=== PATIENT | female | born 1975 | race Caucasian/White ===

== ENCOUNTER → 2016-10-29 | Outpatient (CLI) | payer MEDICARE | END | disposition home or self-care (01) | LOC: PTMAIN 08:50 | PROVIDERS: ATTEND Otolaryngology | DX: J37.0 Chronic laryngitis (principal); E78.00 Pure hypercholesterolemia, unspecified; M79.7 Fibromyalgia; F32.9 Major depressive disorder, single episode, unspecified; F41.9 Anxiety disorder, unspecified; G47.33 Obstructive sleep apnea (adult) (pediatric); G40.909 Epilepsy, unspecified, not intractable, without status epilepticus; G89.29 Other chronic pain; M54.9 Dorsalgia, unspecified ==

== ENCOUNTER 2016-11-29 13:07 | Emergency (ER) | payer MEDICARE ==
[2016-11-29 13:21] VITALS: BP 136/80; PULSE 101; RESP 20; TEMP 98.3
--- NOTE | 2016-11-29 13:51 | ED ---
ENT HPI - General Chief complaint: Dental/Oral Stated complaint: MOUTH HURTS Time Seen by Provider: 11/29/16 13:37 Source: patient, RN notes reviewed Mode of arrival: ambulatory Limitations: no limitations - History of Present Illness Initial comments: 40-year-old female presents emergency Department chief complaint dental pain. Patient states she woke up today with swelling and pain. Patient has fever, chills. Denies any difficulty swallowing. Patient does not have a dentist. Patient has ALLERGIES Topamax. Patient is not taking any medication for her symptoms at this time. - Related Data Home Medications Medication Instructions Recorded Confirmed Armodafinil [Nuvigil] 150 mg PO DAILY 01/26/14 07/23/16 DULoxetine HCL [Cymbalta] 60 mg PO BID 01/26/14 07/23/16 Hydrocodone/Acetaminophen [[place] 1 tab PO Q8HR PRN 01/26/14 07/23/16 7.5-325] clonazePAM [KlonoPIN] 0.5 mg PO BID 01/26/14 07/23/16 rOPINIRole HCL [Requip] 0.5 mg PO HS 07/23/16 07/23/16 tiZANidine [Zanaflex] 4 mg PO Q8HR PRN 07/23/16 07/23/16 Previous Rx's Medication Instructions Recorded Albuterol Inhaler [Ventolin Hfa 1 - 2 puff INHALATION Q4-6H PRN #1 07/23/16 Inhaler] inhaler Albuterol Nebulized [Ventolin 2.5 mg INHALATION Q4H #20 nebu 07/23/16 Nebulized] predniSONE 50 mg PO DAILY #5 tab 07/23/16 Acetaminophen-Codeine 300-30mg 1 tab PO Q4H PRN #20 tablet 11/29/16 [Tylenol #3] Ibuprofen [Motrin] 600 mg PO Q8HR PRN #30 tab 11/29/16 Penicillin V Potassium [Pen Vee K] 500 mg PO QID #40 tab 11/29/16 Allergies Allergy/AdvReac Type Severity Reaction Status Date / Time topiramate [From Topamax] Allergy Unknown Verified 11/29/16 13:21 Review of Systems ROS Statement: Those systems with pertinent positive or pertinent negative responses have been documented in the HPI. ROS Other: All systems not noted in ROS Statement are negative. Past Medical History Past Medical History: Asthma, Dialysis, Fibromyalgia, Seizure Disorder Additional Past Medical History / Comment(s): CHRONIC BACK PAIN; Restless leg syndrome History of Any Multi-Drug Resistant Organisms: None Reported Past Surgical History: Back Surgery, Section, Hysterectomy, Orthopedic Surgery, Tubal Ligation Past Psychological History: Anxiety, Depression, Panic Disorder Smoking Status: Current every day smoker Past Alcohol Use History: None Reported Past Drug Use History: None Reported General Exam Limitations: no limitations General appearance: alert, in no apparent distress Head exam: Present: atraumatic, normocephalic, normal inspection ENT exam: Present: mucous membranes moist, TM's normal bilaterally, normal external ear exam. Absent: normal oropharynx (Edentulous, multiple areas of dental decay, no drainable abscess noted there is mild swelling to the left cheek noted) Neck exam: Present: normal inspection, full ROM. Absent: tenderness, meningismus, lymphadenopathy Respiratory exam: Present: normal lung sounds bilaterally. Absent: respiratory distress, wheezes, rales, rhonchi, stridor Cardiovascular Exam: Present: regular rate, normal rhythm, normal heart sounds. Absent: systolic murmur, diastolic murmur, rubs, gallop, clicks Course Vital Signs 11/29/16 13:18 Temperature 98.3 F Pulse Rate 101 H Respiratory 20 Rate Blood Pressure 136/80 O2 Sat by Pulse 98 Oximetry Medical Decision Making - Medical Decision Making 4-year-old female presented for dental pain. Patient was started on penicillin , Tylenol with codeine, ibuprofen. Patient was given dental clinic follow-up and return parameters. Disposition Clinical Impression: Dental caries, Dental infection Disposition: HOME SELF-CARE Condition: Stable Instructions: Toothache (ED) Additional Instructions: Please return to the Emergency Department if symptoms worsen or any other concerns.Please follow up with the [facility] dental clinic. [facility] [place] [address]. Phone number for new patients or [phone] for existing patients. Prescriptions: Acetaminophen-Codeine 300-30mg [Tylenol #3] 1 tab PO Q4H PRN #20 tablet PRN Reason: pain Ibuprofen [Motrin] 600 mg PO Q8HR PRN #30 tab PRN Reason: Pain Penicillin V Potassium [Pen Vee K] 500 mg PO QID #40 tab Time of Disposition: 13:51
== END 2016-11-29 13:56 | disposition home or self-care (01) ==
LOC: EC 13:07
DX: K04.7 Periapical abscess without sinus (principal); K02.9 Dental caries, unspecified; F17.200 Nicotine dependence, unspecified, uncomplicated; J45.909 Unspecified asthma, uncomplicated; F32.9 Major depressive disorder, single episode, unspecified; F41.9 Anxiety disorder, unspecified; G40.909 Epilepsy, unspecified, not intractable, without status epilepticus; G25.81 Restless legs syndrome; Z88.8 Allergy status to other drugs, medicaments and biological substances; Z79.899 Other long term (current) drug therapy; Z79.52 Long term (current) use of systemic steroids
CPT/HCPCS: 99282

== ENCOUNTER 2016-11-30 20:41 | Emergency (ER) | payer MEDICARE ==
[2016-11-30] MEDS ORDERED: SODIUM CHLORIDE 0.9% 1,000 ML IV ONE (22:58)
[2016-11-30] MEDS ORDERED: MORPHINE SULFATE 4 MG/ML SYRINGE IVP STA (22:59)
[2016-11-30] MEDS ORDERED: SODIUM CHLORIDE 0.9% 1,000 ML IV SCH (23:00)
[2016-11-30] MEDS ORDERED: methylPREDNISolone SOD SUCCI 125 MG/2 ML VIAL IM ONE (23:07)
[2016-11-30] MEDS ORDERED: HYDROmorphone 1 MG/ML 1 ML SYRINGE IM STA (23:07)
[2016-11-30] MEDS ORDERED: CLINDAMYCIN 150 MG CAP PO STA (23:08)
--- NOTE | 2016-11-30 23:36 | ED ---
ENT HPI - General Chief complaint: Dental/Oral Stated complaint: dental pain-revisit Time Seen by Provider: 11/30/16 22:48 Source: patient, RN notes reviewed, old records reviewed Mode of arrival: wheelchair Limitations: no limitations - History of Present Illness Initial comments: Patient is a 40 year old female with increased swelling of upper lip for one day. She was diagnosed with dental infection of teeth number 8 and 9, and placed on PEn V K yesterday. She reports to taking one day o fantiobtiobics. She reports that sunni pain is secere and worse with movenent of the lip. She states it started infront tooot upper teeth and then has progress and spread on face. She denies any erythema on the face. She reports mild fever. She has not had motrin or tylenol. - Related Data Home Medications Medication Instructions Recorded Confirmed Armodafinil [Nuvigil] 150 mg PO DAILY 01/26/14 11/30/16 DULoxetine HCL [Cymbalta] 60 mg PO BID 01/26/14 11/30/16 Hydrocodone/Acetaminophen [[place] 1 tab PO Q8HR PRN 01/26/14 11/30/16 7.5-325] clonazePAM [KlonoPIN] 0.5 mg PO BID 01/26/14 11/30/16 rOPINIRole HCL [Requip] 0.5 mg PO HS 07/23/16 11/30/16 tiZANidine [Zanaflex] 4 mg PO Q8HR PRN 07/23/16 11/30/16 Previous Rx's Medication Instructions Recorded Albuterol Inhaler [Ventolin Hfa 1 - 2 puff INHALATION Q4-6H PRN #1 07/23/16 Inhaler] inhaler Albuterol Nebulized [Ventolin 2.5 mg INHALATION Q4H #20 nebu 07/23/16 Nebulized] predniSONE 50 mg PO DAILY #5 tab 07/23/16 Acetaminophen-Codeine 300-30mg 1 tab PO Q4H PRN #20 tablet 11/29/16 [Tylenol #3] Ibuprofen [Motrin] 600 mg PO Q8HR PRN #30 tab 11/29/16 Penicillin V Potassium [Pen Vee K] 500 mg PO QID #40 tab 11/29/16 Clindamycin [Cleocin] 450 mg PO TID 10 Days 11/30/16 Allergies Allergy/AdvReac Type Severity Reaction Status Date / Time topiramate [From Topamax] Allergy Unknown Verified 11/30/16 21:20 Review of Systems ROS Statement: Those systems with pertinent positive or pertinent negative responses have been documented in the HPI. ROS Other: All systems not noted in ROS Statement are negative. Past Medical History Past Medical History: Asthma, Dialysis, Fibromyalgia, Seizure Disorder Additional Past Medical History / Comment(s): CHRONIC BACK PAIN; Restless leg syndrome History of Any Multi-Drug Resistant Organisms: None Reported Past Surgical History: Back Surgery, Section, Hysterectomy, Orthopedic Surgery, Tubal Ligation Past Psychological History: Anxiety, Depression, Panic Disorder Smoking Status: Current every day smoker Past Alcohol Use History: None Reported Past Drug Use History: None Reported General Exam Limitations: no limitations General appearance: alert, in no apparent distress Head exam: Present: atraumatic, normocephalic, normal inspection Eye exam: Present: normal appearance, PERRL, EOMI. Absent: scleral icterus, conjunctival injection, periorbital swelling ENT exam: Present: normal exam, mucous membranes moist. Absent: normal oropharynx (decayed and broken tooth 8, 9. Significant swelling and pain of upper lip. ) Neck exam: Present: normal inspection. Absent: tenderness, meningismus, lymphadenopathy Respiratory exam: Present: normal lung sounds bilaterally. Absent: respiratory distress, wheezes, rales, rhonchi, stridor Cardiovascular Exam: Present: regular rate, normal rhythm, normal heart sounds. Absent: systolic murmur, diastolic murmur, rubs, gallop, clicks GI/Abdominal exam: Present: soft, normal bowel sounds. Absent: distended, tenderness, guarding, rebound, rigid Extremities exam: Present: normal inspection, full ROM, normal capillary refill. Absent: tenderness, pedal edema, joint swelling, calf tenderness Back exam: Present: normal inspection Neurological exam: Present: alert, oriented X3, CN II-XII intact Psychiatric exam: Present: normal affect, normal mood Skin exam: Present: warm, dry, intact, normal color. Absent: rash Course Vital Signs 11/30/16 12/01/16 21:20 00:07 Temperature 99.7 F H 99.6 F Pulse Rate 101 H 77 Respiratory 20 18 Rate Blood Pressure 144/93 133/66 O2 Sat by Pulse 97 96 Oximetry Medical Decision Making - Medical Decision Making I discussed the case with Dr. Abel. Patient will be staretd on clindamycin, and advised to do ice ocer the area of swelling. Dr. Abel examined the patient and patient has not had sufficient time of the oral antibiotics to consider this failed outpatient treatment. Patient given IM dilaudid and solumedrol. Patient given inital dose of clinda in ER. Patient strongly encouraged to follow up with dentitst and given instructions. Return parameters discussed. Disposition Clinical Impression: Dental abscess Disposition: HOME SELF-CARE Condition: Good Instructions: Dental Abscess (ED) Additional Instructions: Patient advised to apply an ice pack over the face. Patient advised to complete entire antibiotic prescription. Return to the emergency department if any alarming signs or symptoms occur. Patient advised to follow-up with dental clinic. Patient also advised to get topical Orajel and place it over the lip and teeth. Patient has to follow-up with dental clinic for x-rays. [facility] [place] [address] [place] [address] [phone] (existing clients only) For new clients: [phone] 1st consult: $50 (includes Xrays) Usually 30% less then private dentist for visits after. [employer] Have to pay $50 for Xrays anmd rest is covered. [phone] Prescriptions: Clindamycin [Cleocin] 450 mg PO TID 10 Days Referrals: Domingo Valdovinos MD [Primary Care Provider] - 1-2 days Time of Disposition: 23:36
[2016-12-01 00:08] VITALS: BP 133/66; PULSE 77; RESP 18; TEMP 99.6
== END 2016-12-01 00:08 | disposition home or self-care (01) ==
LOC: EC 20:41
DX: K04.7 Periapical abscess without sinus (principal); M79.7 Fibromyalgia; G25.81 Restless legs syndrome; F41.9 Anxiety disorder, unspecified; G40.909 Epilepsy, unspecified, not intractable, without status epilepticus; F41.0 Panic disorder [episodic paroxysmal anxiety]; F32.9 Major depressive disorder, single episode, unspecified; F17.200 Nicotine dependence, unspecified, uncomplicated; Z79.899 Other long term (current) drug therapy; Z88.8 Allergy status to other drugs, medicaments and biological substances
CPT/HCPCS: 99283; 96372 ×2; J2930; J1170

== ENCOUNTER → 2017-01-03 | Outpatient (CLI) | payer MEDICARE, OTHER ==
--- NOTE | 2017-01-03 11:27 | MR ---
MR brain and cervical spine HISTORY: Neck pain, back pain, memory loss Multiplanar multisequence imaging obtained through the brain and cervical spine No comparisons Brain MRI: The corpus callosum, pituitary, cervical medullary junction and cerebellopontine angles ar e normal. Scattered hyperintensities within the deep white matter are present on inversion recovery a nd T2-weighted sequences. There are approximately 5 lesions present. There is no restricted diffusion . No hemorrhage or hydrocephalus. The orbits show symmetric appearance. Suspect some arthropathy of t he temporomandibular joint on the right, some fluid signal is present. There are normal vascular flow voids. IMPRESSION: Scattered nonspecific foci of demyelination within the deep white matter, consider migrai ne headaches, hypertension, vasculitis, multiple sclerosis felt to be less likely. Cervical spine MRI Cervical vertebral bodies show preserved height, alignment, and bone marrow signal. Disc spaces are m aintained. Cervical cord signal is normal. There is no evident central canal stenosis, foraminal encr oachment, or sizable disc herniation. Right posterior paracentral extension of endplate disc complex at C6-7 causes minimal anterolateral mass effect on the thecal sac. IMPRESSION: Mild degenerative disc change
--- NOTE | 2017-01-03 12:23 | MR ---
EXAMINATION TYPE: MR lumbar spine wo/w con DATE OF EXAM: 01/03/2017 10:53 AM COMPARISON: NONE HISTORY: Lumbago TECHNIQUE: Multiplanar, multisequence images of the lumbar spine were acquired utilizing 20 mL intravenous Multi Jett gadolinium contrast. L1-L2: Normal disc appearance without desiccation. No herniation, protrusion or disc bulging. No ca nal stenosis is present. Foramina are patent bilaterally. L2-L3: Normal disc appearance without desiccation. No herniation, protrusion or disc bulging. No ca nal stenosis is present. Foramina are patent bilaterally. L3-L4: Central posterior disc herniation is small and causes minimal anterior mass effect on the thec al sac. Some arthropathy with hypertrophy of the ligamentum flavum causes some posterior lateral mass effect on the thecal sac. L4-L5: Loss of disc height and signal, there is endplate discogenic marrow signal change present. Cir cumferential posterior broad-based disc bulge causes anterior mass effect on the thecal sac, only mil d mass effect. There is facet arthropathy with hypertrophy of ligamentum flavum encroaches somewhat o n the lateral recesses. No significant foraminal encroachment. L5-S1: Postop changes are noted. No significant central canal stenosis. There may be bilateral forami nal encroachment due to circumferential extension of endplate disc complex. Disc shows a heterogeneou s appearance likely due to postoperative change, there is likely spacing changes present. Laminectomy change. Lumbar segments are intact. No paraspinal masses are identified. Conus medullaris has a normal appe arance. Patient is status post posterior fusion at L5-S1, susceptibility artifact is present due to t ranspedicular screws. Hemangioma is present within the L4 vertebral body, increased signal on T1 and T2-weighted sequences. At the laminectomy site posteriorly there is enhancing granulation tissue whic h extends into the level about the posterior thecal sac and possibly in contact with the S1 nerve rena ts posteriorly No other abnormal enhancement following contrast administration. IMPRESSION: Degenerative disc disease, foraminal encroachment, postop changes.
== END | disposition home or self-care (01) ==
LOC: RADMRIMAIN 09:15
PROVIDERS: ATTEND Nurse Practitioner Acute Care
DX: S09.90XA Unspecified injury of head, initial encounter (principal); M54.2 Cervicalgia; M51.36 Other intervertebral disc degeneration, lumbar region
CPT/HCPCS: 70551; 72141; 72158; A9577

== ENCOUNTER → 2017-04-13 | Outpatient (CLI) | payer MEDICARE, OTHER | END | disposition home or self-care (01) | LOC: LABWHC1 14:38 | PROVIDERS: ATTEND Physician Assistant | DX: E55.9 Vitamin D deficiency, unspecified (principal) | CPT/HCPCS: 36415; 82306 ==

== ENCOUNTER → 2017-06-22 | Outpatient (CLI) | payer MEDICARE, OTHER ==
--- NOTE | 2017-06-22 16:00 | NM ---
EXAMINATION TYPE: NM hepatobiliary wo EF DATE OF EXAM: 06/22/2017 COMPARISON: NONE HISTORY: R10.13 Epigastric pain TECHNIQUE: After the intravenous administration of 6 mCi Tc 99m Mebrofenin hepatobiliary scintigraphy is performed. Immediate images post injection. FINDINGS: There is homogeneous distribution of radiotracer throughout the liver. The common bile duct and small bowel are visualized at 6 minutes. The gallbladder was not demonstrated up to 90 minutes. Discontinu ed at 90 minutes because of the lack of radiotracer within the liver. IMPRESSION: 1. Nonvisualization of the gallbladder at 90 minutes. Given the lack of radiotracer within the liver at 90 minutes the examination was discontinued. The findings could be related fluid ingestion prior t o the examination with gallbladder contraction. Cystic duct obstruction is difficult to exclude howev er and clinical correlation advised.
== END | disposition home or self-care (01) ==
LOC: RADNMMAIN 12:54
PROVIDERS: ATTEND Surgery
DX: R10.13 Epigastric pain (principal)
CPT/HCPCS: 78226; A9537

== ENCOUNTER → 2017-06-23 | Outpatient (CLI) | payer MEDICARE, OTHER ==
--- NOTE | 2017-06-23 09:03 | CT ---
EXAMINATION TYPE: CT pelvis w con DATE OF EXAM: 06/23/2017 COMPARISON: CT abdomen and pelvis February 04, 2010. HISTORY: Rt inguinal hernia per order. Right lower quadrant pain and swelling per patient. CT DLP: 1302.8 mGycm Automated exposure control for dose reduction was used. CONTRAST: Performed with oral and with IV Contrast, patient injected with 100 mL of Omnipaque 300. Scanning of the pelvis is performed. FINDINGS: Visualized portion of kidneys and bladder are within normal limits. Uterus is surgically absent. Occa sional pelvic phlebolith is seen. No suspicious adnexal masses are identified. Ovaries may be surgica lly absent as are not well visualized. There is no suspicious bowel or fat-containing inguinal hernias with particular attention to right. T here is no suspicious groin adenopathy identified bilaterally. Muscle bulk in proximal right thighs is symmetric and felt within normal limits. There is postsurgical change with posterior interpedicular rods and screws and artificial disc materi al at lumbosacral junction. Hip joints are maintained. Sacroiliac joints are felt within normal limit s. There is normal contrast filled appendix seen. Visualized bowel shows no suspicious dilatation. There is no concerning pelvic fluid collection. No suspicious pelvic adenopathy is seen. IMPRESSION: NO SIGNIFICANT FINDING IS SEEN TO ACCOUNT FOR PATIENT'S SYMPTOMS. NO RIGHT-SIDED HERNIA IDENTIFIED.
== END | disposition home or self-care (01) ==
LOC: RADCTMAIN 07:21
PROVIDERS: ATTEND Surgery
DX: K40.90 Unilateral inguinal hernia, without obstruction or gangrene, not specified as recurrent (principal)
CPT/HCPCS: 72193; Q9967

== ENCOUNTER 2017-06-25 09:26 | Day surgery (SDC) | payer MEDICARE, OTHER ==
[2017-06-23 10:31] VITALS: BMI 36.5
[~2017-06-25 09:26] MED LIST: LACTATED RINGERS 1,000 ML IV SCH
[2017-06-25 09:47] VITALS: TEMP 98.2
[2017-06-25] MEDS ORDERED: LIDOCAINE 1% 20 ML VIAL (10MG/ML) FOR IV START INTRADERMA ONE (10:07)
--- NOTE | 2017-06-25 10:07 | P.GSHP ---
History of Present Illness H&P Date: 06/25/17 Chief Complaint: Epigastric and right upper quadrant pain This a 41-year-old female who's had complaints of epigastric right quadrant pain. She presents today for EGD Past Medical History Past Medical History: Asthma, Blood Disorder, Dialysis, Fibromyalgia, Seizure Disorder, Sleep Apnea/CPAP/BIPAP Additional Past Medical History / Comment(s): Restless leg syndrome, hx migraines, varicose veins, severe stomach pain recently, factor V clotting disorder, History of Any Multi-Drug Resistant Organisms: None Reported Past Surgical History: Back Surgery, Section, Hysterectomy, Orthopedic Surgery, Tubal Ligation Additional Past Surgical History / Comment(s): arthroscopy knee x 10-15, Past Anesthesia/Blood Transfusion Reactions: Postoperative Nausea & Vomiting ( PONV) Smoking Status: Current every day smoker - Past Family History Mother Family Medical History: No Reported History Medications and Allergies Home Medications Medication Instructions Recorded Confirmed Type DULoxetine HCL [Cymbalta] 60 mg PO BID 01/26/14 06/25/17 History Hydrocodone/Acetaminophen [[place] 1 tab PO Q8HR PRN 01/26/14 06/25/17 History 7.5-325] Albuterol Inhaler [Ventolin Hfa 1 - 2 puff INHALATION Q4-6H PRN #1 07/23/1602/04 Rx Inhaler] inhaler Albuterol Nebulized [Ventolin 2.5 mg INHALATION Q4H #20 nebu 07/23/16 06/25/17 Rx Nebulized] rOPINIRole HCL [Requip] 0.5 mg PO HS 07/23/16 06/25/17 History Aspirin [Adult Low Dose Aspirin EC] 81 mg PO DAILY 06/23/17 06/23/17 History Butalb/Acetaminophen/Caffeine 1 cap PO Q8HR PRN 06/23/17 06/25/17 History [Esgic 50-325-40 Capsule] Gabapentin [Neurontin] 300 mg PO TID 06/23/17 06/25/17 History LORazepam [Ativan] 0.5 mg PO BID 06/23/17 06/25/17 History Lacosamide [Vimpat] 100 mg PO BID 06/23/17 06/25/17 History Meloxicam [Mobic] 15 mg PO HS 06/23/17 06/23/17 History Pravastatin Sodium [Pravachol] 10 mg PO DAILY 06/23/17 06/25/17 History Umeclidinium [place] [Incruse 1 puff INHALATION HS 06/23/17 06/25/17 History Ellipta] busPIRone HCl [Buspar] 10 mg PO BID 06/23/17 06/25/17 History Allergies Allergy/AdvReac Type Severity Reaction Status Date / Time topiramate [From Topamax] Allergy Anaphylaxis Verified 06/23/17 10:16 Surgical - Exam Vital Signs Temp Pulse Resp BP Pulse Ox 98.2 F 91 16 125/84 96 06/25/17 09:44 06/25/17 09:44 06/25/17 09:44 06/25/17 09:44 06/25/17 09:44 - General well developed, no distress - Eyes PERRL - ENT normal pinna - Neck no masses - Respiratory normal expansion - Cardiovascular Rhythm: regular - Abdomen Abdomen: soft, non tender Assessment and Plan Plan: Epigastric and right upper quadrant pain. We'll perform EGD.
[2017-06-25] MEDS ORDERED: LIDOCAINE 1% INJ 10MG/ML (20 ML MDV) ONE (10:09)
[2017-06-25] MEDS ORDERED: PROPOFOL 10 MG/ML 20 ML VIAL IV ONE (10:09)
[2017-06-25 10:40] VITALS: RESP 18
--- NOTE | 2017-06-25 10:51 | P.OP ---
Date of Procedure: 06/25/17 Preoperative Diagnosis: GERD Postoperative Diagnosis: Mild antral gastritis No evidence of hiatal hernia Mild esophagitis Procedure(s) Performed: EGD Anesthesia: MAC Surgeon: Cachorro [place] Pathology: other (antrum) Description of Procedure: Patient's placed on the endoscopy table in the lateral position. She received IV sedation. The gastroscope placed oropharynx and passed into the esophagus and into the stomach. The scope was then placed into the duodenum by passing through the pylorus. The first second portion duodenum appeared normal. Scope was then brought back and the antrum and this appeared mildly inflamed. A biopsies performed. Scope was then retroflexed and there was no significant hiatal hernia. The GE junction was at 40 cm. There is no significant hiatal hernia. The distal esophagus appeared mildly inflamed a biopsies performed. The proximal esophagus appeared Normal. The gastroscope was withdrawn from patient.
[2017-06-25 10:56] VITALS: BP 126/85; PULSE 77
== END 2017-06-25 11:10 | disposition home or self-care (01) ==
LOC: ORWHC2ENDO 09:26
PROVIDERS: ATTEND Surgery
DX: K21.0 Gastro-esophageal reflux disease with esophagitis (principal); K29.50 Unspecified chronic gastritis without bleeding; M79.7 Fibromyalgia; Z99.2 Dependence on renal dialysis; J45.909 Unspecified asthma, uncomplicated; G40.909 Epilepsy, unspecified, not intractable, without status epilepticus; D68.51 Activated protein C resistance; G47.33 Obstructive sleep apnea (adult) (pediatric); G25.81 Restless legs syndrome; F17.200 Nicotine dependence, unspecified, uncomplicated; Z79.899 Other long term (current) drug therapy; Z79.82 Long term (current) use of aspirin; Z88.8 Allergy status to other drugs, medicaments and biological substances; Z90.710 Acquired absence of both cervix and uterus; Z99.89 Dependence on other enabling machines and devices
CPT/HCPCS: 88305; 88342; 43239; J2001; J2704

== ENCOUNTER 2017-08-05 17:18 | Emergency (ER) | payer MEDICARE, OTHER ==
[2017-08-05 18:00] VITALS: BP 144/78; PULSE 90; RESP 18; TEMP 97.9
--- NOTE | 2017-08-05 18:25 | XR ---
EXAMINATION TYPE: XR knee complete RT DATE OF EXAM: 08/05/2017 CLINICAL HISTORY: Right knee pain for one month. TECHNIQUE: Three views of the right knee are obtained. COMPARISON: Right knee x-ray December 26, 2016. FINDINGS: There is no acute fracture/dislocation evident in right knee. There is moderate to severe joint space loss with moderate spurring patellofemoral compartment. There is moderate spurring with m ild to moderate joint space loss medial and lateral tibiofemoral compartments.. The overlying soft t issue appears unremarkable. IMPRESSION: There is no acute fracture or dislocation in the right knee. Moderate to advanced degene rative changes redemonstrated not significantly changed from prior but quite pronounced for patient's age.
--- NOTE | 2017-08-05 18:47 | ED ---
General Adult HPI - General Chief complaint: Extremity Injury, Lower Stated complaint: RT KNEE PAIN Time Seen by Provider: 08/05/17 17:53 Source: patient, RN notes reviewed Mode of arrival: ambulatory - History of Present Illness Initial comments: This is a 41-year-old female who presents to the emergency department with chief complaint of right knee pain. Patient states that she has had increased right knee pain for the past one month. She states she see has had 6-[address] Sales in the past. Patient states the pain is localized to the lateral aspect of her right knee. She states that the pain is intermittent and sharp and shooting down to her foot. She denies any specific injury or trauma. Denies fever, chills, chest pain, shortness of breath, abdominal pain, nausea or vomiting, constipation or diarrhea, dysuria or hematuria, numbness or tingling, headache or vision changes. - Related Data Home Medications Medication Instructions Recorded Confirmed DULoxetine HCL [Cymbalta] 60 mg PO BID 01/26/14 07/02/17 Hydrocodone/Acetaminophen [[place] 1 tab PO Q8HR PRN 01/26/14 07/02/17 7.5-325] rOPINIRole HCL [Requip] 0.5 mg PO HS 07/23/16 07/02/17 Aspirin [Adult Low Dose Aspirin EC] 81 mg PO DAILY 06/23/17 07/02/17 Butalb/Acetaminophen/Caffeine 1 cap PO Q8HR PRN 06/23/17 07/02/17 [Esgic 50-325-40 Capsule] Gabapentin [Neurontin] 300 mg PO TID 06/23/17 07/02/17 LORazepam [Ativan] 0.5 mg PO BID 06/23/17 07/02/17 Lacosamide [Vimpat] 100 mg PO BID 06/23/17 07/02/17 Meloxicam [Mobic] 15 mg PO HS 06/23/17 07/02/17 Pravastatin Sodium [Pravachol] 10 mg PO DAILY 06/23/17 07/02/17 Umeclidinium [place] [Incruse 1 puff INHALATION HS 06/23/17 07/02/17 Ellipta] busPIRone HCl [Buspar] 10 mg PO BID 06/23/17 07/02/17 Previous Rx's Medication Instructions Recorded Albuterol Inhaler [Ventolin Hfa 1 - 2 puff INHALATION Q4-6H PRN #1 07/23/16 Inhaler] inhaler Albuterol Nebulized [Ventolin 2.5 mg INHALATION Q4H #20 nebu 07/23/16 Nebulized] Docusate [Colace] 100 mg PO BID #20 capsule 07/02/17 HYDROcodone/APAP 7.5-325MG [[place] 1 each PO Q4H PRN #30 tab 07/02/17 7.5] Allergies Allergy/AdvReac Type Severity Reaction Status Date / Time topiramate [From Topamax] Allergy Anaphylaxis Verified 08/05/17 17:57 Review of Systems ROS Statement: Those systems with pertinent positive or pertinent negative responses have been documented in the HPI. ROS Other: All systems not noted in ROS Statement are negative. Past Medical History Past Medical History: Asthma, Fibromyalgia, Seizure Disorder Additional Past Medical History / Comment(s): CHRONIC BACK PAIN; Restless leg syndrome History of Any Multi-Drug Resistant Organisms: None Reported Past Surgical History: Back Surgery, Section, Hysterectomy, Orthopedic Surgery, Tubal Ligation Past Anesthesia/Blood Transfusion Reactions: No Reported Reaction Past Psychological History: Anxiety, Depression, Panic Disorder Smoking Status: Current every day smoker Past Alcohol Use History: None Reported Past Drug Use History: None Reported - Past Family History Mother Family Medical History: No Reported History General Exam - General Exam Comments Initial Comments: General: Awake and alert, well-developed; in no apparent distress. HEENT: Head atraumatic, normocephalic. Pupils are equal, round and reactive to light. Extraocular movements intact. Neck: Supple. Normal ROM. Cardiovascular: Regular rate and rhythm. No murmurs, rubs or gallops. Chest symmetrical. Respiratory: Lungs clear to auscultation bilaterally. No wheezes, rales or rhonchi. Normal respiratory effort with no use of accessory muscles. Musculoskeletal: There is tenderness on palpation of the lateral aspect of right knee. Multiple laparoscopic surgical scars noted. No erythema, effusion or swelling noted. Patient has normal active range of motion. Sensation is intact. Pulses are 2+ equal and palpable bilaterally. Skin: [place], warm and dry without rashes or lesions. Neurological: Alert and oriented x3. CN II-XII grossly intact. Speech is fluent and answers are appropriate. No focal neuro deficits. Psychiatric: Normal mood and affect. No overt signs of depression or anxiety noted. Course Vital Signs 08/05/17 17:57 Temperature 97.9 F Pulse Rate 90 Respiratory 18 Rate Blood Pressure 144/78 O2 Sat by Pulse 98 Oximetry Medical Decision Making - Medical Decision Making This is a 41-year-old female who presents to the emergency department with chief complaint of right knee pain. This case was discussed with attending physician, Dr. Arceo who also reviewed the x-ray. X-ray revealed no acute abnormalities, illustrating only degenerative changes that are unchanged from prior x-ray. Patient is in no acute distress at this time. She'll be discharged home with recommendation to follow-up with Dr. Sales, her orthopedic surgeon. Patient is in agreement to the plan and voices understanding. All questions were answered. - Radiology Data Radiology results: report reviewed Right knee x-ray findings: There is no acute fracture/dislocation of the right knee. There is moderate to severe joint space loss with moderate spurring patellofemoral compartment. There is moderate spurring with mild to moderate joint space loss medial and lateral tibiofemoral compartments. Overlying soft tissue appears unremarkable. Impression: There is no acute fracture or dislocation the right knee. Moderate to advanced degenerative changes redemonstrated not significanlyt changeed from prior but quite pronounced for patient's age. Disposition Clinical Impression: Chronic pain of right knee Disposition: HOME SELF-CARE Condition: Good Instructions: Knee Pain (ED), Arthralgia (ED) Additional Instructions: Please follow up with Dr. Sales, orthopedic surgeon within 1-2 days. Please follow up with primary care provider within 1-2 days. Return to emergency department if symptoms should worsen or any concerns arise. Referrals: Domingo Valdovinos MD [Primary Care Provider] - 1-2 days Daniel Sales MD [REFERRING] - 1-2 days Time of Disposition: 18:46
== END 2017-08-05 19:09 | disposition home or self-care (01) ==
LOC: EC 17:18
DX: M25.561 Pain in right knee (principal); G89.29 Other chronic pain; G40.909 Epilepsy, unspecified, not intractable, without status epilepticus; G25.81 Restless legs syndrome; F41.9 Anxiety disorder, unspecified; F32.9 Major depressive disorder, single episode, unspecified; M79.7 Fibromyalgia; J45.909 Unspecified asthma, uncomplicated; F17.200 Nicotine dependence, unspecified, uncomplicated; Z88.8 Allergy status to other drugs, medicaments and biological substances; Z79.1 Long term (current) use of non-steroidal anti-inflammatories (NSAID); Z79.51 Long term (current) use of inhaled steroids; Z79.82 Long term (current) use of aspirin; Z79.899 Other long term (current) drug therapy
CPT/HCPCS: 99283

== ENCOUNTER 2017-10-07 20:03 | Emergency (ER) | payer MEDICARE, OTHER ==
--- NOTE | 2017-10-07 21:04 | ED ---
Seizure HPI - General Chief Complaint: Seizure Stated Complaint: Seizure Time Seen by Provider: 10/07/17 20:22 Source: family Mode of arrival: wheelchair Limitations: no limitations - History of Present Illness Initial Comments: This is a 41-year-old female with a history of seizure disorder who presents emergency department for seizure. She originally came because of a seizure at home that had resolved. The patient then started having a seizure in triage. The seizure was described as initially focal and then generalized. It lasted for 2 minutes and then resolved on its own. Upon my initial evaluation the patient was somnolent however did not appear to be seizing. When the patient did wake up faster if she hurts and she said no. I asked her what medications which she was on she said that she did not remember. She states that she did take her medications this morning however. According to family she is on [place] 10/325, meloxicam 15 mg, gabapentin 300 mg, BuSpar 10 mg, Requip 0.5 mg, duloxetine 60 mg, and Vimpat 200 mg for her seizures. Further history is difficult to be obtained because the patient is somewhat somnolent at this time. - Related Data Home Medications Medication Instructions Recorded Confirmed DULoxetine HCL [Cymbalta] 60 mg PO BID 01/26/14 10/07/17 rOPINIRole HCL [Requip] 0.5 mg PO HS 07/23/16 10/07/17 Gabapentin [Neurontin] 300 mg PO TID 06/23/17 10/07/17 Meloxicam [Mobic] 15 mg PO HS 06/23/17 10/07/17 busPIRone HCl [Buspar] 10 mg PO BID 06/23/17 10/07/17 HYDROcodone/APAP 10-325MG [[place] 1 tab PO TID PRN 10/07/17 10/07/17 10-325] Lacosamide [Vimpat] 200 mg PO BID 10/07/17 10/07/17 Allergies Allergy/AdvReac Type Severity Reaction Status Date / Time topiramate [From Topamax] Allergy Anaphylaxis Verified 10/07/17 20:40 Review of Systems ROS Statement: Those systems with pertinent positive or pertinent negative responses have been documented in the HPI. ROS Other: All systems not noted in ROS Statement are negative. Past Medical History Past Medical History: Asthma, Fibromyalgia, Seizure Disorder Additional Past Medical History / Comment(s): CHRONIC BACK PAIN; Restless leg syndrome History of Any Multi-Drug Resistant Organisms: None Reported Past Surgical History: Back Surgery, Section, Hysterectomy, Orthopedic Surgery, Tubal Ligation Past Anesthesia/Blood Transfusion Reactions: No Reported Reaction Past Psychological History: Anxiety, Depression, Panic Disorder Smoking Status: Current every day smoker Past Alcohol Use History: None Reported Past Drug Use History: None Reported - Past Family History Mother Family Medical History: No Reported History General Exam - General Exam Comments Initial Comments: Constitutional: The patient is somnolent but will arouse when spoken to Appears comfortable Head: Normocephalic atraumatic Eyes: no conjunctival injection No scleral icterus EOMI eyes are not deviated, pupils are 4 mm and reactive Neck: No JVD Supple Heart: Regular rate rhythm normal S1-S2 no murmurs Lungs: Clear to auscultation bilaterally No wheezing No rales Abdomen: Soft nondistended nontender Extremities: Non edematous DP pulses intact Radial pulses intact Neuro: Somnolent but will arouse to voice, patient withdraws to pain in the lower extremity No focal neurologic deficits Psych: Appropriate mood and affect Limitations: no limitations Course Vital Signs 10/07/17 10/07/17 10/07/17 20:18 21:03 21:26 Temperature 98.2 F Pulse Rate 89 72 79 Respiratory 16 18 18 Rate Blood Pressure 138/72 113/69 118/69 O2 Sat by Pulse 100 100 98 Oximetry 10/07/17 22:23 Temperature Pulse Rate 73 Respiratory 18 Rate Blood Pressure 109/54 O2 Sat by Pulse 98 Oximetry - Reevaluation(s) Reevaluation #1: 10/07/17 21:03 EKG showing normal sinus rhythm with a rate of 88. No abnormal ST segment changes or T-wave inversions. QTC is 421. Other intervals are normal. No ectopy. There is a lot of artifact in lead V6 so interpretation there is difficult. Medical Decision Making - Medical Decision Making Is a 41-year-old female to history of seizures who presents emergency department for seizure. Patient has a known history of seizures. I did not actually witness the seizure however patient's postictal state was atypical. Family at bedside states that nobody can figure out what's causing her seizures and that they may be related to stress. Patient did state that she can sometimes hold off her seizures and that she doesn't have one at times. I spoke to Dr. Beck about this and he recommended increasing her gabapentin to 600 mg 3 times a day. I told the patient to do this. She has worsening or changing symptoms she can return. Otherwise she is okay for discharge. No evidence for infection or early colitis abnormalities. All questions were answered. - Lab Data Result diagrams: 10/07/17 21:10 10/07/17 21:10 Lab Results 10/07/17 10/07/17 10/07/17 Range/Units 20:23 20:23 21:10 WBC 8.0 (3.8-10.6) k/uL RBC 4.40 (3.80-5.40) m/uL Hgb 13.9 (11.4-16.0) gm/dL Hct 41.5 (34.0-46.0) % MCV 94.2 (80.0-100.0) fL MCH 31.6 (25.0-35.0) pg MCHC 33.5 (31.0-37.0) g/dL RDW 14.5 (11.5-15.5) % Plt Count 186 (150-450) k/uL Neutrophils % 44 % Lymphocytes % 44 % Monocytes % 4 % Eosinophils % 5 % Basophils % 1 % Neutrophils # 3.5 (1.3-7.7) k/uL Lymphocytes # 3.5 (1.0-4.8) k/uL Monocytes # 0.3 (0-1.0) k/uL Eosinophils # 0.4 (0-0.7) k/uL Basophils # 0.1 (0-0.2) k/uL Sodium (137-145) mmol/L Potassium (3.5-5.1) mmol/L Chloride (98-107) mmol/L Carbon Dioxide (22-30) mmol/L Anion Gap mmol/L BUN (7-17) mg/dL Creatinine (0.52-1.04) mg/dL Est GFR (MDRD) Af Amer (>60 ml/min/1.73 sqM) Est GFR (MDRD) Non-Af (>60 ml/min/1.73 sqM) Glucose (74-99) mg/dL Calcium (8.4-10.2) mg/dL Total Bilirubin (0.2-1.3) mg/dL AST (14-36) U/L ALT (9-52) U/L Alkaline Phosphatase (38-126) U/L Total Protein (6.3-8.2) g/dL Albumin (3.5-5.0) g/dL Urine Color Yellow Urine Appearance Cloudy H (Clear) Urine pH 6.5 (5.0-8.0) Ur Specific [place] 1.017 (1.001-1.035) Urine Protein Negative (Negative) Urine Glucose (UA) Negative (Negative) Urine Ketones Negative (Negative) Urine Blood Negative (Negative) Urine Nitrite Negative (Negative) Urine Bilirubin Negative (Negative) Urine Urobilinogen <2.0 (<2.0) mg/dL Ur Leukocyte Esterase Negative (Negative) Urine RBC 1 (0-5) /hpf Urine WBC 1 (0-5) /hpf Ur Squamous Epith Cells <1 (0-4) /hpf Amorphous Sediment Rare H (None) /hpf Urine Mucus Rare H (None) /hpf Urine HCG, Qual Not Detected (Not Detectd) Urine Opiates Screen Not Detected (NotDetected) Ur Oxycodone Screen Not Detected (NotDetected) Urine Methadone Screen Not Detected (NotDetected) Ur Propoxyphene Screen Not Detected (NotDetected) Ur Barbiturates Screen Not Detected (NotDetected) U Tricyclic Antidepress Not Detected (NotDetected) Ur Phencyclidine Scrn Not Detected (NotDetected) Ur Amphetamines Screen Not Detected (NotDetected) U Methamphetamines Scrn Not Detected (NotDetected) U Benzodiazepines Scrn Not Detected (NotDetected) Urine Cocaine Screen Not Detected (NotDetected) U Marijuana (THC) Screen Detected H (NotDetected) 10/07/17 Range/Units 21:10 WBC (3.8-10.6) k/uL RBC (3.80-5.40) m/uL Hgb (11.4-16.0) gm/dL Hct (34.0-46.0) % MCV (80.0-100.0) fL MCH (25.0-35.0) pg MCHC (31.0-37.0) g/dL RDW (11.5-15.5) % Plt Count (150-450) k/uL Neutrophils % % Lymphocytes % % Monocytes % % Eosinophils % % Basophils % % Neutrophils # (1.3-7.7) k/uL Lymphocytes # (1.0-4.8) k/uL Monocytes # (0-1.0) k/uL Eosinophils # (0-0.7) k/uL Basophils # (0-0.2) k/uL Sodium 143 (137-145) mmol/L Potassium 4.1 (3.5-5.1) mmol/L Chloride 105 (98-107) mmol/L Carbon Dioxide 30 (22-30) mmol/L Anion Gap 8 mmol/L BUN 17 (7-17) mg/dL Creatinine 0.90 (0.52-1.04) mg/dL Est GFR (MDRD) Af Amer >60 (>60 ml/min/1.73 sqM) Est GFR (MDRD) Non-Af >60 (>60 ml/min/1.73 sqM) Glucose 104 H (74-99) mg/dL Calcium 9.9 (8.4-10.2) mg/dL Total Bilirubin 0.2 (0.2-1.3) mg/dL AST 24 (14-36) U/L ALT 50 (9-52) U/L Alkaline Phosphatase 62 (38-126) U/L Total Protein 6.8 (6.3-8.2) g/dL Albumin 3.8 (3.5-5.0) g/dL Urine Color Urine Appearance (Clear) Urine pH (5.0-8.0) Ur Specific [place] (1.001-1.035) Urine Protein (Negative) Urine Glucose (UA) (Negative) Urine Ketones (Negative) Urine Blood (Negative) Urine Nitrite (Negative) Urine Bilirubin (Negative) Urine Urobilinogen (<2.0) mg/dL Ur Leukocyte Esterase (Negative) Urine RBC (0-5) /hpf Urine WBC (0-5) /hpf Ur Squamous Epith Cells (0-4) /hpf Amorphous Sediment (None) /hpf Urine Mucus (None) /hpf Urine HCG, Qual (Not Detectd) Urine Opiates Screen (NotDetected) Ur Oxycodone Screen (NotDetected) Urine Methadone Screen (NotDetected) Ur Propoxyphene Screen (NotDetected) Ur Barbiturates Screen (NotDetected) U Tricyclic Antidepress (NotDetected) Ur Phencyclidine Scrn (NotDetected) Ur Amphetamines Screen (NotDetected) U Methamphetamines Scrn (NotDetected) U Benzodiazepines Scrn (NotDetected) Urine Cocaine Screen (NotDetected) U Marijuana (THC) Screen (NotDetected) Disposition Clinical Impression: Seizure Disposition: HOME SELF-CARE Condition: Stable Instructions: Recurrent Seizures in Adults (ED) Additional Instructions: Increase Gabapentin to 600mg three times a day. Keep all other medications the same. Follow up with Dr. Beck Referrals: Domingo Valdovinos MD [Primary Care Provider] - 1-2 days Umair Beck MD [STAFF PHYSICIAN] - 1-2 days
--- NOTE | 2017-10-07 21:22 | XR ---
EXAMINATION TYPE: XR chest 1V portable DATE OF EXAM: 10/07/2017 COMPARISON: 07/23/2016 HISTORY: Asthma. Chest pain. TECHNIQUE: Single frontal view of the chest is obtained. FINDINGS: Heart and mediastinum are normal. Lungs are clear. Diaphragm is normal. There are chest le ads. IMPRESSION: Normal chest. No change.
[2017-10-07 21:25] LABS: Basophils # (A) 0.1 k/uL (0-0.2); Basophils % (A) 1 %; Eosinophils # (A) 0.4 k/uL (0-0.7); Eosinophils % (A) 5 %; HCT 41.5 % (34.0-46.0); HGB 13.9 gm/dL (11.4-16.0); Lymphocytes # (A) 3.5 k/uL (1.0-4.8); Lymphocytes % (A) 44 %; MCH 31.6 pg (25.0-35.0); MCHC 33.5 g/dL (31.0-37.0); MCV 94.2 fL (80.0-100.0); Mean Platelet Volume 8.5; Monocytes # (A) 0.3 k/uL (0-1.0); Monocytes % (A) 4 %; Neutrophils # (A) 3.5 k/uL (1.3-7.7); Neutrophils % (A) 44 %; Platelet Count 186 k/uL (150-450); RDW 14.5 % (11.5-15.5)
[2017-10-07 21:39] LABS: ALT 50 U/L (9-52); AST 24 U/L (14-36); Albumin 3.8 g/dL (3.5-5.0); Alkaline Phosphatase 62 U/L (38-126); Anion Gap 8 mmol/L; Blood Urea Nitrogen 17 mg/dL (7-17); Calcium 9.9 mg/dL (8.4-10.2); Carbon Dioxide 30 mmol/L (22-30); Chloride 105 mmol/L (98-107); Glucose 104 mg/dL (74-99); Potassium 4.1 mmol/L (3.5-5.1); Sodium 143 mmol/L (137-145); Total Bilirubin 0.2 mg/dL (0.2-1.3); Total Protein 6.8 g/dL (6.3-8.2)
[2017-10-07] MEDS ORDERED: LACOSAMIDE 50 MG TABLET PO STA (21:49)
[2017-10-07] MEDS ORDERED: GABAPENTIN 300 MG CAP PO STA ×2 (21:49→21:55)
[2017-10-07 22:07] LABS: Amorphous Sediment,Urine Rare /hpf; Appearance,Urine Cloudy (Clear); Bilirubin,Urine Negative (Negative); Blood,Urine Negative (Negative); Color,Urine Yellow; Glucose,Urine (UA) Negative (Negative); Ketones,Urine Negative (Negative); Leukocyte Esterase,Urine Negative (Negative); Mucus,Urine Rare /hpf; Nitrite,Urine Negative (Negative); PH, Urine 6.5 (5.0-8.0); Protein,Urine Negative (Negative); RBC,Urine 1 /hpf (0-5); Specific Gravity,Urine 1.017 (1.001-1.035); Squamous Epithelial Cell,Urine <1 /hpf (0-4); Urobilinogen,Urine <2.0 mg/dL (<2.0); WBC,Urine 1 /hpf (0-5)
[2017-10-07 22:21] LABS: Amphetamine Screen,Urine Not Detected (NotDetected); Barbiturate Screen,Urine Not Detected (NotDetected); Benzodiazepines Screen,Urine Not Detected (NotDetected); Cocaine Screen,Urine Not Detected (NotDetected); Methadone Screen, Urine Not Detected (NotDetected); Opiate Screen,Urine Not Detected (NotDetected); Oxycodone Screen, Urine Not Detected (NotDetected); Phencyclidine Screen,Urine Not Detected (NotDetected); Tricyclic Antidepressant,Urine Not Detected (NotDetected); Urn Cannabinoid Scrn Detected (NotDetected)
[2017-10-07 22:59] VITALS: BP 132/78; PULSE 87; RESP 20; TEMP 98.1
== END 2017-10-07 22:58 | disposition home or self-care (01) ==
LOC: EC 20:03
DX: G40.909 Epilepsy, unspecified, not intractable, without status epilepticus (principal); R40.0 Somnolence; G25.81 Restless legs syndrome; M79.7 Fibromyalgia; G89.29 Other chronic pain; F32.9 Major depressive disorder, single episode, unspecified; F41.9 Anxiety disorder, unspecified; F17.200 Nicotine dependence, unspecified, uncomplicated; Z79.1 Long term (current) use of non-steroidal anti-inflammatories (NSAID); Z79.899 Other long term (current) drug therapy; Z88.8 Allergy status to other drugs, medicaments and biological substances
CPT/HCPCS: 36415; 71045; 80053; 80306; 81001; 81025; 85025; 93005; 99284

== ENCOUNTER → 2018-04-20 | Outpatient (CLI) | payer MEDICARE, OTHER ==
[2018-04-20 20:43] LABS: DNA Double-Stranded NEGATIVE (NEGATIVE)
[2018-04-21 10:42] LABS: APTT 45 Sec(s) (<43); APTT 1:1 Mix 40 Sec(s) (<43); Dilute Russell Viper Venom 36 Sec(s) (<44)
== END | disposition home or self-care (01) ==
LOC: LABWHC1 13:58
PROVIDERS: ATTEND Family Medicine
DX: I10 Essential (primary) hypertension (principal); R56.9 Unspecified convulsions
CPT/HCPCS: 36415; 85613; 85730; 85732; 86038; 86225

== ENCOUNTER → 2018-05-22 | Outpatient (CLI) | payer MEDICARE, OTHER ==
--- NOTE | 2018-05-23 20:28 | MR ---
EXAMINATION TYPE: MR brain/lspine wo/w con DATE OF EXAM: 05/22/2018 COMPARISON: 01/03/2017 HISTORY: 42-year-old female Headache / Low back pain / MS TECHNIQUE: Multiplanar, multisequence images of the brain and brainstem is performed without and wit h utilizing 10 mL intravenous Gadavist gadolinium contrast. Demyelinating disease protocol with dali tional Sagittal Flair sequence performed. Subsequently, multiplanar, multisequence imaging of the lumbar spine before and after IV contrast adm inistration. FINDINGS: BRAIN: T2 Lesions Present : Yes Approximate Number of Lesions: 2 Locations Identified : 1. Left parietal subcortical measuring 3 mm axial image 17 and sagittal image 8. 2. Left periventricular at the temporal horn measuring 3 mm, sagittal image 8. Enhancing Lesion(s) Present: No T1 Hypointense Lesion(s) Present: No Change from Prior: Stable Diffusion weighted images demonstrate no evidence of a recent infarct or other diffusion abnormality. There is no worrisome extra-axial fluid collection. The ventricular system and cisternal spaces ar e normal in size and appearance. The brain volume is age appropriate. Midline structures demonstrate normal morphology. The craniocervical junction appears within normal limits. Post contrast images demonstrate no abnormal enhancement. The dural venous sinuses appear pa tent. The visualized sinuses are clear and the globes are intact. LUMBAR SPINE: Vertebral body heights are preserved and alignment is maintained. Degenerative disc disease mid to lower lumbar spine as well as facet arthropathy. No suspicious bone marrow replacement. Some scattered fatty Modic type II endplate change is present as well as a fatty matrix hemangioma within the L4 vertebral body. Conus medullaris is normal. Posterior and interbody fusion changes are present at L5-S1. There is right lateral osteophytic ridgi ng causing mild to moderate narrowing of the right neuroforamen. No spinal canal stenosis here. Howev er, there is right lateral epidural enhancing granulation tissue noted, refer to axial image 3 with p erineural enhancement along the pre-foraminal right S1 nerve root. Also, refer to sagittal series 301 image 11. Above the fusion at L4-L5, there is severe degenerative disc disease with loss of disc height, Modic type II fatty endplate change, a disc osteophyte complex. Facet arthropathy is present with small pos terior annular fissure. However, no significant spinal canal or foraminal stenosis is noted. Above at L3-L4, there is diffuse disc bulge with superimposed right paracentral protrusion, ligamentu m flavum thickening, and facet arthropathy. Disc material indents the ventral thecal sac without sign ificant spinal canal stenosis. However, there may be abutment of the traversing right L4 nerve root. Minimal bilateral inferior neuroforaminal narrowing. At L2-L3, mild facet arthropathy without significant canal or foraminal stenosis. At T12-L1 and L1-L2, no spinal canal or foraminal stenosis. No other suspicious enhancement within the spinal canal. COMBINED IMPRESSION: BRAIN: 1. No acute intracranial abnormality or enhancing lesions. 2. Stable trace burden of bright white matter change in the left cerebral hemisphere with two 3 mm fo ci seen. LUMBAR SPINE: 1. Posterior and interbody fusion changes at L5-S1. Mild to moderate right neuroforaminal narrowing s econdary to endplate osteophytic ridging. 2. Additionally, there is right lateral epidural enhancing granulation tissue here at L5-S1 with cont iguous perineural enhancement involving the pre-foraminal right S1 nerve root. 3. Above the fusion at L4-L5, there is severe degenerative disc disease with Modic type II fatty endp late change and small posterior annular fissure. However, no significant spinal canal or foraminal st enosis. 3. Just above at L3-L4, there is mild posterior disc herniation encroaching on the thecal sac without significant spinal canal stenosis. Disc material may abut the traversing right L4 nerve root. There is also facet arthropathy but no significant neuroforaminal stenosis.
== END ==
LOC: RADMRIMAIN 09:55
PROVIDERS: ATTEND Psychiatry & Neurology Neurology
DX: R90.82 White matter disease, unspecified (principal); R51 Headache; M54.5 Low back pain; M51.36 Other intervertebral disc degeneration, lumbar region
CPT/HCPCS: 70553; 72158; A9581

== ENCOUNTER 2018-06-04 15:38 | Emergency (ER) | payer MEDICARE, OTHER ==
[2018-06-04 15:56] VITALS: RESP 16; TEMP 98.5
[2018-06-04] MEDS ORDERED: SODIUM CHLORIDE 0.9% 1,000 ML IV STA (16:16)
[2018-06-04] MEDS ORDERED: METOCLOPRAMIDE 5 MG/ML 2 ML VIAL IVP STA (16:16)
[2018-06-04] MEDS ORDERED: KETOROLAC 30 MG/ML 1 ML VIAL IVP STA (16:16)
[2018-06-04] MEDS ORDERED: diphenhydrAMINE 50 MG/ML 1 ML VIAL IVP STA (16:16)
[2018-06-04] MEDS ORDERED: methylPREDNISolone SOD SUCCI 250 MG in SODIUM CHLORIDE 0.9% 100 ML IVPB STA (16:17)
--- NOTE | 2018-06-04 16:19 | ED ---
General Adult HPI - General Chief complaint: Headache Stated complaint: Headache Time Seen by Provider: 06/04/18 16:14 Source: patient, RN notes reviewed, old records reviewed Mode of arrival: ambulatory Limitations: no limitations - History of Present Illness Initial comments: This is a 42-year-old female the ER for evaluation, patient resents today for evaluation of headache migraine headache. Patient taking Fioricet with no help. Denies trauma denies fever denies any other complaints. Patient denies modifying factors for headache. Worse with sometimes worse with light sometimes with sound. Headache is throbbing in nature just like prior migraines. - Related Data Home Medications Medication Instructions Recorded Confirmed DULoxetine HCL [Cymbalta] 60 mg PO BID 01/26/14 06/04/18 rOPINIRole HCL [Requip] 0.5 mg PO BID 07/23/16 06/04/18 HYDROcodone/APAP 10-325MG [[place] 1 tab PO TID PRN 10/07/17 06/04/18 10-325] Lacosamide [Vimpat] 200 mg PO BID 10/07/17 06/04/18 Aspirin [Adult Low Dose Aspirin EC] 81 mg PO DAILY 06/04/18 06/04/18 Butalb/Acetaminophen/Caffeine 1 tab PO Q8H PRN 06/04/18 06/04/18 [Esg[place] 50-325-40 mg Tablet] Fesoterodine Fumarate [Toviaz] 4 mg PO DAILY 06/04/18 06/04/18 Gabapentin [Neurontin] 600 mg PO TID 06/04/18 06/04/18 Simvastatin [Zocor] 20 mg PO HS 06/04/18 06/04/18 Umeclidinium [place] [Incruse 1 puff INHALATION RT-DAILY 06/04/18 06/04/18 Ellipta] busPIRone HCL [Buspar] 15 mg PO BID 06/04/18 06/04/18 lamoTRIgine [LaMICtal] 25 mg PO DAILY 06/04/18 06/04/18 Allergies Allergy/AdvReac Type Severity Reaction Status Date / Time topiramate [From Topamax] Allergy Anaphylaxis Verified 06/04/18 16:13 Review of Systems ROS Statement: Those systems with pertinent positive or pertinent negative responses have been documented in the HPI. ROS Other: All systems not noted in ROS Statement are negative. Past Medical History Past Medical History: Asthma, Fibromyalgia, Seizure Disorder Additional Past Medical History / Comment(s): CHRONIC BACK PAIN; Restless leg syndrome, migraines History of Any Multi-Drug Resistant Organisms: None Reported Past Surgical History: Back Surgery, Section, Hysterectomy, Orthopedic Surgery, Tubal Ligation Past Anesthesia/Blood Transfusion Reactions: No Reported Reaction Past Psychological History: Anxiety, Depression, Panic Disorder Smoking Status: Current every day smoker Past Alcohol Use History: None Reported Past Drug Use History: None Reported - Past Family History Mother Family Medical History: No Reported History General Exam Limitations: no limitations General appearance: alert, in no apparent distress Head exam: Present: atraumatic, normocephalic, normal inspection Eye exam: Present: normal appearance, PERRL, EOMI. Absent: scleral icterus, conjunctival injection, periorbital swelling ENT exam: Present: normal exam, mucous membranes moist Neck exam: Present: normal inspection. Absent: tenderness, meningismus, lymphadenopathy Respiratory exam: Present: normal lung sounds bilaterally. Absent: respiratory distress, wheezes, rales, rhonchi, stridor Cardiovascular Exam: Present: regular rate, normal rhythm, normal heart sounds. Absent: systolic murmur, diastolic murmur, rubs, gallop, clicks GI/Abdominal exam: Present: soft, normal bowel sounds. Absent: distended, tenderness, guarding, rebound, rigid Extremities exam: Present: normal inspection, full ROM, normal capillary refill. Absent: tenderness, pedal edema, joint swelling, calf tenderness Back exam: Present: normal inspection Neurological exam: Present: alert, oriented X3, CN II-XII intact Psychiatric exam: Present: normal affect, normal mood Skin exam: Present: warm, dry, intact, normal color. Absent: rash Course Vital Signs 06/04/18 06/04/18 15:55 18:08 Temperature 98.5 F Pulse Rate 94 72 Respiratory 16 16 Rate Blood Pressure 108/77 115/54 O2 Sat by Pulse 100 98 Oximetry - Reevaluation(s) Reevaluation #1: 06/04/18 16:23 Patient's medical record is reviewed Disposition Clinical Impression: Migraine Disposition: HOME SELF-CARE Condition: Good Instructions: Acute Headache (ED) Is patient prescribed a controlled substance at d/c from ED?: No Referrals: Domingo Valdovinos MD [Primary Care Provider] - 1-2 days
[2018-06-04] MEDS ORDERED: diphenhydrAMINE 50 MG CAP PO STA (17:31)
[2018-06-04] MEDS ORDERED: predniSONE 50 MG TAB PO STA (17:31)
[2018-06-04] MEDS ORDERED: HYDROcodone/APAP 5-325MG 1 EACH TAB PO STA (17:31)
[2018-06-04] MEDS ORDERED: METOCLOPRAMIDE 10 MG TAB PO STA (17:31)
[2018-06-04] MEDS ORDERED: PROCHLORPERAZINE 5 MG TAB PO STA (17:31)
[2018-06-04] MEDS ORDERED: KETOROLAC 60 MG/2 ML VIAL IM STA (17:31)
[2018-06-04 18:11] VITALS: BP 115/54; PULSE 72
== END 2018-06-04 19:44 | disposition home or self-care (01) ==
LOC: EC 15:38
DX: G43.909 Migraine, unspecified, not intractable, without status migrainosus (principal); J45.909 Unspecified asthma, uncomplicated; M79.7 Fibromyalgia; G40.909 Epilepsy, unspecified, not intractable, without status epilepticus; G25.81 Restless legs syndrome; F32.9 Major depressive disorder, single episode, unspecified; F41.0 Panic disorder [episodic paroxysmal anxiety]; F17.200 Nicotine dependence, unspecified, uncomplicated; Z79.51 Long term (current) use of inhaled steroids; Z79.82 Long term (current) use of aspirin; Z79.899 Other long term (current) drug therapy; Z88.8 Allergy status to other drugs, medicaments and biological substances; Z53.8 Procedure and treatment not carried out for other reasons
CPT/HCPCS: 99283; 96372; S0183; J1885; J7512

== ENCOUNTER 2018-06-11 14:50 | Emergency (ER) | payer MEDICARE, OTHER ==
[2018-06-11] MEDS ORDERED: KETOROLAC 30 MG/ML 1 ML VIAL IVP STA (17:14)
[2018-06-11] MEDS ORDERED: SODIUM CHLORIDE 0.9% 1,000 ML IV STA (17:14)
[2018-06-11] MEDS ORDERED: METOCLOPRAMIDE 5 MG/ML 2 ML VIAL IVP STA (17:14)
[2018-06-11] MEDS ORDERED: diphenhydrAMINE 50 MG/ML 1 ML VIAL IVP STA (17:14)
--- NOTE | 2018-06-11 17:20 | ED ---
General Adult HPI - General Chief complaint: Headache Stated complaint: head ache Time Seen by Provider: 06/11/18 16:55 Source: patient Mode of arrival: ambulatory Limitations: no limitations - History of Present Illness Initial comments: Dictation was produced using [employer] dictation software. please excuse any grammatical, word or spelling errors. Chief Complaint: Patient is a 42-year-old female past medical history of fibromyalgia, seizure, asthma, chronic migraines presents with headache. History of Present Illness: Patient is a 42-year-old female presents with headache. She was seen here last week for the same complaint. She states that she has a headache that starts her left head and is throbbing in nature. Patient states she achieved relief after initial treatment a week ago. She states that for 2 days when her symptoms returned. She called her neurologic nurse practitioner told her to come to the emergency department. Patient denies any neurologic complaints. Denies any constitutional symptoms. The ROS documented in this emergency department record has been reviewed and confirmed by me. Those systems with pertinent positive or negative responses have been documented in the HPI. All other systems are other negative and/or noncontributory. - Related Data Home Medications Medication Instructions Recorded Confirmed DULoxetine HCL [Cymbalta] 60 mg PO BID 01/26/14 06/11/18 rOPINIRole HCL [Requip] 0.5 mg PO BID 07/23/16 06/11/18 Lacosamide [Vimpat] 200 mg PO BID 10/07/17 06/11/18 Aspirin [Adult Low Dose Aspirin EC] 81 mg PO DAILY 06/04/18 06/11/18 Butalb/Acetaminophen/Caffeine 1 tab PO Q8H PRN 06/04/18 06/11/18 [Esgic 50-325-40 mg Tablet] Fesoterodine Fumarate [Toviaz] 4 mg PO DAILY 06/04/18 06/11/18 Gabapentin [Neurontin] 600 mg PO TID 06/04/18 06/11/18 Simvastatin [Zocor] 20 mg PO HS 06/04/18 06/11/18 Umeclidinium [place] [Incruse 1 puff INHALATION RT-DAILY 06/04/18 06/11/18 Ellipta] lamoTRIgine [LaMICtal] 25 mg PO DAILY 06/04/18 06/11/18 HYDROcodone/APAP 7.5-325MG [[place] 1 tab PO Q6H PRN 06/11/18 06/11/18 7.5-325] Meloxicam [Mobic] 15 mg PO HS 06/11/18 06/11/18 busPIRone HCl [Buspar] 10 mg PO BID 06/11/18 06/11/18 Allergies Allergy/AdvReac Type Severity Reaction Status Date / Time topiramate [From Topamax] Allergy Anaphylaxis Verified 06/11/18 17:15 Review of Systems ROS Statement: Those systems with pertinent positive or pertinent negative responses have been documented in the HPI. ROS Other: All systems not noted in ROS Statement are negative. Past Medical History Past Medical History: Asthma, Fibromyalgia, Seizure Disorder Additional Past Medical History / Comment(s): CHRONIC BACK PAIN; Restless leg syndrome, migraines History of Any Multi-Drug Resistant Organisms: None Reported Past Surgical History: Back Surgery, Section, Hysterectomy, Orthopedic Surgery, Tubal Ligation Past Anesthesia/Blood Transfusion Reactions: No Reported Reaction Past Psychological History: Anxiety, Depression, Panic Disorder Smoking Status: Current every day smoker Past Alcohol Use History: None Reported Past Drug Use History: None Reported - Past Family History Mother Family Medical History: No Reported History General Exam - General Exam Comments Initial Comments: PHYSICAL EXAM: General Impression: Alert and oriented x3, not in acute distress HEENT: Normocephalic atraumatic, extra-ocular movements intact, pupils equal and reactive to light bilaterally, mucous membranes moist. Cardiovascular: Heart regular rate and rhythm, S1&S2 audible, no murmurs, rubs or gallops Chest: Lungs clear to auscultation bilaterally, no rhonchi, no wheeze, no rales Abdomen: Bowel sounds present, abdomen soft, non-tender, non-distended, no organomegaly Musculoskeletal: Pulses present and equal in all extremities, no peripheral edema Motor: Power 5/5 bilaterally, no focal deficits noted Neurological: CN II-XII grossly intact, no focal motor or sensory deficits noted Skin: Intact with no visualized rashes Psych: Normal affect and mood Limitations: no limitations Course Vital Signs 06/11/18 06/11/18 15:14 17:49 Temperature 98.4 F Pulse Rate 92 74 Respiratory 18 16 Rate Blood Pressure 111/76 117/75 O2 Sat by Pulse 100 99 Oximetry Medical Decision Making - Medical Decision Making ED course: 42-year-old female presents with headache. Physical examination is benign. Clinical presentation not suspicious for life-threatening cause of headache. Vital signs upon arrival are within acceptable limits. Patient given intravenous fluids and headache cocktail. Patient reevaluated and reports improvement of symptoms. Patient does have establish outpatient care for headaches. Patient advised to follow-up with that came on Thursday. Patient is understandable and agreeable to disposition. Disposition Clinical Impression: Headache Disposition: HOME SELF-CARE Condition: Good Instructions: Acute Headache (ED) Is patient prescribed a controlled substance at d/c from ED?: No Referrals: Domingo Valdovinos MD [Primary Care Provider] - 1-2 days Time of Disposition: 19:13
[2018-06-11 17:50] VITALS: RESP 16
[2018-06-11 19:36] VITALS: BP 119/73; PULSE 72; TEMP 98
== END 2018-06-11 19:36 | disposition home or self-care (01) ==
LOC: EC 14:50
DX: R51 Headache (principal); M79.7 Fibromyalgia; G40.909 Epilepsy, unspecified, not intractable, without status epilepticus; G25.81 Restless legs syndrome; F41.9 Anxiety disorder, unspecified; F32.9 Major depressive disorder, single episode, unspecified; F17.200 Nicotine dependence, unspecified, uncomplicated; Z86.69 Personal history of other diseases of the nervous system and sense organs; Z79.82 Long term (current) use of aspirin; Z79.1 Long term (current) use of non-steroidal anti-inflammatories (NSAID); Z79.899 Other long term (current) drug therapy; Z88.8 Allergy status to other drugs, medicaments and biological substances
CPT/HCPCS: 99283; 96374; 96375 ×2; 96361; J1200; J2765; J1885

== ENCOUNTER 2018-10-28 15:55 | Emergency (ER) | payer MEDICARE, OTHER ==
[2018-10-28 16:04] VITALS: BP 117/79; PULSE 88; RESP 18; TEMP 98.2
--- NOTE | 2018-10-28 17:00 | XR ---
EXAMINATION TYPE: XR elbow complete RT DATE OF EXAM: 10/28/2018 COMPARISON: NONE HISTORY: Pain TECHNIQUE: 3 views FINDINGS: I see no fracture nor dislocation. Joint spaces are normal. There is no sign of elbow joint effusion. IMPRESSION: Negative right elbow exam.
--- NOTE | 2018-10-28 17:15 | ED ---
General Adult HPI - General Chief complaint: Extremity Injury, Upper Stated complaint: elbow pain Time Seen by Provider: 10/28/18 16:20 Source: patient, RN notes reviewed, old records reviewed Mode of arrival: ambulatory Limitations: no limitations - History of Present Illness Initial comments: 42-year-old female patient no pertinent past history presents to ED with approximately 2 weeks of right elbow pain. Patient states that approximately 2 weeks ago while she was sitting down for breath of she slipped, and hit the back of her elbow against the bathtub. Patient denies any other trauma during this incident. Patient denies any trauma to head or neck. Patient denies any other complaints. Patient states that she has some pain with range of motion of elbow, is presenting here to get x-rays. Systemic: Pt denies fatigue, fever/chills, rash. Pt denies weakness, night sweats, weight loss. Neuro: Pt denies headache, visual disturbances, syncope or pre-syncope. HEENT: Pt denies ocular discharge or irritation, otalgia, rhinorrhea, pharyngitis or notable lymphadenopathy. Cardiopulmonary: Pt denies chest pain, SOB, heart palpitations, dyspnea on exertion. Abdominal/GI: Pt denies abdominal pain, n/v/d. : Pt denies dysuria, burning w/ urination, frequency/urgency. Denies new onset urinary or bowel incontinence. MSK: Pt denies loss of strength or function in extremities. Neuro: Pt denies new onset weakness, paresthesias. - Related Data Home Medications Medication Instructions Recorded Confirmed DULoxetine HCL [Cymbalta] 60 mg PO BID 01/26/14 06/11/18 rOPINIRole HCL [Requip] 0.5 mg PO BID 07/23/16 06/11/18 Lacosamide [Vimpat] 200 mg PO BID 10/07/17 06/11/18 Aspirin [Adult Low Dose Aspirin EC] 81 mg PO DAILY 06/04/18 06/11/18 Butalb/Acetaminophen/Caffeine 1 tab PO Q8H PRN 06/04/18 06/11/18 [Esgic 50-325-40 mg Tablet] Fesoterodine Fumarate [Toviaz] 4 mg PO DAILY 06/04/18 06/11/18 Gabapentin [Neurontin] 600 mg PO TID 06/04/18 06/11/18 Simvastatin [Zocor] 20 mg PO HS 06/04/18 06/11/18 Umeclidinium [place] [Incruse 1 puff INHALATION RT-DAILY 06/04/18 06/11/18 Ellipta] lamoTRIgine [LaMICtal] 25 mg PO DAILY 06/04/18 06/11/18 HYDROcodone/APAP 7.5-325MG [[place] 1 tab PO Q6H PRN 06/11/18 06/11/18 7.5-325] Meloxicam [Mobic] 15 mg PO HS 06/11/18 06/11/18 busPIRone HCl [Buspar] 10 mg PO BID 06/11/18 06/11/18 Allergies Allergy/AdvReac Type Severity Reaction Status Date / Time topiramate [From Topamax] Allergy Anaphylaxis Verified 10/28/18 16:05 Review of Systems ROS Statement: Those systems with pertinent positive or pertinent negative responses have been documented in the HPI. ROS Other: All systems not noted in ROS Statement are negative. Past Medical History Past Medical History: Asthma, Fibromyalgia, Seizure Disorder Additional Past Medical History / Comment(s): CHRONIC BACK PAIN; Restless leg syndrome, migraines History of Any Multi-Drug Resistant Organisms: None Reported Past Surgical History: Back Surgery, Section, Hysterectomy, Orthopedic Surgery, Tubal Ligation Past Anesthesia/Blood Transfusion Reactions: No Reported Reaction Past Psychological History: Anxiety, Depression, Panic Disorder Smoking Status: Former smoker Past Alcohol Use History: None Reported Past Drug Use History: None Reported - Past Family History Mother Family Medical History: No Reported History General Exam - General Exam Comments Initial Comments: Constitutional: NAD, AOX3, Pt has pleasant affect. HEENT: NC/AT, trachea midline, neck supple, no lymphadenopathy. Posterior pharynx non erythematous, without exudates. External ears appear normal, without discharge. Mucous membranes moist. Eyes PERRLA, EOM intact. There is no scleral icterus. No pallor noted. Cardiopulmonary: RRR, no murmurs, rubs or gallops, no JVD noted. Lungs CTAB in anterior and posterior talavera. No peripheral edema. Abdominal exam: Abdomen soft and non-distended. Abdomen non-tender to palpation in all 4 quadrants. Bowel sounds active in LLQ. No hepatosplenomegaly. No ecchymosis Neuro: CN II-XII grossly intact. No nuchal rigidity. MSK: Right Olecranon mildly tender to palpation. No ecchymosis. Full active range of motion of right upper extremity. Sensation intact. Neurovascular intact. 5 out of 5 strength. No posterior calf tenderness bilaterally, homans sign negative bilaterally. Posterior tibialis and radial pulse +2 bilaterally. Sensation intact in upper and lower extremities. Full active ROM in upper and lower extremities, 5/5 stregnth. Limitations: no limitations Course Vital Signs 10/28/18 10/28/18 16:02 17:22 Temperature 98.2 F 98.2 F Pulse Rate 88 88 Respiratory 18 18 Rate Blood Pressure 117/79 117/79 O2 Sat by Pulse 96 96 Oximetry Medical Decision Making - Medical Decision Making 42-year-old female patient no pertinent past history presents to ED with approximately 2 weeks of right elbow pain. Patient states that approximately 2 weeks ago while she was sitting down for breath of she slipped, and hit the back of her elbow against the bathtub. Patient denies any other trauma during this incident. Pt VSS, afebrile. Physical exam displayed: Right Olecranon mildly tender to palpation. No ecchymosis. Full active range of motion of right upper extremity. Sensation intact. Neurovascular intact. 5 out of 5 strength. Plain film of right elbow displayed negative right elbow exam. Findings explained to patient at length. Patient verbalized understanding. Pt to f/u with PCP in 1-2 days for continued evaluation. Case discussed in depth with Dr. Alvares. Disposition Clinical Impression: Elbow pain Disposition: HOME SELF-CARE Condition: Stable Instructions (If sedation given, give patient instructions): Elbow Sprain (ED) Additional Instructions: Patient to adhere to previously discussed treatment plan and will take medication(s) as directed. Patient to follow up with PCP in 1-2 days. Patient to return to ED if symptoms do not improve. Is patient prescribed a controlled substance at d/c from ED?: No Referrals: Domingo Valdovinos MD [Primary Care Provider] - 1-2 days Time of Disposition: 17:14
== END 2018-10-28 17:22 | disposition home or self-care (01) ==
LOC: EC 15:55
DX: M25.521 Pain in right elbow (principal); J45.909 Unspecified asthma, uncomplicated; M79.7 Fibromyalgia; G40.909 Epilepsy, unspecified, not intractable, without status epilepticus; F41.0 Panic disorder [episodic paroxysmal anxiety]; F32.9 Major depressive disorder, single episode, unspecified; G25.81 Restless legs syndrome; Z87.891 Personal history of nicotine dependence; Z79.82 Long term (current) use of aspirin; Z79.51 Long term (current) use of inhaled steroids; Z79.1 Long term (current) use of non-steroidal anti-inflammatories (NSAID); Z79.899 Other long term (current) drug therapy; Z88.8 Allergy status to other drugs, medicaments and biological substances
CPT/HCPCS: 99284

== ENCOUNTER 2019-04-06 21:00 | Emergency (ER) | payer MEDICARE, OTHER ==
[2019-04-06 21:15] VITALS: RESP 16
--- NOTE | 2019-04-06 21:20 | ED ---
General Adult HPI - General Stated complaint: Seizure Time Seen by Provider: 04/06/19 21:04 Source: EMS Mode of arrival: EMS Limitations: altered mental status - History of Present Illness Initial comments: Dictation was produced using [employer] dictation software. please excuse any grammatical, word or spelling errors. Chief Complaint: 43-year-old female with past medical history of seizure disorder, thyroid nodule asthma presents with seizures. History of Present Illness: Her 3-year-old female she is brought in by EMS for seizures. Patient was brought in by EMS who was summoned by patient's family. Patient is a past medical history of seizures. According to chart documentation patient was most recently on Vimpat. Patient unable to provide HPI this time. EMS reports the patient had a seizure that lasted approximately 10 minutes. She was given IM Versed. She began having some breakthrough seizures last for approximately 2 minutes. Unable to obtain ROS was secondary mental status PHYSICAL EXAM: General Impression: Obtunded HEENT: Normocephalic atraumatic, extra-ocular movements intact, pupils equal and reactive to light bilaterally, mucous membranes moist. Cardiovascular: Heart regular rate and rhythm, S1&S2 audible, no murmurs, rubs or gallops Chest: Lungs clear to auscultation bilaterally, no rhonchi, no wheeze, no rales Abdomen: Bowel sounds present, abdomen soft, non-tender, non-distended, no organomegaly Musculoskeletal: Pulses present and equal in all extremities, no peripheral edema Skin: Intact with no visualized rashes ED course: 43-year-old female presents with seizures. According to EMS who got HPI from family patient is a history of seizures. Unclear whether patient has been compliant with her seizure regimen. Chart review shows that patient was evaluated in the emergency department for seizures before. Chart review shows that patient was most recently on Lamictal. Patient is obtunded, family does not know patient's current prescriptions. They do report that patient has a pain stimulator that was recently increased. Patient also had her bipolar medication increased. Again, we do not know exactly what these medications are working confirm it at the moment. While in the emergency depar tment patient was postictal. She doesn't express another seizure lasting for approximately 2 minutes. She is given 2 mg of IV Ativan with cessation of seizure activity. [facility] Patient is on Lamictal and Vimpat. Discussed patient case with Dr. Posada, neurology on-call fragments that patient should be transferred for concerns of status epilepticus. She does recommend providing patient with 18 makes. Patient given Keppra. Patient states be postictal. Computed tomography scan of the brain shows no acute processes. Discussed patient case of [facility] physician was willing to accept the transfer. Patient intubated at this time given that she is protecting the airway is not hypoxic or showing any signs of respiratory distress. She continues to be postictal at time of discharge. EKG interpretation: Ventricular rate 70, sinus rhythm,. 162 glucometer is 90, QTc 444. No OK prolongation, no QTC prolongation, no ST or T-wave changes noted. EKG compared to 10/07/2017 showing no changes. Overall, this EKG is unremarkable - Related Data Home Medications Medication Instructions Recorded Confirmed rOPINIRole HCL [Requip] 0.5 mg PO BID 07/23/16 04/06/19 Lacosamide [Vimpat] 200 mg PO DAILY 10/07/17 04/06/19 Fesoterodine Fumarate [Toviaz] 4 mg PO DAILY 06/04/18 04/06/19 Simvastatin [Zocor] 20 mg PO HS 06/04/18 04/06/19 Umeclidinium [place] [Incruse 1 puff INHALATION RT-DAILY 06/04/18 04/06/19 Ellipta] HYDROcodone/APAP 7.5-325MG [[place] 1 tab PO TID PRN 06/11/18 04/06/19 7.5-325] Meloxicam [Mobic] 15 mg PO HS 06/11/18 04/06/19 Atenolol [Tenormin] 25 mg PO BID 04/06/19 04/06/19 Brexpiprazole [Rexulti] 1 mg PO HS 04/06/19 04/06/19 Diazepam [Valium] 5 mg PO DAILY 04/06/19 04/06/19 Gabapentin [Neurontin] 300 mg PO TID 04/06/19 04/06/19 Temazepam [Restoril] 15 mg PO HS PRN 04/06/19 04/06/19 Zonisamide [Zonegran] 200 mg PO HS 04/06/19 04/06/19 lamoTRIgine [LaMICtal] 100 mg PO BID 04/06/19 04/06/19 Allergies Allergy/AdvReac Type Severity Reaction Status Date / Time topiramate [From Topamax] Allergy Anaphylaxis Verified 10/28/18 16:05 Review of Systems ROS Statement: Those systems with pertinent positive or pertinent negative responses have been documented in the HPI. ROS Other: All systems not noted in ROS Statement are negative. Past Medical History Past Medical History: Asthma, Fibromyalgia, Seizure Disorder Additional Past Medical History / Comment(s): CHRONIC BACK PAIN; Restless leg syndrome, migraines History of Any Multi-Drug Resistant Organisms: None Reported Past Surgical History: Back Surgery, Section, Hysterectomy, Orthopedic Surgery, Tubal Ligation Past Anesthesia/Blood Transfusion Reactions: No Reported Reaction Past Psychological History: Anxiety, Depression, Panic Disorder Smoking Status: Former smoker Past Alcohol Use History: None Reported Past Drug Use History: None Reported - Past Family History Mother Family Medical History: No Reported History General Exam Limitations: altered mental status Course Vital Signs 04/06/19 21:08 Pulse Rate 81 Respiratory 16 Rate Blood Pressure 115/68 O2 Sat by Pulse 100 Oximetry Medical Decision Making - Lab Data Result diagrams: 04/06/19 21:23 04/06/19 21:23 Lab Results 04/06/19 04/06/19 04/06/19 Range/Units 21:23 21:23 21:23 WBC 7.8 (3.8-10.6) k/uL RBC 4.01 (3.80-5.40) m/uL Hgb 13.1 (11.4-16.0) gm/dL Hct 38.3 (34.0-46.0) % MCV 95.4 (80.0-100.0) fL MCH 32.6 (25.0-35.0) pg MCHC 34.2 (31.0-37.0) g/dL RDW 14.7 (11.5-15.5) % Plt Count 173 (150-450) k/uL Neutrophils % 45 % Lymphocytes % 41 % Monocytes % 6 % Eosinophils % 5 % Basophils % 1 % Neutrophils # 3.5 (1.3-7.7) k/uL Lymphocytes # 3.2 (1.0-4.8) k/uL Monocytes # 0.5 (0-1.0) k/uL Eosinophils # 0.4 (0-0.7) k/uL Basophils # 0.1 (0-0.2) k/uL Sodium 143 (137-145) mmol/L Potassium 3.9 (3.5-5.1) mmol/L Chloride 110 H (98-107) mmol/L Carbon Dioxide 25 (22-30) mmol/L Anion Gap 8 mmol/L BUN 16 (7-17) mg/dL Creatinine 0.95 (0.52-1.04) mg/dL Est GFR (CKD-EPI)AfAm 85 (>60 ml/min/1.73 sqM) Est GFR (CKD-EPI)NonAf 74 (>60 ml/min/1.73 sqM) Glucose 102 H (74-99) mg/dL Plasma Lactic Acid [place] 2.1 H* (0.7-2.0) mmol/L Calcium 9.4 (8.4-10.2) mg/dL Urine Color Urine Appearance (Clear) Urine pH (5.0-8.0) Ur Specific [place] (1.001-1.035) Urine Protein (Negative) Urine Glucose (UA) (Negative) Urine Ketones (Negative) Urine Blood (Negative) Urine Nitrite (Negative) Urine Bilirubin (Negative) Urine Urobilinogen (<2.0) mg/dL Ur Leukocyte Esterase (Negative) Urine RBC (0-5) /hpf Urine WBC (0-5) /hpf Hyaline Casts (0-2) /lpf Urine Mucus (None) /hpf Urine HCG, Qual (Not Detectd) 04/06/19 04/06/19 Range/Units 21:28 21:28 WBC (3.8-10.6) k/uL RBC (3.80-5.40) m/uL Hgb (11.4-16.0) gm/dL Hct (34.0-46.0) % MCV (80.0-100.0) fL MCH (25.0-35.0) pg MCHC (31.0-37.0) g/dL RDW (11.5-15.5) % Plt Count (150-450) k/uL Neutrophils % % Lymphocytes % % Monocytes % % Eosinophils % % Basophils % % Neutrophils # (1.3-7.7) k/uL Lymphocytes # (1.0-4.8) k/uL Monocytes # (0-1.0) k/uL Eosinophils # (0-0.7) k/uL Basophils # (0-0.2) k/uL Sodium (137-145) mmol/L Potassium (3.5-5.1) mmol/L Chloride (98-107) mmol/L Carbon Dioxide (22-30) mmol/L Anion Gap mmol/L BUN (7-17) mg/dL Creatinine (0.52-1.04) mg/dL Est GFR (CKD-EPI)AfAm (>60 ml/min/1.73 sqM) Est GFR (CKD-EPI)NonAf (>60 ml/min/1.73 sqM) Glucose (74-99) mg/dL Plasma Lactic Acid [place] (0.7-2.0) mmol/L Calcium (8.4-10.2) mg/dL Urine Color Yellow Urine Appearance Clear (Clear) Urine pH 5.5 (5.0-8.0) Ur Specific [place] 1.040 H (1.001-1.035) Urine Protein 1+ H (Negative) Urine Glucose (UA) Negative (Negative) Urine Ketones Trace H (Negative) Urine Blood Negative (Negative) Urine Nitrite Negative (Negative) Urine Bilirubin Negative (Negative) Urine Urobilinogen 4.0 (<2.0) mg/dL Ur Leukocyte Esterase Small H (Negative) Urine RBC 1 (0-5) /hpf Urine WBC 6 H (0-5) /hpf Hyaline Casts 10 H (0-2) /lpf Urine Mucus Many H (None) /hpf Urine HCG, Qual Not Detected (Not Detectd) Disposition Clinical Impression: Status epilepticus Disposition: OTHER INSTITUTION NOT DEFINED Condition: Critical Referrals: Nonstaff,Physician [Primary Care Provider] - 1-2 days Time of Disposition: 22:57 - Out of Hospital Transfer - Req. Specs Out of Hospital Transfer - Requested Specifics: Other [facility] ([facility])
[2019-04-06] MEDS ORDERED: SODIUM CHLORIDE 0.9% 1,000 ML IV STA (21:21)
[2019-04-06] MEDS ORDERED: LORazepam 2 MG/ML INJ IV STA (21:33)
[2019-04-06 21:35] LABS: Basophils # (A) 0.1 k/uL (0-0.2); Basophils % (A) 1 %; Eosinophils # (A) 0.4 k/uL (0-0.7); Eosinophils % (A) 5 %; HCT 38.3 % (34.0-46.0); HGB 13.1 gm/dL (11.4-16.0); Lymphocytes # (A) 3.2 k/uL (1.0-4.8); Lymphocytes % (A) 41 %; MCH 32.6 pg (25.0-35.0); MCHC 34.2 g/dL (31.0-37.0); MCV 95.4 fL (80.0-100.0); Mean Platelet Volume 8.6; Monocytes # (A) 0.5 k/uL (0-1.0); Monocytes % (A) 6 %; Neutrophils # (A) 3.5 k/uL (1.3-7.7); Neutrophils % (A) 45 %; Platelet Count 173 k/uL (150-450); RBC 4.01 m/uL (3.80-5.40); RDW 14.7 % (11.5-15.5); WBC 7.8 k/uL (3.8-10.6)
[2019-04-06] MEDS ORDERED: levETIRAcetam IV 1,000 MG in SALINE 1 100ML.BAG IVPB STA (21:41)
[2019-04-06 21:43] LABS: Calcium 9.4 mg/dL (8.4-10.2); Potassium 3.9 mmol/L (3.5-5.1)
[2019-04-06] MEDS ORDERED: SALINE IVPB STA ×2 (21:55→22:24)
[2019-04-06] MEDS ORDERED: LEVETIRACETAM IVPB STA ×4 (21:55→22:31)
[2019-04-06 22:05] LABS: Appearance,Urine Clear (Clear); Bilirubin,Urine Negative (Negative); Blood,Urine Negative (Negative); Color,Urine Yellow; Glucose,Urine (UA) Negative (Negative); Hyaline Casts,Urine 10 /lpf (0-2); Ketones,Urine Trace (Negative); Leukocyte Esterase,Urine Small (Negative); Mucus,Urine Many /hpf; Nitrite,Urine Negative (Negative); PH, Urine 5.5 (5.0-8.0); Protein,Urine 1+ (Negative); RBC,Urine 1 /hpf (0-5)
[2019-04-06] MEDS ORDERED: SODIUM CHLORIDE 0.9% IVPB STA ×2 (22:30→22:31)
--- NOTE | 2019-04-06 23:02 | CT ---
EXAM: CT Head Without Intravenous Contrast CLINICAL HISTORY: Pain TECHNIQUE: Axial computed tomography images of the head/brain without intravenous contrast. CTDI is 0.085, 0.085, 49.1 mGy and DLP is 1260.4 mGy-cm. This CT exam was performed using one or more of the following dose reduction techniques: automated exposure control, adjustment of the mA and/or kV according to patient size, and/or use of iterative reconstruction technique. COMPARISON: No relevant prior studies available. FINDINGS: Brain: No acute infarct, hemorrhage, mass or edema. No significant white matter disease. Ventricles: Unremarkable. No ventriculomegaly. Bones/joints: No acute calvarial abnormality. Soft tissues: Unremarkable. Sinuses: Mild mucosal thickening in the paranasal sinuses. Mastoid air cells: Unremarkable as visualized. No mastoid effusion. IMPRESSION: No acute findings.
--- NOTE | 2019-04-06 23:17 | XR ---
EXAM: XR Chest, 1 View CLINICAL HISTORY: Seizure TECHNIQUE: Frontal view of the chest. COMPARISON: Chest x-ray dated 10/07/2017 FINDINGS: Lungs: Diffuse airspace opacities which may be inflammatory or infectious. Low lung volumes. Pleural space: Unremarkable. No pneumothorax. Heart: Unremarkable. No cardiomegaly. Mediastinum: Unremarkable. Bones/joints: Unremarkable. Tubes, lines and devices: Spinal nerve stimulator device projects over the mid to lower thorax. IMPRESSION: Diffuse airspace opacities which may be inflammatory or infectious.
[2019-04-06 23:18] VITALS: BP 108/70; PULSE 73; TEMP 97.8
== END 2019-04-06 23:35 | disposition other institution (70) ==
LOC: EC 21:00
DX: G40.901 Epilepsy, unspecified, not intractable, with status epilepticus (principal); F41.0 Panic disorder [episodic paroxysmal anxiety]; Z79.1 Long term (current) use of non-steroidal anti-inflammatories (NSAID); Z79.899 Other long term (current) drug therapy; Z88.8 Allergy status to other drugs, medicaments and biological substances; Z87.891 Personal history of nicotine dependence
CPT/HCPCS: 36415; 93005; 80048; 83605; 85025; 81001; 81025; 71045; 70450; 99285; 96365; 96375; 96361; J2060; J1953

== ENCOUNTER 2019-04-16 09:36 | Emergency (ER) | payer MEDICARE, OTHER ==
[2019-04-16 09:43] VITALS: BP 106/71; PULSE 78; RESP 18; TEMP 98.3
[2019-04-16] MEDS ORDERED: HYDROcodone/APAP 5-325MG 1 EACH TAB PO STA (10:01)
--- NOTE | 2019-04-16 10:04 | ED ---
General Adult HPI - General Chief complaint: Extremity Injury, Lower Stated complaint: LEFT ANKLE INJURY Time Seen by Provider: 04/16/19 09:42 Source: patient Mode of arrival: wheelchair Limitations: no limitations - History of Present Illness Initial comments: Dictation was produced using [employer] dictation software. please excuse any g rammatical, word or spelling errors. Chief Complaint: 43-year-old female presents with left ankle pain. History of Present Illness: Patient is a 43-year-old female she has chief complaint of left ankle pain. She was walking her dog last night at around 8 PM. She accidentally stepped into a hole causing her ankle to invert.. Patient able to bear weight she complains of tenderness to the left lateral malleolus. The ROS documented in this emergency department record has been reviewed and confirmed by me. Those systems with pertinent positive or negative responses have been documented in the HPI. All other systems are other negative and/or noncontributory. PHYSICAL EXAM: General Impression: Alert and oriented x3, not in acute distress HEENT: Normocephalic atraumatic, extra-ocular movements intact, pupils equal and reactive to light bilaterally, mucous membranes moist. Cardiovascular: Heart regular rate and rhythm, S1&S2 audible, no murmurs, rubs or gallops Chest: Lungs clear to auscultation bilaterally, no rhonchi, no wheeze, no rales Abdomen: Bowel sounds present, abdomen soft, non-tender, non-distended, no organomegaly Musculoskeletal: Pulses present and equal in all extremities, no peripheral edema Left ankle: Mild ecchymoses around the inferior left lateral malleolus, tenderness over the left ankle. No midfoot tenderness Motor: no focal deficits noted Neurological: CN II-XII grossly intact, no focal motor or sensory deficits noted Skin: Intact with no visualized rashes Psych: Normal affect and mood ED course: 43-year-old female presents with left ankle pain after inversion injury. Vital signs upon arrival are within acceptable limits.X-ray evaluation shows no acute osseous injuries. There is concern of entered talar fibular ligament injury. Patient placed in a walking boot. She is counseled on rice therapy. Patient is weightbearing as tolerated. She is given outpatient referral to with back surgery for her symptoms don't improve over the next 3 or 4 days. - Related Data Home Medications Medication Instructions Recorded Confirmed rOPINIRole HCL [Requip] 0.5 mg PO BID 07/23/16 04/16/19 Lacosamide [Vimpat] 200 mg PO BID 10/07/17 04/16/19 Fesoterodine Fumarate [Toviaz] 4 mg PO DAILY 06/04/18 04/16/19 Simvastatin [Zocor] 20 mg PO HS 06/04/18 04/16/19 Umeclidinium [place] [Incruse 1 puff INHALATION RT-DAILY 06/04/18 04/16/19 Ellipta] Meloxicam [Mobic] 15 mg PO HS 06/11/18 04/16/19 Atenolol [Tenormin] 25 mg PO DAILY 04/06/19 04/16/19 Brexpiprazole [Rexulti] 1 mg PO HS 04/06/19 04/16/19 Diazepam [Valium] 5 mg PO DAILY 04/06/19 04/16/19 Temazepam [Restoril] 15 mg PO HS PRN 04/06/19 04/16/19 Zonisamide [Zonegran] 200 mg PO HS 04/06/19 04/16/19 lamoTRIgine [LaMICtal] 100 mg PO BID 04/06/19 04/16/19 Aspirin EC [Ecotrin Low Dose] 81 mg PO DAILY 04/16/19 04/16/19 DULoxetine HCL [Cymbalta] 60 mg PO BID 04/16/19 04/16/19 Gabapentin 600 mg PO TID 04/16/19 04/16/19 Previous Rx's Medication Instructions Recorded HYDROcodone/APAP 5-325MG [[place] 1 tab PO Q6HR PRN 3 Days #6 tab 04/16/19 5-325] Allergies Allergy/AdvReac Type Severity Reaction Status Date / Time topiramate [From Topamax] Allergy Anaphylaxis Verified 04/16/19 10:21 Review of Systems ROS Statement: Those systems with pertinent positive or pertinent negative responses have been documented in the HPI. ROS Other: All systems not noted in ROS Statement are negative. Past Medical History Past Medical History: Asthma, Fibromyalgia, Seizure Disorder Additional Past Medical History / Comment(s): CHRONIC BACK PAIN; Restless leg syndrome, migraines History of Any Multi-Drug Resistant Organisms: None Reported Past Surgical History: Back Surgery, Section, Hysterectomy, Orthopedic Surgery, Tubal Ligation Past Anesthesia/Blood Transfusion Reactions: No Reported Reaction Past Psychological History: Anxiety, Depression, Panic Disorder Smoking Status: Current every day smoker Past Alcohol Use History: None Reported Past Drug Use History: None Reported - Past Family History Mother Family Medical History: No Reported History General Exam Limitations: no limitations Course Vital Signs 04/16/19 09:39 Temperature 98.3 F Pulse Rate 78 Respiratory 18 Rate Blood Pressure 106/71 O2 Sat by Pulse 98 Oximetry Disposition Clinical Impression: Inversion sprain of left ankle Disposition: HOME SELF-CARE Instructions (If sedation given, give patient instructions): Ankle Sprain (ED) Prescriptions: HYDROcodone/APAP 5-325MG [[place] 5-325] 1 tab PO Q6HR PRN 3 Days #6 tab PRN Reason: Severe Pain Is patient prescribed a controlled substance at d/c from ED?: Yes If prescribed controlled substance>3 days was MAPS reviewed?: Prescribed <3 Days Referrals: Joon Blevins MD [STAFF PHYSICIAN] - 1-2 days Time of Disposition: 10:57
--- NOTE | 2019-04-16 10:51 | XR ---
EXAMINATION TYPE: XR ankle complete LT , DATE OF EXAM ORDERED: 04/16/2019 HISTORY: Pain. COMPARISON: Previous study dated 01/30/2014. FINDINGS: No fracture, dislocation or ankle joint effusion is seen. There are both plantar and Achil les calcaneal spurs. IMPRESSION: 1. NO ACUTE OSSEOUS LESION. 2. CALCANEAL SPURS.
== END 2019-04-16 11:06 | disposition home or self-care (01) ==
LOC: EC 09:36
DX: S93.402A Sprain of unspecified ligament of left ankle, initial encounter (principal); G40.909 Epilepsy, unspecified, not intractable, without status epilepticus; J45.909 Unspecified asthma, uncomplicated; M79.7 Fibromyalgia; F41.0 Panic disorder [episodic paroxysmal anxiety]; F32.9 Major depressive disorder, single episode, unspecified; F17.200 Nicotine dependence, unspecified, uncomplicated; Z79.1 Long term (current) use of non-steroidal anti-inflammatories (NSAID); Z79.899 Other long term (current) drug therapy; Z79.82 Long term (current) use of aspirin; Z88.8 Allergy status to other drugs, medicaments and biological substances; X50.9XXA Other and unspecified overexertion or strenuous movements or postures, initial encounter; Y93.K1 Activity, walking an animal
CPT/HCPCS: 73610; 99283; L4350

== ENCOUNTER 2019-04-19 19:56 | Emergency (ER) | payer MEDICARE, OTHER ==
[2019-04-19 20:11] VITALS: RESP 18
[2019-04-19] MEDS ORDERED: HYDROcodone/APAP 5-325MG 1 EACH TAB PO STA (20:20)
--- NOTE | 2019-04-19 21:29 | US ---
EXAMINATION TYPE: US venous doppler duplex LE LT DATE OF EXAM: 04/19/2019 9:16 PM COMPARISON: NONE CLINICAL HISTORY: Pain. Left leg pain x 5 days. No hx DVT. Pt takes baby aspirin. SIDE PERFORMED: Left TECHNIQUE: The lower extremity deep venous system is examined utilizing real time linear array sonog luh with graded compression, doppler sonography and color-flow sonography. VESSELS IMAGED: External Iliac Vein (EIV) Common Femoral Vein Deep Femoral Vein Greater Saphenous Vein * Femoral Vein Popliteal Vein Small Saphenous Vein * Proximal Calf Veins (* superficial vessels) Left Leg: No evidence of DVT at this time in veins imaged from left prox calf veins to EIV. IMPRESSION: 1. No diagnostic evidence of DVT as visualized
--- NOTE | 2019-04-19 21:46 | ED ---
Lower Extremity Injury HPI - General Chief Complaint: Extremity Injury, Lower Stated Complaint: L foot & ankle pain Time Seen by Provider: 04/19/19 20:11 Source: patient Mode of arrival: ambulatory Limitations: no limitations - History of Present Illness Initial Comments: 43-year-old female presents today for chief complaint of left ankle pain. Patient states that she rolled her ankle on Thursday was evaluated in the emergency department where she received x-rays is placed in a splint. Patient states the pain and swelling has been increasing. Patient states she noted bruising along the lateral aspect of the ankle and onto the foot. Patient states the pain increases with weightbearing as sharp shooting. Patient denies numbness tingling or loss sensation coolness or pallor of the extremity. Remaining review of systems negative. Upon arrival patient appears well. - Related Data Home Medications Medication Instructions Recorded Confirmed rOPINIRole HCL [Requip] 0.5 mg PO BID 07/23/16 04/16/19 Lacosamide [Vimpat] 200 mg PO BID 10/07/17 04/16/19 Fesoterodine Fumarate [Toviaz] 4 mg PO DAILY 06/04/18 04/16/19 Simvastatin [Zocor] 20 mg PO HS 06/04/18 04/16/19 Umeclidinium [place] [Incruse 1 puff INHALATION RT-DAILY 06/04/18 04/16/19 Ellipta] Meloxicam [Mobic] 15 mg PO HS 06/11/18 04/16/19 Atenolol [Tenormin] 25 mg PO DAILY 04/06/19 04/16/19 Brexpiprazole [Rexulti] 1 mg PO HS 04/06/19 04/16/19 Diazepam [Valium] 5 mg PO DAILY 04/06/19 04/16/19 Temazepam [Restoril] 15 mg PO HS PRN 04/06/19 04/16/19 Zonisamide [Zonegran] 200 mg PO HS 04/06/19 04/16/19 lamoTRIgine [LaMICtal] 100 mg PO BID 04/06/19 04/16/19 Aspirin EC [Ecotrin Low Dose] 81 mg PO DAILY 04/16/19 04/16/19 DULoxetine HCL [Cymbalta] 60 mg PO BID 04/16/19 04/16/19 Gabapentin 600 mg PO TID 04/16/19 04/16/19 Previous Rx's Medication Instructions Recorded HYDROcodone/APAP 5-325MG [[place] 1 tab PO Q6HR PRN 3 Days #6 tab 04/16/19 5-325] Allergies Allergy/AdvReac Type Severity Reaction Status Date / Time topiramate [From Topamax] Allergy Anaphylaxis Verified 04/19/19 20:10 Review of Systems ROS Statement: Those systems with pertinent positive or pertinent negative responses have been documented in the HPI. ROS Other: All systems not noted in ROS Statement are negative. Past Medical History Past Medical History: Asthma, Fibromyalgia, Seizure Disorder Additional Past Medical History / Comment(s): CHRONIC BACK PAIN; Restless leg syndrome, migraines History of Any Multi-Drug Resistant Organisms: None Reported Past Surgical History: Back Surgery, Section, Hysterectomy, Orthopedic Surgery, Tubal Ligation Past Anesthesia/Blood Transfusion Reactions: No Reported Reaction Past Psychological History: Anxiety, Depression, Panic Disorder Smoking Status: Current every day smoker Past Alcohol Use History: None Reported Past Drug Use History: None Reported - Past Family History Mother Family Medical History: No Reported History General Exam - General Exam Comments Initial Comments: General: The patient is awake and alert, in no distress, and does not appear acutely ill. Eye: Pupils are equal, round and reactive to light, extra-ocular movements are intact. No nystagmus. There is normal conjunctiva bilaterally. No signs of icterus. Cardiovascular: There is a regular rate and rhythm. No murmur, rub or gallop is appreciated. Respiratory: Lungs are clear to auscultation, respirations are non-labored, breath sounds are equal. No wheezes, stridor, rales, or rhonchi. Musculoskeletal: On exam of ankle and knees b/l, there is mild swelling of the lateral malleolus and tenderness. Pain along the lateral aspect of foot. No plantar bruising. No pain to palpation of the proximal tibia and fibula. Patient not tender to palpation of forefoot. Normal ROM, no tenderness of knees and right ankle, can range with pain of left ankle. Pain appears proportionate Strength 5/5. Sensation intact proximal and distal to injury site. Tender to palpation of the left calf. DP pulses equal bilaterally 2+. Compartments are soft and compressible. Neurological: A&O x 3. CN II-XII intact, There are no obvious motor or sensory deficits. Coordination appears grossly intact. Speech is normal. Skin: Skin is warm and dry and no rashes or lesions are noted. Psychiatric: Cooperative, appropriate mood & affect, normal judgment. Limitations: no limitations Course Vital Signs 04/19/19 04/19/19 20:08 21:55 Temperature 98.4 F 98.0 F Pulse Rate 77 71 Respiratory 18 18 Rate Blood Pressure 129/70 112/58 O2 Sat by Pulse 99 96 Oximetry Medical Decision Making - Medical Decision Making No new injury. same pain from initial with increased swellling and pain with weight bearing. Mild swelling, very mild bruising. Patient tender along lateral foot. Placed in splint. Given NWB instruction. RX for crutches and orthopedic f/u per patient is scheduled for April 28 with Erwin Rinaldi. Patient NV intact both prior and after splitting. Compartments soft. Given right calf pain,US obtained to r/o DVT, no DVT. Patient discharged appearing well. Disposition Clinical Impression: Left foot pain, Left ankle pain Disposition: HOME SELF-CARE Condition: Good Instructions (If sedation given, give patient instructions): Ankle Sprain (ED), Foot Sprain (ED) Additional Instructions: Please use medication as discussed. Please follow-up with orthopedic surgery as scheduled. Please do no weight bear on the left ankle. Please return to emergency room if the symptoms increase or worsen or for any other concerns. Is patient prescribed a controlled substance at d/c from ED?: No Referrals: Domingo Valdovinos MD [Primary Care Provider] - 1-2 days Time of Disposition: 21:45
[2019-04-19 21:56] VITALS: BP 112/58; PULSE 71; TEMP 98
== END 2019-04-19 22:05 | disposition home or self-care (01) ==
LOC: EC 19:56
DX: M79.672 Pain in left foot (principal); M25.572 Pain in left ankle and joints of left foot; J45.909 Unspecified asthma, uncomplicated; M79.7 Fibromyalgia; G40.909 Epilepsy, unspecified, not intractable, without status epilepticus; G25.81 Restless legs syndrome; M54.9 Dorsalgia, unspecified; G89.29 Other chronic pain; F41.9 Anxiety disorder, unspecified; F32.9 Major depressive disorder, single episode, unspecified; F17.200 Nicotine dependence, unspecified, uncomplicated; Z90.710 Acquired absence of both cervix and uterus; Z98.51 Tubal ligation status; Z98.890 Other specified postprocedural states; Z79.1 Long term (current) use of non-steroidal anti-inflammatories (NSAID); Z79.82 Long term (current) use of aspirin; Z79.899 Other long term (current) drug therapy; Z88.8 Allergy status to other drugs, medicaments and biological substances
CPT/HCPCS: 99283

== ENCOUNTER 2019-07-26 13:52 | Emergency (ER) | payer MEDICARE, OTHER ==
[2019-07-26 14:10] VITALS: TEMP 98.2
[2019-07-26] MEDS ORDERED: ACET/COD 300 MG/30 MG STARTER PACK 6 TAB BTL PO STA (14:37)
[2019-07-26] MEDS ORDERED: KETOROLAC 30 MG/ML 1 ML VIAL IM STA (14:37)
--- NOTE | 2019-07-26 14:37 | ED ---
General Adult HPI - General Chief complaint: Fall Stated complaint: Fall, rib pain Time Seen by Provider: 07/26/19 14:14 Source: patient, RN notes reviewed, old records reviewed Mode of arrival: ambulatory Limitations: no limitations - History of Present Illness Initial comments: 43-year-old female patient with reported past medical history significant for fibromyalgia, chronic back pain, tubal ligation, hysterectomy, factor V leiden. She reports ER for evaluation of fall approximately 3 days ago. Patient ports that she fell from standing landing on her left side on a bench. Patient ports that she has pain in her lateral ribs. Patient reports his pain has been causing discomfort for approximately 3 days. Denies any other area of trauma or injury. Denies any other complaints. Systemic: Pt denies fatigue, fever/chills, rash. Pt denies weakness, night sweats, weight loss. Neuro: Pt denies headache, visual disturbances, syncope or pre-syncope. HEENT: Pt denies ocular discharge or irritation, otalgia, rhinorrhea, pharyngitis or notable lymphadenopathy. Cardiopulmonary: Pt denies chest pain, SOB, heart palpitations, dyspnea on exertion. Abdominal/GI: Pt denies abdominal pain, n/v/d. : Pt denies dysuria, burning w/ urination, frequency/urgency. Denies new onset urinary or bowel incontinence. MSK: Pt denies myalgia, loss of strength or function in extremities. Neuro: Pt denies new onset weakness, paresthesias. - Related Data Home Medications Medication Instructions Recorded Confirmed rOPINIRole HCL [Requip] 0.5 mg PO BID 07/23/16 04/16/19 Lacosamide [Vimpat] 200 mg PO BID 10/07/17 04/16/19 Fesoterodine Fumarate [Toviaz] 4 mg PO DAILY 06/04/18 04/16/19 Simvastatin [Zocor] 20 mg PO HS 06/04/18 04/16/19 Umeclidinium [place] [Incruse 1 puff INHALATION RT-DAILY 06/04/18 04/16/19 Ellipta] Meloxicam [Mobic] 15 mg PO HS 06/11/18 04/16/19 Atenolol [Tenormin] 25 mg PO DAILY 04/06/19 04/16/19 Brexpiprazole [Rexulti] 1 mg PO HS 04/06/19 04/16/19 Diazepam [Valium] 5 mg PO DAILY 04/06/19 04/16/19 Temazepam [Restoril] 15 mg PO HS PRN 04/06/19 04/16/19 Zonisamide [Zonegran] 200 mg PO HS 04/06/19 04/16/19 lamoTRIgine [LaMICtal] 100 mg PO BID 04/06/19 04/16/19 Aspirin EC [Ecotrin Low Dose] 81 mg PO DAILY 04/16/19 04/16/19 DULoxetine HCL [Cymbalta] 60 mg PO BID 04/16/19 04/16/19 Gabapentin 600 mg PO TID 04/16/19 04/16/19 Previous Rx's Medication Instructions Recorded HYDROcodone/APAP 5-325MG [[place] 1 tab PO Q6HR PRN 3 Days #6 tab 04/16/19 5-325] Allergies Allergy/AdvReac Type Severity Reaction Status Date / Time topiramate [From Topamax] Allergy Anaphylaxis Verified 07/26/19 14:10 Review of Systems ROS Statement: Those systems with pertinent positive or pertinent negative responses have been documented in the HPI. ROS Other: All systems not noted in ROS Statement are negative. Past Medical History Past Medical History: Asthma, Fibromyalgia, Seizure Disorder Additional Past Medical History / Comment(s): CHRONIC BACK PAIN; Restless leg syndrome, migraines History of Any Multi-Drug Resistant Organisms: None Reported Past Surgical History: Back Surgery, Section, Hysterectomy, Orthopedic Surgery, Tubal Ligation Past Anesthesia/Blood Transfusion Reactions: No Reported Reaction Past Psychological History: Anxiety, Depression, Panic Disorder Smoking Status: Current every day smoker Past Alcohol Use History: None Reported Past Drug Use History: None Reported - Past Family History Mother Family Medical History: No Reported History General Exam - General Exam Comments Initial Comments: Constitutional: NAD, AOX3, Pt has pleasant affect. HEENT: NC/AT, trachea midline, neck supple, no lymphadenopathy. Posterior pharynx non erythematous, without exudates. External ears appear normal, without discharge. Mucous membranes moist. Eyes PERRLA, EOM intact. There is no scleral icterus. No pallor noted. Cardiopulmonary: RRR, no murmurs, rubs or gallops, no JVD noted. Lungs CTAB in anterior and posterior talavera. No peripheral edema. Abdominal exam: Abdomen soft and non-distended. Abdomen non-tender to palpation in all 4 quadrants. Bowel sounds active in LLQ. No hepatosplenomegaly. No ecchymosis Neuro: CN II-XII grossly intact. No nuchal rigidity. No raccon eyes, no thomas sign, no hemotympanum. No cervical spinal tenderness. MSK: Left lateral ribs approximately 10th rib mildly tender to palpation. No skin changes, no crepitus. No posterior calf tenderness bilaterally, homans sign negative bilaterally. Posterior tibialis and radial pulse +2 bilaterally. Sensation intact in upper and lower extremities. Full active ROM in upper and lower extremities, 5/5 stregnth. Limitations: no limitations Course Vital Signs 07/26/19 14:08 Temperature 98.2 F Pulse Rate 87 Respiratory 20 Rate Blood Pressure 138/82 O2 Sat by Pulse 98 Oximetry Medical Decision Making - Medical Decision Making 43-year-old female patient with reported past medical history significant for fibromyalgia, chronic back pain, tubal ligation, hysterectomy, factor V leiden. She reports ER for evaluation of fall approximately 3 days ago. Patient ports that she fell from standing landing on her left side on a bench. Patient ports that she has pain in her lateral ribs. Patient reports his pain has been causing discomfort for approximately 3 days. Denies any other area of trauma or injury. Denies any other complaints. Pt VSS, afebrile. Physical exam displayed: Left lateral ribs approximately 10th rib mildly tender to palpation. No skin changes, no crepitus. Lungs clear to auscultation bilaterally anterior and posterior talavera. Plan film is negative. Patient discharged with analgesia, incentive spirometer. Started on good inspiration and expiration. Follow-up with primary care provider and return to ER if condition worsens. Case discuss ed with Dr. Arceo. Disposition Clinical Impression: Fall, Rib contusion Disposition: HOME SELF-CARE Condition: Stable Instructions (If sedation given, give patient instructions): Fall Prevention (ED), Rib Contusion (ED) Additional Instructions: Use Tylenol and Motrin as needed for pain. Use incentive spirometer minimum 10 times per day. Follow-up with primary care provider tomorrow. Return to ER if condition worsens. Is patient prescribed a controlled substance at d/c from ED?: No Referrals: Domingo Valdovinos MD [Primary Care Provider] - 1-2 days
--- NOTE | 2019-07-26 14:47 | XR ---
EXAMINATION TYPE: XR ribs LT w pa chest xray DATE OF EXAM: 07/26/2019 COMPARISON: 04/06/2019 HISTORY: Recent fall with subsequent left rib pain TECHNIQUE: Single view of the chest with 2 views of the left ribs was obtained FINDINGS: No focal consolidation, pleural effusion or pneumothorax. Cardia mediastinal silhouette is within normal limits. Thoracic nerve root stimulator is seen. The left ribs appear intact without acu te displaced rib fracture. IMPRESSION: No acute cardiac pulmonary pathology. No acute displaced left rib fracture.
[2019-07-26 15:05] VITALS: BP 130/80; PULSE 80; RESP 16
== END 2019-07-26 15:01 | disposition home or self-care (01) ==
LOC: EC 13:52
DX: S20.212A Contusion of left front wall of thorax, initial encounter (principal); M79.7 Fibromyalgia; G89.29 Other chronic pain; M54.9 Dorsalgia, unspecified; D68.51 Activated protein C resistance; J45.909 Unspecified asthma, uncomplicated; G40.909 Epilepsy, unspecified, not intractable, without status epilepticus; G43.909 Migraine, unspecified, not intractable, without status migrainosus; G25.81 Restless legs syndrome; F17.200 Nicotine dependence, unspecified, uncomplicated; F41.9 Anxiety disorder, unspecified; F31.9 Bipolar disorder, unspecified; F41.0 Panic disorder [episodic paroxysmal anxiety]; Z79.1 Long term (current) use of non-steroidal anti-inflammatories (NSAID); Z79.82 Long term (current) use of aspirin; Z79.899 Other long term (current) drug therapy; Z88.8 Allergy status to other drugs, medicaments and biological substances; Z90.710 Acquired absence of both cervix and uterus; W01.190A Fall on same level from slipping, tripping and stumbling with subsequent striking against furniture, initial encounter; Y92.009 Unspecified place in unspecified non-institutional (private) residence as the place of occurrence of the external cause
CPT/HCPCS: 71101; 99284; 96372; J1885

== ENCOUNTER 2019-09-03 10:37 | Emergency (ER) | payer MEDICARE, OTHER ==
[2019-09-03] MEDS ORDERED: KETOROLAC 30 MG/ML 1 ML VIAL IM STA (10:53)
--- NOTE | 2019-09-03 10:58 | ED ---
Lower Extremity Injury HPI - General Chief Complaint: Extremity Injury, Lower Stated Complaint: Lt foot injury Time Seen by Provider: 09/03/19 10:43 Source: patient Mode of arrival: wheelchair Limitations: no limitations - History of Present Illness Initial Comments: patient is a 43-year-old female presenting to emergency Department with chief complaint of left foot pain. patient states that she was taking out a wheelchair from her vehicle when the hakan rolled out of fell on her left foot. She reports a throbbing pain at the site of injury. She does report some swelling but denies any bruising. 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 She reports the pain is exacerbated with ambulation. She does report some tenderness along the medial and lateral malleolus. He reports limited range of motion with inversion plantarflexion and dorsiflexion. Denies taking any medication to alleviate the pain. - Related Data Home Medications Medication Instructions Recorded Confirmed rOPINIRole HCL [Requip] 0.5 mg PO BID 07/23/16 04/16/19 Lacosamide [Vimpat] 200 mg PO BID 10/07/17 04/16/19 Fesoterodine Fumarate [Toviaz] 4 mg PO DAILY 06/04/18 04/16/19 Simvastatin [Zocor] 20 mg PO HS 06/04/18 04/16/19 Umeclidinium [place] [Incruse 1 puff INHALATION RT-DAILY 06/04/18 04/16/19 Ellipta] Meloxicam [Mobic] 15 mg PO HS 06/11/18 04/16/19 Atenolol [Tenormin] 25 mg PO DAILY 04/06/19 04/16/19 Brexpiprazole [Rexulti] 1 mg PO HS 04/06/19 04/16/19 Diazepam [Valium] 5 mg PO DAILY 04/06/19 04/16/19 Temazepam [Restoril] 15 mg PO HS PRN 04/06/19 04/16/19 Zonisamide [Zonegran] 200 mg PO HS 04/06/19 04/16/19 lamoTRIgine [LaMICtal] 100 mg PO BID 04/06/19 04/16/19 Aspirin EC [Ecotrin Low Dose] 81 mg PO DAILY 04/16/19 04/16/19 DULoxetine HCL [Cymbalta] 60 mg PO BID 04/16/19 04/16/19 Gabapentin 600 mg PO TID 04/16/19 04/16/19 Previous Rx's Medication Instructions Recorded HYDROcodone/APAP 5-325MG [[place] 1 tab PO Q6HR PRN 3 Days #6 tab 04/16/19 5-325] Allergies Allergy/AdvReac Type Severity Reaction Status Date / Time topiramate [From Topamax] Allergy Anaphylaxis Verified 09/03/19 10:41 Review of Systems ROS Statement: Those systems with pertinent positive or pertinent negative responses have been documented in the HPI. ROS Other: All systems not noted in ROS Statement are negative. Past Medical History Past Medical History: Asthma, Fibromyalgia, Seizure Disorder Additional Past Medical History / Comment(s): CHRONIC BACK PAIN; Restless leg syndrome, migraines History of Any Multi-Drug Resistant Organisms: None Reported Past Surgical History: Back Surgery, Section, Hysterectomy, Orthopedic Surgery, Tubal Ligation Past Anesthesia/Blood Transfusion Reactions: No Reported Reaction Past Psychological History: Anxiety, Depression, Panic Disorder Smoking Status: Current every day smoker Past Alcohol Use History: None Reported Past Drug Use History: None Reported - Past Family History Mother Family Medical History: No Reported History General Exam Limitations: no limitations General appearance: alert, in no apparent distress Head exam: Present: atraumatic, normocephalic, normal inspection Eye exam: Present: normal appearance Pupils: Present: normal accommodation ENT exam: Present: normal exam, mucous membranes moist Neck exam: Present: normal inspection, full ROM Respiratory exam: Present: normal lung sounds bilaterally Cardiovascular Exam: Present: regular rate, normal rhythm, normal heart sounds Extremities exam: Present: tenderness (midfoot tenderness. Mild tenderness along the lateral and medial malleoli of the left foot.), normal capillary refil l, other (+2 dorsalis pedis and posterior tibialis bilaterally.). Absent: normal inspection (mild swelling on the left foot. No signs of acute trauma. No bruising.), full ROM (limited range of motion with inversion, dorsi and plantar flexion), calf tenderness (negative Homans bilaterally.) Back exam: Present: normal inspection, full ROM Neurological exam: Present: alert, oriented X3 Psychiatric exam: Present: normal affect, normal mood Skin exam: Present: warm, dry, intact, normal color Medical Decision Making - Medical Decision Making patient is a 43-year-old female presenting to the emergency department with a chief complaint of foot pain. on exam patient has no midfoot tenderness with limited range of motion of foot. Neurovascularly intact. Very mild swelling. No signs of acute injury. X-ray of ankle and foot shows no signs of acute fracture or dislocations. I suspect the patient has suffered foot contusion. Patient advised to apply some ice compress to minimize symptoms. Patient vised alternate between Tylenol and ibuprofen for pain control. Strict return parameters were thoroughly discussed with patient is understanding and agreeable. Case discussed with physician. Disposition Clinical Impression: Contusion of foot, left Disposition: HOME SELF-CARE Condition: Stable Instructions (If sedation given, give patient instructions): Foot Contusion (ED) Additional Instructions: alternate between Tylenol and ibuprofen for pain control. Apply ice compress to minimize symptoms. His return to emergency department if symptoms worsen. Is patient prescribed a controlled substance at d/c from ED?: No Referrals: Domingo Valdovinos MD [Primary Care Provider] - 1-2 days Time of Disposition: 12:10
--- NOTE | 2019-09-03 11:55 | XR ---
EXAMINATION TYPE: XR foot complete LT , 3 VIEWS DATE OF EXAM ORDERED: 09/03/2019 HISTORY: trauma. COMPARISON: Previous study dated 01/30/2014. FINDINGS: No fracture or dislocation is seen. There are both plantar and Achilles calcaneal spurs. IMPRESSION: NO ACUTE OSSEOUS LESION.
--- NOTE | 2019-09-03 11:57 | XR ---
EXAMINATION TYPE: XR ankle complete LT , 3 VIEWS DATE OF EXAM ORDERED: 09/03/2019 HISTORY: pain, trauma. COMPARISON: Previous study dated 04/16/2019. FINDINGS: There is generalized swelling about the left ankle. No fracture, dislocation or ankle join t effusion is seen. Calcaneal spurs are again noted. IMPRESSION: NO ACUTE OSSEOUS LESION.
[2019-09-03 12:26] VITALS: BP 100/61; PULSE 65; RESP 16; TEMP 97.7
== END 2019-09-03 12:24 | disposition home or self-care (01) ==
LOC: EC 10:37
DX: S90.32XA Contusion of left foot, initial encounter (principal); M79.7 Fibromyalgia; J45.909 Unspecified asthma, uncomplicated; G89.29 Other chronic pain; M54.9 Dorsalgia, unspecified; G25.81 Restless legs syndrome; F41.9 Anxiety disorder, unspecified; F32.9 Major depressive disorder, single episode, unspecified; G40.909 Epilepsy, unspecified, not intractable, without status epilepticus; F17.200 Nicotine dependence, unspecified, uncomplicated; Z79.1 Long term (current) use of non-steroidal anti-inflammatories (NSAID); Z79.899 Other long term (current) drug therapy; Z79.82 Long term (current) use of aspirin; Z88.8 Allergy status to other drugs, medicaments and biological substances; W20.8XXA Other cause of strike by thrown, projected or falling object, initial encounter; Y93.89 Activity, other specified
CPT/HCPCS: 73610; 73630; 96372; 99283; J1885

== ENCOUNTER 2019-11-06 11:15 | Emergency (ER) | payer MEDICARE, OTHER ==
[2019-11-06 11:29] VITALS: BP 111/74; PULSE 77; RESP 18; TEMP 98
--- NOTE | 2019-11-06 12:08 | ED ---
General Adult HPI - General Chief complaint: Extremity Injury, Upper Stated complaint: right elbow injury Time Seen by Provider: 11/06/19 11:32 Source: patient, RN notes reviewed Mode of arrival: ambulatory Limitations: no limitations - History of Present Illness Initial comments: Patient is a pleasant 43-year-old female presenting to the emergency Department with complaints of right elbow pain. Onset of symptoms was several weeks ago. Patient states she struck it on a cooler at the store. He should and is having increase discomfort progressively since that time. Discomfort is greatly increased with movement. No swelling. No other areas of injury or concern. No fevers. - Related Data Home Medications Medication Instructions Recorded Confirmed rOPINIRole HCL [Requip] 0.5 mg PO BID 07/23/16 04/16/19 Lacosamide [Vimpat] 200 mg PO BID 10/07/17 04/16/19 Fesoterodine Fumarate [Toviaz] 4 mg PO DAILY 06/04/18 04/16/19 Simvastatin [Zocor] 20 mg PO HS 06/04/18 04/16/19 Umeclidinium [place] [Incruse 1 puff INHALATION RT-DAILY 06/04/18 04/16/19 Ellipta] Meloxicam [Mobic] 15 mg PO HS 06/11/18 04/16/19 Atenolol [Tenormin] 25 mg PO DAILY 04/06/19 04/16/19 Brexpiprazole [Rexulti] 1 mg PO HS 04/06/19 04/16/19 Diazepam [Valium] 5 mg PO DAILY 04/06/19 04/16/19 Temazepam [Restoril] 15 mg PO HS PRN 04/06/19 04/16/19 Zonisamide [Zonegran] 200 mg PO HS 04/06/19 04/16/19 lamoTRIgine [LaMICtal] 100 mg PO BID 04/06/19 04/16/19 Aspirin EC [Ecotrin Low Dose] 81 mg PO DAILY 04/16/19 04/16/19 DULoxetine HCL [Cymbalta] 60 mg PO BID 04/16/19 04/16/19 Gabapentin 600 mg PO TID 04/16/19 04/16/19 Previous Rx's Medication Instructions Recorded HYDROcodone/APAP 5-325MG [[place] 1 tab PO Q6HR PRN 3 Days #6 tab 04/16/19 5-325] Allergies Allergy/AdvReac Type Severity Reaction Status Date / Time topiramate [From Topamax] Allergy Anaphylaxis Verified 11/06/19 11:27 Review of Systems ROS Statement: Those systems with pertinent positive or pertinent negative responses have been documented in the HPI. ROS Other: All systems not noted in ROS Statement are negative. Constitutional: Denies: fever Eyes: Denies: eye pain ENT: Denies: ear pain Respiratory: Denies: cough Cardiovascular: Denies: chest pain Endocrine: Denies: fatigue Gastrointestinal: Denies: abdominal pain Genitourinary: Denies: dysuria Musculoskeletal: Reports: arthralgia. Denies: back pain, joint swelling Past Medical History Past Medical History: Asthma, Fibromyalgia, Seizure Disorder Additional Past Medical History / Comment(s): CHRONIC BACK PAIN; Restless leg syndrome, migraines History of Any Multi-Drug Resistant Organisms: None Reported Past Surgical History: Back Surgery, Section, Hysterectomy, Orthopedic Surgery, Tubal Ligation Past Anesthesia/Blood Transfusion Reactions: No Reported Reaction Past Psychological History: Anxiety, Depression, Panic Disorder Smoking Status: Current every day smoker Past Alcohol Use History: None Reported Past Drug Use History: None Reported - Past Family History Mother Family Medical History: No Reported History General Exam Limitations: no limitations General appearance: alert, in no apparent distress Head exam: Present: normocephalic Eye exam: Present: normal appearance Neck exam: Present: normal inspection. Absent: tenderness Respiratory exam: Present: normal lung sounds bilaterally Cardiovascular Exam: Present: regular rate, normal rhythm Expanded Peripheral pulses: 2+: Radial (R) GI/Abdominal exam: Present: soft. Absent: tenderness Extremities exam: Present: tenderness (Mild to moderate tenderness diffusely right elbow. Pain with range of motion. Distally the extremity is neurovascular intact. Good strength. Good radial pulse. Sensation intact.) Neurological exam: Present: alert. Absent: motor sensory deficit Psychiatric exam: Present: normal affect, normal mood Skin exam: Present: normal color Course Vital Signs 11/06/19 11:27 Temperature 98 F Pulse Rate 77 Respiratory 18 Rate Blood Pressure 111/74 O2 Sat by Pulse 98 Oximetry Procedures - Orthopedic Splinting/Casting Injury #1 Side: right Upper Extremity Injury Location: elbow Upper Extremity Immobilizer: posterior splint Medical Decision Making - Radiology Data Radiology results: image reviewed (Right elbow x-ray shows possible intra- articular chip fracture.) Disposition Clinical Impression: Elbow injury Disposition: HOME SELF-CARE Condition: Stable Instructions (If sedation given, give patient instructions): Elbow Fracture (ED) Additional Instructions: Please follow-up with orthopedics this week. Return for increased pain, swelling, redness, fever, change or worsening symptoms or other concerns. Is patient prescribed a controlled substance at d/c from ED?: No Referrals: Domingo Valdovinos MD [Primary Care Provider] - 1-2 days Les Ruby MD [STAFF PHYSICIAN] - 1-2 days Time of Disposition: 12:41
--- NOTE | 2019-11-06 12:22 | XR ---
EXAMINATION TYPE: XR elbow complete RT , 3 VIEWS DATE OF EXAM ORDERED: 11/06/2019 HISTORY: pain. COMPARISON: Previous study dated 10/28/2018. FINDINGS: No fracture, dislocation or joint effusion is seen. A small ossific density adjacent to th e coronoid process may represent a loose body. This was present previously but appears slightly bigge r on today's examination. IMPRESSION: 1. NO ACUTE OSSEOUS LESION. 2. I CANNOT EXCLUDE AN INTRA-ARTICULAR LOOSE BODY.
[2019-11-06] MEDS ORDERED: KETOROLAC 60 MG/2 ML VIAL IM STA (12:39)
== END 2019-11-06 12:54 | disposition home or self-care (01) ==
LOC: EC 11:15
DX: S59.901A Unspecified injury of right elbow, initial encounter (principal); G25.81 Restless legs syndrome; G40.909 Epilepsy, unspecified, not intractable, without status epilepticus; F41.9 Anxiety disorder, unspecified; F32.9 Major depressive disorder, single episode, unspecified; J45.909 Unspecified asthma, uncomplicated; M79.7 Fibromyalgia; F17.200 Nicotine dependence, unspecified, uncomplicated; Z79.1 Long term (current) use of non-steroidal anti-inflammatories (NSAID); Z79.82 Long term (current) use of aspirin; Z79.899 Other long term (current) drug therapy; Z79.51 Long term (current) use of inhaled steroids; Z88.8 Allergy status to other drugs, medicaments and biological substances; Z98.890 Other specified postprocedural states; W22.8XXA Striking against or struck by other objects, initial encounter; Y92.89 Other specified places as the place of occurrence of the external cause
CPT/HCPCS: 73080; 96372; 99283; 29105; J1885

== ENCOUNTER 2020-02-05 13:55 | Emergency (ER) | payer MEDICARE, OTHER ==
--- NOTE | 2020-02-05 14:28 | ED ---
General Adult HPI - General Chief complaint: Upper Respiratory Infection Stated complaint: sob/cough Time Seen by Provider: 02/05/20 14:13 Source: patient Mode of arrival: ambulatory Limitations: no limitations - History of Present Illness Initial comments: Patient is a 44-year-old female with history of factor V Leiden, asthma, COPD presenting to the emergency department with a chief complaint of cough and shortness of breath. Patient states the cough started about 4 weeks ago with yellow/green sputum production which has gradually increased in severity. Patient also reports during this time she also developed increasing shortness of breath especially with exertion. Patient also reports developing chest pain on exertion. Patient states she is a current smoker. Patient reports taking daily and he'll medication for the COPD symptoms. Patient denies any direct exposure to any known Covid patient. Patient denies any night sweats fevers or chills. Denies any nausea vomiting diarrhea. States her legs are slightly swollen baseline. Denies any Tenderness at this time. No exogenous estrogen use. No recent prolonged periods of inactivity. Patient is not on chemotherapy - Related Data Home Medications Medication Instructions Recorded Confirmed rOPINIRole HCL [Requip] 0.5 mg PO BID 07/23/16 04/16/19 Lacosamide [Vimpat] 200 mg PO BID 10/07/17 04/16/19 Fesoterodine Fumarate [Toviaz] 4 mg PO DAILY 06/04/18 04/16/19 Simvastatin [Zocor] 20 mg PO HS 06/04/18 04/16/19 Umeclidinium [place] [Incruse 1 puff INHALATION RT-DAILY 06/04/18 04/16/19 Ellipta] Meloxicam [Mobic] 15 mg PO HS 06/11/18 04/16/19 Atenolol [Tenormin] 25 mg PO DAILY 04/06/19 04/16/19 Brexpiprazole [Rexulti] 1 mg PO HS 04/06/19 04/16/19 Diazepam [Valium] 5 mg PO DAILY 04/06/19 04/16/19 Temazepam [Restoril] 15 mg PO HS PRN 04/06/19 04/16/19 Zonisamide [Zonegran] 200 mg PO HS 04/06/19 04/16/19 lamoTRIgine [LaMICtal] 100 mg PO BID 04/06/19 04/16/19 Aspirin EC [Ecotrin Low Dose] 81 mg PO DAILY 04/16/19 04/16/19 DULoxetine HCL [Cymbalta] 60 mg PO BID 04/16/19 04/16/19 Gabapentin 600 mg PO TID 04/16/19 04/16/19 Previous Rx's Medication Instructions Recorded HYDROcodone/APAP 5-325MG [[place] 1 tab PO Q6HR PRN 3 Days #6 tab 04/16/19 5-325] Albuterol Nebulized [Ventolin 2.5 mg INHALATION Q4H PRN #25 nebu 02/05/20 Nebulized] Amoxicillin/Potassium Clav 1 tab PO Q12HR #20 tab 02/05/20 [Augmentin 875-125 Tablet] Allergies Allergy/AdvReac Type Severity Reaction Status Date / Time topiramate [From Topamax] Allergy Anaphylaxis Verified 02/05/20 14:13 Review of Systems ROS Statement: Those systems with pertinent positive or pertinent negative responses have been documented in the HPI. ROS Other: All systems not noted in ROS Statement are negative. Past Medical History Past Medical History: Asthma, Fibromyalgia, Seizure Disorder Additional Past Medical History / Comment(s): CHRONIC BACK PAIN; Restless leg syndrome, migraines History of Any Multi-Drug Resistant Organisms: None Reported Past Surgical History: Back Surgery, Section, Hysterectomy, Orthopedic Surgery, Tubal Ligation Past Anesthesia/Blood Transfusion Reactions: No Reported Reaction Past Psychological History: Anxiety, Depression, Panic Disorder Smoking Status: Current every day smoker Past Alcohol Use History: None Reported Past Drug Use History: None Reported - Past Family History Mother Family Medical History: No Reported History General Exam Limitations: no limitations General appearance: alert, in no apparent distress Head exam: Present: atraumatic, normocephalic, normal inspection Eye exam: Present: normal appearance, PERRL, EOMI Pupils: Present: normal accommodation ENT exam: Present: normal exam, normal oropharynx, mucous membranes moist, TM's normal bilaterally, normal external ear exam Neck exam: Present: normal inspection, full ROM Respiratory exam: Present: wheezes (Bilateral mild to moderate wheezing diffusely) Cardiovascular Exam: Present: regular rate, normal rhythm, normal heart sounds Extremities exam: Present: normal inspection, full ROM Back exam: Present: normal inspection, full ROM Neurological exam: Present: alert, oriented X3 Psychiatric exam: Present: normal affect, normal mood Skin exam: Present: warm, dry, intact, normal color Course Vital Signs 02/05/20 02/05/20 02/05/20 14:10 15:25 16:09 Temperature 98.0 F Pulse Rate 72 76 Respiratory 16 17 Rate Blood Pressure 123/68 O2 Sat by Pulse 98 Oximetry 02/05/20 02/05/20 02/05/20 16:19 16:42 17:42 Temperature Pulse Rate 76 67 72 Respiratory 19 Rate Blood Pressure 111/61 O2 Sat by Pulse 97 Oximetry 02/05/20 02/05/20 17:54 18:41 Temperature 98.7 F Pulse Rate 72 74 Respiratory 17 Rate Blood Pressure 115/79 O2 Sat by Pulse 97 Oximetry EKG Findings - EKG Comments: EKG Findings:: Sinus rhythm. ventricular rate 65, [place] 162, QRS 92, QTC 391. Medical Decision Making - Medical Decision Making Patient is a 44-year-old female with history of factor V laden, COPD and hasn't presenting to the emergency department with a chief complaint of cough or short ness of breath. Symptoms and I one for approximately one month with a cough and later development of shortness of breath on exertion. Patient did also report of some chest pain with exertion. Last week. Physical examination patient appears to have a lateral diffuse expiratory wheezing. She is a current smoker. No known Covid exposures. No night sweats fevers or chills. She does have bilateral lower extremity edema at baseline. D-dimer was positive. CT of chest was negative for pulmonary embolism. CBC shows mild leukocytosis. CMP is unremarkable. Covid testing pending. Troponins are negative. EKG shows sinus rhythm. There was an improvement of the pulmonary edema compared to last imaging study. Patient was given 2 DuoNeb treatments along with Solu-Medrol. On reevaluation patient reports improvement symptoms. The wheezing hasn't was completely resolved. Patient was given a gram of Rocephin. She'll be discharged with a 10 day course of Augmentin. I also gave the patient a refill for albuterol. Patient is a current smoker. I counseled the patient for smoking cessation for greater than 3 minutes. Advised the patient to follow with [facility] care. Return parameters were thoroughly discussed the patient is a 17 agreeable. Case discussed with physician. - Lab Data Result diagrams: 02/05/20 14:56 05/17/20 14:56 Lab Results 02/05/20 02/05/20 02/05/20 Range/Units 14:56 14:56 14:56 WBC 11.4 H (3.8-10.6) k/uL RBC 3.90 (3.80-5.40) m/uL Hgb 13.4 (11.4-16.0) gm/dL Hct 39.6 (34.0-46.0) % MCV 101.5 H (80.0-100.0) fL MCH 34.3 (25.0-35.0) pg MCHC 33.8 (31.0-37.0) g/dL RDW 14.5 (11.5-15.5) % Plt Count 210 (150-450) k/uL Neutrophils % 60 % Lymphocytes % 30 % Monocytes % 5 % Eosinophils % 4 % Basophils % 0 % Neutrophils # 6.8 (1.3-7.7) k/uL Lymphocytes # 3.4 (1.0-4.8) k/uL Monocytes # 0.6 (0-1.0) k/uL Eosinophils # 0.5 (0-0.7) k/uL Basophils # 0.0 (0-0.2) k/uL Macrocytosis Slight PT 10.2 (9.0-12.0) sec INR 1.0 (<1.2) APTT 26.4 (22.0-30.0) sec D-Dimer 0.70 H (<0.60) mg/L FEU Sodium 140 (137-145) mmol/L Potassium 4.0 (3.5-5.1) mmol/L Chloride 109 H (98-107) mmol/L Carbon Dioxide 24 (22-30) mmol/L Anion Gap 7 mmol/L BUN 18 H (7-17) mg/dL Creatinine 0.77 (0.52-1.04) mg/dL Est GFR (CKD-EPI)AfAm >90 (>60 ml/min/1.73 sqM) Est GFR (CKD-EPI)NonAf >90 (>60 ml/min/1.73 sqM) Glucose 80 (74-99) mg/dL Calcium 9.4 (8.4-10.2) mg/dL Total Bilirubin 0.2 (0.2-1.3) mg/dL AST 19 (14-36) U/L ALT 17 (4-34) U/L Alkaline Phosphatase 66 (38-126) U/L Troponin I (0.000-0.034) ng/mL Total Protein 7.4 (6.3-8.2) g/dL Albumin 4.2 (3.5-5.0) g/dL 02/05/20 Range/Units 14:56 WBC (3.8-10.6) k/uL RBC (3.80-5.40) m/uL Hgb (11.4-16.0) gm/dL Hct (34.0-46.0) % MCV (80.0-100.0) fL MCH (25.0-35.0) pg MCHC (31.0-37.0) g/dL RDW (11.5-15.5) % Plt Count (150-450) k/uL Neutrophils % % Lymphocytes % % Monocytes % % Eosinophils % % Basophils % % Neutrophils # (1.3-7.7) k/uL Lymphocytes # (1.0-4.8) k/uL Monocytes # (0-1.0) k/uL Eosinophils # (0-0.7) k/uL Basophils # (0-0.2) k/uL Macrocytosis PT (9.0-12.0) sec INR (<1.2) APTT (22.0-30.0) sec D-Dimer (<0.60) mg/L FEU Sodium (137-145) mmol/L Potassium (3.5-5.1) mmol/L Chloride (98-107) mmol/L Carbon Dioxide (22-30) mmol/L Anion Gap mmol/L BUN (7-17) mg/dL Creatinine (0.52-1.04) mg/dL Est GFR (CKD-EPI)AfAm (>60 ml/min/1.73 sqM) Est GFR (CKD-EPI)NonAf (>60 ml/min/1.73 sqM) Glucose (74-99) mg/dL Calcium (8.4-10.2) mg/dL Total Bilirubin (0.2-1.3) mg/dL AST (14-36) U/L ALT (4-34) U/L Alkaline Phosphatase (38-126) U/L Troponin I <0.012 (0.000-0.034) ng/mL Total Protein (6.3-8.2) g/dL Albumin (3.5-5.0) g/dL Disposition Clinical Impression: COPD exacerbation Disposition: HOME SELF-CARE Condition: Stable Instructions (If sedation given, give patient instructions): COPD (Chronic Obstructive Pulmonary Disease) (DC) Additional Instructions: Follow-up with her primary care. Take prescribed medication as directed. Return to emergency department if symptoms worsen. Prescriptions: Amoxicillin/Potassium Clav [Augmentin 875-125 Tablet] 1 tab PO Q12HR #20 tab Albuterol Nebulized [Ventolin Nebulized] 2.5 mg INHALATION Q4H PRN #25 nebu PRN Reason: difficulty in breathing Is patient prescribed a controlled substance at d/c from ED?: No Referrals: Domingo Valdovinos MD [Primary Care Provider] - 1-2 days Time of Disposition: 18:32
[2020-02-05 15:05] LABS: Basophils % (A) 0 %; Eosinophils # (A) 0.5 k/uL (0-0.7); Eosinophils % (A) 4 %; HCT 39.6 % (34.0-46.0); HGB 13.4 gm/dL (11.4-16.0); Lymphocytes # (A) 3.4 k/uL (1.0-4.8); Lymphocytes % (A) 30 %; MCH 34.3 pg (25.0-35.0); MCHC 33.8 g/dL (31.0-37.0); MCV 101.5 fL (80.0-100.0); Macrocytosis Slight; Mean Platelet Volume 8.5; Monocytes # (A) 0.6 k/uL (0-1.0); Monocytes % (A) 5 %; Neutrophils # (A) 6.8 k/uL (1.3-7.7); Neutrophils % (A) 60 %; Platelet Count 210 k/uL (150-450); RDW 14.5 % (11.5-15.5); WBC 11.4 k/uL (3.8-10.6)
--- NOTE | 2020-02-05 15:09 | XR ---
EXAMINATION TYPE: XR chest 2V DATE OF EXAM: 02/05/2020 COMPARISON: 04/06/2019 HISTORY: Cough and short of breath TECHNIQUE: FINDINGS: Heart and mediastinum are normal. Lungs are clear of consolidation. There is some mild coar sening of interstitial markings. There is neural stimulator in the mid thoracic spine. There is no ev idence of pleural effusion. There are no hilar masses. The bony thorax is intact. IMPRESSION: No acute lung disease. There is clearing of the pulmonary edema compared to old exam. Nor mal heart.
[2020-02-05 15:18] LABS: ALT 17 U/L (4-34); AST 19 U/L (14-36); African American GFR (CKD) >90 (>60 ml/min/1.73 sqM); Albumin 4.2 g/dL (3.5-5.0); Alkaline Phosphatase 66 U/L (38-126); Anion Gap 7 mmol/L; Blood Urea Nitrogen 18 mg/dL (7-17); Calcium 9.4 mg/dL (8.4-10.2); Carbon Dioxide 24 mmol/L (22-30); Chloride 109 mmol/L (98-107); Glucose 80 mg/dL (74-99); Non-African American GFR(CKD) >90 (>60 ml/min/1.73 sqM); Sodium 140 mmol/L (137-145); Total Bilirubin 0.2 mg/dL (0.2-1.3); Total Protein 7.4 g/dL (6.3-8.2)
[2020-02-05 15:20] LABS: Partial Thromboplastin Time 26.4 sec (22.0-30.0); Prothrombin Time 10.2 sec (9.0-12.0)
[2020-02-05] MEDS ORDERED: methylPREDNISolone SOD SUCCI 125 MG/2 ML VIAL IV STA (15:47)
[2020-02-05] MEDS ORDERED: IPRATROPIUM-ALBUTEROL 3 ML NEB INHALATION STA ×2 (15:47→17:17)
[2020-02-05 15:52] LABS: D-Dimer 0.7 mg/L FEU (<0.60)
--- NOTE | 2020-02-05 16:28 | CT ---
EXAMINATION TYPE: CT chest angio for PE DATE OF EXAM: 02/05/2020 COMPARISON: None HISTORY: shortness of breath and chest pain. Post OP device placement for seizure control [address] DLP: 578.8 mGycm Automated exposure control for dose reduction was used. CONTRAST: Performed with IV Contrast, patient injected with 100 mL of Isovue 370. There are 3-D post processed images. FINDINGS: There is some diffuse groundglass interstitial pulmonary edema. There is no pleural effusion. There i s no pericardial effusion. Heart size is normal. There are no hilar masses. There is no mediastinal a denopathy. Thoracic aorta is intact without evidence of aneurysm or dissection. There are a few bilat eral bronchial lymph nodes that measure up to 1 cm. There is normal contrast opacification of the pulmonary arteries. There are no filling defect. Thoracic spine is intact. The ribs appear intact. Upper abdominal soft tissues are intact. IMPRESSION: No evidence of pulmonary embolism. Interstitial bilateral diffuse pulmonary infiltrates with minimal bronchial adenopathy. This could re late to interstitial pneumonia or sarcoidosis. No suspicious pulmonary mass.
[2020-02-05] MEDS ORDERED: cefTRIAXone IN SWFI 1,000 MG/10 ML SYRINGE IVP STA (18:06)
[2020-02-05 18:42] VITALS: BP 115/79; PULSE 74; RESP 17; TEMP 98.7
== END 2020-02-05 18:42 | disposition home or self-care (01) ==
LOC: EC 13:55
DX: J44.1 Chronic obstructive pulmonary disease with (acute) exacerbation (principal); G40.909 Epilepsy, unspecified, not intractable, without status epilepticus; F41.0 Panic disorder [episodic paroxysmal anxiety]; F32.9 Major depressive disorder, single episode, unspecified; F17.200 Nicotine dependence, unspecified, uncomplicated; Z71.6 Tobacco abuse counseling; Z79.51 Long term (current) use of inhaled steroids; Z79.82 Long term (current) use of aspirin; Z79.899 Other long term (current) drug therapy; Z79.1 Long term (current) use of non-steroidal anti-inflammatories (NSAID); Z88.8 Allergy status to other drugs, medicaments and biological substances
CPT/HCPCS: 36415; 94640 ×2; 93005; 85379; 80053; 84484; 85025; 85610; 85730; 87635; 71046; 71275; 99285; 99406; 96374; 96375; J2930; J0696; Q9967

== ENCOUNTER → 2020-03-19 | Outpatient (CLI) | payer MEDICARE, OTHER ==
[2020-03-19 11:35] LABS: Basophils # (A) 0.1 k/uL (0-0.2); Basophils % (A) 1 %; Eosinophils # (A) 0.3 k/uL (0-0.7); Eosinophils % (A) 3 %; HCT 38.6 % (34.0-46.0); HGB 12.7 gm/dL (11.4-16.0); Lymphocytes # (A) 2.4 k/uL (1.0-4.8); Lymphocytes % (A) 30 %; MCH 33.2 pg (25.0-35.0); MCHC 32.8 g/dL (31.0-37.0); MCV 101.1 fL (80.0-100.0); Macrocytosis Slight; Mean Platelet Volume 8.2; Monocytes # (A) 0.4 k/uL (0-1.0); Monocytes % (A) 5 %; Neutrophils # (A) 4.8 k/uL (1.3-7.7); Neutrophils % (A) 59 %; Platelet Count 219 k/uL (150-450); RBC 3.81 m/uL (3.80-5.40); RDW 14.6 % (11.5-15.5); WBC 8.2 k/uL (3.8-10.6)
[2020-03-19 18:01] LABS: T4, Free (Free Thyroxine) 1.2 ng/dL (0.80-1.80)
== END | disposition home or self-care (01) ==
LOC: LABWHC1 10:36
PROVIDERS: ATTEND Nurse Practitioner Acute Care
DX: E55.9 Vitamin D deficiency, unspecified (principal); R53.82 Chronic fatigue, unspecified; Z51.81 Encounter for therapeutic drug level monitoring
CPT/HCPCS: 36415; 82306; 82607; 84207; 84439; 84443; 84481; 85025

== ENCOUNTER → 2020-05-04 | Outpatient (CLI) | payer MEDICARE, OTHER ==
--- NOTE | 2020-05-04 15:57 | FL ---
EXAMINATION TYPE: FL barium swallow w video DATE OF EXAM: 05/04/2020 MODIFIED BARIUM SWALLOW FLUOROSCOPY EXAM CLINICAL HISTORY: Dysphagia. TECHNIQUE: Notified barium swallow study is performed utilizing thin liquid barium, nectar thick liqu id barium, barium thick puree, and barium coated cracker. COMPARISON: None. FINDINGS: The oral and pharyngeal phases show satisfactory initiation and propagation with all modali ties tested. Normal mastication is seen with solid modalities tested. There is no evidence of penet ration or aspiration with any modality tested. No significant pharyngeal residue was appreciated. Total fluoroscopy time 1 minute 23 seconds. IMPRESSION: No evidence of penetration or aspiration. Please refer to speech therapist notes for fu rther details if necessary.
== END | disposition home or self-care (01) ==
LOC: RADFLMAIN 11:22
PROVIDERS: ATTEND Psychiatry & Neurology Neurology
DX: R13.0 Aphagia (principal)
CPT/HCPCS: 74230

== ENCOUNTER → 2020-11-16 | Outpatient (CLI) | payer MEDICARE, OTHER ==
[~2020-11-16] MED LIST changes: -LACTATED RINGERS 1,000 ML IV SCH; +REGADENOSON 0.4 MG/5 ML SYRINGE IV ONE
--- NOTE | 2020-11-16 12:25 | NM ---
EXAMINATION TYPE: NM stress lexiscan cardiolite DATE OF EXAM: 11/16/2020 COMPARISON: NONE HISTORY: Precordial chest pain and abnormal EKG TECHNIQUE: After the intravenous administration of 9.17 mCi Tc 99m Sestamibi - Cardiolite resting SP ECT images acquired 45 minutes post injection. The patient received 0.4mg Lexiscan, 25 mCi Tc 99m Sestamibi - Stress images obtained 40 minutes post injection FINDINGS: Review of stress and rest SPECT images demonstrates no distinct perfusion abnormality. Gated analysi s shows normal wall motion with an estimated left ventricular ejection fraction of 67 %. IMPRESSION: No scintigraphic evidence for reversible ischemia.
--- NOTE | 2020-11-16 12:30 | P.STRESS ---
- Stress Test Note Stress Test Results/Findings: Exam Performed: NM stress lexiscan cardiolite Exam Date: 11/16/20 Reason for Exam: ABN ECG Height: 5 ft 8 in Weight: 118 kg Protocol: LEXISCAN CARDIOLITE Stage: NA Duration of Exercise: NA Resting Heart Rate: 69 Resting Blood Pressure: 106/69 Maximum Achieved Heart Rate: 84 Maximum Achieved Blood Pressure: 115/69 85% PMHR: 150 100% PMHR: 176 METS: NA Technologist Comment: Stress Test Results/Findings: This is a 44-year-old female with history of hypertension, diabetes and COPD being evaluated for cardiac status. Patient also complained of shortness of breath and palpitations. Stress data: Baseline EKG showed sinus rhythm with a diffuse ST-T changes inferolateral leads. Blood pressure at rest is 106/69, pulse rate of 69. A standard dose of Lexiscan was infused. EKGs continued to show nonspecific changes without any significant changes from the baseline. Final impression: #1. Nondiagnostic Lexiscan stress test #2. Report on Thursday. Images to be provided by the radiologist
--- NOTE | 2020-11-16 17:30 | ECHOF ---
Referral Reason:R94.31 abnormal EKG MEASUREMENTS -------- HEIGHT: 172.7 cm WEIGHT: 117.9 kg BP: RVIDd: 3.1 cm (< 3.3) IVSd: 1.2 cm (0.6 - 1.1) LVIDd: 4.4 cm (3.9 - 5.3) LVPWd: 1.4 cm (0.6 - 1.1) IVSs: 1.4 cm LVIDs: 3.1 cm LVPWs: 1.7 cm LAESV Index (A-L): 22.43 ml/m Ao Diam: 3.3 cm (2.0 - 3.7) AV Cusp: 2.1 cm (1.5 - 2.6) LA Diam: 3.8 cm (2.7 - 3.8) MV EXCURSION: 19.315 mm (> 18.000) MV EF SLOPE: 107 mm/s (70 - 150) EPSS: 0.7 cm MV E Raj: 0.91 m/s MV DecT: 196 ms MV A Raj: 0.69 m/s MV E/A Ratio: 1.31 RAP: 5.00 mmHg RVSP: 27.67 mmHg FINDINGS -------- Sinus rhythm. This was a technically adequate study. The left ventricular size is normal. There is mild concentric left ventricular hypertrophy. Overa ll left ventricular systolic function is normal with, an EF between 55 - 60 %. The diastolic fillin g pattern is normal for the age of the patient 11.93. The right ventricle is normal in size. Normal LA size by volume 22+/-6 ml/m2. The right atrial size is normal. Interatrial and interventricular septum intact. There is no evidence of aortic regurgitation. There is no evidence of aortic stenosis. Mild mitral regurgitation is present. Mild tricuspid regurgitation present. There is no evidence of pulmonary hypertension. The right v entricular systolic pressure, as measured by Doppler, is 27.67mmHg. Trace/mild (physiologic) pulmonic regurgitation. The aortic root size is normal. IVC Not well visulized. There is no pericardial effusion. CONCLUSIONS -------- 1. The left ventricular size is normal. 2. There is mild concentric left ventricular hypertrophy. 3. Overall left ventricular systolic function is normal with, an EF between 55 - 60 %. 4. The diastolic filling pattern is normal for the age of the patient 11.93 5. Mild mitral regurgitation is present. 6. Mild tricuspid regurgitation present. 7. Trace/mild (physiologic) pulmonic regurgitation. CLASSIFICATION INSPECTOR: Harriet Allan RDCS
== END | disposition home or self-care (01) ==
LOC: RADNMMAIN 08:19
PROVIDERS: ATTEND Family Medicine
DX: R94.31 Abnormal electrocardiogram [ECG] [EKG] (principal); I51.7 Cardiomegaly; I34.0 Nonrheumatic mitral (valve) insufficiency; I07.1 Rheumatic tricuspid insufficiency
CPT/HCPCS: 93017; 93306; 78452; A9500; J2785

== ENCOUNTER 2020-11-17 18:22 | Observation (INO) | payer MEDICARE, OTHER ==
[2020-11-17] MEDS ORDERED: ASPIRIN 81 MG PO STA (19:15)
[2020-11-17] MEDS ORDERED: MORPHINE SULFATE 4 MG/ML SYRINGE IV STA (19:15)
[2020-11-17 19:26] LABS: Basophils # (A) 0.1 k/uL (0-0.2); Basophils % (A) 1 %; Eosinophils # (A) 0.4 k/uL (0-0.7); Eosinophils % (A) 5 %; HCT 37.6 % (34.0-46.0); HGB 12.8 gm/dL (11.4-16.0); Lymphocytes # (A) 2.9 k/uL (1.0-4.8); Lymphocytes % (A) 34 %; MCH 33.5 pg (25.0-35.0); MCV 98.4 fL (80.0-100.0); Mean Platelet Volume 8.3; Monocytes # (A) 0.5 k/uL (0-1.0); Monocytes % (A) 6 %; Neutrophils # (A) 4.6 k/uL (1.3-7.7); Neutrophils % (A) 54 %; Platelet Count 186 k/uL (150-450); RBC 3.82 m/uL (3.80-5.40); RDW 14.1 % (11.5-15.5); WBC 8.4 k/uL (3.8-10.6)
[2020-11-17 19:38] LABS: Albumin 4.1 g/dL (3.5-5.0); Calcium 9.9 mg/dL (8.4-10.2); Magnesium 1.7 mg/dL (1.6-2.3); Potassium 3.2 mmol/L (3.5-5.1); Total Bilirubin 0.5 mg/dL (0.2-1.3); Total Protein 7.3 g/dL (6.3-8.2)
--- NOTE | 2020-11-17 19:39 | XR ---
EXAMINATION TYPE: XR chest 2V DATE OF EXAM: 11/17/2020 COMPARISON: NONE HISTORY: Chest pain TECHNIQUE: FINDINGS: Heart and mediastinum are normal. Lungs are clear. There is device implanted over the left chest. There is neural stimulator in the thoracic spine. There is no pleural effusion. Bony thorax is intact. IMPRESSION: No active cardiopulmonary disease. Normal heart. No change.
[2020-11-17 19:40] LABS: D-Dimer 0.53 mg/L FEU (<0.60); Partial Thromboplastin Time 22.9 sec (22.0-30.0); Prothrombin Time 10.4 sec (9.0-12.0)
--- NOTE | 2020-11-17 20:06 | ED ---
Chest Pain HPI - General Chief Complaint: Chest Pain Stated Complaint: Chest, SOB, Left Arm Pain Time Seen by Provider: 11/17/20 18:25 Source: patient Mode of arrival: wheelchair Limitations: no limitations - History of Present Illness Initial Comments: The patient is a 44-year-old female past medical history of seizure disorder and asthma presents emergency room with reported chest pain. States she's had chest pain for months. Did follow up for an echo and stress test yesterday. States she has not received the results of it. Reports that today she had worsening chest pain. Does make her feel short of breath. Patient does have a history of factor V. No history of DVT or PE. Denies any fevers or chills. No cough. No previous history of cardiac disease. No other alleviating, the dictating or modifying factors - Related Data Home Medications Medication Instructions Recorded Confirmed rOPINIRole HCL [Requip] 0.5 mg PO BID 07/23/16 11/17/20 Lacosamide [Vimpat] 200 mg PO BID 10/07/17 11/17/20 Umeclidinium [place] [Incruse 1 puff INHALATION RT-DAILY 06/04/18 11/17/20 Ellipta] Meloxicam [Mobic] 15 mg PO HS 06/11/18 11/17/20 Zonisamide [Zonegran] 200 mg PO HS 04/06/19 11/17/20 diazePAM [Valium] 5 mg PO BID 04/06/19 11/17/20 lamoTRIgine [LaMICtal] 100 mg PO BID 04/06/19 11/17/20 Aspirin EC [Ecotrin Low Dose] 81 mg PO DAILY 04/16/19 11/17/20 Atorvastatin [Lipitor] 80 mg PO HS 11/17/20 11/17/20 Brexpiprazole [Rexulti] 4 mg PO HS 11/17/20 11/17/20 Budesonide/Formoterol Fumarate 2 puff INHALATION RT-BID 11/17/20 11/17/20 [Symbicort 160-4.5 Mcg Inhaler] Erenumab-Aooe [Aimovig 140 mg SQ Q30D 11/17/20 11/17/20 Autoinjector] Gabapentin 300 mg PO TID 11/17/20 11/17/20 HYDROcodone/APAP 7.5-325MG [[place] 1 tab PO TID PRN 11/17/20 11/17/20 7.5-325] Nystatin 100,000 Unit/gm Oint 1 applic TOPICAL QID 11/17/20 11/17/20 [Mycostatin Oint] Propranolol HCl 60 mg PO BID 11/17/20 11/17/20 Sertraline [Zoloft] 100 mg PO DAILY 11/17/20 11/17/20 Previous Rx's Medication Instructions Recorded Doxycycline [Vibramycin] 100 mg PO BID 10 Days #20 cap 11/19/20 Potassium Chloride ER [K-Dur 20] 20 meq PO DAILY 90 Days #90 11/19/20 tab.er.prt Allergies Allergy/AdvReac Type Severity Reaction Status Date / Time topiramate [From Topamax] Allergy Anaphylaxis Verified 11/17/20 18:30 Review of Systems ROS Statement: Those systems with pertinent positive or pertinent negative responses have been documented in the HPI. ROS Other: All systems not noted in ROS Statement are negative. EKG Findings - EKG Comments: EKG Findings:: EKG demonstrates normal sinus rhythm with ventricular rate 68. MT 178. QRS 114. QTC of 433. No acute ST segment elevations. ST depression in 2, 3, aVF as well as V2 through V6. Past Medical History Past Medical History: Asthma, Fibromyalgia, Seizure Disorder Additional Past Medical History / Comment(s): CHRONIC BACK PAIN; Restless leg syndrome, migraines History of Any Multi-Drug Resistant Organisms: None Reported Past Surgical History: Back Surgery, Section, Hysterectomy, Orthopedic Surgery, Tubal Ligation Past Anesthesia/Blood Transfusion Reactions: No Reported Reaction Past Psychological History: Anxiety, Depression, Panic Disorder Smoking Status: Current every day smoker Past Alcohol Use History: None Reported Past Drug Use History: None Reported - Past Family History Mother Family Medical History: No Reported History General Exam Limitations: no limitations General appearance: alert, in no apparent distress Head exam: Present: atraumatic, normocephalic, normal inspection Eye exam: Present: normal appearance, PERRL, EOMI. Absent: scleral icterus, conjunctival injection, periorbital swelling ENT exam: Present: normal exam, mucous membranes moist Neck exam: Present: normal inspection. Absent: tenderness, meningismus, lymphadenopathy Respiratory exam: Present: normal lung sounds bilaterally. Absent: respiratory distress, wheezes, rales, rhonchi, stridor Cardiovascular Exam: Present: regular rate, normal rhythm, normal heart sounds. Absent: systolic murmur, diastolic murmur, rubs, gallop, clicks GI/Abdominal exam: Present: soft, normal bowel sounds. Absent: distended, tenderness, guarding, rebound, rigid Extremities exam: Present: normal inspection, full ROM, normal capillary refill. Absent: tenderness, pedal edema, joint swelling, calf tenderness Back exam: Present: normal inspection Neurological exam: Present: alert, oriented X3, CN II-XII intact Psychiatric exam: Present: normal affect, normal mood Skin exam: Present: warm, dry, intact, normal color. Absent: rash Course Vital Signs 11/17/20 11/17/20 11/17/20 18:28 19:30 21:00 Temperature 98.4 F Pulse Rate 72 72 78 Respiratory 16 18 16 Rate Blood Pressure 106/73 107/62 105/64 O2 Sat by Pulse 97 98 98 Oximetry Chest Pain MDM - MDM Upon arrival patient is placed in room 18. A thorough history and physical exam was performed. Patient was given a 325 dose of aspirin. Reports 10 on 10 pain in there for the patient is given 4 mg of morphine. Lab precision conducted. Potassium mildly low at 3.2. CT of the patient's chest is performed because of her history of factor V which feels demonstrate any pulmonary embolism. I discussed results with the patient. Also discussed the results with Dr. Valdovinos. Did agree to hospitalize the patient for cardiology consultation. I discussed this with the patient who did agree to stay. Patient is awaiting a bed on the floor Disposition Clinical Impression: Chest pain Disposition: ADMITTED IP TO THIS HOSP Condition: Stable Is patient prescribed a controlled substance at d/c from ED?: No Decision to Admit Reason: Admit from EC Decision Date: 11/17/20 Decision Time: 21:09
--- NOTE | 2020-11-17 20:57 | CT ---
EXAMINATION TYPE: CT chest angio for PE DATE OF EXAM: 11/17/2020 COMPARISON: 02/05/2020 HISTORY: Chest pain, LT arm pain. Hx Factor 5. CT DLP: 644.5 mGycm Automated exposure control for dose reduction was used. CONTRAST: Performed with IV Contrast, patient injected with 100 mL of Isovue 370. Images obtained from the thoracic inlet to the diaphragm with IV contrast and 3-D post processed imag es. There is some minimal groundglass interstitial density in the lungs. There is minimal subsegmental at electasis at the lung bases. Heart size is normal. There is no pericardial effusion. There is no mediastinal adenopathy. There are no hilar masses. Thoracic aorta is intact. There is no aneurysm or dissection. There is normal contrast opacification of the pulmonary arteries. There are no filling defects. Upper abdominal soft tissues are intact. The bony thorax appears intact. There is minor spurring in the th oracic spine. The ribs appear intact. IMPRESSION: Negative CT angiogram of the chest. No evidence of pulmonary embolism. Minimal pulmonary interstitial density is nonspecific and could relate to mild interstitial pneumonia.
[2020-11-17] MEDS ORDERED: POTASSIUM CHLORIDE 20 MEQ in WATER FOR INJECTION 1 100ML.BAG IVPB STA (21:01)
[2020-11-17] MEDS ORDERED: NALOXONE 0.4 MG/ML 1 ML VIAL IV PRN (21:09)
[2020-11-17] MEDS ORDERED: HYDROcodone/APAP 7.5-325MG 1 EACH TAB PO PRN (22:03)
[2020-11-17] MEDS: MELOXICAM 7.5 MG TAB PO SCH (22:35)
[2020-11-17] MEDS: diazePAM 5 MG TAB PO SCH (22:37)
[2020-11-17] MEDS: lamoTRIgine 100 MG TAB PO SCH (22:37)
[2020-11-17] MEDS: LACOSAMIDE 50 MG TABLET PO SCH (22:39)
[2020-11-17] MEDS: ATORVASTATIN 80 MG TAB PO SCH (22:39)
[2020-11-17] MEDS: Brexpiprazole [Rexulti] 4 MG Tablet PO SCH (22:41)
[2020-11-17] MEDS: ZONISAMIDE 100 MG CAP PO SCH (23:28)
[2020-11-17] MEDS: PROPRANOLOL 20 MG TAB PO SCH (23:28)
[2020-11-18 07:14] LABS: Basophils # (A) 0.1 k/uL (0-0.2); Basophils % (A) 1 %; Eosinophils # (A) 0.4 k/uL (0-0.7); Eosinophils % (A) 6 %; HCT 37.6 % (34.0-46.0); HGB 13.2 gm/dL (11.4-16.0); Lymphocytes # (A) 2.3 k/uL (1.0-4.8); Lymphocytes % (A) 36 %; MCH 34.7 pg (25.0-35.0); MCHC 35.1 g/dL (31.0-37.0); MCV 99.1 fL (80.0-100.0); Mean Platelet Volume 8.3; Monocytes # (A) 0.3 k/uL (0-1.0); Monocytes % (A) 4 %; Neutrophils # (A) 3.2 k/uL (1.3-7.7); Neutrophils % (A) 51 %; Platelet Count 179 k/uL (150-450); RBC 3.79 m/uL (3.80-5.40); RDW 14.2 % (11.5-15.5); WBC 6.3 k/uL (3.8-10.6)
[2020-11-18 07:26] LABS: Calcium 9.4 mg/dL (8.4-10.2)
[2020-11-18 07:30] LABS: Potassium 2.6 mmol/L (3.5-5.1)
[2020-11-18] MEDS ORDERED: Potassium Replacement Protocol 1 EACH MISC MISCELLANE PRN ×2 (07:54→20:05)
[2020-11-18] MEDS: lamoTRIgine 100 MG TAB PO SCH ×2 (08:06→21:18)
[2020-11-18] MEDS: GABAPENTIN 300 MG CAP PO SCH ×3 (08:07→21:18)
[2020-11-18] MEDS: diazePAM 5 MG TAB PO SCH ×2 (08:07→21:18)
[2020-11-18] MEDS: LACOSAMIDE 50 MG TABLET PO SCH ×2 (08:07→21:18)
[2020-11-18] MEDS: ASPIRIN 81 MG PO SCH (08:07)
[2020-11-18] MEDS: PROPRANOLOL 20 MG TAB PO SCH ×2 (08:07→21:29)
[2020-11-18] MEDS: SERTRALINE 100 MG TAB PO SCH (08:08)
[2020-11-18] MEDS: POTASSIUM CHLORIDE ER 20 MEQ TAB.ER PO SCH ×5 (08:11→23:08)
[2020-11-18] MEDS: SYMBICORT 160-4.5 MCG INHALER INHALATION SCH ×2 (08:14→20:12)
[2020-11-18] MEDS: POTASSIUM CHLORIDE 20 MEQ in WATER FOR INJECTION 1 100ML.BAG IVPB SCH ×3 (08:38→12:25)
[2020-11-18] MEDS ORDERED: atenoloL 25 MG TAB PO SCH (09:00)
--- NOTE | 2020-11-18 09:04 | P.CRDCN ---
History of Present Illness Consult date: 11/18/20 Requesting physician: Domingo Valdovinos Reason for Consult (text): acute chest pain Chief complaint: chest pain History of present illness: This is a 44-year-old female patient with a past medical history of seizure disorder, COPD, factor V, fibromyalgia, previous appendectomy and previous cholecystectomy. She denies history of hypertension however is on thiazide, atenolol and propranolol at home. She also denies history of hyperlipidemia but is on atorvastatin. She presented to the emergency department with complaints of chest discomfort. She is apparently been having some discomfort in the left side of her chest that she describes as a heaviness for about a month. The pain does worsen with physical activity including stair climbing. She has been seeing her primary care physician and did undergo testing on 11/16/2020 including a Lexiscan MPI and an echocardiogram. Stress test showed no evidence for reversible ischemia and echocardiogram showed normal LV systolic function with an ejection fraction to 55-60%, mild MR and mild TR with no evidence of segmental wall motion abnormalities. EKG on admission showed sinus rhythm with diffuse ST-T wave abnormalities that are new compared to an EKG done in January 2020 however similar to EKG done during her stress test on 11/16/2020. Due to her history of factor V she did undergo a CTA of the chest which was negative with no evidence of pulmonary embolism, minimal pulmonary interstitial density which is nonspecific and could relate to mild interstitial pneumonia. Chest x-ray showed no active cardiopulmonary disease, normal heart, no change. I returned today shows sodium 136, potassium 3.2 with a repeat this morning at 2.6 which she is being supplemented, BUN 19, creatinine 1.03, NT proBNP 36 and troponin levels negative 3. Upon examination this morning patient is resting comfortably in bed. Continues to complain of some chest heaviness. She also notes some shortness of breath with exertion and occasional palpitations with dizziness when she exerts herself. She has occasional edema in her lower extremities. Past Medical History Past Medical History: Asthma, COPD, Fibromyalgia, Seizure Disorder Additional Past Medical History / Comment(s): CHRONIC BACK PAIN; Restless leg syndrome, migraines History of Any Multi-Drug Resistant Organisms: None Reported Past Surgical History: Back Surgery, Section, Hysterectomy, Orthopedic Surgery, Tubal Ligation Past Anesthesia/Blood Transfusion Reactions: No Reported Reaction Past Psychological History: Anxiety, Depression, Panic Disorder Smoking Status: Current every day smoker Past Alcohol Use History: None Reported Past Drug Use History: None Reported - Past Family History Mother Family Medical History: No Reported History Medications and Allergies Home Medications Medication Instructions Recorded Confirmed Type rOPINIRole HCL [Requip] 0.5 mg PO BID 07/23/16 11/17/20 History Lacosamide [Vimpat] 200 mg PO BID 10/07/17 11/17/20 History Fesoterodine Fumarate [Toviaz] 4 mg PO DAILY 06/04/18 11/17/20 History Umeclidinium [place] [Incruse 1 puff INHALATION RT-DAILY 06/04/18 11/17/20 History Ellipta] Meloxicam [Mobic] 15 mg PO HS 06/11/18 11/17/20 History Zonisamide [Zonegran] 200 mg PO HS 04/06/19 11/17/20 History atenoloL [Tenormin] 25 mg PO DAILY 04/06/19 11/17/20 History diazePAM [Valium] 5 mg PO BID 04/06/19 11/17/20 History lamoTRIgine [LaMICtal] 100 mg PO BID 04/06/19 11/17/20 History Aspirin EC [Ecotrin Low Dose] 81 mg PO DAILY 04/16/19 11/17/20 History Atorvastatin [Lipitor] 80 mg PO HS 11/17/20 11/17/20 History Brexpiprazole [Rexulti] 4 mg PO HS 11/17/20 11/17/20 History Budesonide/Formoterol Fumarate 2 puff INHALATION RT-BID 11/17/20 11/17/20 History [Symbicort 160-4.5 Mcg Inhaler] Erenumab-Aooe [Aimovig 140 mg SQ Q30D 11/17/20 11/17/20 History Autoinjector] Gabapentin 300 mg PO TID 11/17/20 11/17/20 History HYDROcodone/APAP 7.5-325MG [[place] 1 tab PO TID PRN 11/17/20 11/17/20 History 7.5-325] Nystatin 100,000 Unit/gm Oint 1 applic TOPICAL QID 11/17/20 11/17/20 History [Mycostatin Oint] Phentermine HCl 37.5 mg PO DAILY 11/17/20 11/17/20 History Propranolol HCl 60 mg PO BID 11/17/20 11/17/20 History Sertraline [Zoloft] 100 mg PO DAILY 11/17/20 11/17/20 History hydroCHLOROthiazide [Hydrodiuril] 50 mg PO DAILY 11/17/20 11/17/20 History tiZANidine [Zanaflex] 4 mg PO BID PRN 11/17/20 11/17/20 History Allergies Allergy/AdvReac Type Severity Reaction Status Date / Time topiramate [From Topamax] Allergy Anaphylaxis Verified 11/17/20 18:30 Physical Exam Vitals: Vital Signs Temp Pulse Pulse Resp BP BP Pulse Ox 11/18/20 07:00 97.6 F 66 18 94/62 93 L 11/18/20 03:20 97.6 F 57 L 99/64 95 11/17/20 22:46 97.8 F 66 107/73 99 11/17/20 21:00 78 16 105/64 98 11/17/20 19:30 72 18 107/62 98 11/17/20 18:28 98.4 F 72 16 106/73 97 Intake and Output 11/17/20 11/18/20 11/18/20 22:59 06:59 14:59 Output Total 0 Balance 0 Output: Stool 0 Other: Voiding Method Toilet # Voids 0 1 Weight 117.934 kg PHYSICAL EXAMINATION: This is a 44-year-old female in no apparent distress at the time of my examination with a flat affect. VITAL SIGNS: Blood pressure 94/62, heart rate 66, respirations 18, temp 97.6F. Patient is 93 % on room air. HEENT: Head is atraumatic, normocephalic. Pupils are equal, round. Sclerae anicteric. Conjunctivae are clear. Mucous membranes of the mouth are moist. Neck is supple. There is no elevated jugular venous pressure. No carotid bruit is heard. CHEST EXAMINATION: Diminished air entry bilaterally. No wheezes rales or rhonchi. Respirations even and nonlabored. HEART EXAMINATION: Heart regular, positive S1 and S2. No S3. No S4. No clicks, rubs or murmurs. ABDOMEN: Soft, obese, nontender. Bowel sounds are heard. No organomegaly noted. EXTREMITIES: 2+ peripheral pulses with no evidence of peripheral edema and no calf tenderness noted. NEUROLOGIC EXAMINATION: Patient is awake, alert and oriented x3. Results 11/18/20 06:56 11/18/20 06:56 Cardiac Enzymes 11/17/20 11/17/20 11/17/20 Range/Units 19:18 19:18 23:18 AST 33 (14-36) U/L Troponin I <0.012 <0.012 (0.000-0.034) ng/mL 11/18/20 Range/Units 01:04 AST (14-36) U/L Troponin I <0.012 (0.000-0.034) ng/mL Coagulation 11/17/20 Range/Units 19:18 PT 10.4 (9.0-12.0) sec APTT 22.9 (22.0-30.0) sec CBC 11/17/20 11/18/20 Range/Units 19:18 06:56 WBC 8.4 6.3 (3.8-10.6) k/uL RBC 3.82 3.79 L (3.80-5.40) m/uL Hgb 12.8 13.2 (11.4-16.0) gm/dL Hct 37.6 37.6 (34.0-46.0) % Plt Count 186 179 (150-450) k/uL Comprehensive Metabolic Panel 11/17/20 11/18/20 Range/Units 19:18 06:56 Sodium 136 L 137 (137-145) mmol/L Potassium 3.2 L 2.6 L* (3.5-5.1) mmol/L Chloride 97 L 96 L (98-107) mmol/L Carbon Dioxide 31 H 34 H (22-30) mmol/L BUN 19 H 15 (7-17) mg/dL Creatinine 1.03 1.05 H (0.52-1.04) mg/dL Glucose 107 H 97 (74-99) mg/dL Calcium 9.9 9.4 (8.4-10.2) mg/dL AST 33 (14-36) U/L ALT 23 (4-34) U/L Alkaline Phosphatase 55 (38-126) U/L Total Protein 7.3 (6.3-8.2) g/dL Albumin 4.1 (3.5-5.0) g/dL Current Medications Generic Name Dose Route Start Last Admin Trade Name Freq PRN Reason Stop Dose Admin Hydrocodone Bitart/Acetaminophen 1 each 11/17/20 22:03 11/18/20 08:10 Hydrocodone/Apap 7.5-325mg 1 Each Tab PO 1 each TID PRN Administration Pain Aspirin 81 mg 11/18/20 09:00 11/18/20 08:07 Aspirin 81 Mg PO 81 mg DAILY AYESHA Administration Atenolol 25 mg 11/18/20 09:00 11/18/20 08:07 Atenolol 25 Mg Tab PO 25 mg DAILY AYESHA Administration Atorvastatin Calcium 80 mg 11/17/20 22:15 11/17/20 22:39 Atorvastatin 80 Mg Tab PO 80 mg HS AYESHA Administration Budesonide/Formoterol Fumarate 2 puff 11/18/20 08:00 11/18/20 08:14 Symbicort 160-4.5 Mcg Inhaler INHALATION 2 puff RT-BID AYESHA Administration Diazepam 5 mg 11/17/20 22:15 11/18/20 08:07 Diazepam 5 Mg Tab PO 5 mg BID AYESHA Administration Gabapentin 300 mg 11/18/20 09:00 11/18/20 08:07 Gabapentin 300 Mg Cap PO 300 mg TID AYESHA Administration Hydrochlorothiazide 50 mg 11/18/20 09:00 11/18/20 08:06 Hydrochlorothiazide 50 Mg Tab PO 50 mg DAILY AYESHA Administration Potassium Chloride 20 meq/ IV 100 mls @ 50 mls/hr 11/18/20 08:00 11/18/20 08:38 Solution IVPB 11/18/20 13:59 50 mls/hr Q2H AYESHA Administration Protocol Lacosamide 200 mg 11/17/20 22:15 11/18/20 08:07 Lacosamide 50 Mg Tablet PO 200 mg BID AYESHA Administration Lamotrigine 100 mg 11/17/20 22:15 11/18/20 08:06 Lamotrigine 100 Mg Tab PO 100 mg BID AYESHA Administration Meloxicam 15 mg 11/17/20 22:15 11/17/20 22:35 Meloxicam 7.5 Mg Tab PO 15 mg HS AYESHA Administration Miscellaneous Information 1 each 11/18/20 07:54 Potassium Replacement Protocol 1 Each Misc MISCELLANE DAILY PRN Per Protocol Protocol Naloxone HCl 0.2 mg 11/17/20 21:09 Naloxone 0.4 Mg/Ml 1 Ml Vial IV Q2M PRN Opioid Reversal Brexpiprazole [ 4 mg 11/17/20 22:15 11/17/20 22:41 Rexulti] 4 Mg Tablet PO Not Given HS AYESHA Potassium Chloride 20 meq 11/18/20 08:00 11/18/20 08:11 Potassium Chloride Er 20 Meq Tab.Er PO 11/18/20 12:01 20 meq Q2HR AYESHA Administration Propranolol HCl 60 mg 11/17/20 22:15 11/18/20 08:07 Propranolol 20 Mg Tab PO 60 mg BID AYESHA Administration Ropinirole HCl 0.5 mg 11/17/20 22:15 11/18/20 08:07 Ropinirole Hcl 0.25 Mg Tab PO 0.5 mg BID AYESHA Administration Sertraline HCl 100 mg 11/18/20 09:00 11/18/20 08:08 Sertraline 100 Mg Tab PO 100 mg DAILY AYESHA Administration Zonisamide 200 mg 11/17/20 22:15 11/17/20 23:28 Zonisamide 100 Mg Cap PO 200 mg HS AYESHA Administration Intake and Output 11/17/20 11/18/20 11/18/20 22:59 06:59 14:59 Output Total 0 Balance 0 Output: Stool 0 Other: Voiding Method Toilet # Voids 0 1 Weight 117.934 kg 11/18/20 06:56 11/18/20 06:56 Assessment and Plan Assessment: #1 symptoms of ongoing chest discomfort constant for about a month and worsen with activity, recent MPI showed no evidence of ischemia, CT negative for PE, no acute EKG changes #2 hypokalemia, being replaced #3 history of seizure disorder #4 history of factor V #5 questionable history of hypertension #6 COPD #7 nicotine dependence #8 hyperlipidemia Plan: From cardiology perspective, we will discontinue hydrochlorothiazide. We agree with replacing potassium. Patient may be discharged home once okayed by primary. We will follow-up in the office with the patient in a couple weeks. J[employer]RNA[employer]S [employer] OTHER WRITERS note has been reviewed, I agree with a documented findings and plan of care. Patient was seen and examined.
[2020-11-18] MEDS: AZITHROMYCIN 500 MG in SODIUM CHLORIDE 0.9% 250 ML IVPB SCH (11:16)
--- NOTE | 2020-11-18 11:34 | HP ---
HISTORY AND PHYSICAL HISTORY OF PRESENT ILLNESS: A 44-year-old white female with past medical history of seizures, COPD, factor V, fibromyalgia with atypical chest pain, history of hypertension, dyslipidemia, anxiety, chest pain, worse with stair climbing. She had a stress test for a severely abnormal EKG last week, unknown what it shows. Echo showed a good ejection fraction. She was admitted with atypical chest pain. CT scan suspicious for possible interstitial pneumonia. CT of the chest shows no masses. Chest x-ray is normal. Potassium 3.2, sodium was 136. Potassium did decrease down to 2.6 this morning. BUN 19, creatinine 1.03. BNP 36. Troponins are negative. History of shortness of breath with exertion. PAST MEDICAL HISTORY: Asthma, COPD, fibromyalgia, seizure disorder, chronic back pain, restless legs syndrome, obesity, depression, bipolar. SURGERIES: Hysterectomy, , back surgery, orthopedic surgery, tubal ligation. SOCIAL HISTORY: Current everyday smoker, anxiety, depression, panic disorder. MEDICATIONS: Requip 0.5 b.i.d., Vimpat 200 b.i.d., Toviaz 4 mg daily, Incruse 1 puff daily, Mobic 15 daily, 200 mg daily, Tenormin 25 daily, Valium 5 mg b.i.d., Lamictal 100 b.i.d., aspirin 81 mg daily, Lipitor 80 mg daily, Rexulti 4 mg daily, Symbicort 160/4.5 two puffs b.i.d., Aimovig 140 mg subcutaneously every 30 day, gabapentin 300 t.i.d., [place] 1 tab t.i.d., propranolol 60 b.i.d. for anxiety, Zoloft 100 mg daily, HydroDIURIL 50 daily, Zanaflex 4 mg b.i.d. p.r.n. ALLERGIES: TOPAMAX. HISTORY OF PRESENT ILLNESS: VITAL SIGNS: Temp 98.4, pulse 60s to 70s, respiratory rate 16-18, blood pressure 100 over 60s, O2 saturation 93to 97. In no acute distress. Elderly obese white female, flat affect. Vital signs reviewed. Head normocephalic, atraumatic. Lungs show scattered rhonchi and wheeze. Heart S1, S2. Abdomen is soft, nontender. Extremities 2+ edema. NEUROLOGIC: Cranial nerves intact. LABORATORY DATA: Sodium 137, potassium 2.6, BUN 15, creatinine 1.05. White count 6.3, hemoglobin 13.2. Troponins negative. PTT is 22.9. White count 6.3, hemoglobin 12-13, platelets are 170- 180. ASSESSMENT: 1. Atypical chest pain. 2. Hypokalemia. 3. Acute renal insufficiency. 4. Possible interstitial pneumonia. 5. Hypokalemia, being replaced. 6. History of seizure disorder. 7. Factor V deficiency. 8. Hypertension. 9. Chronic obstructive pulmonary disease. 10.Nicotine addiction. 11.Anxiety. 12.Depression. 13.Bipolar. 14.Degenerative disk disease. Replace potassium. Hold hydrochlorothiazide. Treat for interstitial pneumonia. Possible discharge soon. MMODL / IJN: [id number] /
[2020-11-18] MEDS: MELOXICAM 7.5 MG TAB PO SCH (21:17)
[2020-11-18] MEDS: ATORVASTATIN 80 MG TAB PO SCH (21:17)
[2020-11-18] MEDS: Brexpiprazole [Rexulti] 4 MG Tablet PO SCH (21:20)
[2020-11-18] MEDS: ZONISAMIDE 100 MG CAP PO SCH (21:26)
[2020-11-19] MEDS ORDERED: Potassium Replacement Protocol 1 EACH MISC MISCELLANE PRN (02:07)
[2020-11-19] MEDS: POTASSIUM CHLORIDE ER 20 MEQ TAB.ER PO SCH ×2 (02:17→03:44)
[2020-11-19] MEDS: AZITHROMYCIN 500 MG in SODIUM CHLORIDE 0.9% 250 ML IVPB SCH (08:17)
[2020-11-19 08:21] VITALS: BP 122/74; PULSE 67; RESP 15; TEMP 98
[2020-11-19] MEDS: SERTRALINE 100 MG TAB PO SCH (08:21)
[2020-11-19] MEDS: ASPIRIN 81 MG PO SCH (08:22)
[2020-11-19] MEDS: LACOSAMIDE 50 MG TABLET PO SCH (08:22)
[2020-11-19] MEDS: diazePAM 5 MG TAB PO SCH (08:22)
[2020-11-19] MEDS: GABAPENTIN 300 MG CAP PO SCH (08:22)
[2020-11-19] MEDS: lamoTRIgine 100 MG TAB PO SCH (08:22)
[2020-11-19] MEDS: SYMBICORT 160-4.5 MCG INHALER INHALATION SCH (08:41)
[2020-11-19 09:16] LABS: Basophils # (A) 0.05 X 10*3/uL (0.00-0.10); Basophils % (A) 0.8 %; Eosinophils # (A) 0.34 X 10*3/uL (0.04-0.35); Eosinophils % (A) 5.2 %; HCT 37.8 % (37.2-46.3); HGB 12.7 g/dL (12.0-15.0); Lymphocytes # (A) 2.32 X 10*3/uL (0.90-5.00); Lymphocytes % (A) 35.7 %; MCHC 33.6 g/dL (32.0-37.0); MCV 101.1 fL (80.0-97.0); Mean Platelet Volume 11.7 fL (9.5-12.2); Monocytes # (A) 0.45 X 10*3/uL (0.20-1.00); Monocytes % (A) 6.9 %; Neutrophils # (A) 3.31 X 10*3/uL (1.80-7.70); Neutrophils % (A) 50.9 %; Platelet Count 184 X 10*3/uL (140-440); RBC 3.74 X 10*6/uL (4.10-5.20); RDW 13.8 % (11.5-14.5)
[2020-11-19 09:26] LABS: African American GFR (CKD) 70.7 (60.0-200.0); Albumin 3.7 g/dL (3.80-4.90); Albumin/Globulin Ratio 1.12 (1.60-3.17); Anion Gap 5.2 mmol/L (4.00-12.00); BUN/Creat Ratio 11.82 Ratio (12.00-20.00); Calcium 9.2 mg/dL (8.7-10.3); Carbon Dioxide 31.8 mmol/L (21.6-31.8); Globulin 3.3 g/dL (1.6-3.3); Potassium 3.8 mmol/L (3.5-5.5); Total Bilirubin 0.2 mg/dL (0.3-1.2)
[2020-11-19] MEDS: PROPRANOLOL 20 MG TAB PO SCH (09:37)
--- NOTE | 2020-11-19 11:57 | P.CNPUL ---
History of Present Illness Consult date: 11/19/20 Reason for consult: dyspnea, cough, chest pain, COPD, obstructive sleep apnea Chief complaint: Ongoing chest pain History of present illness: This is a 44-year-old female with history of smoking half pack per day for many years, patient also has a history of sleep disorder breathing and sleep apnea and came into the hospital with the ongoing chest pain, patient is status post stress test and echocardiogram by cardiovascular services, denies any fever or chills occasionally have cough, chest x-ray is unremarkable, CTA negative for pulmonary embolism, bilateral interstitial density nonspecific noted may be interstitial pneumonia, however covid 19 negative him a currently patient is being treated with IV antibiotics including Rocephin and Zithromax and breathing treatments, she has been eval or by cardiovascular services Review of Systems All systems: negative Past Medical History Past Medical History: Asthma, COPD, Fibromyalgia, Seizure Disorder Additional Past Medical History / Comment(s): CHRONIC BACK PAIN; Restless leg syndrome, migraines History of Any Multi-Drug Resistant Organisms: None Reported Past Surgical History: Back Surgery, Section, Hysterectomy, Orthopedic Surgery, Tubal Ligation Past Anesthesia/Blood Transfusion Reactions: No Reported Reaction Past Psychological History: Anxiety, Depression, Panic Disorder Smoking Status: Current every day smoker Past Alcohol Use History: None Reported Past Drug Use History: None Reported - Past Family History Mother Family Medical History: No Reported History Medications and Allergies Home Medications Medication Instructions Recorded Confirmed Type rOPINIRole HCL [Requip] 0.5 mg PO BID 07/23/16 11/17/20 History Lacosamide [Vimpat] 200 mg PO BID 10/07/17 11/17/20 History Fesoterodine Fumarate [Toviaz] 4 mg PO DAILY 06/04/18 11/17/20 History Umeclidinium [place] [Incruse 1 puff INHALATION RT-DAILY 06/04/18 11/17/20 History Ellipta] Meloxicam [Mobic] 15 mg PO HS 06/11/18 11/17/20 History Zonisamide [Zonegran] 200 mg PO HS 04/06/19 11/17/20 History atenoloL [Tenormin] 25 mg PO DAILY 04/06/19 11/17/20 History diazePAM [Valium] 5 mg PO BID 04/06/19 11/17/20 History lamoTRIgine [LaMICtal] 100 mg PO BID 04/06/19 11/17/20 History Aspirin EC [Ecotrin Low Dose] 81 mg PO DAILY 04/16/19 11/17/20 History Atorvastatin [Lipitor] 80 mg PO HS 11/17/20 11/17/20 History Brexpiprazole [Rexulti] 4 mg PO HS 11/17/20 11/17/20 History Budesonide/Formoterol Fumarate 2 puff INHALATION RT-BID 11/17/20 11/17/20 History [Symbicort 160-4.5 Mcg Inhaler] Erenumab-Aooe [Aimovig 140 mg SQ Q30D 11/17/20 11/17/20 History Autoinjector] Gabapentin 300 mg PO TID 11/17/20 11/17/20 History HYDROcodone/APAP 7.5-325MG [[place] 1 tab PO TID PRN 11/17/20 11/17/20 History 7.5-325] Nystatin 100,000 Unit/gm Oint 1 applic TOPICAL QID 11/17/20 11/17/20 History [Mycostatin Oint] Phentermine HCl 37.5 mg PO DAILY 11/17/20 11/17/20 History Propranolol HCl 60 mg PO BID 11/17/20 11/17/20 History Sertraline [Zoloft] 100 mg PO DAILY 11/17/20 11/17/20 History hydroCHLOROthiazide [Hydrodiuril] 50 mg PO DAILY 11/17/20 11/17/20 History tiZANidine [Zanaflex] 4 mg PO BID PRN 11/17/20 11/17/20 History Allergies Allergy/AdvReac Type Severity Reaction Status Date / Time topiramate [From Topamax] Allergy Anaphylaxis Verified 11/17/20 18:30 Physical Exam Vitals: Vital Signs Temp Pulse Pulse Resp BP BP Pulse Ox 11/19/20 08:42 95 11/19/20 08:00 15 11/19/20 07:00 98 F 67 15 122/74 95 11/19/20 01:36 98.0 F 63 17 98/52 98 11/18/20 20:41 97.8 F 67 18 94/59 91 L 11/18/20 14:25 97.9 F 63 18 90/63 94 L Intake and Output 02/11/19/20 11/19/20 22:59 06:59 14:59 Intake Total 422 Balance 422 Intake: Oral 422 Other: # Voids 2 1 - Constitutional General appearance: disheveled, morbidly obese, no acute distress - EENT Eyes: PERRLA Ears: bilateral: normal - Neck Neck: normal ROM Carotids: bilateral: upstroke normal Thyroid: bilateral: normal size - Respiratory Respiratory: bilateral: CTA - Cardiovascular Rhythm: regular Heart sounds: normal: S1, S2 - Gastrointestinal General gastrointestinal: normal bowel sounds - Neurologic Neurologic: CNII-XII intact - Musculoskeletal Musculoskeletal: gait normal, generalized weakness, strength equal bilaterally - Psychiatric Psychiatric: A&O x's 3, appropriate affect, intact judgment & insight Results - Laboratory Findings CBC and BMP: 11/19/20 05:22 11/19/20 05:22 PT/INR, D-dimer PT 10.4 sec (9.0-12.0) 11/17/20 19:18 INR 1.0 (<1.2) 11/17/20 19:18 D-Dimer 0.53 mg/L FEU (<0.60) 11/17/20 19:18 Abnormal lab findings: Abnormal Labs 11/17/20 11/18/20 11/18/20 19:18 06:56 06:56 RBC 3.79 L MCV MCH Sodium 136 L Potassium 3.2 L 2.6 L* Chloride 97 L 96 L Carbon Dioxide 31 H 34 H BUN 19 H Creatinine 1.05 H BUN/Creatinine Ratio Glucose 107 H Total Bilirubin Albumin Albumin/Globulin Ratio 11/18/20 11/19/20 11/19/20 17:37 01:24 05:22 RBC MCV MCH Sodium Potassium 3.0 L 3.3 L Chloride Carbon Dioxide BUN Creatinine BUN/Creatinine Ratio 11.82 L Glucose Total Bilirubin 0.2 L Albumin 3.70 L Albumin/Globulin Ratio 1.12 L 11/19/20 05:22 RBC 3.74 L MCV 101.1 H MCH 34.0 H Sodium Potassium Chloride Carbon Dioxide BUN Creatinine BUN/Creatinine Ratio Glucose Total Bilirubin Albumin Albumin/Globulin Ratio - Diagnostic Findings Chest x-ray: report reviewed, image reviewed CT scan - chest: report reviewed, image reviewed (Finding as noted above) Assessment and Plan Assessment: Atypical chest pain Likely atypical pneumonia Baseline COPD Obstructive sleep apnea and sleep disorder breathing 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
--- NOTE | 2020-11-19 15:34 | DS ---
DISCHARGE SUMMARY DISCHARGE DIAGNOSES: 1. Community-acquired pneumonia. 2. Atypical chest pain. 3. Chronic obstructive pulmonary disease. 4. Nicotine addiction. 5. Depression. 6. Seizure disorder. 7. Osteoarthritis. 8. Chronic neuropathy. 9. Chronic degenerative disc disease. 10.Bipolar. 11.Hypokalemia. 12.Possible dehydration. CONDITION: Stable. PROGNOSIS: Guarded. AMBULATE: As tolerated. HOME MEDICINES: 1. Doxycycline 100 mg b.i.d. for 10 days. 2. Potassium chloride 20 mEq daily. 3. Requip 0.5 b.i.d. 4. Vimpat 200 mg b.i.d. 5. Incruse 1 puff daily. 6. Mobic 15 q.h.s. 7. Lamictal 100 b.i.d. 8. Zonegran 200 at bedtime. 9. Valium 5 mg b.i.d. 10.Ecotrin 81 mg daily. 11.Propranolol 60 mg b.i.d. 12.Symbicort 160/4.5 two puffs b.i.d. 13.Nystatin suspension q.i.d. p.r.n. 14.Zoloft 100 mg daily. 15.Aimovig autoinjector mg subcutaneously every 30 days. 16.Atorvastatin 80 mg daily. 17.[place] 7.5 one tab t.i.d. p.r.n. for pain. 18.Rexulti 4 mg at bedtime. 19.Gabapentin 300 t.i.d. DIET: Regular. HOSPITAL COURSE OF EVENTS: A 44-year-old white female who came into the hospital with community-acquired pneumonia, atypical chest pain. Cardiology ruled out myocardial infarction. She was treated with IV antibiotics, Rocephin, azithromycin for community-acquired pneumonia for 24 hours. Her breathing improved at which time, I sent her home on oral antibiotics to follow up as an outpatient. She has severe hypokalemia down to 2.6 due to diuretics, which were discontinued. She had potassium replacement, K-Dur 20 mEq a day will be given long-term. She will follow up as an outpatient for this. Please see further orders. Smoking cessation was given as one of her main problems for her breathing and to quit. Options were given. MMODL / IJN: [id number] /
[2020-11-19] MEDS ORDERED: DOXYCYCLINE 100 MG CAP PO SCH (21:00)
[2020-11-20] MEDS ORDERED: POTASSIUM CHLORIDE ER 20 MEQ TAB.ER PO SCH (09:00)
== END 2020-11-19 13:27 ==
LOC: EC 18:22 → 6NMEDSUR 21:09
PROVIDERS: ADMIT Family Medicine; ATTEND Family Medicine
DX: J44.0 Chronic obstructive pulmonary disease with (acute) lower respiratory infection (principal); J18.9 Pneumonia, unspecified organism; R07.89 Other chest pain; E87.6 Hypokalemia; G40.909 Epilepsy, unspecified, not intractable, without status epilepticus; M79.7 Fibromyalgia; G25.81 Restless legs syndrome; G43.909 Migraine, unspecified, not intractable, without status migrainosus; G89.29 Other chronic pain; M54.9 Dorsalgia, unspecified; F41.0 Panic disorder [episodic paroxysmal anxiety]; F17.200 Nicotine dependence, unspecified, uncomplicated; E78.5 Hyperlipidemia, unspecified; D68.2 Hereditary deficiency of other clotting factors; G47.33 Obstructive sleep apnea (adult) (pediatric); N28.9 Disorder of kidney and ureter, unspecified; I10 Essential (primary) hypertension; F31.9 Bipolar disorder, unspecified; M19.90 Unspecified osteoarthritis, unspecified site; G62.9 Polyneuropathy, unspecified; F17.210 Nicotine dependence, cigarettes, uncomplicated; E66.9 Obesity, unspecified; Z68.39 Body mass index [BMI] 39.0-39.9, adult; Z79.1 Long term (current) use of non-steroidal anti-inflammatories (NSAID); Z79.82 Long term (current) use of aspirin; Z79.891 Long term (current) use of opiate analgesic; Z79.51 Long term (current) use of inhaled steroids; Z79.899 Other long term (current) drug therapy; Z88.8 Allergy status to other drugs, medicaments and biological substances; Z90.710 Acquired absence of both cervix and uterus; Z98.890 Other specified postprocedural states; Z90.49 Acquired absence of other specified parts of digestive tract; Z98.51 Tubal ligation status
CPT/HCPCS: 96366 ×3; 96368; 93005 ×2; 96365; 96375; 99285; 36415; 94640 ×3; 94760; 85379; 83880; 80053 ×2; 80048; 83690; 83735 ×2; 84132 ×2; 84484 ×2; 85025 ×3; 85610; 85730; 87635; 71046; 71275; G0378 ×3; J2270; J3480 ×2; J0456 ×2; J0696 ×2; Q9967

== ENCOUNTER → 2021-01-02 | Outpatient (CLI) | payer MEDICARE, OTHER ==
[2021-01-02 19:04] LABS: HSV I IgG Interp POSITIVE (NEGATIVE); HSV II IgG Interp NEGATIVE (NEGATIVE)
== END | disposition home or self-care (01) ==
LOC: LABWHC1 09:18
PROVIDERS: ATTEND Obstetrics & Gynecology
DX: N90.89 Other specified noninflammatory disorders of vulva and perineum (principal)
CPT/HCPCS: 36415; 86695; 86696

== ENCOUNTER → 2021-02-05 | Outpatient (CLI) | payer MEDICARE, OTHER ==
--- NOTE | 2021-02-06 05:09 | CT ---
EXAMINATION TYPE: CT lumbar spine wo con DATE OF EXAM: 02/05/2021 COMPARISON: MRI 05/22/2018 HISTORY: 45-year-old female M54.10, low back pain, no injury TECHNIQUE: Contiguous axial scanning of the lumbar spine without IV contrast. Coronal and sagittal re constructions performed. CT DLP: 1642.3 mGycm Automated exposure control for dose reduction was used. FINDINGS: Generator device seen on the store cashier image along the left posterior lower back. The leads enter through the left T11-T12 interlaminar space. Postsurgical change of L5-S1 posterior and interbody fusion. Left L5 laminectomy change. There is moderate to advanced loss of disc space just above at L4-L5. Facet arthropathy mid to lower lumbar spine, more so on the right. Degenerative grade 1 retrolisthesis L2-L3 and L3-L4 vertebral body heights are preserved. Disc bulge at L2-L3 likely contributes to a mild to moderate spinal canal stenosis. This is eccentric towards the right and may affect the traversing right L3 nerve root. Large posterior disc bulge at L3-L4 results in a moderate spinal canal stenosis. Disc osteophyte complex at L4-L5 impresses on the ventral thecal sac without significant canal stenos is. On the left, changes resulting in moderate neuroforaminal narrowing at L2-L3 and L3-L4. On the right, changes result in moderate neuroforaminal narrowing at L5-S1 and mild at L2-L3 and L3-L 4. IMPRESSION: 1. L5-S1 POSTERIOR AND INTERBODY FUSION ALONG WITH LEFT L5 LAMINECTOMY CHANGE. 2. MODERATE DEGENERATIVE DISC DISEASE AT THE NONFUSED LEVELS, MODERATE TO ADVANCED ABOVE THE FUSION A T L4-L5. 3. FACET ARTHROPATHY, MORE SO ON THE RIGHT, RESULTING IN DEGENERATIVE GRADE 1 RETROLISTHESIS AT L2-L3 AND L3-L4. 4. MILD TO MODERATE SPINAL CANAL STENOSIS AT L2-L3 WITH DISC BULGE ECCENTRIC TOWARDS THE RIGHT WHICH MAY AFFECT THE TRAVERSING RIGHT L3 NERVE ROOT. 5. LARGER DISC BULGE AT L3-L4 RESULTS IN A MODERATE SPINAL CANAL STENOSIS. 6. CHANGES RESULT IN A MODERATE LEFT NEUROFORAMINAL STENOSIS AT L2-L3 AND L3-L4. MODERATE ON THE RIGH T AT L5-S1.
== END | disposition home or self-care (01) ==
LOC: RADCTMAIN 17:03
PROVIDERS: ATTEND Psychiatry & Neurology Neurology
DX: M48.061 Spinal stenosis, lumbar region without neurogenic claudication (principal); M51.26 Other intervertebral disc displacement, lumbar region; M51.36 Other intervertebral disc degeneration, lumbar region; M43.16 Spondylolisthesis, lumbar region; M99.73 Connective tissue and disc stenosis of intervertebral foramina of lumbar region
CPT/HCPCS: 72131

== ENCOUNTER → 2021-03-06 | Outpatient (CLI) | payer MEDICARE, OTHER ==
[2021-03-06 17:47] LABS: Basophils # (A) 0.04 X 10*3/uL (0.00-0.10); Basophils % (A) 0.6 %; Eosinophils # (A) 0.27 X 10*3/uL (0.04-0.35); HCT 38.6 % (37.2-46.3); HGB 12.3 g/dL (12.0-15.0); Lymphocytes # (A) 2.01 X 10*3/uL (0.90-5.00); Lymphocytes % (A) 29.6 %; MCH 32.5 pg (27.0-32.0); MCHC 31.9 g/dL (32.0-37.0); MCV 102.1 fL (80.0-97.0); Mean Platelet Volume 11.8 fL (9.5-12.2); Monocytes # (A) 0.47 X 10*3/uL (0.20-1.00); Monocytes % (A) 6.9 %; Neutrophils # (A) 3.98 X 10*3/uL (1.80-7.70); Neutrophils % (A) 58.6 %; Platelet Count 173 X 10*3/uL (140-440); RBC 3.78 X 10*6/uL (4.10-5.20); RDW 13.2 % (11.5-14.5); Reticulocyte % 2.31 % (0.10-1.80); WBC 6.79 X 10*3/uL (4.50-10.00)
[2021-03-06 22:14] LABS: Hemoglobin A1C 6.1 % (4.0-6.0)
[2021-03-06 22:40] LABS: Luteinizing Hormone 36.5 mIU/mL
[2021-03-06 23:12] LABS: % Iron Saturation 20.51 (12.00-45.00); African American GFR (CKD) 70.2 (60.0-200.0); Albumin 4.3 g/dL (3.80-4.90); Albumin/Globulin Ratio 1.65 (1.60-3.17); Anion Gap 9.4 mmol/L (4.00-12.00); BUN/Creat Ratio 11.82 Ratio (12.00-20.00); C Reactive Protein 0.5 mg/dL (0.0-0.8); Calcium 9.3 mg/dL (8.7-10.3); Carbon Dioxide 26.6 mmol/L (21.6-31.8); Globulin 2.6 g/dL (1.6-3.3); Non-African American GFR(CKD) 60.6 (60.0-200.0); Potassium 4.4 mmol/L (3.5-5.5); Total Bilirubin 0.2 mg/dL (0.3-1.2); Total Protein 6.9 g/dL (6.2-8.2)
[2021-03-06 23:19] LABS: Ferritin 34.9 ng/mL (10.0-291.0)
[2021-03-06 23:20] LABS: Follicle Stimulating Hormone 80.6 mIU/mL
[2021-03-08 12:41] LABS: Growth Hormone, Human <0.1 ng/mL (<10)
== END | disposition home or self-care (01) ==
LOC: LABWHC1 09:39
PROVIDERS: ATTEND Psychiatry & Neurology Pain Medicine
DX: E55.9 Vitamin D deficiency, unspecified (principal); Z79.899 Other long term (current) drug therapy; R53.82 Chronic fatigue, unspecified; R53.83 Other fatigue; R53.81 Other malaise
CPT/HCPCS: 36415; 80053; 82306; 82533; 82607; 82626; 82668; 82728; 83001; 83002; 83003; 83036; 83540; 83550; 84207; 84305; 84439; 84443; 84466; 84481; 85025; 85045; 86140

== ENCOUNTER 2021-08-30 07:41 | Day surgery (SDC) | payer MEDICARE, OTHER ==
[2021-08-30] MEDS ORDERED: diazePAM 5 MG TAB PO STA (08:52)
[2021-08-30 09:00] LABS: Glucose,Whole Blood 89 mg/dL (75-99)
[2021-08-30 09:03] VITALS: RESP 16; TEMP 97.3
--- NOTE | 2021-08-30 09:50 | FL ---
EXAMINATION TYPE: FL myelogram lumbosacral DATE OF EXAM: 08/30/2021 9:45 AM HISTORY: Lower extremity pain and numbness Informed consent was obtained and all the patient's questions were answered. The L3-L4 level was loc alized under fluoroscopy. Standard sterile technique was utilized as well as appropriate local anest hesia 1% Lidocaine and sodium bicarbonate. Spinal needle was introduced into the thecal sac under fl uoroscopic guidance and ISOVUE 200 M 10 CC was injected. The patient tolerated the procedure well an d left the department in stable condition. CT myelography is to follow. There appears to be stenosi s at the L2-3 level. Postoperative changes at the L5-S1. Fluoroscopy time 2.4 minutes. IMPRESSION: Successful myelography lumbar spine
--- NOTE | 2021-08-30 10:03 | CT ---
EXAMINATION TYPE: CT lumbar spine w con DATE OF EXAM: 08/30/2021 COMPARISON: 02/05/2021 HISTORY: low back pain CT DLP: 1709.9 mGycm Automated exposure control for dose reduction was used. CONTRAST: CT scan of the lumbar is performed with IV Contrast, patient injected with 10 mL of Isovue M200. Post myelography CT of the lumbar spine was performed. Bone and soft tissue window settings are subm itted as well as coronal and sagittal reconstructions. L1-L2: Normal disc space height. No disc herniation protrusion or central stenosis. No facet joint arthropathy. No evidence for foraminal encroachment. L2-L3: Moderate disc space narrowing. Subligamentous disc herniation effaces the ventral thecal sac a nd results in moderate central stenosis. Bilateral foraminal encroachment. L3-L4: Moderate disc desiccation. Moderate subligamentous disc herniation effaces the ventral thecal sac and results in severe central stenosis. Bilateral foraminal encroachment noted. L4-L5: Severe degenerative disc space narrowing. Mild posterior disc bulge. No disc herniation or pro trusion. No central stenosis. L5-S1: Postoperative changes of fusion. Intervertebral spacer is in place. Alignment is within normal limits. Pedicular screws are identified. No recurrent or residual disease seen. IMPRESSION: 1. Severe central stenosis identified at L3-4. Moderate central stenosis at L2-3. See above.
[2021-08-30 14:15] VITALS: BP 122/76; PULSE 85
== END 2021-08-30 14:05 | disposition home or self-care (01) ==
LOC: RADPROMAIN 07:41
PROVIDERS: ATTEND Orthopaedic Surgery
DX: M54.50 Low back pain, unspecified (principal); M40.299 Other kyphosis, site unspecified; M47.816 Spondylosis without myelopathy or radiculopathy, lumbar region; M48.061 Spinal stenosis, lumbar region without neurogenic claudication; F17.210 Nicotine dependence, cigarettes, uncomplicated; J45.909 Unspecified asthma, uncomplicated; M19.90 Unspecified osteoarthritis, unspecified site; R56.9 Unspecified convulsions; Z90.710 Acquired absence of both cervix and uterus; Z98.1 Arthrodesis status; Z98.891 History of uterine scar from previous surgery; Z80.1 Family history of malignant neoplasm of trachea, bronchus and lung; Z80.0 Family history of malignant neoplasm of digestive organs; Z80.8 Family history of malignant neoplasm of other organs or systems; Z98.890 Other specified postprocedural states; Z79.899 Other long term (current) drug therapy; Z88.8 Allergy status to other drugs, medicaments and biological substances
CPT/HCPCS: 62304; 72132; Q9966

== ENCOUNTER → 2021-10-07 | Outpatient (CLI) | payer MEDICARE, OTHER | END | disposition home or self-care (01) | LOC: LABPAT 08:31 | PROVIDERS: ATTEND Orthopaedic Surgery | DX: Z01.812 Encounter for preprocedural laboratory examination (principal); Z22.322 Carrier or suspected carrier of Methicillin resistant Staphylococcus aureus; M48.061 Spinal stenosis, lumbar region without neurogenic claudication | CPT/HCPCS: 87070 ==

== ENCOUNTER 2021-10-16 11:21 | Day surgery (SDC) | payer MEDICARE, OTHER ==
[2021-10-09 14:50] VITALS: BMI 39.5
--- NOTE | 2021-10-16 07:50 | P.HPOR ---
History of Present Illness H&P Date: 09/25/21 Chief Complaint: LE radiculopathy Date of :[birth year] Age: 45 year Height: 5'7" Weight: 240 lbs BP:109/64 BMI: 37.6 kg/m2 VAS: 10 CHIEF COMPLAINT: Low back pain HISTORY: Xrays No new xrays taken in office Trauma or injury No Work-Related No Pain description Sharp Location diffuse Activity Modification yes , unable to stand or weightbear for extended periods of time. Hand Dominance right DOI: Acute on chronic, no injury or trauma. TREATMENTS COMPLETED: 6 weeks of PT completed? Yes Did it help? No, had to d/c due to exacerbation of symptoms. Physician directed home exercise completed? No Medications yes List: [place] 7.5/325mg with mild relief of her symptoms. Gabapentin with no relief. Alternative interventions Chiropractic?: No Brace: No Injections No RFA: No SUBJECTIVE: Patient presents to the office for a pre-operative appointment regarding her low back. Since the time of the last appointment the patient notes that her symptoms have continued to progress. Patient reports that she is unable to complete most of her daily functions secondary to her symptoms. She has failed all conservative treatments and is ready to proceed with the planned procedure. All questions and concerns were addressed and the patient expressed understanding. Patient denies any bladder or bowel issues, no perineal numbness/tingling, and ambulates without the use of any aides. HPI: Patient last presented to the office on 09/09/2021 to review the results of the CT myelogram obtained after the time of the last appointment. Since the time of the last appointment she notes that she has made no improvements. Patient reports no improvements to her symptoms with conservative treatments tried thus far. Additionally she continues to complain of lower extremity radiculopathy that is impacting her daily functionality. She notes that her lower extremity symptoms continue to worsen with prolonged standing that forces her to rest after short periods of time being active. Overall she notes that her life is very limited secondary to her ongoing back and lower extremity symptoms. Otherwise she denies any bladder or bowel issues, no perineal numbness/tingling, and ambulates without the use of any aides. Ms. Concepcion last presented to the office on 07/29/2021 for her first evaluation of her low back by this office. To review, the patient does have a history of a L5-S1 fusion done by Dr. Stoll following several large herniations of the L5-S1 disc. Since this surgery, she has noticed a gradually increase in pain about the lumbar. This pain has come with no known mechanism or injury. This pain is diffuse throughout the low back and does radiate into the right lower extremity. With this, she notes numbness and tingling about the right lower extremity that waxes and wanes with activity. Overall her symptoms are made worse with ambulation, prolonged standing, and sitting. Due to her symptoms, she notes an inability to complete many of her daily functions. As for treatments, she has tried PT which only exacerbated her symptoms so she had to stop. Additionally she does take [place] 7.5/325mg for pain management with mild improvements to her symptoms. Otherwise she denies having completed any other modalities. Of note, the patient denies any bladder or bowel issues, perineal numbness/tingling, and presents to the office without the use of any ambulatory aides. The patients' past social, medical, family, surgical history, as well as review of systems, have been reviewed. Please refer to the Neurosurgery History and Physical form that has been scanned in to our electronic medical record system. 14 points review of systems completed and as stated in HPI, all other systems reviewed are negative. Review of Systems 14 points review of systems completed and as stated in HPI, all other systems reviewed are negative. All systems: negative Constitutional: Reports as per HPI Past Medical History Past Medical History: Asthma, Blood Disorder, COPD, Fibromyalgia, Hyperli pidemia, Seizure Disorder Additional Past Medical History / Comment(s): CHRONIC BACK PAIN, Restless Leg Syndrome, migraines, Factor 5, varicose veins. History of Any Multi-Drug Resistant Organisms: None Reported Past Surgical History: Back Surgery, Section, Hysterectomy, Joint Replacement, Orthopedic Surgery, Tubal Ligation Additional Past Surgical History / Comment(s): Stimulator for back, VNS implant for seizures, right knee surgery, right knee replacement. Past Anesthesia/Blood Transfusion Reactions: No Reported Reaction Past Psychological History: Anxiety, Depression, Panic Disorder, PTSD Smoking Status: Current every day smoker Past Alcohol Use History: None Reported Additional Past Alcohol Use History / Comment(s): Smokes 1/2 ppd, has been smoking on and off since the age of 20. Past Drug Use History: None Reported - Past Family History Mother Family Medical History: No Reported History Medications and Allergies Home Medications Medication Instructions Recorded Confirmed Type rOPINIRole HCL [Requip] 0.5 mg PO BID 07/23/16 10/09/21 History Meloxicam [Mobic] 15 mg PO HS 06/11/18 10/09/21 History Zonisamide [Zonegran] 200 mg PO HS 04/06/19 10/09/21 History diazePAM [Valium] 5 mg PO BID 04/06/19 10/09/21 History lamoTRIgine [LaMICtal] 100 mg PO BID 04/06/19 10/09/21 History Aspirin EC [Ecotrin Low Dose] 81 mg PO DAILY 04/16/19 10/09/21 History Atorvastatin [Lipitor] 80 mg PO HS 11/17/20 10/09/21 History Budesonide/Formoterol Fumarate 2 puff INHALATION BID 11/17/20 10/09/21 History [Symbicort 160-4.5 Mcg Inhaler] Gabapentin 300 mg PO TID 11/17/20 10/09/21 History HYDROcodone/APAP 7.5-325MG [[place] 1 tab PO TID PRN 11/17/20 10/09/21 History 7.5-325] Nystatin 100,000 Unit/gm Oint 1 applic TOPICAL QID 11/17/20 10/09/21 History [Mycostatin Oint] Propranolol HCl 60 mg PO BID 11/17/20 10/09/21 History Sertraline [Zoloft] 100 mg PO QAM 11/17/20 10/09/21 History Potassium Chloride ER [K-Dur 20] 20 meq PO DAILY 90 Days #90 11/19/20 10/09/21 Rx tab.er.prt Brexpiprazole [Rexulti] 4 mg PO HS 08/09/21 10/09/21 History Lacosamide [Vimpat] 200 mg PO BID 08/09/21 10/09/21 History Meclizine [Antivert] 25 mg PO BID 08/09/21 10/09/21 History Metoclopramide [Reglan] 10 mg PO TID 08/09/21 10/09/21 History Umeclidinium [place] [Incruse 1 puff INHALATION DAILY 08/09/21 10/09/21 History Ellipta] metFORMIN HCL [Glucophage XR] 500 mg PO DAILY 08/09/21 10/09/21 History Cholecalciferol [Vitamin D3 (25 50 mcg PO DAILY 10/09/21 10/09/21 History Mcg = 1000 Iu)] Allergies Allergy/AdvReac Type Severity Reaction Status Date / Time topiramate [From Topamax] Allergy Anaphylaxis Verified 10/09/21 14:27 Physical Examination Osteopathic Statement: *. No significant issues noted on an osteopathic structural exam other than those noted in the History and Physical/Consult. PHYSICAL EXAMINATION: General: Awake, alert, appropriate for age, in no acute distress. HEENT: No unusual neck masses around region of lateral neck triangle, thyroid, supraclavicular groove Extremities: Skin warm and dry without acute lesions, coloration, temperature, skin intact, no tenderness or erythema Integument: Hairy patches: Absent Dorsal skin dimples: Absent Cafe au lait spots: Absent Surgical incisions: No Palpation: Please see Pain drawing on Intake sheet for further detail. Midline spinal tenderness: No E6 Paralumbar tenderness:yes E6 Parathoracic tenderness: No E6 Buttocks tenderness: No E6 Special findings: No POSTURAL and MUSCULO-SKELETAL EVALUATION: Coronal Balance: NEUTRAL Recumbent testing: Patient is able to lay flat on back Sagittal Balance: NEUTRAL Shoulder Profile: LEVEL Pelvic Girdle: LEVEL Neck ROM: UNRESTRICTED Lumbar ROM: RESTRICTED Shoulder ROM: Symmetrical Hip ROM: Symmetrical Knee ROM: Symmetrical Hands: Normal appearance, symmetrical Feet: Normal appearance, Symmetrical VASCULAR STATUS : LEFT RIGHT Wrist Pulses INTACT INTACT Pedal Pulses (Dors. pedis & post.tibialis) INTACT INTACT Color NORMAL NORMAL Edema Absent Absent NEUROLOGIC EXAMINATION: Mental Status:Awake and alert, fully oriented, with normal attention, concentration and memory, and fluent, appropriate speech. Cranial Nerves: I: Olfactory not tested. II: Visual acuity normal, no visual field deficit noted with confrontation. III,IV: Normal pupillary reflexes & intact extraocular movements without nystagmus. V,: Intact symmetrical facial sensation. VII: Intact symmetrical facial motor movement VIII: Hearing intact. IX,X: Intact gag, swallow, & normal voice. XI: Sternocleidomastoid, trapezius function intact. XII: Tongue midline with normal movements. L'hermitte's Sign: Negative / absent Spurling'Sign: Absent bilaterally. Cubital percussion test: Absent bilaterally. Kami-Tinel sign - Carpal region: Absent bilaterally. Straight Leg Raising: Absent bilaterally. Crossed straight leg raise: negative O8 MOTOR EXAM (0-5/5, N/T) STRENGTH RIGHT LEFT Shoulder Abd (not part of the DAVID score) 5 5 Elbow Flexors 5 5 Elbow Extensor 5 5 Wrist Dorsiflexors 5 5 Finger Abductor 5 5 Hand Pleater 5 5 Hip Flexor (Not part of DAVID Motor score) 4 4+ Knee Flexor 5 5 Knee Extensor 5 5 Ankle dorsiflexor 4+ 4+ Ankle plantarflexion 5 4+ Extensor hallucis 5 5 REFLEXES(0-4/2, NT) RIGHT LEFT Upper Extremities 2 2 Lower Extremities 2 1 Pathological Reflexes RIGHT LEFT Soto's Absent Absent Clonus Absent Absent Babinski Absent Absent # Indicates mechanical impairment Muscle appearance: Symmetrical, without signs of atrophy or dystrophy. Sensory system (0-4, N/T) Test type RU MEERA RL LL Joint-Position 2 2 2 2 Vibration 2 2 2 2 Pain & LT sense 2 2 2 2 Dermatomal Deficit: None None L3-5 L5-S1 Gait and Functional Evaluation: Ambulatory aids: Independent Romberg's test: Intact bilaterally Toe heel walk / heel-toe walk intact while maintaining satisfactory balance? yes Squatting/straightening w/o assistance to a min of 60 degree knee flexion? yes Single leg stance: intact Trendelenburg sign negative bilaterally Hand and finger dexterity intact bilaterally? yes Disdiadochokinesis examination negative bilaterally? yes Results XRay taken on 07/29/21 of Lumbar, Pelvis Spine: multiple views of the lumbar spine obtained and reviewed in the office today. This demonstrates postsurgical changes at L5-S1 with a T lift construct in place. There is reasonable fusion anteriorly which is noted. Segmental alignment is acceptable however there is adjacent segment disease at L4 5 which is causing segmental kyphosis in this region. There is disc desiccation as well as facet arthropathy noted at L4 5. There is mild disc desiccation L3-L4 which is noted. A shunt has a spinal stimulator which is noted in the x-rays as well. AP pelvis demonstrates congruent level pelvis no fracture dislocation CT lumbar spine from 02/05/2021: This is also reviewed which demonstrates simil ar findings to the x-ray. There is good fusion noted L5-S1. There is adjacent segment disease at L3 4 as well as L4-5 with disc collapse, segmental kyphosis, facet hypertrophy and arthropathy and stenosis related to these findings. No fracture or dislocation otherwise noted. No lesions visualized. CT myelogram of lumbar spine from 08/30/2021: this is reviewed and demonstratespostsurgical changes at L5-S1 with T lift construct in place. There is good fusion here. There is noted likely autofusion between L4-L5 and a slightly kyphotic alignment. There is adjacent segment disease L3-L4 with large disc herniation L3-L4 causing severe central stenosis. There is stenosis noted at L2-L3 which is moderate to severe as well foraminal area as well as centrally. No acute fracture or dislocations noted at this time. Overall alignment is slightly flat back due to previous surgery. There isPI: LL mismatch noted Assessment and Plan Assessment: 1. S/P L5-S1 fusion following large disc herniation. 2.Adjacent Segment Disease L4-L5, L3-L4. 3. Right lower extremity radiculopathy. 4. Neurogenic claudication Plan: 1.Based on her continued symptomology, clinical findings, and failure to improve with any conservative treatments we did discuss continued conservative treatment versus operative intervention in the form of a L2-L4 decompression with laminectomy. due to her age and symptomatology we discussed decompression versus decompression and fusion. At this time the patient does not want another fusion and would only like to be decompressed as neurologically this is her biggest complaint. All risks and benefits of the surgery were discussed and the patient expressed understanding, Additionally all questions and concerns were addressed and the patient wishes to proceed with the planned procedure. Spine Surgery Risk Review Jane Concepcion is a 45 y/o white female presenting for evaluation of low back pain. It was my pleasure to have seen and examined Jane Concepcion. In our visit today we have had a chance to go over subjective complaints, physical examination findings and treatments including the natural course history without intervention and various interventional options. The patients imaging demonstrates CT myelogram: this is reviewed and demonstratespostsurgical changes at L5-S1 with T lift construct in place. There is good fusion here. There is noted likely autofusion between L4-L5 and a slightly kyphotic alignment. There is adjacent segment disease L3-L4 with large disc herniation L3-L4 causing severe central stenosis. There is stenosis noted at L2-L3 which is moderate to severe as well foraminal area as well as centrally. No acute fracture or dislocations noted at this time. Overall alignment is slightly flat back due to previous surgery. There isPI: LL mismatch noted. Xray: multiple views of the lumbar spine obtained and reviewed in the office today. This demonstrates postsurgical changes at L5-S1 with a T lift construct in place. There is reasonable fusion anteriorly which is noted. Segmental alignment is acceptable however there is adjacent segment disease at L4 5 which is causing segmental kyphosis in this region. There is disc desiccation as well as facet arthropathy noted at L4 5. There is mild disc desiccation L3-L4 which is noted. A shunt has a spinal stimulator which is noted in the x-rays as well. AP pelvis demonstrates congruent level pelvis no fracture dislocation. On physical exam, Jane Francistracey demonstrates bilateral lower extremity weakness and radiculopathy. I have explained to the patient that as their condition progresses it will cause further neurological deficits and eventual paralysis. Based on the patients imaging, physical exam, and the rapid progression and disabling nature of their symptoms, at this time I recommend surgery in the form or a: L2-L4 decompression with laminectomy. I discussed the risk and benefits of this procedure at length with Jane Rostracey. The patient agreed to considered pursuing the procedure abovementioned. Prior to surgery, she should follow up with her PCP (Cardio, ID, IM etc) for clearance. Questions were invited and answered, and the patient wishes to proceed as outlined below. Currently, I am recommendin.L2-L4 decompression with laminectomy 2.Follow up with PCP for surgical clearance 3.Review of surgical risks and benefits as well as an educational packet on the proposed surgical procedure. Risks: All surgical procedures come with inherent risks, including those related to positioning, anesthesia, intraoperative findings, and postoperative complications. It is important to understand that surgery does not come with any guarantee of a successful outcome as complications and adverse events are always possible. The patient was given a handout in office today discussing the surgical procedure and risks associated with the intervention, both of which were discussed with the patient. These risks include but are not limited to the following: * Experiencing same, different or even worse symptoms in back, neck, arms, or legs compared to before surgery. Requiring further surgery or other forms of treatment presently or at some time in the future at same or other levels of the intended spine surgery. On an extreme but fortunately relatively rare basis severe complication such as blindness, stroke, heart attack, temporary and/or permanent nerve injury, paralysis, coma, or may occur, sometimes without known explanation. Surgical complications may include but are not limited to risk of infection, fluid accumulation in the surgical dissection site, including a seroma or hematoma, that requires additional surgery, wound drainage, bleeding, new numbness or weakness, vision changes/loss, spinal fluid leakage, non-healing and/or infected incision, headaches, difficulty or inability to swallow, hoarseness, hemopneumothorax, pneumothorax, impotence, retrograde ejaculation, vaginal dryness; injury to nerves, spinal cord, blood vessels, lymphatics or other vital organs (i.e., bowel injury, injury to the great vessels); heterotopic bone formation; complications related to the hardware such as screws, rods, cages including misplaced hardware, device failure, instrumentation at the wrong spine level, hardware fracture/breakage, or hardware loosening; vertebral failure of the spinal column above or below the newly placed hardware; retained surgical instrumentations or devices and the need for further surgery. * Medical risks of the planned spine surgery include but are not limited to generalized Infections to the whole body or local areas outside of the surgical site (sepsis), heart attack, bleeding, anaphylaxis, meningitis, seizure, epilepsy, hearing loss, burn alvarado, laceration of the head or other areas of the body, bruising, hypersensitivity of the skin, bladder over distension; allergic reaction; shoulder injury related to positioning; fat, blood and air clots to other areas of the body like heart, lungs, brain; failure of internal organs such as lungs, kidneys, liver and excessive bleeding. If blood transfusions are necessary, note that transfusions may cause intolerance reactions such as anaphylaxis or other complex reactions. Despite best efforts, the results of spine surgery might not heal in terms of bone, soft tissues such as skin, fascia, ligaments, and joints. Additionally, in order to achieve best possible results, spine surgery may be carried out beyond the initially planned levels and involve decompression, fusion including insertion of hardware at levels other than the original intended area of surgical interest change some portions of the procedure in order to ensure the best possible outcomes. With spine surgery and spinal fusion, there are different off label uses of instrumentation (devices, implants and hardware) as well as biological substances (bone morphogenic proteins, demineralized bone matrix) as well as using extra bone from allograft sources (i.e. cadaver bone) or autograft (iliac crest bone, ribs, or the spine itself). The patient has been given information about these practices and their inherent risks and benefits. [facility] is an educational center that serves as a training facility for neurosurgical and orthopedic spine residents and fellows. Residents are physicians who are completing their surgical intensive training following medical school. They assist in the operating room with direct supervision of the attending surgeons. [place] are surgeons who have completed their training and eligible for board certification. They have opted for an elective year of more specialized training in their field. They assist in the operating room under the supervision of the attending surgeons. Physician assistants are medically trained surgical providers who function in the outpatient, inpatient, and operating room setting under the direct supervision of the attending surgeon. [facility] has multiple operating rooms with single and overlapping rooms running daily. They currently function under the required guidelines as produced by the [facility] with regards to the overlapping rooms a nd will continue to comply with changes to this policy as they occur. The requirements include and are complied with as follows: (1) the critical portions of the overlapping rooms will not occur at the same time, (2) the attending physician will be physically present during the critical portions of the procedure and immediately available during the entire case, and (3) a back-up attending is designated should the primary attending not be immediately available. The patient has had a chance to review all the listed information, has been given print outs detailing this information, and has had all his/her questions answered to their satisfaction. It was my pleasure to have seen and examined Jane Concepcion. In our visit today we have had a chance to go over my understanding of our patient's current condition, the natural course history without intervention and various interventional options. Questions were invited and answered, and the patient wishes to proceed as outlined above. I have seen and examined the patient for 25 minutes and we have spent more than 50% of the time in repeat and detailed counseling about the patient's condition, its natural course history with out and as much as can be predicted with surgery and re-review of various surgical treatment options. In conclusion, Jane Concepcion requested we proceed with the above suggested surgery and are willing to accept risks and limitations of the suggested surgery as nature of the disease process and our best attempts at treatment for the condition. Thank you again for allowing us to be part of your patient's care. Please don't hesitate to contact me if you have any further questions. Signed and authenticated by: maria del carmen [facility] [address] [address]
[~2021-10-16 11:21] MED LIST changes: +DEXAMETHASONE SOD PHOSPHATE 4 MG/ML 1 ML VIAL IV ONE; +HYDROmorphone 0.5 MG/0.5 ML SYRINGE IVP PRN; +ONDANSETRON 4 MG/2 ML VIAL IVP ONE; -REGADENOSON 0.4 MG/5 ML SYRINGE IV ONE
[2021-10-16] MEDS ORDERED: IPRATROPIUM-ALBUTEROL 3 ML NEB INHALATION STA (11:56)
[2021-10-16] MEDS: LACTATED RINGERS 1,000 ML IV SCH (12:17)
[2021-10-16 12:20] LABS: Glucose,Whole Blood 102 mg/dL (75-99)
[2021-10-16] MEDS ORDERED: LIDOCAINE 1% INJ 10MG/ML (20 ML MDV) ONE (12:50)
[2021-10-16] MEDS ORDERED: SODIUM CHLORIDE 0.9% 100 ML BAG ONE (12:50)
[2021-10-16] MEDS ORDERED: NEOSTIGMINE 1 MG/ML 10 ML VIAL ONE (12:50)
[2021-10-16] MEDS ORDERED: NALOXONE 0.4 MG/ML 1 ML VIAL ONE (12:50)
[2021-10-16] MEDS ORDERED: GLYCOPYRROLATE 0.2 MG/ML 2 ML VIAL ONE (12:50)
[2021-10-16] MEDS ORDERED: SUCCINYLCHOLINE CHLORIDE 100 MG/5 ML SYR IV ONE (12:50)
[2021-10-16] MEDS ORDERED: fentaNYL (PF) 50 MCG/ML 2 ML AMP ONE (12:50)
[2021-10-16] MEDS ORDERED: TRANEXAMIC ACID 1,000 MG/10 ML VIAL ONE (12:50)
[2021-10-16] MEDS ORDERED: ROCURONIUM 10 MG/ML (5 ML VIAL) IV ONE (12:50)
[2021-10-16] MEDS ORDERED: MIDAZOLAM 2 MG/2 ML VIAL ONE (12:50)
[2021-10-16] MEDS ORDERED: PROPOFOL 10 MG/ML 20 ML VIAL IV ONE (12:50)
[2021-10-16] MEDS ORDERED: TRANEXAMIC ACID 1,000 MG in SODIUM CHLORIDE 0.9% 100 ML IVPB ONE ×2 (13:37→13:45)
[2021-10-16] MEDS ORDERED: BUPIVACAIN-EPI 0.25%-1:200,000 30 ML VIAL SQ ONE (13:53)
[2021-10-16] MEDS ORDERED: VANCOMYCIN 1,000 MG VIAL MISCELLANE ONE (15:24)
[2021-10-16] MEDS ORDERED: SENNOSIDES-DOCUSATE SODIUM 1 EACH TAB PO PRN (15:41)
[2021-10-16] MEDS ORDERED: HYDROcodone/APAP 5-325MG 1 EACH TAB PO PRN (15:41)
--- NOTE | 2021-10-16 16:01 | FL ---
EXAMINATION TYPE: FL guidance operating room, XR lumbar spine 2 or 3V DATE OF EXAM: 10/16/2021 CLINICAL HISTORY: Low back pain. TECHNIQUE: Fluoroscopy. Intraoperative 2 views lumbar spine. COMPARISON: CT lumbar spine August 30, 2021. FINDINGS: Fluoroscopic guidance was provided during lumbar laminectomy procedure performed by Dr. William arzola. A total of 9 seconds of fluoroscopic time was utilized during the procedure and 9 spot int raoperative images are acquired. Intraoperative images obtained show posterior surgical change with bilateral laminectomy defects and spinous process resection from the L2-L4 levels. IMPRESSION: As Above.
[2021-10-16 16:10] LABS: Glucose,Whole Blood 114 mg/dL (75-99)
[2021-10-16] MEDS: ACETAMINOPHEN TAB 325 MG TAB PO SCH (18:30)
[2021-10-16 20:16] LABS: Glucose,Whole Blood 100 mg/dL (75-99)
[2021-10-16] MEDS: lamoTRIgine 100 MG TAB PO SCH (20:50)
[2021-10-16] MEDS: MECLIZINE 25 MG TAB PO SCH (20:51)
[2021-10-16] MEDS: LACOSAMIDE 50 MG TABLET PO SCH (20:51)
[2021-10-16] MEDS: HYDROcodone/APAP 10-325MG 1 EACH TAB PO PRN (20:51)
[2021-10-16] MEDS: ATORVASTATIN 80 MG TAB PO SCH (20:51)
[2021-10-16] MEDS: ZONISAMIDE 100 MG CAP PO SCH (20:52)
[2021-10-16] MEDS: PROPRANOLOL 20 MG TAB PO SCH (20:52)
[2021-10-16] MEDS ORDERED: GABAPENTIN 300 MG CAP PO SCH (21:00)
[2021-10-16] MEDS: SYMBICORT 160-4.5 MCG INHALER INHALATION SCH (21:23)
[2021-10-16] MEDS: NON FORMULARY DRUG (Brexpiprazole [Rexulti] 4 MG Tablet) PO SCH (21:47)
[2021-10-16] MEDS: diazePAM 5 MG TAB PO SCH (21:48)
[2021-10-16] MEDS: METOCLOPRAMIDE 10 MG TAB PO SCH (21:54)
[2021-10-16] MEDS: GABAPENTIN 300 MG CAP PO SCH (21:54)
[2021-10-17] MEDS: ACETAMINOPHEN TAB 325 MG TAB PO SCH ×4 (00:46→17:41)
[2021-10-17] MEDS: HYDROmorphone 0.5 MG/0.5 ML SYRINGE IVP PRN ×2 (00:47→04:43)
[2021-10-17 07:03] LABS: Glucose,Whole Blood 100 mg/dL (75-99)
[2021-10-17] MEDS: HYDROcodone/APAP 10-325MG 1 EACH TAB PO PRN ×2 (07:11→13:31)
[2021-10-17] MEDS: metFORMIN 500 MG TAB PO SCH ×2 (07:40→17:42)
[2021-10-17 08:21] LABS: Basophils # (A) 0.04 X 10*3/uL (0.00-0.10); Basophils % (A) 0.4 %; Eosinophils # (A) 0.21 X 10*3/uL (0.04-0.35); HCT 35.8 % (37.2-46.3); HGB 11.8 g/dL (12.0-15.0); Immature Grans, Automated 0.5 %; Lymphocytes # (A) 1.56 X 10*3/uL (0.90-5.00); Lymphocytes % (A) 15.1 %; MCH 32.6 pg (27.0-32.0); MCV 98.9 fL (80.0-97.0); Mean Platelet Volume 10.9 fL (9.5-12.2); Monocytes # (A) 0.71 X 10*3/uL (0.20-1.00); Monocytes % (A) 6.9 %; NRBC Per 100 WBC 0 /100 WBCS (0.0-0.0); Neutrophils # (A) 7.75 X 10*3/uL (1.80-7.70); Neutrophils % (A) 75.1 %; Platelet Count 189 X 10*3/uL (140-440); RBC 3.62 X 10*6/uL (4.10-5.20); RDW 13.6 % (11.5-14.5); WBC 10.32 X 10*3/uL (4.50-10.00)
[2021-10-17] MEDS: CHOLECALCIFEROL 25 MCG (1000 IU) TABLET PO SCH (08:43)
[2021-10-17] MEDS: diazePAM 5 MG TAB PO SCH ×2 (08:43→21:53)
[2021-10-17] MEDS: ASPIRIN 81 MG PO SCH (08:43)
[2021-10-17] MEDS: GABAPENTIN 300 MG CAP PO SCH ×3 (08:44→21:54)
[2021-10-17] MEDS: POTASSIUM CHLORIDE ER 20 MEQ TAB.ER PO SCH (08:44)
[2021-10-17] MEDS: lamoTRIgine 100 MG TAB PO SCH ×2 (08:44→21:54)
[2021-10-17] MEDS: METOCLOPRAMIDE 10 MG TAB PO SCH ×3 (08:45→21:54)
[2021-10-17] MEDS: SERTRALINE 100 MG TAB PO SCH (08:45)
[2021-10-17] MEDS: MECLIZINE 25 MG TAB PO SCH ×2 (08:45→21:54)
[2021-10-17] MEDS: PROPRANOLOL 20 MG TAB PO SCH ×2 (08:45→21:54)
[2021-10-17] MEDS: LACOSAMIDE 50 MG TABLET PO SCH ×2 (08:46→21:54)
[2021-10-17] MEDS: LACTATED RINGERS 1,000 ML IV SCH (08:56)
[2021-10-17] MEDS: IPRATROPIUM 0.5 MG/2.5 ML NEBU INHALATION SCH ×4 (08:59→22:16)
[2021-10-17] MEDS: SYMBICORT 160-4.5 MCG INHALER INHALATION SCH ×2 (08:59→22:16)
--- NOTE | 2021-10-17 10:23 | P.PN ---
Subjective Progress Note Date: 10/17/21 Principal diagnosis: Status post L2-L4 decompression with laminectomy Patient evaluated today at bedside, she was resting in her hospital bed. She states that she was up ambulating a little bit in the room when he sitting in a chair. Urinary catheter is in place at this time. Her drain is also present, there is minimal drainage present. Postop dressing is in good position and condition. Patient's pain is well-controlled at this time. She's having some generalized discomfort in the. The incision. She notes that the numbness on the lateral aspects of the lower legs are improved significantly. She notes improvement in the weakness in the right lower extremity and slight improvement in the left lower extremity. Currently denies any headaches, lightheadedness, chest pain shortness of breath. Objective - Vital Signs Vital signs: Vital Signs Temp 98.5 F 10/17/21 07:07 Pulse 80 10/17/21 09:13 Resp 18 10/17/21 07:07 BP 114/75 10/17/21 07:07 Pulse Ox 93 L 10/17/21 07:07 Intake & Output 10/16/21 10/17/21 10/17/21 18:59 06:59 18:59 Intake Total 1070 Output Total 400 800 20 Balance 670 -800 -20 Weight 122.3 kg 122.3 kg Intake: IV 1070 Output: Drainage 20 Lower Back 20 Urine 250 800 Estimated Blood Loss 150 Other: Voiding Method Indwelling Catheter - Exam Gen: AOx3, NAD VSS stable at this time Integument: General he is in good position and condition, minimal drainage present. Postoperative dressing is in good position and condition Palpation: Mild tenderness with palpation in the midline and paraspinal region of the lumbar spine, no stomach and tenderness reproduced in the cervical or thoracic spine ROM: Full range of motion in all major muscle groups bilateral upper and lower extremities Sensory Exam: Senory exam to light touch is intact C5-T1 Senosry exam to light touch is intact L2-S1, slight loss of sensation to light touch noted on the right side and the L3-L5 dermatome, left side L5-S1. Both are improved since surgery Motor: 55 strength appreciated in the bilateral upper extremities with shoulder abduction, shoulder elevation, elbow extension, elbow flexion, wrist extension, wrist flexion, office automation clerk strength Left lower extremity: 55 strength appreciated with knee extension, knee flexion, extensor hallucis longus, flexor hallucis longus. 4-5 strength appreciated with hip flexion, flexion, dorsiflexion Right lower extremity: 55 strength is appreciated with knee extension, knee flexion, plantar flexion, dorsiflexion, EHL, FHL. 45 with hip flexion Reflexes: Negative Santiago's bilaterally Negative Babinski bilaterally Negative clonus bilaterally - Labs CBC & Chem 7: 10/17/21 04:37 Labs: Abnormal Lab Results - Last 24 Hours (Table) 10/16/21 10/16/21 10/16/21 Range/Units 12:19 16:07 20:12 WBC (4.50-10.00) X 10*3/uL RBC (4.10-5.20) X 10*6/uL Hgb (12.0-15.0) g/dL Hct (37.2-46.3) % MCV (80.0-97.0) fL MCH (27.0-32.0) pg Immature Gran # (0.00-0.04) X 10*3/uL Neutrophils # (1.80-7.70) X 10*3/uL POC Glucose (mg/dL) 102 H 114 H 100 H (75-99) mg/dL 10/17/21 10/17/21 Range/Units 04:37 07:01 WBC 10.32 H (4.50-10.00) X 10*3/uL RBC 3.62 L (4.10-5.20) X 10*6/uL Hgb 11.8 L (12.0-15.0) g/dL Hct 35.8 L (37.2-46.3) % MCV 98.9 H (80.0-97.0) fL MCH 32.6 H (27.0-32.0) pg Immature Gran # 0.05 H (0.00-0.04) X 10*3/uL Neutrophils # 7.75 H (1.80-7.70) X 10*3/uL POC Glucose (mg/dL) 100 H (75-99) mg/dL Assessment and Plan Assessment: Postoperative day #1 status post L2L4 decompression with laminectomy Plan: Pain control, continue with current medications, this including the [place] and gabapentin GI and DVT prophylaxis, okay to start heparin today. Patient also did resume her aspirin Wound care, plan to remove drain tomorrow. We'll leave up to full dressing also in place. We'll plan for dressing change with home health care, instructions are provided in chart Discussed with nursing to remove the urinary catheter today Home healthcare/physical therapy after discharge Recommend weight-bear as tolerated with walker, no twisting, bending or lifting over 5 pounds Medical recommendations Encourage incentive spirometer Discharge planning: Plan for discharge home tomorrow
[2021-10-17 11:19] LABS: Glucose,Whole Blood 106 mg/dL (75-99)
[2021-10-17] MEDS: CYCLOBENZAPRINE 5 MG TAB PO PRN (16:43)
[2021-10-17 16:57] LABS: Glucose,Whole Blood 102 mg/dL (75-99)
[2021-10-17 20:12] LABS: Glucose,Whole Blood 120 mg/dL (75-99)
[2021-10-17] MEDS ORDERED: MELOXICAM 7.5 MG TAB PO SCH (21:00)
[2021-10-17] MEDS: ATORVASTATIN 80 MG TAB PO SCH (21:54)
[2021-10-17] MEDS: ZONISAMIDE 100 MG CAP PO SCH (21:54)
[2021-10-17] MEDS: NON FORMULARY DRUG (Brexpiprazole [Rexulti] 4 MG Tablet) PO SCH (22:01)
[2021-10-18] MEDS: ACETAMINOPHEN TAB 325 MG TAB PO SCH ×3 (00:57→11:04)
[2021-10-18] MEDS: HYDROcodone/APAP 10-325MG 1 EACH TAB PO PRN (00:57)
--- NOTE | 2021-10-18 01:10 | US ---
EXAMINATION TYPE: US venous doppler duplex LE LT DATE OF EXAM: 10/18/2021 1:01 AM COMPARISON: NONE CLINICAL HISTORY: r/o DVT. Left leg pain and swelling EXam done portable SIDE PERFORMED: Left TECHNIQUE: The lower extremity deep venous system is examined utilizing real time linear array sonog luh with graded compression, doppler sonography and color-flow sonography. VESSELS IMAGED: Common Femoral Vein Deep Femoral Vein Greater Saphenous Vein * Femoral Vein Popliteal Vein Small Saphenous Vein * Proximal Calf Veins (* superficial vessels) Left Leg: Appears negative for DVT IMPRESSION: No evidence of deep vein thrombosis in the left leg.
[2021-10-18] MEDS: CYCLOBENZAPRINE 5 MG TAB PO PRN (05:31)
[2021-10-18 06:52] LABS: Glucose,Whole Blood 99 mg/dL (75-99)
[2021-10-18] MEDS: SYMBICORT 160-4.5 MCG INHALER INHALATION SCH (07:51)
[2021-10-18] MEDS: IPRATROPIUM 0.5 MG/2.5 ML NEBU INHALATION SCH ×2 (07:51→12:25)
[2021-10-18] MEDS: metFORMIN 500 MG TAB PO SCH (08:30)
[2021-10-18] MEDS: lamoTRIgine 100 MG TAB PO SCH (09:09)
[2021-10-18] MEDS: CHOLECALCIFEROL 25 MCG (1000 IU) TABLET PO SCH (09:09)
[2021-10-18] MEDS: ASPIRIN 81 MG PO SCH (09:10)
[2021-10-18] MEDS: diazePAM 5 MG TAB PO SCH (09:10)
[2021-10-18] MEDS: METOCLOPRAMIDE 10 MG TAB PO SCH (09:10)
[2021-10-18] MEDS: MECLIZINE 25 MG TAB PO SCH (09:10)
[2021-10-18] MEDS: LACOSAMIDE 50 MG TABLET PO SCH (09:10)
[2021-10-18] MEDS: GABAPENTIN 300 MG CAP PO SCH (09:10)
[2021-10-18] MEDS: PROPRANOLOL 20 MG TAB PO SCH (09:10)
[2021-10-18] MEDS: SERTRALINE 100 MG TAB PO SCH (09:19)
[2021-10-18] MEDS: POTASSIUM CHLORIDE ER 20 MEQ TAB.ER PO SCH (09:19)
[2021-10-18 11:20] LABS: Glucose,Whole Blood 96 mg/dL (75-99)
[2021-10-18] MEDS: LACTATED RINGERS 1,000 ML IV SCH (13:11)
--- NOTE | 2021-10-18 13:11 | P.PN ---
Subjective Progress Note Date: 10/18/21 Principal diagnosis: Status post L2-L4 decompression with laminectomy Patient evaluated today at bedside, she was resting in her hospital bed. Patient's pain is well-controlled at this time. She's having some generalized discomfort in the. The incision. She notes that the numbness on the lateral aspects of the lower legs are improved significantly. She notes improvement in the weakness in the right lower extremity and slight improvement in the left lower extremity. Currently denies any headaches, lightheadedness, chest pain shortness of breath. Objective - Vital Signs Vital signs: Vital Signs Temp 98.2 F 10/18/21 08:00 Pulse 75 10/18/21 12:32 Resp 18 10/18/21 08:00 BP 118/72 10/18/21 08:00 Pulse Ox 93 L 10/18/21 08:00 Intake & Output 10/17/21 10/18/21 10/18/21 18:59 06:59 18:59 Output Total 330 10 Balance -330 -10 Output: Drainage 20 10 Lower Back 20 10 Urine 310 Uretheral ([place]) 155 Other: Voiding Method Indwelling Catheter Toilet # Voids 2 3 1 - Exam Gen: AOx3, NAD VSS stable at this time Integument: Drain was removed today at bedside. The Opteform dressing was also changed. The incision is clean, dry and intact, bossman are all in good position. Palpation: Mild tenderness with palpation in the midline and paraspinal region of the lumbar spine, no stomach and tenderness reproduced in the cervical or thoracic spine ROM: Full range of motion in all major muscle groups bilateral upper and lower extremities Sensory Exam: Senory exam to light touch is intact C5-T1 Senosry exam to light touch is intact L2-S1, slight loss of sensation to light touch noted on the right side and the L3-L5 dermatome, left side L5-S1. Both are improved since surgery Motor: 55 strength appreciated in the bilateral upper extremities with shoulder abduction, shoulder elevation, elbow extension, elbow flexion, wrist extension, wrist flexion, optical engineering manager strength Left lower extremity: 55 strength appreciated with knee extension, knee flexion, extensor hallucis longus, flexor hallucis longus. 4-5 strength appreciated with hip flexion, flexion, dorsiflexion Right lower extremity: 55 strength is appreciated with knee extension, knee flexion, plantar flexion, dorsiflexion, EHL, FHL. 45 with hip flexion Reflexes: Negative Santiago's bilaterally Negative Babinski bilaterally Negative clonus bilaterally - Labs CBC & Chem 7: 10/17/21 04:37 Labs: Abnormal Lab Results - Last 24 Hours (Table) 10/17/21 10/17/21 Range/Units 16:53 20:08 POC Glucose (mg/dL) 102 H 120 H (75-99) mg/dL Assessment and Plan Assessment: Postoperative day #3 status post L2L4 decompression with laminectomy Plan: Pain control, plan for discharge on [place] 10 mg/325 mg. She will continue her artery prescribed gabapentin GI and DVT prophylaxis, aspirin can be resumed after discharge to home. Wound care instructions were discussed Home healthcare/physical therapy after discharge Recommend weight-bear as tolerated with walker, no twisting, bending or lifting over 5 pounds Medical recommendations Encourage incentive spirometer Discharge planning: Plan for discharge home today Time with Patient: Less than 30
--- NOTE | 2021-10-18 13:27 | P.DS ---
Providers Date of admission: 10/15/2021 Expected date of discharge: 10/18/21 Attending physician: Bo Jones DO Consults: 10/16/21 15:41 Consult Physician Routine Consulting Provider: Domingo Valdovinos Reason/Comments: s/p L2-L4 decompression and laminectomy Do you want consulting provider notified?: Yes Primary care physician: Domingo Valdovinos [facility] Course: Date of admission: 10/15/2021 Date of discharge: 10/18/2021 Admission diagnosis: Low back pain, previous L5-S1 fusion, L2-L4 adjacent segment diseas, lower extremity with radiculopathy Discharge diagnosis: s/p L2-L4 decompression with laminectomy Attending physician: Dr. Jones Surgical procedures: L2-L4 decompression with laminectomy Brief history: Patient is a 45 year old female with a history of chronic low back pain who is status post previous L5-S1 fusion. After initial evaluation by Dr. Jones and conservative options, it was determined the patient had adjacent segment disease involving L2-L3, L3-L4 with both central and foraminal canal stenosis. After conservative management did not provide adequate relief, patient was scheduled for surgical intervention. Hospital course: Details of patient's surgery can be found in operative report. Patient tolerated the procedure well and was subsequently transported to orthopedic floor. Patient's orthopeidc and medical care was provided daily. Patient had daily laboratory tests performed for evaluation of overall blood counts. Patient had daily physical therapy to include strengthening range of motion as well as education with walker ambulation. Patient was treated with heparin for their postoperative DVT prophylaxis during their inpatient stay. Patient was noted to have a relatively uneventful postoperative course. Patient reported satisfactory pain control with oral pain medications by postoperative day 1. Patient showed satisfactory progress with physical therapy. Patient moved steadily through the program and had no difficulty meeting the goals by postoperative day 3. Given patient's otherwise satisfactory course and having met physical therapy goals, plan is to discharge patient [home] on postoperative day 3. Discharge condition/disposition: Patient will be discharged [home] in stable condition. Discharge medications: Instructions are given on resumption of patient's normal daily medications per primary care recommendation, in addition patient will be prescribed [place] 10 mg/325 mg, Colace 100 mg. Spine Discharge and Recovery Instructions All medication refills should be obtained through your primary care doctor or your clinic spine surgeon. Please discuss prescription refills at your follow up appointment. Do not call the hospital for medication refills. Dressing: Leave your dressing in place for a total of 5 days post operatively. Then you may remove your dressing and leave open to air. Keep the area clean and if not able to keep area clean, then cover with sterile gauze and tape. Showering: You may shower 3 days after your procedure allowing soap and water to run over incision. Do not scrub. Do not soak. Blot dry. Follow up: Please confirm a follow up appointment with your surgeon 3 weeks post operatively. Please make an appointment to follow up with your PCP in 1-2 weeks after surgery for evaluation 3 phase, 3-week plan POST OP WEEKS 1-3 1. Lifting/carrying/pushing/pulling limited to less than 5 pounds. 2. Do not sit for longer than 15 minutes at one time. Get up and walk around. Prolonged sitting is NOT advised. If you lay down, see if you can tolerate laying down on you front (belly side) 3. Walk for periods of 15 minutes = 1 mile but no longer; do it multiple times times each day. 4. Ice your low back after activity. POST OP WEEKS 3-6 1. Lifting limited to less than 20 pounds. 2. Do not sit for longer than 30 minutes at a time. Frequently change positions. Use a sit-to stand workstation or take frequent breaks from sitting if you have returned to work. 3. Walk for 30 minutes each day. If possible, do these three or more times a day POST OP WEEKS 6+ At your 6-week appointment we will give you a physical therapy referral to focus on a core stabilization and strengthening program. You should also work on leg & buttock strengthening, hamstring & quadriceps stretching, and continue a low impact aerobic activity program such as swimming, walking, or riding a stationary bicycle. During the initial 6 weeks after your surgery, you are at the highest risk of re-injuring your spine. You should generally avoid BLTs (bending, lifting and twisting combination motions) and follow the above guidelines to reduce the chance of reinjury. You can anticipate post op appointments in our office at approximately 3 weeks and 6 weeks after your surgery. INCISION CARE: If your incision is not draining you do NOT need to cover it with a dressing. Keep your incision clean, dry and intact. In most cases, we apply skin glue, bossman or sutures to the incision at the time of surgery. This will be like a crust or have the appearance of a scab and will fall off in time on its own. The stitches or bossman need to be removed at 3 weeks post op appointment. You may begin to shower 3 days after surgery (this allows the glue to ho well). However, please avoid scrubbing the incision site or peeling off any of the skin glue. This will ensure optimal healing of your incision. Also, during this time avoid soaking the incision area in water - this includes swimming pools, hot tubs or baths. No ointments, lotions or oils on the incision until your surgeon allows. Leave bossman, sutures or glue in place. Neurological dysfunction that comes on suddenly can also be a sign of a stroke. Below some common symptoms of a stroke are listed: B - balance difficulty such as sudden onset walking or leaning to one side - NEW E - eye problem such as sudden double vision or trouble seeing on one side - NEW F - Facial weakness or numbness on one side - NEW A - Arm or leg weakness or numbness on one side - NEW S - Slurred speech or difficulty with word finding - NEW T - Time is BRAIN! Call 911 as soon as you recognize these symptoms Diet: Consume a regular diet rich in vegetables and lean protein such as chicken or fish. You should consume in a ratio of approximately 20% fats|40% carbohydrates|40%protein. Vegetables, sweet potatoes, brown rice or quinoa are examples of good carbohydrates. Chips, white bread, cookies and sweets/sugar are examples of bad carbohydrates. Limit your bad carbs, go wild with good carbs. "Life's Simple 7" Guidelines as per [employer] These will help you reclaim your life after surgery and electrician helper in your recovery, keeping in mind your restrictions. (1) Get Active. Physical activity can help people lose weight, control high blood pressure and cholesterol, feel emotionally better, and sleep better. (2) Control Cholesterol. Avoid a diet high in saturated fat, trans fat, & cholesterol. Limit whole milk & cream, ice cream, butter, egg yolks, processed meats (like sausage and hot dogs), and fatty meats. Choose healthy foods that are low in saturated fat, trans fat and cholesterol which include: Fruits and vegetables, fiber rich grain products (like whole grain pasta and brown rice), lean meat such as chicken, fish, nuts, seeds, and legumes. (3) Eat Better. Eat small portions. Shop at the grocery with a list and do not stray from it. Tips for a healthy diet include: Limit sodium intake to less than 1500mg daily, avoid prepackaged, processed, and fast foods, choose a diet rich in fruits, vegetables, and whole grain, high fiber foods, and limit saturated & cholesterol in your diet. (4) Manage Blood Pressure. If you have high blood pressure, you should have a cuff at home so that you can check your blood pressure regularly. Be sure you have a good cuff. An arm one is generally better than a wrist one. Bring the cuff to a doctor's appointment to validate that the measurements that your cuff are taking are accurate. Take your blood pressure twice daily when you are sitting down and relaxing. Record the numbers in a log and bring this log with you to your doctors' appointments. (5) Lose Weight if your BMI is above 25. A healthy BMI is between 19-25. To calculate Your BMI, you may use a Standard BMI Calculator on the NIH BMI website: <www.nhlbi.nih.gov/guidelines/obesity/BMI/bmicalc.htm>. Weigh oneself daily. If you are overweight, set a goal to lose weight. A pound a week loss if needed is a good target. (6) Reduce Blood Sugar. Limit foods and liquids with "added sugars." (Added sugars include sucrose, fructose, glucose, maltose, dextrose, high fructose corn syrup, corn syrup, concentrated fruit juice and honey). (7) Stop Smoking. If you smoke, quitting smoking is one of the best things that you can do for your health. Smoking increases your risk of heart attack, stroke, and peripheral vascular disease, which is a build-up of plaque in your arteries. Please discard all the cigarettes and lighters in your house. Have a plan for what you will do when you have the urge to smoke. Direct and second- hand smoke shortens your life as well as the lives of your family, friends and others around you. For your health and the health of those around you, please consider quitting! Proper Bending Body Mechanics: Maintain a wide stance with one foot slightly in front of the other. Keep your back straight. Bend utilizing the strength in your hips and knees. Do not bend at the waist. Maintain the lifted object at your waist-level close to your body. Avoid lifting weight that causes immediately pain or pain anywhere in the body afterwards. Smoking/Nicotine If there was ever one thing that you could do to increase your overall health, decrease your risk of cardiovascular problems by about 39% the second you make the choice, it is to STOP SMOKING. Your body's most instant gratification is the second you stop smoking. We have all heard the studies, read the articles but it is true, smoking is extremely bad for your overall health, and moreover it is detrimental to your bone health. Nicotine, IN ANY FORM, kills bone cells, prevents your body from healing fractures, and significantly prolongs healing after surgery. In spine surgery specifically, it increases your risk of not healing your bones to create a fusion and increases your risk of having a revision surgery due to this up to 60%. I know it is hard. I know it feels impossible. But there are ways. Take control of your life. We are here to help you through it. And when you are ready, ask us and we can direct you to help if you desire. Use the START Plan to Quit Smoking (please visit the [employer].org website listed below for more information): S = Set a quit date. Choose a date within the next 2 weeks, so you have enough time to prepare without losing your motivation to quit. If you mainly smoke at work, quit on the weekend, so you have a few days to adjust to the change. T = Tell family, friends, and co-workers that you plan to quit. Let your friends and family in on your plan to quit smoking and tell them you need their support and encouragement to stop. Look for a quit robin who wants to stop smoking as well. You can help each other get through the rough times. A = Anticipate and plan for the challenges you'll face while quitting. Most people who begin smoking again do so within the first 3 months. You can help yourself make it through by preparing ahead for common challenges, such as nicotine withdrawal and cigarette cravings. R = Remove cigarettes and other tobacco products from your home, car, and work. Throw away all your cigarettes (no emergency pack!), lighters, ashtrays, and matches. Wash your clothes and freshen up anything that smells like smoke. Shamp oo your car, clean your drapes and carpet, and steam your furniture. T = Talk to your doctor about getting help to quit. Your doctor can prescribe medication to help with withdrawal and suggest other alternatives. If you can't see a doctor, you can get many products over the counter at your local pharmacy or grocery store, including the nicotine patch, nicotine lozenges, and nicotine gum. Resources for Quitting Smoking: <https://www.[place].gov/documents/[facility]/Quit_Tobacco_Resources_for_patients_313 480_7.pdf> Supplementation: Take recommended dosages of Vitamin D and Calcium to help fortify your bones and help them to heal. See your health maintenance packet for dosages and recommended levels. DVT/VTE prophylaxis: You will be given compression stockings from the hospital. Wear these daily for the first two weeks after surgery. You may take them off at night. You may be prescribed a medication to help thin your blood. Take this as directed. If you are not prescribed this medication, early and frequent ambulation has been shown to be the best prophylaxis to deep vein thrombosis and sequelae related to this event. Procedures: L2-L4 decompression with laminectomy Patient Condition at Discharge: Good Plan - Discharge Summary Discharge Rx Participant: No New Discharge Prescriptions: New Docusate [Colace] 100 mg PO DAILY PRN #30 capsule PRN Reason: Constipation HYDROcodone/APAP 10-325MG [[place] 10-325] 1 tab PO Q6HR PRN 3 Days #28 tab PRN Reason: Pain No Action rOPINIRole HCL [Requip] 0.5 mg PO BID Meloxicam [Mobic] 15 mg PO HS lamoTRIgine [LaMICtal] 100 mg PO BID Zonisamide [Zonegran] 200 mg PO HS diazePAM [Valium] 5 mg PO BID Aspirin EC [Ecotrin Low Dose] 81 mg PO DAILY Propranolol HCl 60 mg PO BID Budesonide/Formoterol Fumarate [Symbicort 160-4.5 Mcg Inhaler] 2 puff INHALATION BID Nystatin 100,000 Unit/gm Oint [Mycostatin Oint] 1 applic TOPICAL QID Sertraline [Zoloft] 100 mg PO QAM Atorvastatin [Lipitor] 80 mg PO HS HYDROcodone/APAP 7.5-325MG [[place] 7.5-325] 1 tab PO TID PRN PRN Reason: Pain Gabapentin 300 mg PO TID Potassium Chloride ER [K-Dur 20] 20 meq PO DAILY 90 Days #90 tab.er.prt Metoclopramide [Reglan] 10 mg PO TID Lacosamide [Vimpat] 200 mg PO BID Umeclidinium [place] [Incruse Ellipta] 1 puff INHALATION DAILY metFORMIN HCL [Glucophage XR] 500 mg PO DAILY Meclizine [Antivert] 25 mg PO BID Brexpiprazole [Rexulti] 4 mg PO HS Cholecalciferol [Vitamin D3 (25 Mcg = 1000 Iu)] 50 mcg PO DAILY Discharge Medication List rOPINIRole HCL [Requip] 0.5 mg PO BID 07/23/16 [History] Meloxicam [Mobic] 15 mg PO HS 06/11/18 [History] Zonisamide [Zonegran] 200 mg PO HS 04/06/19 [History] diazePAM [Valium] 5 mg PO BID 04/06/19 [History] lamoTRIgine [LaMICtal] 100 mg PO BID 04/06/19 [History] Aspirin EC [Ecotrin Low Dose] 81 mg PO DAILY 04/16/19 [History] Atorvastatin [Lipitor] 80 mg PO HS 11/17/20 [History] Budesonide/Formoterol Fumarate [Symbicort 160-4.5 Mcg Inhaler] 2 puff INHALATION BID 11/17/20 [History] Gabapentin 300 mg PO TID 11/17/20 [History] HYDROcodone/APAP 7.5-325MG [[place] 7.5-325] 1 tab PO TID PRN 11/17/20 [History] Nystatin 100,000 Unit/gm Oint [Mycostatin Oint] 1 applic TOPICAL QID 11/17/20 [History] Propranolol HCl 60 mg PO BID 11/17/20 [History] Sertraline [Zoloft] 100 mg PO QAM 11/17/20 [History] Potassium Chloride ER [K-Dur 20] 20 meq PO DAILY 90 Days #90 tab.er.prt 11/19/20 [Rx] Brexpiprazole [Rexulti] 4 mg PO HS 08/09/21 [History] Lacosamide [Vimpat] 200 mg PO BID 08/09/21 [History] Meclizine [Antivert] 25 mg PO BID 08/09/21 [History] Metoclopramide [Reglan] 10 mg PO TID 08/09/21 [History] Umeclidinium [place] [Incruse Ellipta] 1 puff INHALATION DAILY 08/09/21 [History] metFORMIN HCL [Glucophage XR] 500 mg PO DAILY 08/09/21 [History] Cholecalciferol [Vitamin D3 (25 Mcg = 1000 Iu)] 50 mcg PO DAILY 10/09/21 [History] Docusate [Colace] 100 mg PO DAILY PRN #30 capsule 10/18/21 [Rx] HYDROcodone/APAP 10-325MG [[place] 10-325] 1 tab PO Q6HR PRN 3 Days #28 tab 10/18/21 [Rx] Follow up Appointment(s)/Referral(s): Laci Arroyo Senior [NON-STAFF] - ([facility] will call you to schedule your in home nursing and physical therapy visits. ) Bo Jones DO [Doctor of Osteopathic Medicine] - 2 Weeks Activity/Diet/Wound Care/Special Instructions: Spine Discharge and Recovery Instructions All medication refills should be obtained through your primary care doctor or your clinic spine surgeon. Please discuss prescription refills at your follow up appointment. Do not call the hospital for medication refills. Dressing: Leave your dressing in place for a total of 5 days post operatively. Then you may remove your dressing and leave open to air. Keep the area clean and if not able to keep area clean, then cover with sterile gauze and tape. Showering: You may shower 3 days after your procedure allowing soap and water to run over incision. Do not scrub. Do not soak. Blot dry. Follow up: Please confirm a follow up appointment with your surgeon 3 weeks post operatively. Please make an appointment to follow up with your PCP in 1-2 weeks after surgery for evaluation 3 phase, 3-week plan POST OP WEEKS 1-3 1. Lifting/carrying/pushing/pulling limited to less than 5 pounds. 2. Do not sit for longer than 15 minutes at one time. Get up and walk around. Prolonged sitting is NOT advised. If you lay down, see if you can tolerate laying down on you front (belly side) 3. Walk for periods of 15 minutes = 1 mile but no longer; do it multiple times times each day. 4. Ice your low back after activity. POST OP WEEKS 3-6 1. Lifting limited to less than 20 pounds. 2. Do not sit for longer than 30 minutes at a time. Frequently change positions. Use a sit-to stand workstation or take frequent breaks from sitting if you have returned to work. 3. Walk for 30 minutes each day. If possible, do these three or more times a day POST OP WEEKS 6+ At your 6-week appointment we will give you a physical therapy referral to focus on a core stabilization and strengthening program. You should also work on leg & buttock strengthening, hamstring & quadriceps stretching, and continue a low impact aerobic activity program such as swimming, walking, or riding a stationary bicycle. During the initial 6 weeks after your surgery, you are at the highest risk of re-injuring your spine. You should generally avoid BLTs (bending, lifting and twisting combination motions) and follow the above guidelines to reduce the chance of reinjury. You can anticipate post op appointments in our office at approximately 3 weeks and 6 weeks after your surgery. INCISION CARE: If your incision is not draining you do NOT need to cover it with a dressing. Keep your incision clean, dry and intact. In most cases, we apply skin glue, bossman or sutures to the incision at the time of surgery. This will be like a crust or have the appearance of a scab and will fall off in time on its own. The stitches or bossman need to be removed at 3 weeks post op appointment. You may begin to shower 3 days after surgery (this allows the glue to ho well). However, please avoid scrubbing the incision site or peeling off any of the skin glue. This will ensure optimal healing of your incision. Also, during this time avoid soaking the incision area in water - this includes swimming pools, hot tubs or baths. No ointments, lotions or oils on the incision until your surgeon allows. Leave bossman, sutures or glue in place. Neurological dysfunction that comes on suddenly can also be a sign of a stroke. Below some common symptoms of a stroke are listed: B - balance difficulty such as sudden onset walking or leaning to one side - NEW E - eye problem such as sudden double vision or trouble seeing on one side - NEW F - Facial weakness or numbness on one side - NEW A - Arm or leg weakness or numbness on one side - NEW S - Slurred speech or difficulty with word finding - NEW T - Time is BRAIN! Call 911 as soon as you recognize these symptoms Diet: Consume a regular diet rich in vegetables and lean protein such as chicken or fish. You should consume in a ratio of approximately 20% fats|40% carbohydrates|40%protein. Vegetables, sweet potatoes, brown rice or quinoa are examples of good carbohydrates. Chips, white bread, cookies and sweets/sugar are examples of bad carbohydrates. Limit your bad carbs, go wild with good carbs. "Life's Simple 7" Guidelines as per [employer] These will help you reclaim your life after surgery and electrician helper in your recover y, keeping in mind your restrictions. (1) Get Active. Physical activity can help people lose weight, control high blood pressure and cholesterol, feel emotionally better, and sleep better. (2) Control Cholesterol. Avoid a diet high in saturated fat, trans fat, & cholesterol. Limit whole milk & cream, ice cream, butter, egg yolks, processed meats (like sausage and hot dogs), and fatty meats. Choose healthy foods that are low in saturated fat, trans fat and cholesterol which include: Fruits and vegetables, fiber rich grain products (like whole grain pasta and brown rice), lean meat such as chicken, fish, nuts, seeds, and legumes. (3) Eat Better. Eat small portions. Shop at the grocery with a list and do not stray from it. Tips for a healthy diet include: Limit sodium intake to less than 1500mg daily, avoid prepackaged, processed, and fast foods, choose a diet rich in fruits, vegetables, and whole grain, high fiber foods, and limit saturated & cholesterol in your diet. (4) Manage Blood Pressure. If you have high blood pressure, you should have a cuff at home so that you can check your blood pressure regularly. Be sure you have a good cuff. An arm one is generally better than a wrist one. Bring the cuff to a doctor's appointment to validate that the measurements that your cuff are taking are accurate. Take your blood pressure twice daily when you are sitting down and relaxing. Record the numbers in a log and bring this log with you to your doctors' appointments. (5) Lose Weight if your BMI is above 25. A healthy BMI is between 19-25. To calculate Your BMI, you may use a Standard BMI Calculator on the NIH BMI website: <www.nhlbi.nih.gov/guidelines/obesity/BMI/bmicalc.htm>. Weigh oneself daily. If you are overweight, set a goal to lose weight. A pound a week loss if needed is a good target. (6) Reduce Blood Sugar. Limit foods and liquids with "added sugars." (Added sugars include sucrose, fructose, glucose, maltose, dextrose, high fructose corn syrup, corn syrup, concentrated fruit juice and honey). (7) Stop Smoking. If you smoke, quitting smoking is one of the best things that you can do for your health. Smoking increases your risk of heart attack, stroke, and peripheral vascular disease, which is a build-up of plaque in your arteries. Please discard all the cigarettes and lighters in your house. Have a plan for what you will do when you have the urge to smoke. Direct and second- hand smoke shortens your life as well as the lives of your family, friends and others around you. For your health and the health of those around you, please consider quitting! Proper Bending Body Mechanics: Maintain a wide stance with one foot slightly in front of the other. Keep your back straight. Bend utilizing the strength in your hips and knees. Do not bend at the waist. Maintain the lifted object at your waist-level close to your body. Avoid lifting weight that causes immediately pain or pain anywhere in the body afterwards. Smoking/Nicotine If there was ever one thing that you could do to increase your overall health, decrease your risk of cardiovascular problems by about 39% the second you make the choice, it is to STOP SMOKING. Your body's most instant gratification is the second you stop smoking. We have all heard the studies, read the articles but it is true, smoking is extremely bad for your overall health, and moreover it is detrimental to your bone health. Nicotine, IN ANY FORM, kills bone cells, prevents your body from healing fractures, and significantly prolongs healing after surgery. In spine surgery specifically, it increases your risk of not healing your bones to create a fusion and increases your risk of having a revision surgery due to this up to 60%. I know it is hard. I know it feels impossible. But there are ways. Take control of your life. We are here to help you through it. And when you are ready, ask us and we can direct you to help if you desire. Use the START Plan to Quit Smoking (please visit the Helpguide.org website listed below for more information): S = Set a quit date. Choose a date within the next 2 weeks, so you have enough time to prepare without losing your motivation to quit. If you mainly smoke at work, quit on the weekend, so you have a few days to adjust to the change. T = Tell family, friends, and co-workers that you plan to quit. Let your friends and family in on your plan to quit smoking and tell them you need their support and encouragement to stop. Look for a quit robin who wants to stop smoking as well. You can help each other get through the rough times. A = Anticipate and plan for the challenges you'll face while quitting. Most people who begin smoking again do so within the first 3 months. You can help yourself make it through by preparing ahead for common challenges, such as nicotine withdrawal and cigarette cravings. R = Remove cigarettes and other tobacco products from your home, car, and work. Throw away all your cigarettes (no emergency pack!), lighters, ashtrays, and matches. Wash your clothes and freshen up anything that smells like smoke. Shampoo your car, clean your drapes and carpet, and steam your furniture. T = Talk to your doctor about getting help to quit. Your doctor can prescribe medication to help with withdrawal and suggest other alternatives. If you can't see a doctor, you can get many products over the counter at your local pharmacy or grocery store, including the nicotine patch, nicotine lozenges, and nicotine gum. Resources for Quitting Smoking: <https://www.[place].gov/documents/[facility]/Quit_Tobacco_Resources_for_patients_313 480_7.pdf> Supplementation: Take recommended dosages of Vitamin D and Calcium to help fortify your bones and help them to heal. See your health maintenance packet for dosages and recommended levels. DVT/VTE prophylaxis: You will be given compression stockings from the hospital. Wear these daily for the first two weeks after surgery. You may take them off at night. You may be prescribed a medication to help thin your blood. Take this as directed. If you are not prescribed this medication, early and frequent ambulation has been shown to be the best prophylaxis to deep vein thrombosis and sequelae related to this event. Discharge Disposition: HOME WITH HOME HEALTH SERVICES
[2021-10-18 13:58] VITALS: BP 122/77; PULSE 69; RESP 17; TEMP 98.7
--- NOTE | 2021-10-23 09:46 | P.OP ---
Date of Procedure: 10/16/21 Preoperative Diagnosis: 1. 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 Neurogenic claudication 3. s/o L5-S1 fusion 4. Mechanical and claudicate low back pain 5. Complex medical history Postoperative Diagnosis: 1. 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 Neurogenic claudication 3. s/o L5-S1 fusion 4. Mechanical and claudicate low back pain 5. Complex medical history Procedure(s) Performed: 1. Exploration of fusion L5-S1 2. L2-4 bilateral decompressive laminectomy with partial medial facetectomy and foraminotomy 3. Interpretation of intraoperative flouroscopy <1 hr Anesthesia: GETA Surgeon: Bo Jones Fertilizer Applicator #1: Michael Carpenter (Was present for the entire case and necessary due to the complexity of the case. He assisted in opening, dissection, retractor placement, decompressive elements as well as drain placement and closure. ) Estimated Blood Loss (ml): 150 IV fluids (ml): 1,000 Urine output (ml): 250 Pathology: none sent Condition: stable Disposition: PACU Indications for Procedure: 45 yo female with a hx of L5-S1 fusion presented and has been followed by the [facility] for some time now. She was found to have stenosis that was fairly severe above her fusion levels with questionable fusion construct. She c/o leg pain that was worse after longer walks and states that she needs to now use a cart in [facility] to get around as it is hard for her to walk distances. She also c/o back pain. She denies any bowel or bladder issues and deneis any perineal nubmness/tingling. She has undergone multiple different conservative measures including RX and OTC medications, PT, HEP, Health maintinance, Chiropractor, and injections all of which have failed to alleviate her sx. We discussed surgical vs non operative treatment and at this time due to failure of other methods has elected for surgical treatment in the form of laminectomy. We discussed fusion as well but at this time she would like to avoid if possible and this is reasonable. She understands the risks and benefits as outlined in the risk review. She is ready and willing to proceed with surgery. Description of Procedure: The patient was seen and examined in the preoperative area. All preoperative protocols were followed. Informed consent was obtained risks and benefits of the procedure were discussed at length. Risks including bleeding infection damage to the surrounding tissue and risk of reoperation were discussed with the patient. Risk of anesthesia up to and including was a discussed with the patient. These are outlined in the risk review. They were willing to accept these risks and all of the risks of surgery. The patient was given a weight- based dose of antibiotics in the form of 2 g Ancef. The patient was seen and evaluated by the anesthesia team who deemed them fit for surgery. The site was marked, the patient was willing to proceed with the procedure. The patient was transferred to the operative suite by the Department of anesthesia. They were then drifted off to sleep by the department anesthesia and GETA was performed. The patient tolerated this well. [Boswell catheter was placed by nursing staff, atraumatically]. Once confirmation of lines and ventilation the patient was transferred to a [prone Aramis table very carefully]. All bony prominences including wrists, elbows, axilla, chest, hips, and thighs, and feet were padded very well. Special attention was paid to the genitalia and these were padded accordingly. SCDs were placed on bilateral lower extremities and were connected. Arms were well padded and placed [on arm boards up and out in the 90/90 position]. Once in position, again we confirmed good ventilation capabilities and that lines were running appropriately. The patient's lumbar spine was then exposed. 1010s were placed outlining the incis ion site. Standard alcohol was used to clean the incision site and allowed to dry. C-arm was used to biomark the patient and confirm level for incision which was marked with a skin marker. Operative briefing was performed with all teams and everyone in agreement to proceed. The patient was then prepped and draped in a normal sterile fashion. Timeout was then performed and all parties were in agreement with the procedure to be performed. Midline skin incision was made over the previously by marked area using her previous skin incision as well. This was extended proximally. Dissection taken down to the lumbar fascia which was identified and cleaned with a Blas. Midline fasciotomy was then made and electrocautery dissection was taken subperiosteally out to the facet joints of L2 through L4. We exposed the lower hardware as well as the fusion and explored this area of the fusion was solid and there is no evidence of issues with this area. We then performed a bilateral laminectomy and medial facetectomy and foraminal foraminotomy at L2 through L4 using high- speed bur and Kerrison rongeurs curettes and Leksell rongeur. We confirmed good decompression of the nerves with a Blevins ball probe and foraminotomies. We removed the ligamentum from the posterior lateral gutters to allow for good decompression of this area as well. Meticulous hemostasis was performed with FloSeal as well as patties. We placed bone wax on the open bone ends. We inspected the dura there is no injury there was no CSF leak. We then copiously irrigated the wounds with 3 L of antibiotic saline solution followed by 3 L of normal sterile saline. We then placed a deep drain. Vancomycin powder 2 g was placed deep within the wound. Surgicel was placed over the dura. We then performed a layered closure with #1 Vicryl in the fascia followed by 0 PDS. The subcu tissues closed with 0 PDS superficial subcu tissue closed with 2-0 Vicryl and skin closed with skin bossman. The drain was sewn into position. Was holding good suction. We then cleaned the wound and dressed sterilely with an operative foam dressing 4 x 4 and Tegaderms. The patient was transferred back to their hospital bed atraumatically. [Drain continued to hold suction and were in good position]. Patient was then awakened and extubated by the department of anesthesia having tolerated the procedure very well with no complications. They were transferred to the postoperative care unit in stable condition.
== END 2021-10-18 16:04 | disposition home health service (06) ==
LOC: OR 11:21 → 4SSUR 15:45 → OR 10-18 16:04
PROVIDERS: ATTEND Orthopaedic Surgery
DX: M48.062 Spinal stenosis, lumbar region with neurogenic claudication (principal); J44.9 Chronic obstructive pulmonary disease, unspecified; G47.33 Obstructive sleep apnea (adult) (pediatric); F17.210 Nicotine dependence, cigarettes, uncomplicated; Z96.651 Presence of right artificial knee joint; Z98.891 History of uterine scar from previous surgery; E78.5 Hyperlipidemia, unspecified; G25.81 Restless legs syndrome; Z90.710 Acquired absence of both cervix and uterus; Z96.82 Presence of neurostimulator; Z98.890 Other specified postprocedural states; D68.51 Activated protein C resistance; Z97.2 Presence of dental prosthetic device (complete) (partial); G40.909 Epilepsy, unspecified, not intractable, without status epilepticus; Z79.84 Long term (current) use of oral hypoglycemic drugs; Z79.1 Long term (current) use of non-steroidal anti-inflammatories (NSAID); Z79.899 Other long term (current) drug therapy; Z88.8 Allergy status to other drugs, medicaments and biological substances
CPT/HCPCS: 94640 ×5; 97116; 97161; 85025; 87635; 72100; 93971; 63047; C1762 ×2; J2250; J3370; J2310; J2710; J0690 ×2; J2405; J2001; J3010; J0330; J2704; J1170; 86850; 86900; 86901

== ENCOUNTER 2021-10-27 19:19 | Emergency (ER) | payer MEDICARE, OTHER ==
[2021-10-27 19:30] VITALS: TEMP 97.6
[2021-10-27] MEDS ORDERED: methylPREDNISolone SOD SUCCI 125 MG/2 ML VIAL IV STA (19:42)
[2021-10-27] MEDS ORDERED: FAMOTIDINE 20 MG/2 ML VIAL IV STA (19:42)
[2021-10-27] MEDS ORDERED: diphenhydrAMINE 50 MG/ML 1 ML VIAL IVP STA (19:42)
--- NOTE | 2021-10-27 20:17 | ED ---
General Adult HPI - General Chief complaint: Allergic Reaction Stated complaint: Rash,poss.allergic reaction Time Seen by Provider: 10/27/21 19:37 Source: patient, family Mode of arrival: wheelchair Limitations: no limitations - History of Present Illness Initial comments: 45 year-old female patient presents to the emergency department for evaluation of rash over her upper body and face. States it started this morning. Rash is itchy. She did recently start taking bactrim for an abscess to the left calf. She is unsure if she had this in the past. She denies any other new exposures. Denies any new lotions, creams, soaps, or detergents. She denies lip or tongue swelling. Denies throat swelling or difficulty breathing. She did take 25mg benadryl about 30 minutes prior to arrival. She denies any blistering to the skin. Denies fever or chills. Denies upper respiratory symptoms. - Related Data Home Medications Medication Instructions Recorded Confirmed rOPINIRole HCL [Requip] 0.5 mg PO BID 07/23/16 10/16/21 Meloxicam [Mobic] 15 mg PO HS 06/11/18 10/16/21 Zonisamide [Zonegran] 200 mg PO HS 04/06/19 10/16/21 diazePAM [Valium] 5 mg PO BID 04/06/19 10/16/21 lamoTRIgine [LaMICtal] 100 mg PO BID 04/06/19 10/16/21 Aspirin EC [Ecotrin Low Dose] 81 mg PO DAILY 04/16/19 10/16/21 Atorvastatin [Lipitor] 80 mg PO HS 11/17/20 10/16/21 Budesonide/Formoterol Fumarate 2 puff INHALATION BID 11/17/20 10/16/21 [Symbicort 160-4.5 Mcg Inhaler] Gabapentin 300 mg PO TID 11/17/20 10/16/21 HYDROcodone/APAP 7.5-325MG [Mccrory 1 tab PO TID PRN 11/17/20 10/16/21 7.5-325] Nystatin 100,000 Unit/gm Oint 1 applic TOPICAL QID 11/17/20 10/16/21 [Mycostatin Oint] Propranolol HCl 60 mg PO BID 11/17/20 10/16/21 Sertraline [Zoloft] 100 mg PO QAM 11/17/20 10/16/21 Brexpiprazole [Rexulti] 4 mg PO HS 08/09/21 10/16/21 Lacosamide [Vimpat] 200 mg PO BID 08/09/21 10/16/21 Meclizine [Antivert] 25 mg PO BID 08/09/21 10/16/21 Metoclopramide [Reglan] 10 mg PO TID 08/09/21 10/16/21 Umeclidinium [place] [Incruse 1 puff INHALATION DAILY 08/09/21 10/16/21 Ellipta] metFORMIN HCL [Glucophage XR] 500 mg PO DAILY 08/09/21 10/16/21 Cholecalciferol [Vitamin D3 (25 50 mcg PO DAILY 10/09/21 10/16/21 Mcg = 1000 Iu)] Previous Rx's Medication Instructions Recorded Potassium Chloride ER [K-Dur 20] 20 meq PO DAILY 90 Days #90 11/19/20 tab.er.prt Docusate [Colace] 100 mg PO DAILY PRN #30 capsule 10/18/21 HYDROcodone/APAP 10-325MG [Mccrory 1 tab PO Q6HR PRN 3 Days #28 tab 10/18/21 10-325] cefaDROXiL [Duricef] 500 mg PO Q12HR #10 cap 10/18/21 Clindamycin [Cleocin] 450 mg PO Q6H #120 cap 10/27/21 Famotidine [Pepcid] 20 mg PO DAILY #3 tablet 10/27/21 predniSONE 50 mg PO DAILY #3 tab 10/27/21 Allergies Allergy/AdvReac Type Severity Reaction Status Date / Time sulfamethoxazole Allergy Rash/Hives Verified 10/27/21 19:30 [From Bactrim] topiramate [From Topamax] Allergy Anaphylaxis Verified 10/27/21 19:29 trimethoprim [From Bactrim] Allergy Rash/Hives Verified 10/27/21 19:30 Review of Systems ROS Statement: Those systems with pertinent positive or pertinent negative responses have been documented in the HPI. ROS Other: All systems not noted in ROS Statement are negative. Past Medical History Past Medical History: Asthma, Blood Disorder, COPD, Diabetes Mellitus, Fibromyalgia, Hyperlipidemia, Osteoarthritis (OA), Seizure Disorder, Syncope Additional Past Medical History / Comment(s): CHRONIC BACK PAIN; Restless leg syndrome, migraines, Factor 5 clotting problem, varicose veins History of Any Multi-Drug Resistant Organisms: None Reported Past Surgical History: Back Surgery, Section, Hysterectomy, Orthopedic Surgery, Tubal Ligation Additional Past Surgical History / Comment(s): stimulator for back, VNS implant for seizures, hysterectomy due to endometreosis. Past Anesthesia/Blood Transfusion Reactions: No Reported Reaction Past Psychological History: Anxiety, Depression, Panic Disorder, PTSD Smoking Status: Current every day smoker Past Alcohol Use History: None Reported Past Drug Use History: None Reported - Past Family History Mother Family Medical History: No Reported History General Exam Limitations: no limitations General appearance: alert, in no apparent distress, other (This is a well- developed, well-nourished adult female in no acute distress.) Eye exam: Present: normal appearance, PERRL, EOMI. Absent: scleral icterus, conjunctival injection, periorbital swelling ENT exam: Present: normal exam, normal oropharynx, mucous membranes moist Respiratory exam: Present: normal lung sounds bilaterally. Absent: respiratory distress, wheezes, rales, rhonchi, stridor Cardiovascular Exam: Present: regular rate, normal rhythm, normal heart sounds. Absent: systolic murmur, diastolic murmur, rubs, gallop, clicks GI/Abdominal exam: Present: soft, normal bowel sounds. Absent: distended, tenderness, guarding, rebound, rigid Extremities exam: Present: full ROM, normal capillary refill, other (Left calf wound, no surrounding erythema, no drainage. Skin is otherwise pink, warm, dry. Cap refill less than 3 seconds. Pedal pulse 2+ per). Absent: tenderness, pedal edema, joint swelling, calf tenderness Back exam: Present: other (Midline low back incision is approximated with bossman. No surrounding erythema. There is some serous drainage noted to the patient's shirt. No active drainage noted.) Neurological exam: Present: alert, oriented X3, CN II-XII intact Psychiatric exam: Present: normal affect, normal mood Skin exam: Present: warm, dry, intact, normal color. Absent: rash Course Vital Signs 10/27/21 10/27/21 19:23 21:16 Temperature 97.6 F Pulse Rate 90 76 Respiratory 18 19 Rate Blood Pressure 111/78 119/76 O2 Sat by Pulse 99 98 Oximetry Medical Decision Making - Medical Decision Making 45 year-old female patient presented to the emergency department for evaluation of rash to the bilateral arms and chin. Physical examination did reveal urticarial type rash to the arms, hands, and chin. No lip or tongue swelling. She is breathing without difficulty. She was given IV steroids, pepcid, and benadryl. Upon re-evaluation she does report some improvement in symptoms. She remains breathing without difficulty. Denies throat or breathing complaints. She will be discharged with 3 days of prednisone and pepcid. Did give prescription of clindamycin for her leg abscess. She is instructed to discontinue bactrim and to list as an allergy. She'll be discharged to follow up with primary care physician for recheck. Return parameters are discussed in detail. She verbalizes understanding and agrees with this plan. My attending is Dr. Arceo. Disposition Clinical Impression: Allergic reaction, Hives Disposition: HOME SELF-CARE Condition: Good Instructions (If sedation given, give patient instructions): Urticaria (ED), General Allergic Reaction (ED) Additional Instructions: Take medications as directed. Continue benadryl 1-2 tablets every 6 hours as needed. Do not take Bactrim. Complete new antibiotic prescription in full. Follow-up through primary care physician for recheck in 1-2 days. Return for any new, worsening, or concerning symptoms. Prescriptions: Clindamycin [Cleocin] 450 mg PO Q6H #120 cap Famotidine [Pepcid] 20 mg PO DAILY #3 tablet predniSONE 50 mg PO DAILY #3 tab Is patient prescribed a controlled substance at d/c from ED?: No Referrals: Domingo Valdovinos MD [Primary Care Provider] - 1-2 days Time of Disposition: 20:47
[2021-10-28 03:58] VITALS: BP 121/76; PULSE 82; RESP 16
== END 2021-10-27 23:40 | disposition home or self-care (01) ==
LOC: EC 19:19
DX: L50.0 Allergic urticaria (principal); J45.909 Unspecified asthma, uncomplicated; E11.9 Type 2 diabetes mellitus without complications; M79.7 Fibromyalgia; E78.5 Hyperlipidemia, unspecified; M19.90 Unspecified osteoarthritis, unspecified site; F41.9 Anxiety disorder, unspecified; F32.A Depression, unspecified; F43.10 Post-traumatic stress disorder, unspecified; F17.200 Nicotine dependence, unspecified, uncomplicated; Z79.82 Long term (current) use of aspirin; Z79.84 Long term (current) use of oral hypoglycemic drugs; Z88.1 Allergy status to other antibiotic agents; Z88.2 Allergy status to sulfonamides; Z90.710 Acquired absence of both cervix and uterus; Z98.51 Tubal ligation status
CPT/HCPCS: 99282; 96374; 96375 ×2; J1200; J2930

== ENCOUNTER 2021-10-28 15:45 | Observation (INO) | payer MEDICARE, OTHER ==
[2021-10-28] MEDS ORDERED: SODIUM CHLORIDE 0.9% 1,000 ML IV STA (19:21)
[2021-10-28] MEDS ORDERED: FAMOTIDINE 20 MG/2 ML VIAL IV STA (19:21)
[2021-10-28] MEDS ORDERED: diphenhydrAMINE 50 MG/ML 1 ML VIAL IVP STA ×2 (19:21→23:37)
[2021-10-28] MEDS ORDERED: methylPREDNISolone SOD SUCCI 125 MG/2 ML VIAL IV STA (19:21)
[2021-10-28 20:34] LABS: Basophils % (A) 0 %; Eosinophils # (A) 0.3 k/uL (0-0.7); Eosinophils % (A) 2 %; HCT 45.4 % (34.0-46.0); HGB 15.1 gm/dL (11.4-16.0); Lymphocytes # (A) 1.2 k/uL (1.0-4.8); Lymphocytes % (A) 9 %; MCH 32.7 pg (25.0-35.0); MCHC 33.2 g/dL (31.0-37.0); MCV 98.5 fL (80.0-100.0); Mean Platelet Volume 7.7; Monocytes # (A) 0.3 k/uL (0-1.0); Monocytes % (A) 2 %; Neutrophils % (A) 86 %; Platelet Count 312 k/uL (150-450); RBC 4.61 m/uL (3.80-5.40); RDW 13.5 % (11.5-15.5); WBC 12.9 k/uL (3.8-10.6)
[2021-10-28 20:55] LABS: Albumin 4.1 g/dL (3.5-5.0); Calcium 10.2 mg/dL (8.4-10.2); Potassium 5.1 mmol/L (3.5-5.1); Total Bilirubin 0.4 mg/dL (0.2-1.3); Total Protein 7.4 g/dL (6.3-8.2)
--- NOTE | 2021-10-28 23:21 | ED ---
Allergic Reaction HPI - General Chief complaint: Allergic Reaction Stated complaint: Hands & arms swollen Time Seen by Provider: 10/28/21 19:05 Source: patient Mode of arrival: wheelchair - History of Present Illness Initial Comments: 45-year-old female presents to the emergency room with complaint of bilateral hand and arm swelling as well as a rash. Patient was seen yesterday in the emergency room for similar complaints. She was diagnosed with an ALLERGIC reaction to Bactrim that she started for an abscess on her left calf. Patient was started on this medication by her primary care physician. States that she took one dose had development of hives. She came into the emergency room and was given steroids and Benadryl. Patient discharged home on 3 days worth of ting roids and Benadryl. They switched her antibiotic to clindamycin. Patient stopped taking the Bactrim. Reports that she woke up this morning and took her morning dose of prednisone as well as the clindamycin. Shortly afterwards patient began developing significant swelling in her upper extremities with hives over her neck, bilateral forearms and thighs. She denies any oral swelling or shortness of breath. She take any medications for her symptoms became into the emergency room for further evaluation. Previous to this the patient was ALLERGIC to Topamax. Denies any new exposures to personal products, foods. Denies nausea or vomiting. No alleviating, precipitating or modifying factors - Related Data Home Medications Medication Instructions Recorded Confirmed Zonisamide [Zonegran] 200 mg PO HS 04/06/19 10/28/21 Aspirin EC [Ecotrin Low Dose] 81 mg PO DAILY 04/16/19 10/28/21 Atorvastatin [Lipitor] 80 mg PO HS 11/17/20 10/28/21 Budesonide/Formoterol Fumarate 2 puff INHALATION RT-BID 11/17/20 10/28/21 [Symbicort 160-4.5 Mcg Inhaler] HYDROcodone/APAP 7.5-325MG [[place] 1 tab PO TID PRN 11/17/20 10/28/21 7.5-325] Nystatin 100,000 Unit/gm Oint 1 applic TOPICAL QID PRN 11/17/20 10/28/21 [Mycostatin Oint] Sertraline [Zoloft] 200 mg PO DAILY 11/17/20 10/28/21 Brexpiprazole [Rexulti] 4 mg PO HS 08/09/21 10/28/21 Lacosamide [Vimpat] 200 mg PO BID 08/09/21 10/28/21 Umeclidinium [place] [Incruse 1 puff INHALATION RT-DAILY 08/09/21 10/28/21 Ellipta] Cholecalciferol [Vitamin D3 (25 50 mcg PO DAILY 10/09/21 10/28/21 Mcg = 1000 Iu)] Butalb/APAP/Caff 50-325-40Mg 1 tab PO DAILY PRN 10/28/21 10/28/21 [Fioricet 50-325-40] Cyclobenzaprine [Flexeril] 10 mg PO BID PRN 10/28/21 10/28/21 Erenumab-Aooe [Aimovig 140 mg SQ Q30D 10/28/21 10/28/21 Autoinjector] Furosemide [Lasix] 20 mg PO DAILY 10/28/21 10/28/21 Gabapentin 600 mg PO TID 10/28/21 10/28/21 Ibuprofen [Motrin] 800 mg PO TID PRN 10/28/21 10/28/21 Metoclopramide [Reglan] 5 mg PO TID 10/28/21 10/28/21 Potassium Chloride ER [K-Dur 20] 20 meq PO BID 10/28/21 10/28/21 lamoTRIgine 200 mg PO BID 10/28/21 10/28/21 metFORMIN HCL 500 mg PO DAILY 10/28/21 10/28/21 rOPINIRole HCL [Requip] 1 mg PO BID PRN 10/28/21 10/28/21 Previous Rx's Medication Instructions Recorded HYDROcodone/APAP 10-325MG [[place] 1 tab PO Q6HR PRN 3 Days #28 tab 10/18/21 10-325] Amoxic-Pot Clav 875-125Mg 1 each PO Q12HR #14 tab 10/30/21 [Augmentin 875-125] Famotidine [Pepcid] 20 mg PO BID #60 tablet 10/30/21 Melatonin 3 mg PO HS PRN tablet 10/30/21 Nicotine 14Mg/24Hr Patch [Habitrol] 1 patch TRANSDERM DAILY #14 patch 10/30/21 Allergies Allergy/AdvReac Type Severity Reaction Status Date / Time sulfamethoxazole Allergy Rash/Hives, Verified 10/28/21 20:37 [From Bactrim] Swelling in arms and legs topiramate [From Topamax] Allergy Anaphylaxis Verified 10/28/21 16:11 trimethoprim [From Bactrim] Allergy Rash/Hives, Verified 10/28/21 20:37 Swelling in arms and legs Review of Systems ROS Statement: Those systems with pertinent positive or pertinent negative responses have been documented in the HPI. ROS Other: All systems not noted in ROS Statement are negative. Past Medical History Past Medical History: Asthma, Blood Disorder, COPD, Diabetes Mellitus, Fibromyalgia, Hyperlipidemia, Osteoarthritis (OA), Seizure Disorder, Syncope Additional Past Medical History / Comment(s): CHRONIC BACK PAIN; Restless leg syndrome, migraines, Factor 5 clotting problem, varicose veins History of Any Multi-Drug Resistant Organisms: None Reported Past Surgical History: Back Surgery, Section, Hysterectomy, Orthopedic Surgery, Tubal Ligation Additional Past Surgical History / Comment(s): stimulator for back, VNS implant for seizures, hysterectomy due to endometreosis. Past Anesthesia/Blood Transfusion Reactions: No Reported Reaction Past Psychological History: Anxiety, Depression, Panic Disorder, PTSD Smoking Status: Current every day smoker Past Alcohol Use History: None Reported Past Drug Use History: None Reported - Past Family History Mother Family Medical History: No Reported History Father Family Medical History: Hyperlipidemia Additional Family Medical History / Comment(s): Back problems. General Exam General appearance: alert, in no apparent distress Head exam: Present: atraumatic, normocephalic, normal inspection Eye exam: Present: normal appearance, PERRL, EOMI. Absent: scleral icterus, conjunctival injection, periorbital swelling ENT exam: Present: normal exam, mucous membranes moist Neck exam: Present: normal inspection. Absent: tenderness, meningismus, lymphadenopathy Respiratory exam: Present: normal lung sounds bilaterally. Absent: respiratory distress, wheezes, rales, rhonchi, stridor Cardiovascular Exam: Present: regular rate, normal rhythm, normal heart sounds. Absent: systolic murmur, diastolic murmur, rubs, gallop, clicks GI/Abdominal exam: Present: soft, normal bowel sounds. Absent: distended, tenderness, guarding, rebound, rigid Extremities exam: Present: full ROM, normal capillary refill, pedal edema, other (swelling b/l upper extremities diffusely through hands and forearms. Hives noted on patients thighs bilaterally). Absent: tenderness, joint swelling, calf tenderness Back exam: Present: normal inspection Neurological exam: Present: alert, oriented X3, CN II-XII intact Psychiatric exam: Present: normal affect, normal mood Skin exam: Present: warm, dry, intact, rash Course Vital Signs 10/28/21 10/28/21 10/28/21 16:08 19:15 20:29 Temperature 98.1 F Pulse Rate 108 H 97 78 Pulse Rate [ Right Pulse Oximetery] Respiratory 18 18 20 Rate Blood Pressure 108/69 117/70 110/68 Blood Pressure [Right Arm] O2 Sat by Pulse 97 96 98 Oximetry 10/28/21 10/29/21 10/29/21 22:00 00:05 01:12 Temperature Pulse Rate 72 67 Pulse Rate [ Right Pulse Oximetery] Respiratory 16 18 28 H Rate Blood Pressure 112/74 105/54 Blood Pressure [Right Arm] O2 Sat by Pulse 95 95 Oximetry 10/29/21 10/29/21 10/29/21 04:19 06:13 07:00 Temperature 97.5 F L Pulse Rate 82 80 Pulse Rate [ 72 Right Pulse Oximetery] Respiratory 22 18 16 Rate Blood Pressure 122/58 116/55 Blood Pressure 116/73 [Right Arm] O2 Sat by Pulse 97 96 95 Oximetry Medical Decision Making - Medical Decision Making Upon arrival patient's placed into room 6. Thorough history and physical exam was performed. Patient does have significant swelling to her upper extremities with inability to make a fist. IV is established patient is given 25 of Solu- Medrol, 50 mg of Benadryl 20 mg of Pepcid. Patient is reevaluated and continues to have significant hives and swelling. Patient given a dose of IM epinephrine and reevaluated. She continues to have no improvement in her symptoms. I r ecommended admission for continued IV steroids and Benadryl for which the patient did agree to. Spoke with Dr. Riddle who agreed to admit the patient. She remained in stable condition awaiting a bed on the floor - Lab Data Result diagrams: 10/29/21 06:25 10/30/21 07:10 Lab Results 10/28/21 10/28/21 Range/Units 20:27 20:27 WBC 12.9 H (3.8-10.6) k/uL RBC 4.61 (3.80-5.40) m/uL Hgb 15.1 (11.4-16.0) gm/dL Hct 45.4 (34.0-46.0) % MCV 98.5 (80.0-100.0) fL MCH 32.7 (25.0-35.0) pg MCHC 33.2 (31.0-37.0) g/dL RDW 13.5 (11.5-15.5) % Plt Count 312 (150-450) k/uL MPV 7.7 Neutrophils % 86 % Lymphocytes % 9 % Monocytes % 2 % Eosinophils % 2 % Basophils % 0 % Neutrophils # 11.0 H (1.3-7.7) k/uL Lymphocytes # 1.2 (1.0-4.8) k/uL Monocytes # 0.3 (0-1.0) k/uL Eosinophils # 0.3 (0-0.7) k/uL Basophils # 0.0 (0-0.2) k/uL Sodium 136 L (137-145) mmol/L Potassium 5.1 (3.5-5.1) mmol/L Chloride 106 (98-107) mmol/L Carbon Dioxide 18 L (22-30) mmol/L Anion Gap 12 mmol/L BUN 17 (7-17) mg/dL Creatinine 1.23 H (0.52-1.04) mg/dL Est GFR (CKD-EPI)AfAm 62 (>60 ml/min/1.73 sqM) Est GFR (CKD-EPI)NonAf 53 (>60 ml/min/1.73 sqM) Glucose 157 H (74-99) mg/dL Calcium 10.2 (8.4-10.2) mg/dL Total Bilirubin 0.4 (0.2-1.3) mg/dL AST 25 (14-36) U/L ALT 18 (4-34) U/L Alkaline Phosphatase 70 (38-126) U/L Total Protein 7.4 (6.3-8.2) g/dL Albumin 4.1 (3.5-5.0) g/dL Disposition Clinical Impression: Allergic reaction to drug, Hives Disposition: ADMITTED IP TO THIS [facility] Is patient prescribed a controlled substance at d/c from ED?: No Decision to Admit Reason: Admit from [facility] Decision Date: 10/28/21 Decision Time: 23:38
[2021-10-28] MEDS ORDERED: NALOXONE 0.4 MG/ML 1 ML VIAL IV PRN (23:39)
[2021-10-29] MEDS ORDERED: HYDROcodone/APAP 7.5-325MG 1 EACH TAB PO PRN (02:19)
[2021-10-29] MEDS ORDERED: DOCUSATE 100 MG CAP PO PRN (02:19)
[2021-10-29] MEDS ORDERED: BUTALB/APAP/CAFF 50-325-40MG TAB PO PRN (02:19)
[2021-10-29] MEDS ORDERED: diazePAM 5 MG TAB PO PRN (02:19)
[2021-10-29] MEDS ORDERED: CYCLOBENZAPRINE 10 MG TAB PO PRN (02:19)
[2021-10-29] MEDS: methylPREDNISolone SOD SUCCI 40 MG/ML 1 ML VIAL IV SCH ×2 (04:18→16:26)
[2021-10-29] MEDS: diphenhydrAMINE 50 MG/ML 1 ML VIAL IVP SCH ×3 (06:16→17:01)
[2021-10-29 07:01] LABS: HCT 42.1 % (34.0-46.0); HGB 13.6 gm/dL (11.4-16.0); MCH 32.5 pg (25.0-35.0); MCHC 32.3 g/dL (31.0-37.0); MCV 100.6 fL (80.0-100.0); Macrocytosis Slight; Mean Platelet Volume 7.9; Platelet Count 284 k/uL (150-450); RBC 4.18 m/uL (3.80-5.40); RDW 14.1 % (11.5-15.5); WBC 11.2 k/uL (3.8-10.6)
[2021-10-29 07:14] LABS: Calcium 9.2 mg/dL (8.4-10.2)
[2021-10-29 07:19] LABS: Potassium 5.7 mmol/L (3.5-5.1)
[2021-10-29 07:41] LABS: Glucose,Whole Blood 163 mg/dL (75-99)
[2021-10-29] MEDS: SYMBICORT 160-4.5 MCG INHALER INHALATION SCH ×2 (08:18→19:40)
[2021-10-29] MEDS: TIOTROPIUM 2.5 MCG INHALER INHALATION SCH (08:18)
[2021-10-29] MEDS ORDERED: FAMOTIDINE 20 MG TAB PO SCH (09:00)
[2021-10-29] MEDS ORDERED: MECLIZINE 25 MG TAB PO SCH (09:00)
[2021-10-29] MEDS ORDERED: MELATONIN 3 MG TABLET PO PRN (11:01)
[2021-10-29] MEDS ORDERED: ONDANSETRON 4 MG/2 ML VIAL IVP PRN (11:01)
[2021-10-29] MEDS ORDERED: CALCIUM CARBONATE 500 MG CHEWABLE PO PRN (11:01)
[2021-10-29] MEDS ORDERED: LACTULOSE 20 GM/30 ML CUP PO PRN (11:01)
--- NOTE | 2021-10-29 11:31 | XR ---
EXAMINATION TYPE: XR chest 1V portable DATE OF EXAM: 10/29/2021 CLINICAL HISTORY: Difficulty breathing and pneumonia. TECHNIQUE: Single AP portable upright view of the chest is obtained. COMPARISON: Chest x-ray from November 17, 2020 FINDINGS: Cervical spinal stimulator overlies the left chest wall. Lungs remain grossly clear withou t pleural effusion or pneumothorax seen bilaterally. Cardiac silhouette size remains within normal li mits. There is lower thoracic spinal stimulator device redemonstrated. IMPRESSION: No acute pulmonary process.
[2021-10-29] MEDS: GABAPENTIN 300 MG CAP PO SCH ×3 (11:44→21:46)
[2021-10-29] MEDS: POTASSIUM CHLORIDE ER 20 MEQ TAB.ER PO SCH ×2 (11:45→21:48)
[2021-10-29] MEDS: lamoTRIgine 100 MG TAB PO SCH ×2 (11:45→21:47)
[2021-10-29 11:46] LABS: C Reactive Protein 4.8 mg/dL (<1.0)
[2021-10-29] MEDS: CHOLECALCIFEROL 25 MCG (1000 IU) TABLET PO SCH (11:46)
[2021-10-29] MEDS: FUROSEMIDE 20 MG TAB PO SCH (11:46)
[2021-10-29] MEDS: ASPIRIN 81 MG PO SCH (11:46)
[2021-10-29] MEDS: LACOSAMIDE 50 MG TABLET PO SCH ×2 (11:49→21:48)
[2021-10-29] MEDS: NICOTINE 14MG/24HR PATCH TRANSDERM SCH (12:08)
[2021-10-29] MEDS: BACITRACIN OINT 1 EACH PACKET TOPICAL SCH ×3 (12:08→21:46)
[2021-10-29] MEDS: ENOXAPARIN 40 MG/0.4 ML SYRINGE SQ SCH (12:13)
[2021-10-29] MEDS: AMOXIC-POT CLAV 875-125MG 1 EACH TAB PO SCH ×2 (12:13→21:48)
[2021-10-29 12:45] LABS: Glucose,Whole Blood 106 mg/dL (75-99)
[2021-10-29] MEDS: SERTRALINE 100 MG TAB PO SCH (13:58)
[2021-10-29] MEDS: METOCLOPRAMIDE 5 MG TAB PO SCH ×3 (13:59→21:48)
[2021-10-29 14:17] LABS: Band Neutrophils % 6 %; Lymphocytes # (M) 1.01 k/uL (1.0-4.8); Neutrophils % (M) 85 %; Nucleated Red Blood Cells 0 /100 WBC (0-0); Total Cells Counted 100
--- NOTE | 2021-10-29 14:18 | US ---
EXAMINATION TYPE: US venous doppler duplex UE DATE OF EXAM: 10/29/2021 COMPARISON: NONE CLINICAL HISTORY: R/O DVT. Swallowing SIDE PERFORMED: Bilateral Patient of large body habitus with extensive edema worse on right, technically difficult study. Right Arm: Appears negative for DVT, cephalic vein not seen. Left Arm: Appears negative for DVT. Grayscale, color doppler, spectral doppler imaging performed of the deep veins of the bilateral upper extremities. There is normal flow, compressibility and vascular waveforms. IMPRESSION: Suboptimal study without convincing evidence of acute deep or superficial venous thrombos is bilaterally.
[2021-10-29] MEDS: HYDROcodone/APAP 10-325MG 1 EACH TAB PO PRN ×2 (15:57→21:56)
[2021-10-29] MEDS: diphenhydrAMINE 25 MG CAP PO SCH ×2 (16:25→21:46)
[2021-10-29 17:07] LABS: Glucose,Whole Blood 120 mg/dL (75-99)
--- NOTE | 2021-10-29 20:11 | P.HPIM ---
History of Present Illness H&P Date: 10/29/21 Chief Complaint: welts This is a pleasant 45-year-old patient who follows with Dr. Domingo Valdovinos. Chronic stable medical conditions include asthma, diabetes, fibromyalgia, GERD, hyperlipidemia, seizure disorder, factor V clotting disorder, arthritis of the hands and fingers knees, seizure disorder with the VNS implant, chronic low back pain, restless leg syndrome,. Has a vagus nerve stimulator. Patient on October 16 underwent lumbar laminectomy and decompression by Dr. Jones and was discharged and and was discharged on October 17. She was discharged antibiotics in a moving she does not remember. Prior to the surgery she had a cat scratch on her left calf. When she did follow with Dr. Valdovinos after surgery was better when abscess formed behind the left calf. He did carry out her 90 of the same. And sent her home with Bactrim. This was probably on October 22. Subsequently patient developed itching and blotchiness and swelling of both the arms and legs. Presented to the ER. Patient's appetite has been down. No fever no chills. Patient has received the COVID vaccine. Patient does smoke half a pack a day and has a chronic cough. No loss of smell or taste. Patient has been complaining of some upper extremity swelling. Patient distended positive for COVID-19 in the ER. Her back incision is healing well. Patient has been using a walker. Review of systems: GEN.: Itching and hives EYES: None HEENT: None NECK: None RESPIRATORY: Chronic intermittent cough CARDIOVASCULAR: None GASTROINTESTINAL: None GENITOURINARY: None MUSCULOSKELETAL: Chronic joint pains LYMPHATICS: None HEMATOLOGICAL: None PSYCHIATRY: None NEUROLOGICAL: Currently using a walker Past medical history to include: Asthma/COPD, diabetes, fibromyalgia, GERD, hyperlipidemia, osteoarthritis, seizure disorder with vagal nerve stimulator, factor V clotting disorder, ar thritis in the hands and fingers and knees, migraines, restless leg syndrome, lower extremity varicosities, PTSD, anxiety depression Social history: Lives with her boyfriend and 2 children. Does have a walker because of lumbar surgery. Patient is smoking for about 25 years about half a pack a day. No alcohol. Family history: Reviewed, noncontributory to presentation Physical examination: VITAL SIGNS: 97.5, 72, 16, 116/73, 95% room air GENERAL: BMI 41.1, laying in bed, awake, no distress. EYES: Pupils equal. Conjunctiva normal. HEENT: External appearance of nose and ears normal, oral cavity grossly normal. NECK: JVD not raised; masses not palpable. HEART: First and second heart sounds are normal; no edema. LUNGS: Respiratory rate normal; clear to auscultation. ABDOMEN: Soft, nontender, liver spleen not palpable, no masses palpable. PSYCH: Alert and oriented x3; mood and affect normal. MUSCULOSKELETAL:No Clubbing/cyanosis;muscles-grossly intact DERMATOLOGICAL: Patient is midline incision in the lumbar area healing well. Left calf, that is a 80 of skin breakdown with underlying induration. No fluctuation. Mild tenderness. Minimal hives in the upper extremity and proximal legs. NEUROLOGICAL: Cranial nerves grossly intact; no facial asymmetry, power and sensation grossly intact. LYMPHATICS: No lymph nodes palpable in the axilla and neck INVESTIGATIONS, reviewed in the clinical context: White count 11.2 hemoglobin 13.6 platelets 284 potassium hemolyzed creatinine 0.93 D-dimer 26.9 Coronavirus [PCR]: Detected Doppler ultrasound upper extremity: No DVT reported. Assessment and plan: -Acute ALLERGIC reaction to Bactrim manifesting as hives and pruritus. Patient denied having any respiratory symptoms. No stridor. Bactrim discontinued. Steroids and antihistaminic and H2 yolanda. -Wound to the left cough from a cat bite. bacitracin 3 times a day Augmentin as per Dr. Sarmiento. -Morbid obesity BMI 41.3 Weight loss measures -COPD in a current smoker Symbicort 160/4.52 puffs twice a day -Chronic pain syndrome Patient on Pettibone, Neurontin -Factor V clotting disorder -Diabetes mellitus type 2 -Chronic fibromyalgia -GERD Pepcid 20 mg daily -Hyperlipidemia -Seizure disorder vimpat 200 mg twice a day, Lamictal 200 mg twice a day -Chronic arthritis of multiple joints Pain medications. -Restless leg syndrome History: 1 mg by mouth twice a day when necessary -Hyperlipidemia Lipitor 80 mg daily at bedtime -Depression Zoloft 200 mg daily Steroids. Benadryl. Augmentin. Topical basic dressing. Resume home medications. DVT and upper extremity to rule out. Care was discussed with the patient. Set up in a chair. Questions answered. Past Medical History Past Medical History: Asthma, Blood Disorder, COPD, Diabetes Mellitus, Fibromyalgia, Hyperlipidemia, Osteoarthritis (OA), Seizure Disorder, Syncope Additional Past Medical History / Comment(s): CHRONIC BACK PAIN; Restless leg syndrome, migraines, Factor 5 clotting problem, varicose veins History of Any Multi-Drug Resistant Organisms: None Reported Past Surgical History: Back Surgery, Section, Hysterectomy, Orthopedic Surgery, Tubal Ligation Additional Past Surgical History / Comment(s): stimulator for back, VNS implant for seizures, hysterectomy due to endometreosis. Past Anesthesia/Blood Transfusion Reactions: No Reported Reaction Past Psychological History: Anxiety, Depression, Panic Disorder, PTSD Smoking Status: Current every day smoker Past Alcohol Use History: None Reported Past Drug Use History: None Reported - Past Family History Mother Family Medical History: No Reported History Father Family Medical History: Hyperlipidemia Additional Family Medical History / Comment(s): Back problems. Medications and Allergies Home Medications Medication Instructions Recorded Confirmed Type Zonisamide [Zonegran] 200 mg PO HS 04/06/19 10/28/21 History diazePAM [Valium] 5 mg PO BID PRN 04/06/19 10/28/21 History Aspirin EC [Ecotrin Low Dose] 81 mg PO DAILY 04/16/19 10/28/21 History Atorvastatin [Lipitor] 80 mg PO HS 11/17/20 10/28/21 History Budesonide/Formoterol Fumarate 2 puff INHALATION RT-BID 11/17/20 10/28/21 Histor y [Symbicort 160-4.5 Mcg Inhaler] HYDROcodone/APAP 7.5-325MG [[place] 1 tab PO TID PRN 11/17/20 10/28/21 History 7.5-325] Nystatin 100,000 Unit/gm Oint 1 applic TOPICAL QID PRN 11/17/20 10/28/21 History [Mycostatin Oint] Sertraline [Zoloft] 200 mg PO DAILY 11/17/20 10/28/21 History Brexpiprazole [Rexulti] 4 mg PO HS 08/09/21 10/28/21 History Lacosamide [Vimpat] 200 mg PO BID 08/09/21 10/28/21 History Meclizine [Antivert] 25 mg PO BID 08/09/21 10/28/21 History Umeclidinium [place] [Incruse 1 puff INHALATION RT-DAILY 08/09/21 10/28/21 History Ellipta] Cholecalciferol [Vitamin D3 (25 50 mcg PO DAILY 10/09/21 10/28/21 History Mcg = 1000 Iu)] Docusate [Colace] 100 mg PO DAILY PRN #30 capsule 10/18/21 10/28/21 Rx HYDROcodone/APAP 10-325MG [[place] 1 tab PO Q6HR PRN 3 Days #28 tab 10/18/21 10/28/21 Rx 10-325] Clindamycin [Cleocin] 450 mg PO Q6H #120 cap 10/27/21 10/28/21 Rx Famotidine [Pepcid] 20 mg PO DAILY #3 tablet 10/27/21 10/28/21 Rx predniSONE 50 mg PO DAILY #3 tab 10/27/21 10/28/21 Rx Butalb/APAP/Caff 50-325-40Mg 1 tab PO DAILY PRN 10/28/21 10/28/21 History [Fioricet 50-325-40] Cyclobenzaprine [Flexeril] 10 mg PO BID PRN 10/28/21 10/28/21 History Erenumab-Aooe [Aimovig 140 mg SQ Q30D 10/28/21 10/28/21 History Autoinjector] Furosemide [Lasix] 20 mg PO DAILY 10/28/21 10/28/21 History Gabapentin 600 mg PO TID 10/28/21 10/28/21 History Ibuprofen [Motrin] 800 mg PO TID PRN 10/28/21 10/28/21 History Metoclopramide [Reglan] 5 mg PO TID 10/28/21 10/28/21 History Potassium Chloride ER [K-Dur 20] 20 meq PO BID 10/28/21 10/28/21 History lamoTRIgine 200 mg PO BID 10/28/21 10/28/21 History metFORMIN HCL 500 mg PO DAILY 10/28/21 10/28/21 History rOPINIRole HCL [Requip] 1 mg PO BID PRN 10/28/21 10/28/21 History Allergies Allergy/AdvReac Type Severity Reaction Status Date / Time sulfamethoxazole Allergy Rash/Hives, Verified 10/28/21 20:37 [From Bactrim] Swelling in arms and legs topiramate [From Topamax] Allergy Anaphylaxis Verified 10/28/21 16:11 trimethoprim [From Bactrim] Allergy Rash/Hives, Verified 10/28/21 20:37 Swelling in arms and legs Physical Exam Vitals: Vital Signs Temp Pulse Pulse Resp BP BP Pulse Ox 10/29/21 07:00 97.5 F L 72 16 116/73 95 10/29/21 06:13 80 18 116/55 96 10/29/21 04:19 82 22 122/58 97 10/29/21 01:12 67 28 H 95 10/29/21 00:05 18 105/54 10/28/21 22:00 72 16 112/74 95 10/28/21 20:29 78 20 110/68 98 10/28/21 19:15 97 18 117/70 96 10/28/21 16:08 98.1 F 108 H 18 108/69 97 Intake and Output 10/28/21 10/29/21 10/29/21 22:59 06:59 14:59 Other: Weight 122.47 kg Results CBC & Chem 7: 10/29/21 06:25 10/29/21 06:25 Labs: Abnormal Lab Results - Last 24 Hours (Table) 10/28/21 10/28/21 10/29/21 Range/Units 20:27 20:27 00:05 WBC 12.9 H (3.8-10.6) k/uL MCV (80.0-100.0) fL Neutrophils # 11.0 H (1.3-7.7) k/uL Sodium 136 L (137-145) mmol/L Potassium (3.5-5.1) mmol/L Carbon Dioxide 18 L (22-30) mmol/L Creatinine 1.23 H (0.52-1.04) mg/dL Glucose 157 H (74-99) mg/dL POC Glucose (mg/dL) (75-99) mg/dL Coronavirus (PCR) Detected A (Not Detectd) 10/29/21 10/29/21 10/29/21 Range/Units 06:25 06:25 07:40 WBC 11.2 H (3.8-10.6) k/uL MCV 100.6 H (80.0-100.0) fL Neutrophils # (1.3-7.7) k/uL Sodium 134 L (137-145) mmol/L Potassium 5.7 H (3.5-5.1) mmol/L Carbon Dioxide 19 L (22-30) mmol/L Creatinine (0.52-1.04) mg/dL Glucose 155 H (74-99) mg/dL POC Glucose (mg/dL) 163 H (75-99) mg/dL Coronavirus (PCR) (Not Detectd)
[2021-10-29] MEDS ORDERED: ZONISAMIDE 100 MG CAP PO SCH (21:00)
[2021-10-29] MEDS ORDERED: ATORVASTATIN 80 MG TAB PO SCH (21:00)
[2021-10-29] MEDS ORDERED: NON FORMULARY DRUG (Brexpiprazole [Rexulti] 4 MG Tablet) PO SCH (21:00)
[2021-10-29 21:06] LABS: Glucose,Whole Blood 82 mg/dL (75-99)
[2021-10-29] MEDS: FAMOTIDINE 20 MG TAB PO SCH (21:46)
[2021-10-29] MEDS: predniSONE 20 MG TAB PO SCH (21:48)
--- NOTE | 2021-10-29 23:14 | P.CONS ---
History of Present Illness - Reason for Consult Consult date: 10/29/21 drug rash and cellulitis Requesting physician: Herrera Riddle - Chief Complaint rash and left leg swelling and redness - History of Present Illness History of present illness : Patient is 45-year-old female who recently is status post exploration of L5-S1 fusion, L24 bilateral decompressive laminectomy with partial medial fasciotomy and foraminotomy, patient procedure was completed on 10/16/2021, patient mention afterwards she has been on Bactrim but was not sure if there was any swelling redness or drainage from her incision site patient also have a cat scratch to the left lower extremity which is becoming infected more swollen and red and the patient was taking Bactrim for you to patient subsequently developing rash in this patient has been diagnosed with more likely allergic reaction to Bactrim patient was evaluated yesterday in the ER diagnosed with allergic reaction to the Bactrim she was advised to stop taking the Bactrim he was started on clindamycin and was started on some steroids patient is presented back to the hospital with 24-hour concerning for bilateral hand and arm swelling as well as rash patient denies any difficulty swallowing no sores in the mouth lumbar incision is healing well left posterior leg area with minimal swelling and redness no significant drainage patient was reevaluated by the ER physician on arrival to the ER the patient was afebrile patient was not hypoxic or need for supplemental oxygen patient did have white count of 12.9 with a left shift creatinine was mild elevated repeat is normal patient Covid test came back positive however the patient did not have any shortness of breath or cough or URI symptoms and apparently the patient is vaccinated for the COVID-19 patient was started on clindamycin infectious disease was consulted for further management of antibiotic therapy Review of system: CONSTITUTIONAL: Positive for weakness denies high-grade fever. EYES: No complaint. ENT: No complaint. RESPIRATORY: No complaint. CARDIOVASCULAR: No complaint. GENITOURINARY: No complaint. GASTROINTESTINAL: No complaint. MUSCULOSKELETAL: No complaint. INTEGUMENTARY: As per history of present illness. PSYCHOLOGIC: No complaint. ENDOCRINE: No complaint. NEUROLOGIC: No complaint. Past medical history : Reviewed, documented below Past surgical history : Reviewed, documented below Social history: Reviewed, documented below Medications: Reviewed, as documented below EXAMINATION: Vital sigans= Reviewed and documented below GENERAL DESCRIPTION: Middle-aged female lying in bed, no distress. No tachypnea or accessory muscle of respiration use. HEENT: Shows Pallor , no scleral icterus. Oral mucous membrane is dry. NECK: Trachea central, no thyromegaly. LUNGS: Unlabored breathing. Clear to auscultation anteriorly. No wheeze or crackle. HEART: S1, S2, regular rate and rhythm. ABDOMEN: Soft, no tenderness , guarding or rigidity EXTREMITIES: No edema of feet. SKIN: Maculopapular rash especially to the upper extremity did have a some erythema superficial abrasion to the left posterior leg with no drainage NEUROLOGICAL: The patient is awake, alert, oriented x3, mood and affect normal. LABS AND RADIOLOGY: Reviewed results see below Assessment : 1patient presented to hospital with generalized rash and swelling more likely related to Bactrim which has been discontinued. 2patient with left leg superficial ulceration from a cat scratch with secondary cellulitis more likely from gram-positive skin ashok. 3patient with a positive COVID has been no significant respiratory symptoms or hypoxemia Plan: 1-discontinue clindamycin 2-start the patient on Augmentin 875 twice daily for the left leg cellulitis and wound infection 3-we will obtain a chest x-ray CRP procalcitonin D-dimer for her underlying COVID-19 infection and continue with the droplet isolation, treatment for underlying positive COVID is mostly supportive . We will follow on clinical condition and cultures to further adjust medication if needed Thank you for this consultation we will follow the patient along with you Past Medical History Past Medical History: Asthma, Blood Disorder, COPD, Diabetes Mellitus, Fibromyalgia, Hyperlipidemia, Osteoarthritis (OA), Seizure Disorder, Syncope Additional Past Medical History / Comment(s): CHRONIC BACK PAIN; Restless leg syndrome, migraines, Factor 5 clotting problem, varicose veins History of Any Multi-Drug Resistant Organisms: None Reported Past Surgical History: Back Surgery, Section, Hysterectomy, Orthopedic Surgery, Tubal Ligation Additional Past Surgical History / Comment(s): stimulator for back, VNS implant for seizures, hysterectomy due to endometreosis. Past Anesthesia/Blood Transfusion Reactions: No Reported Reaction Past Psychological History: Anxiety, Depression, Panic Disorder, PTSD Smoking Status: Current every day smoker Past Alcohol Use History: None Reported Past Drug Use History: None Reported - Past Family History Mother Family Medical History: No Reported History Father Family Medical History: Hyperlipidemia Additional Family Medical History / Comment(s): Back problems. Medications and Allergies Home Medications Medication Instructions Recorded Confirmed Type Zonisamide [Zonegran] 200 mg PO HS 04/06/19 10/28/21 History diazePAM [Valium] 5 mg PO BID PRN 04/06/19 10/28/21 History Aspirin EC [Ecotrin Low Dose] 81 mg PO DAILY 04/16/19 10/28/21 History Atorvastatin [Lipitor] 80 mg PO HS 11/17/20 10/28/21 History Budesonide/Formoterol Fumarate 2 puff INHALATION RT-BID 11/17/20 10/28/21 History [Symbicort 160-4.5 Mcg Inhaler] HYDROcodone/APAP 7.5-325MG [[place] 1 tab PO TID PRN 11/17/20 10/28/21 History 7.5-325] Nystatin 100,000 Unit/gm Oint 1 applic TOPICAL QID PRN 11/17/20 10/28/21 History [Mycostatin Oint] Sertraline [Zoloft] 200 mg PO DAILY 11/17/20 10/28/21 History Brexpiprazole [Rexulti] 4 mg PO HS 08/09/21 10/28/21 History Lacosamide [Vimpat] 200 mg PO BID 08/09/21 10/28/21 History Meclizine [Antivert] 25 mg PO BID 08/09/21 10/28/21 History Umeclidinium [place] [Incruse 1 puff INHALATION RT-DAILY 08/09/21 10/28/21 History Ellipta] Cholecalciferol [Vitamin D3 (25 50 mcg PO DAILY 10/09/21 10/28/21 History Mcg = 1000 Iu)] Docusate [Colace] 100 mg PO DAILY PRN #30 capsule 10/18/21 10/28/21 Rx HYDROcodone/APAP 10-325MG [[place] 1 tab PO Q6HR PRN 3 Days #28 tab 10/18/21 10/28/21 Rx 10-325] Clindamycin [Cleocin] 450 mg PO Q6H #120 cap 10/27/21 10/28/21 Rx Famotidine [Pepcid] 20 mg PO DAILY #3 tablet 10/27/21 10/28/21 Rx predniSONE 50 mg PO DAILY #3 tab 10/27/21 10/28/21 Rx Butalb/APAP/Caff 50-325-40Mg 1 tab PO DAILY PRN 10/28/21 10/28/21 History [Fioricet 50-325-40] Cyclobenzaprine [Flexeril] 10 mg PO BID PRN 10/28/21 10/28/21 History Erenumab-Aooe [Aimovig 140 mg SQ Q30D 10/28/21 10/28/21 History Autoinjector] Furosemide [Lasix] 20 mg PO DAILY 10/28/21 10/28/21 History Gabapentin 600 mg PO TID 10/28/21 10/28/21 History Ibuprofen [Motrin] 800 mg PO TID PRN 10/28/21 10/28/21 History Metoclopramide [Reglan] 5 mg PO TID 10/28/21 10/28/21 History Potassium Chloride ER [K-Dur 20] 20 meq PO BID 10/28/21 10/28/21 History lamoTRIgine 200 mg PO BID 10/28/21 10/28/21 History metFORMIN HCL 500 mg PO DAILY 10/28/21 10/28/21 History rOPINIRole HCL [Requip] 1 mg PO BID PRN 10/28/21 10/28/21 History Allergies Allergy/AdvReac Type Severity Reaction Status Date / Time sulfamethoxazole Allergy Rash/Hives, Verified 10/28/21 20:37 [From Bactrim] Swelling in arms and legs topiramate [From Topamax] Allergy Anaphylaxis Verified 10/28/21 16:11 trimethoprim [From Bactrim] Allergy Rash/Hives, Verified 10/28/21 20:37 Swelling in arms and legs Physical Exam Vitals: Vital Signs Temp Pulse Pulse Resp BP BP Pulse Ox 10/29/21 07:00 97.5 F L 72 16 116/73 95 10/29/21 06:13 80 18 116/55 96 10/29/21 04:19 82 22 122/58 97 10/29/21 01:12 67 28 H 95 10/29/21 00:05 18 105/54 10/28/21 22:00 72 16 112/74 95 10/28/21 20:29 78 20 110/68 98 10/28/21 19:15 97 18 117/70 96 10/28/21 16:08 98.1 F 108 H 18 108/69 97 Intake and Output 10/28/21 10/29/21 10/29/21 22:59 06:59 14:59 Other: Weight 122.47 kg Results CBC & Chem 7: 10/29/21 06:25 10/29/21 06:25 Labs: Abnormal Lab Results - Last 24 Hours (Table) 10/28/21 10/28/21 10/29/21 Range/Units 20:27 20:27 00:05 WBC 12.9 H (3.8-10.6) k/uL MCV (80.0-100.0) fL Neutrophils # 11.0 H (1.3-7.7) k/uL Sodium 136 L (137-145) mmol/L Potassium (3.5-5.1) mmol/L Carbon Dioxide 18 L (22-30) mmol/L Creatinine 1.23 H (0.52-1.04) mg/dL Glucose 157 H (74-99) mg/dL POC Glucose (mg/dL) (75-99) mg/dL Coronavirus (PCR) Detected A (Not Detectd) 10/29/21 10/29/21 10/29/21 Range/Units 06:25 06:25 07:40 WBC 11.2 H (3.8-10.6) k/uL MCV 100.6 H (80.0-100.0) fL Neutrophils # (1.3-7.7) k/uL Sodium 134 L (137-145) mmol/L Potassium 5.7 H (3.5-5.1) mmol/L Carbon Dioxide 19 L (22-30) mmol/L Creatinine (0.52-1.04) mg/dL Glucose 155 H (74-99) mg/dL POC Glucose (mg/dL) 163 H (75-99) mg/dL Coronavirus (PCR) (Not Detectd)
[2021-10-30] MEDS: diphenhydrAMINE 25 MG CAP PO SCH ×2 (05:12→10:36)
[2021-10-30] MEDS: SYMBICORT 160-4.5 MCG INHALER INHALATION SCH (07:27)
[2021-10-30] MEDS: TIOTROPIUM 2.5 MCG INHALER INHALATION SCH (07:28)
[2021-10-30 07:34] LABS: Glucose,Whole Blood 100 mg/dL (75-99)
[2021-10-30] MEDS: CHOLECALCIFEROL 25 MCG (1000 IU) TABLET PO SCH (07:36)
[2021-10-30] MEDS: GABAPENTIN 300 MG CAP PO SCH (07:36)
[2021-10-30] MEDS: lamoTRIgine 100 MG TAB PO SCH (07:36)
[2021-10-30] MEDS: NICOTINE 14MG/24HR PATCH TRANSDERM SCH ×2 (07:36→10:36)
[2021-10-30] MEDS: LACOSAMIDE 50 MG TABLET PO SCH (07:36)
[2021-10-30] MEDS: POTASSIUM CHLORIDE ER 20 MEQ TAB.ER PO SCH (07:37)
[2021-10-30] MEDS: predniSONE 20 MG TAB PO SCH (07:37)
[2021-10-30] MEDS: FUROSEMIDE 20 MG TAB PO SCH (07:37)
[2021-10-30] MEDS: FAMOTIDINE 20 MG TAB PO SCH (07:37)
[2021-10-30] MEDS: ENOXAPARIN 40 MG/0.4 ML SYRINGE SQ SCH (07:38)
[2021-10-30] MEDS: SERTRALINE 100 MG TAB PO SCH (07:39)
[2021-10-30] MEDS: AMOXIC-POT CLAV 875-125MG 1 EACH TAB PO SCH (07:39)
[2021-10-30] MEDS: METOCLOPRAMIDE 5 MG TAB PO SCH (07:39)
[2021-10-30] MEDS: BACITRACIN OINT 1 EACH PACKET TOPICAL SCH (07:40)
[2021-10-30] MEDS: ASPIRIN 81 MG PO SCH (07:53)
[2021-10-30 10:24] LABS: African American GFR (CKD) 103.2 (60.0-200.0); Anion Gap 11.5 mmol/L (10.00-18.00); BUN/Creat Ratio 27.38 Ratio (12.00-20.00); Blood Urea Nitrogen 21.9 mg/dL (9.0-27.0); Calcium 9.5 mg/dL (8.7-10.3); Carbon Dioxide 21.5 mmol/L (20.0-27.5); Potassium 4.8 mmol/L (3.5-5.5)
--- NOTE | 2021-10-30 13:25 | CT ---
EXAMINATION TYPE: CT chest angio for PE DATE OF EXAM: 10/30/2021 COMPARISON: 11/17/2020 HISTORY: 45-year-old female Shortness of breath, elevated d-dimer TECHNIQUE: Contiguous axial scanning of the chest performed with IV Contrast, patient injected with 1 00, wasted 40 ml mL of Isovue 370. Coronal/sagittal MIP reconstructions performed. CT DLP: 822 mGycm Automated exposure control for dose reduction was used. FINDINGS: Left anterior chest wall generator device. Leads extend up to the left side of the neck outside the f ield of view. Heart normal size with trace anterior basilar pericardial fluid. No flattening of the interventricula r septum or reflux of contrast into the hepatic veins. Mild proximal LAD coronary artery calcificatio ns. Aorta normal caliber with conventional arch vessel branching anatomy. No thoracic lymph adenopathy by CT size criteria. There is suboptimal opacification of the pulmonary arterial system. No large central or definite loba r branch pulmonary embolus. No definite pulmonary embolus is seen elsewhere in the lungs. A 6 mm superior segment left lower lobe pulmonary nodule, axial and 50 is unchanged compatible with a benign etiology. 4 mm lateral left apical pulmonary nodule, axial image 22 also unchanged and benign. There are patchy areas of groundglass density both peripherally and along the bronchovascular bundles of the bilateral upper lobes. Prominent strandy dependent atelectasis in the mid and lower lungs. Visualized upper abdomen shows no gross abnormal. Bones: Spinal stimulator array centered along the dorsal spinal canal at the lower thoracic spine. Mi ld anterior spondylosis mid to lower spine. IMPRESSION: 1. SUBOPTIMAL CONTRAST BOLUS. HOWEVER, NO DEFINITE PULMONARY EMBOLUS IS SEEN. 2. MILD PATCHY GROUNDGLASS INFILTRATES IN THE UPPER LOBES. CORRELATE FOR COVID PNEUMONIA VERSUS OTHER PNEUMONITIS. 3. PROMINENT DEPENDENT ATELECTASIS. A COUPLE PULMONARY NODULES MEASURING UP TO 6 MM ARE UNCHANGED AND COMPATIBLE WITH A BENIGN ETIOLOGY.
[2021-10-30 15:05] VITALS: BP 115/73; PULSE 64; RESP 16; TEMP 98.3
--- NOTE | 2021-10-30 21:33 | P.DS ---
Providers Date of admission: 10/28/21 23:39 Expected date of discharge: 10/30/21 Attending physician: Herrera Riddle Consults: 10/28/21 23:40 Consult Physician Urgent Consulting Provider: Jade Aguilar Consult Reason/Comments: right calf abscess, multiple new antibx allergies Do you want consulting provider notified?: Yes 10/29/21 15:03 Consult to Anesthesia Routine Consulting Provider: Anesthesia,Services Consult Reason/Comments: iv line placement Primary care physician: Domingo Valdovinos [facility] Course: Chief Complaint: welts This is a pleasant 45-year-old patient who follows with Dr. Domingo Valdovinos. Chronic stable medical conditions include asthma, diabetes, fibromyalgia, GERD, hyperlipidemia, seizure disorder, factor V clotting disorder, arthritis of the hands and fingers knees, seizure disorder with the VNS implant, chronic low back pain, restless leg syndrome,. Has a vagus nerve stimulator. Patient on October 16 underwent lumbar laminectomy and decompression by Dr. Jones and was discharged and and was discharged on October 17. She was discharged antibiotics in a moving she does not remember. Prior to the surgery she had a cat scratch on her left calf. When she did follow with Dr. Valdovinos after surgery was better when abscess formed behind the left calf. He did carry out her 90 of the same. And sent her home with Bactrim. This was probably on October 22. Subsequently patient developed itching and blotchiness and swelling of both the arms and legs. Presented to the ER. Patient's appetite has been down. No fever no chills. Patient has received the COVID vaccine. Patient does smoke half a pack a day and has a chronic cough. No loss of smell or taste. Patient has been complaining of some upper extremity swelling. Patient distended positive for COVID-19 in the ER. Her back incision is healing well. Patient has been using a walker. October 30: Patient was treated with steroids and epidural. Responded well. DVT was ruled out in the upper extremities. Swelling better with elevation. Patient eating well. CT angiogram done today. Negative for PE. Mild patchy infiltrates noted. Discussed with patient. Valium and Antivert were discontinued. Patient to complete a short course of prednisone taper. Complete a course of Augmentin and will follow-up with Dr. Walker. Discussion and discharge planning more than 35 minutes Past medical history to include: Asthma/COPD, diabetes, fibromyalgia, GERD, hyperlipidemia, osteoarthritis, seizure disorder with vagal nerve stimulator, factor V clotting disorder, arthritis in the hands and fingers and knees, migraines, restless leg syndrome, lower extremity varicosities, PTSD, anxiety depression Social history: Lives with her boyfriend and 2 children. Does have a walker because of lumbar surgery. Patient is smoking for about 25 years about half a pack a day. No alcohol. Family history: Reviewed, noncontributory to presentation Physical examination: VITAL SIGNS: 98.3, 64, 16, 11 5 x 73, 97% room air GENERAL: BMI 41.1, laying in bed, awake, no distress. EYES: Pupils equal. Conjunctiva normal. HEENT: External appearance of nose and ears normal, oral cavity grossly normal. NECK: JVD not raised; masses not palpable. HEART: First and second heart sounds are normal; no edema. LUNGS: Respiratory rate normal; clear to auscultation. ABDOMEN: Soft, nontender, liver spleen not palpable, no masses palpable. PSYCH: Alert and oriented x3; mood and affect normal. MUSCULOSKELETAL:No Clubbing/cyanosis;muscles-grossly intact DERMATOLOGICAL: Patient is midline incision in the lumbar area healing well. Left calf, that skin breakdown with underlying induration. No fluctuation. Mild tenderness. Height resolved INVESTIGATIONS, reviewed in the clinical context: Chest CTA: Negative for PE. Mild infiltrates. D-dimer 14.0 potassium 4.8 creatinine 0.8 White count 11.2 hemoglobin 13.6 platelets 284 potassium hemolyzed creatinine 0.93 D-dimer 26.9 Coronavirus [PCR]: Detected Doppler ultrasound upper extremity: No DVT reported. Assessment and plan: -Acute ALLERGIC reaction to Bactrim manifesting as hives and pruritus. Patient denied having any respiratory symptoms. No stridor.: Improved Bactrim discontinued. Steroids and antihistaminic and H2 yolanda. -Wound to the left calf from a cat bite. bacitracin 3 times a day Augmentin for 7 days -Morbid obesity BMI 41.3 Weight loss measures -COPD in a current smoker Symbicort 160/4.52 puffs twice a day -Chronic pain syndrome Patient on [place], Neurontin -Factor V clotting disorder -Diabetes mellitus type 2 Metformin. Follow Accu-Cheks -Chronic fibromyalgia Patient has pain medications. -GERD Pepcid 20 mg daily -Hyperlipidemia -Seizure disorder vimpat 200 mg twice a day, Lamictal 200 mg twice a day -Chronic arthritis of multiple joints Pain medications. -Restless leg syndrome History: 1 mg by mouth twice a day when necessary -Hyperlipidemia Lipitor 80 mg daily at bedtime -Depression Zoloft 200 mg daily Disposition: Home Plan - Discharge Summary Discharge Rx Participant: No New Discharge Prescriptions: New Nicotine 14Mg/24Hr Patch [Habitrol] 1 patch TRANSDERM DAILY #14 patch Melatonin 3 mg PO HS PRN tablet PRN Reason: Insomnia Amoxic-Pot Clav 875-125Mg [Augmentin 875-125] 1 each PO Q12HR #14 tab Continue Zonisamide [Zonegran] 200 mg PO HS Aspirin EC [Ecotrin Low Dose] 81 mg PO DAILY Budesonide/Formoterol Fumarate [Symbicort 160-4.5 Mcg Inhaler] 2 puff INHALATION RT-BID Nystatin 100,000 Unit/gm Oint [Mycostatin Oint] 1 applic TOPICAL QID PRN PRN Reason: corners of mouth Sertraline [Zoloft] 200 mg PO DAILY Atorvastatin [Lipitor] 80 mg PO HS HYDROcodone/APAP 7.5-325MG [[place] 7.5-325] 1 tab PO TID PRN PRN Reason: Pain Lacosamide [Vimpat] 200 mg PO BID Umeclidinium [place] [Incruse Ellipta] 1 puff INHALATION RT-DAILY lamoTRIgine 200 mg PO BID metFORMIN HCL 500 mg PO DAILY Gabapentin 600 mg PO TID Furosemide [Lasix] 20 mg PO DAILY Butalb/APAP/Caff 50-325-40Mg [Fioricet 50-325-40] 1 tab PO DAILY PRN PRN Reason: Migraine Headache Erenumab-Aooe [Aimovig Autoinjector] 140 mg SQ Q30D Brexpiprazole [Rexulti] 4 mg PO HS Cholecalciferol [Vitamin D3 (25 Mcg = 1000 Iu)] 50 mcg PO DAILY HYDROcodone/APAP 10-325MG [[place] 10-325] 1 tab PO Q6HR PRN 3 Days #28 tab PRN Reason: Pain rOPINIRole HCL [Requip] 1 mg PO BID PRN PRN Reason: restless legs Potassium Chloride ER [K-Dur 20] 20 meq PO BID Metoclopramide [Reglan] 5 mg PO TID Ibuprofen [Motrin] 800 mg PO TID PRN PRN Reason: Pain Or Fever > 100.5 Cyclobenzaprine [Flexeril] 10 mg PO BID PRN PRN Reason: Muscle Pain Changed Famotidine [Pepcid] 20 mg PO BID #60 tablet Discontinued diazePAM [Valium] 5 mg PO BID PRN PRN Reason: Anxiety Docusate [Colace] 100 mg PO DAILY PRN #30 capsule PRN Reason: Constipation Meclizine [Antivert] 25 mg PO BID Clindamycin [Cleocin] 450 mg PO Q6H #120 cap predniSONE 50 mg PO DAILY #3 tab Discharge Medication List Zonisamide [Zonegran] 200 mg PO HS 04/06/19 [History] Aspirin EC [Ecotrin Low Dose] 81 mg PO DAILY 04/16/19 [History] Atorvastatin [Lipitor] 80 mg PO HS 11/17/20 [History] Budesonide/Formoterol Fumarate [Symbicort 160-4.5 Mcg Inhaler] 2 puff INHALATION RT-BID 11/17/20 [History] HYDROcodone/APAP 7.5-325MG [[place] 7.5-325] 1 tab PO TID PRN 11/17/20 [History] Nystatin 100,000 Unit/gm Oint [Mycostatin Oint] 1 applic TOPICAL QID PRN 11/17/20 [History] Sertraline [Zoloft] 200 mg PO DAILY 11/17/20 [History] Brexpiprazole [Rexulti] 4 mg PO HS 08/09/21 [History] Lacosamide [Vimpat] 200 mg PO BID 08/09/21 [History] Umeclidinium [place] [Incruse Ellipta] 1 puff INHALATION RT-DAILY 08/09/21 [History] Cholecalciferol [Vitamin D3 (25 Mcg = 1000 Iu)] 50 mcg PO DAILY 10/09/21 [History] HYDROcodone/APAP 10-325MG [[place] 10-325] 1 tab PO Q6HR PRN 3 Days #28 tab 10/18/21 [Rx] Butalb/APAP/Caff 50-325-40Mg [Fioricet 50-325-40] 1 tab PO DAILY PRN 10/28/21 [History] Cyclobenzaprine [Flexeril] 10 mg PO BID PRN 10/28/21 [History] Erenumab-Aooe [Aimovig Autoinjector] 140 mg SQ Q30D 10/28/21 [History] Furosemide [Lasix] 20 mg PO DAILY 10/28/21 [History] Gabapentin 600 mg PO TID 10/28/21 [History] Ibuprofen [Motrin] 800 mg PO TID PRN 10/28/21 [History] Metoclopramide [Reglan] 5 mg PO TID 10/28/21 [History] Potassium Chloride ER [K-Dur 20] 20 meq PO BID 10/28/21 [History] lamoTRIgine 200 mg PO BID 10/28/21 [History] metFORMIN HCL 500 mg PO DAILY 10/28/21 [History] rOPINIRole HCL [Requip] 1 mg PO BID PRN 10/28/21 [History] Amoxic-Pot Clav 875-125Mg [Augmentin 875-125] 1 each PO Q12HR #14 tab 10/30/21 [Rx] Famotidine [Pepcid] 20 mg PO BID #60 tablet 10/30/21 [Rx] Melatonin 3 mg PO HS PRN tablet 10/30/21 [Rx] Nicotine 14Mg/24Hr Patch [Habitrol] 1 patch TRANSDERM DAILY #14 patch 10/30/21 [Rx] Follow up Appointment(s)/Referral(s): Domingo Valdovinos MD [Primary Care Provider] - 1-2 days Jade Aguilar MD [STAFF PHYSICIAN] - 1 Week (nov 05 at 2:30) Activity/Diet/Wound Care/Special Instructions: FOLLOW UP SCHEDULED, SOONER IF WORSENING SYMPTOMS THAT BROUGHT YOU IN. TAKE B OT INSURANCE CARDS TO FOLLOW UP APPT WITH DR AGUILAR. Discharge Disposition: HOME SELF-CARE
--- NOTE | 2021-11-05 21:42 | P.PN ---
Subjective Progress Note Date: 10/30/21 Principal diagnosis: Drug rash and left leg wound and cellulitis Patient is a 45-year-old female presented to the hospital with a drug rash related to the Bactrim DS with the patient was taken for left leg wound infection and cellulitis, patient also have a positive Martin but no respiratory symptoms did have elevated d-dimer. On today's evaluation and that is 10/30/2021, the patient denies having any fever or chills, the patient is breathing comfortably, currently on aromatase no chest pain shortness of breath or cough abdominal pain, left leg swelling and redness likely is no drainage Objective - Vital Signs Vital signs: Vital Signs Temp 97.8 F 10/30/21 07:05 Pulse 65 10/30/21 07:05 Resp 17 10/30/21 07:05 BP 99/65 10/30/21 07:05 Pulse Ox 93 L 10/30/21 07:05 Intake & Output 10/29/21 10/30/21 10/30/21 18:59 06:59 18:59 Intake Total 236 118 Balance 236 118 Weight 122.47 kg Intake: Oral 236 118 Other: Voiding Method Toilet # Voids 3 3 # Bowel Movements 2 - Exam GENERAL DESCRIPTION: A middle-age female lying in bed in no distress RESPIRATORY SYSTEM: Unlabored breathing , decreased breath sounds at bases HEART: S1 S2 regular rate and rhythm , ABDOMEN: Soft , no tenderness EXTREMITIES: Left leg with minimal erythema no drainage - Labs CBC & Chem 7: 10/29/21 06:25 10/30/21 07:10 Labs: Abnormal Lab Results - Last 24 Hours (Table) 10/29/21 10/29/21 10/29/21 Range/Units 06:25 06:25 06:25 Neutrophils # (Manual) 10.10 H (1.3-7.7) k/uL D-Dimer (<0.60) mg/L FEU POC Glucose (mg/dL) (75-99) mg/dL Lactate Dehydrogenase 855 H (313-618) U/L C-Reactive Protein 4.8 H (<1.0) mg/dL Procalcitonin 0.19 H (0.02-0.09) ng/mL 10/29/21 10/29/21 10/29/21 Range/Units 11:41 12:45 17:06 Neutrophils # (Manual) (1.3-7.7) k/uL D-Dimer 26.96 H (<0.60) mg/L FEU POC Glucose (mg/dL) 106 H 120 H (75-99) mg/dL Lactate Dehydrogenase (313-618) U/L C-Reactive Protein (<1.0) mg/dL Procalcitonin (0.02-0.09) ng/mL 10/30/21 10/30/21 Range/Units 07:10 07:32 Neutrophils # (Manual) (1.3-7.7) k/uL D-Dimer 14.09 H (<0.60) mg/L FEU POC Glucose (mg/dL) 100 H (75-99) mg/dL Lactate Dehydrogenase (313-618) U/L C-Reactive Protein (<1.0) mg/dL Procalcitonin (0.02-0.09) ng/mL Assessment and Plan Plan: 1patient with drug rash secondary to Bactrim DS which has been discontinued overall rash has improved no further rash has been noticed 2patient with left leg cellulitis clinically responded to oral Augmentin to continue to finish a ten-day course of therapy 3patient with elevated d-dimer with a positive Covid test we will obtain a CT angiogram of the chest which showed evidence of any PE Time with Patient: Less than 30
== END 2021-10-30 15:56 | disposition home or self-care (01) ==
LOC: EC 15:45 → 6NMEDSUR 23:39
PROVIDERS: ADMIT Hospitalist; ATTEND Hospitalist
DX: L50.0 Allergic urticaria (principal); U07.1 COVID-19; L02.415 Cutaneous abscess of right lower limb; L03.116 Cellulitis of left lower limb; L29.9 Pruritus, unspecified; M79.89 Other specified soft tissue disorders; T36.8X5A Adverse effect of other systemic antibiotics, initial encounter; J44.9 Chronic obstructive pulmonary disease, unspecified; E11.9 Type 2 diabetes mellitus without complications; E78.5 Hyperlipidemia, unspecified; M79.7 Fibromyalgia; G40.909 Epilepsy, unspecified, not intractable, without status epilepticus; G25.81 Restless legs syndrome; G43.909 Migraine, unspecified, not intractable, without status migrainosus; G89.4 Chronic pain syndrome; M54.9 Dorsalgia, unspecified; I83.90 Asymptomatic varicose veins of unspecified lower extremity; K21.9 Gastro-esophageal reflux disease without esophagitis; F41.0 Panic disorder [episodic paroxysmal anxiety]; F43.10 Post-traumatic stress disorder, unspecified; F32.A Depression, unspecified; F41.9 Anxiety disorder, unspecified; R05.3 Chronic cough; F17.210 Nicotine dependence, cigarettes, uncomplicated; R79.89 Other specified abnormal findings of blood chemistry; J98.11 Atelectasis; R91.8 Other nonspecific abnormal finding of lung field; D68.2 Hereditary deficiency of other clotting factors; M13.0 Polyarthritis, unspecified; E66.01 Morbid (severe) obesity due to excess calories; Z68.41 Body mass index [BMI] 40.0-44.9, adult; W55.03XA Scratched by cat, initial encounter; W55.01XA Bitten by cat, initial encounter; Z79.82 Long term (current) use of aspirin; Z79.51 Long term (current) use of inhaled steroids; Z79.899 Other long term (current) drug therapy; Z79.84 Long term (current) use of oral hypoglycemic drugs; Z96.82 Presence of neurostimulator; Z90.710 Acquired absence of both cervix and uterus; Z98.891 History of uterine scar from previous surgery; Z98.51 Tubal ligation status; Z98.890 Other specified postprocedural states; Z84.89 Family history of other specified conditions
CPT/HCPCS: 96372 ×3; 96376; 96361; 96374; 96375; 99284; 36415; 94640 ×4; 36410; 76937; 85379 ×2; 80053; 80048 ×2; 83615; 85025 ×2; 86140; 86431; 87040; 84145; 87635; 71045; 93970; 71275; G0378 ×2; J0171; J1200 ×2; J2920; J2930; J1650 ×2; J7512 ×2; Q9967

== ENCOUNTER → 2022-01-06 | Outpatient (CLI) | payer MEDICARE, OTHER ==
--- NOTE | 2022-01-06 09:53 | US ---
EXAMINATION TYPE: US abdomen complete DATE OF EXAM: 01/06/2022 COMPARISON: CLINICAL HISTORY: R19.02 MASS. No pain. GB removed. Patient doesn't know why this exam is being don e. EXAM MEASUREMENTS: Liver Length: 19.5 cm CBD: 0.6 cm Spleen: 11.3 cm Right Kidney: 11.9 x 4.7 x 3.1 cm Left Kidney: 11.5 x 4.4 x 4.7 cm Pancreas: Head obscured by bowel gas Liver: Echogenic. Heterogenous. Enlarged in size. Gallbladder: Surgically absent Evidence for sonographic Blevins's sign: neg CBD: wnl Spleen: wnl Right Kidney: No hydronephrosis or masses seen Left Kidney: No hydronephrosis or masses seen Upper IVC: wnl Abd Aorta: No AAA visualized at time of scan The intrahepatic portion of the IVC and proximal abdominal aorta are within normal limits. Common bi le duct is unremarkable. The visualized portions of the pancreas are homogenous. The spleen is unre markable. Kidneys are symmetric and free of hydronephrosis. No renal lesions are seen. IMPRESSION: Mild hepatic steatosis.
== END | disposition home or self-care (01) ==
LOC: RADUSWWP 08:51
PROVIDERS: ATTEND Family Medicine
DX: K76.0 Fatty (change of) liver, not elsewhere classified (principal)
CPT/HCPCS: 76700

== ENCOUNTER 2023-02-09 18:40 | Emergency (ER) | payer MEDICARE, OTHER ==
[2023-02-09 18:54] VITALS: RESP 20
[2023-02-09] MEDS ORDERED: PROCHLORPERAZINE INJ 10 MG/2 ML VIAL IVP STA (20:49)
[2023-02-09] MEDS ORDERED: KETOROLAC 15 MG/ML 1 ML VIAL IVP STA (20:49)
[2023-02-09] MEDS ORDERED: diphenhydrAMINE 50 MG/ML 1 ML VIAL IVP STA (20:49)
[2023-02-09] MEDS ORDERED: SODIUM CHLORIDE 0.9% 1,000 ML IV ONE (20:49)
--- NOTE | 2023-02-09 21:40 | ED ---
General Adult HPI - General Chief complaint: Headache Stated complaint: headache Time Seen by Provider: 02/09/23 20:30 Source: patient, RN notes reviewed Mode of arrival: ambulatory Limitations: no limitations - History of Present Illness Initial comments: Patient is a 47-year-old female with past medical history remarkable for migraines presents emergency Department complaining of a typical migraine headache for her. States it is frontal over the left side of her head. Has been present for one week. I'll sensitivity to lights and sounds. Has a mild nausea but no emesis. No upper respiratory complaints. No fevers. No other acute complaints at this time. States she has required migraine cocktails in the past which is what she is seeking today. States this is not the worst headache of her life. She is not on blood thinners. Presents for further evaluation at this time. - Related Data Home Medications Medication Instructions Recorded Confirmed Aspirin EC [Ecotrin Low Dose] 81 mg PO DAILY 04/16/19 02/09/23 Atorvastatin [Lipitor] 80 mg PO HS 11/17/20 02/09/23 Budesonide/Formoterol Fumarate 2 puff INHALATION RT-BID 11/17/20 02/09/23 [Symbicort 160-4.5 Mcg Inhaler] HYDROcodone/APAP 7.5-325MG [[place] 1 tab PO TID PRN 11/17/20 02/09/23 7.5-325] Brexpiprazole [Rexulti] 4 mg PO HS 08/09/21 02/09/23 Lacosamide [Vimpat] 200 mg PO BID 08/09/21 02/09/23 Umeclidinium [place] [Incruse 1 puff INHALATION RT-DAILY 08/09/21 02/09/23 Ellipta] Cholecalciferol [Vitamin D3 (25 50 mcg PO DAILY 10/09/21 02/09/23 Mcg = 1000 Iu)] Furosemide [Lasix] 20 mg PO DAILY 10/28/21 02/09/23 Ibuprofen [Motrin] 800 mg PO TID PRN 10/28/21 02/09/23 Metoclopramide [Reglan] 5 mg PO TID 10/28/21 02/09/23 Potassium Chloride ER [K-Dur 20] 20 meq PO BID 10/28/21 02/09/23 rOPINIRole HCL [Requip] 1 mg PO BID PRN 10/28/21 02/09/23 DULoxetine HCL [Cymbalta] 60 mg PO BID 02/09/23 02/09/23 Divalproex [Depakote] 250 mg PO BID 02/09/23 02/09/23 busPIRone HCl [Buspar] 5 mg PO DAILY 02/09/23 02/09/23 metFORMIN HCL 1,000 mg PO BID 02/09/23 02/09/23 tiZANidine [Zanaflex] 4 mg PO BID PRN 02/09/23 02/09/23 Previous Rx's Medication Instructions Recorded Melatonin 3 mg PO HS PRN tablet 10/30/21 Allergies Allergy/AdvReac Type Severity Reaction Status Date / Time sulfamethoxazole Allergy Rash/Hives, Verified 10/28/21 20:37 [From Bactrim] Swelling in arms and legs topiramate [From Topamax] Allergy Anaphylaxis Verified 10/28/21 16:11 trimethoprim [From Bactrim] Allergy Rash/Hives, Verified 10/28/21 20:37 Swelling in arms and legs Review of Systems ROS Statement: Those systems with pertinent positive or pertinent negative responses have been documented in the HPI. Review of Systems: CONST: Denies fever EYES: Denies blurry vision ENT: Denies nasal congestion C/V: Denies Chest pain RESP: Denies shortness of breath GI: Denies abdominal pain : Denies dysuria SKIN: Denies rash. MSK: Denies joint pain. NEURO: Endorses headache ROS Other: All systems not noted in ROS Statement are negative. Past Medical History Past Medical History: Asthma, Blood Disorder, COPD, Diabetes Mellitus, Fibromyalgia, Hyperlipidemia, Osteoarthritis (OA), Seizure Disorder, Syncope Additional Past Medical History / Comment(s): CHRONIC BACK PAIN; Restless leg syndrome, migraines, Factor 5 clotting problem, varicose veins History of Any Multi-Drug Resistant Organisms: None Reported Past Surgical History: Back Surgery, Section, Hysterectomy, Orthopedic Surgery, Tubal Ligation Additional Past Surgical History / Comment(s): stimulator for back, VNS implant for seizures, hysterectomy due to endometreosis. Past Anesthesia/Blood Transfusion Reactions: No Reported Reaction Past Psychological History: Anxiety, Depression, Panic Disorder, PTSD Smoking Status: Current every day smoker Past Alcohol Use History: None Reported Past Drug Use History: None Reported - Past Family History Mother Family Medical History: No Reported History Father Family Medical History: Hyperlipidemia Additional Family Medical History / Comment(s): Back problems. General Exam - General Exam Comments Initial Comments: General: Appears in no acute distress. HEAD: Normal with no signs of head trauma. EYES: PERRLA, EOMI, conjunctiva normal, no discharge. Pupils 3 mm and equal bilaterally. ENT: Hearing grossly intact, normal oropharynx. RESPIRATORY: Clear breath sounds bilaterally. No wheezes, rales, or rhonchi. C/V: Regular rate and rhythm. S1 and S2 auscultated, peripheral pulses 2+ and intact throughout ABD: Abd is soft, nontender, nondistended EXT: Normal range of motion, no obvious deformity SKIN: No rashes or lesions observed on exposed skin. NEURO: Alert and oriented x 4. Cranial nerves II-XII intact. No focal sensory or strength deficits. NIH is 0. GCS of 15. Limitations: no limitations Course Vital Signs 02/09/23 02/09/23 18:51 22:03 Temperature 98 F 97.9 F Pulse Rate 90 77 Respiratory 20 20 Rate Blood Pressure 124/81 117/79 O2 Sat by Pulse 99 99 Oximetry Medical Decision Making - Medical Decision Making Was pt. sent in by a medical professional or institution (, PA, QA TEST LEAD, urgent care, hospital, or fdc...) When possible be specific @ -No Did you speak to anyone other than the patient for history (EMS, parent, family, police, friend...)? What history was obtained from this source @ -No Did you review nursing and triage notes (agree or disagree)? Why? @ -I reviewed and agree with nursing and triage notes Were old charts reviewed (outside hosp., previous admission, EMS record, old EKG, old radiological studies, urgent care reports/EKG's, fdc records)? Report findings @ -No old charts were reviewed Differential Diagnosis (chest pain, altered mental status, abdominal pain women, abdominal pain men, vaginal bleeding, weakness, fever, dyspnea, syncope, headache, dizziness, GI bleed, back pain, seizure, CVA, palpatations, mental health, musculoskeletal)? @ -Differential Headache: Migraine, tension, cluster, carbon monoxide, central venous thrombosis, pension karma temporal arteritis, acute closure glaucoma, intercranial hemorrhage, mastoiditis, sinusitis, head injury, this is not meant to be an all-inclusive list. EKG interpreted by me (3pts min.). @ -None done X-rays interpreted by me (1pt min.). @ -None done CT interpreted by me (1pt min.). @ -None done U/S interpreted by me (1pt. min.). @ -None done What testing was considered but not performed or refused? (CT, X-rays, U/S, labs)? Why? @ -None What meds were considered but not given or refused? Why? @ -None Did you discuss the management of the patient with other professionals (professionals i.e. , PA, QA TEST LEAD, lab, RT, psych nurse, health and social care teacher, international freight forwarder, teacher, real estate loan officer, welfare case worker)? Give summary @ -No Was smoking cessation discussed for >3mins.? @ -No Was critical care preformed (if so, how long)? @ -No Were there social determinants of health that impacted care today? How? (Homelessness, low income, unemployed, alcoholism, drug addiction, transportation, low edu. Level, literacy, decrease access to med. care, longterm, rehab)? @ -No Was there de-escalation of care discussed even if they declined (Discuss DNR or withdrawal of care, Hospice)? DNR status @ -No What co-morbidities impacted this encounter? (DM, HTN, Smoking, COPD, CAD, Cancer, CVA, ARF, Chemo, Hep., AIDS, mental health diagnosis, sleep apnea, morbid obesity)? @ -Migraine headaches Was patient admitted / discharged? Hospital course, mention meds given and route, prescriptions, significant lab abnormalities, going to OR and other pertinent info. @ -Based on the patient's presentation and physical exam, I'm concerned for migraine headaches for the patient. This is a typical headache for her. Vital signs Of limits. No neurological findings. We will provide her with a migraine cocktail and reevaluated. She was in agreement with this plan. This includes IV fluids, Toradol, Compazine, Benadryl. On reevaluation, patient states her headache has resolved. She like to go home. Strict return precautions discussed. She'll be discharged home at this time. I instructed the patient to follow up with their PCP in the next 1-3 days. I explained that the patient should return to the emergency department if they experience any worsening symptoms. Strict return precautions were discussed with the patient. The patient expressed understanding of these instructions. I answered all questions that the patient had. The patient was discharged home in good condition with their prescriptions and follow up information. Undiagnosed new problem with uncertain prognosis? @ -No Drug Therapy requiring intensive monitoring for toxicity (Heparin, Nitro, Insulin, Cardizem)? @ -No Were any procedures done? @ -No Diagnosis/symptom? @ -Migraine headache Acute, or Chronic, or Acute on Chronic? @ -Acute Uncomplicated (without systemic symptoms) or Complicated (systemic symptoms)? @ -Complicated Side effects of treatment? @ -No Exacerbation, Progression, or Severe Exacerbation? @ -No Poses a threat to life or bodily function? How? (Chest pain, [place], [place], pneumonia, PE, COPD, DKA, ARF, appy, cholecystitis, CVA, Diverticulitis, Homicidal, Suicidal, threat to staff... and all critical care pts) @ -No Disposition Clinical Impression: Migraine Disposition: HOME SELF-CARE Condition: Good Instructions (If sedation given, give patient instructions): Acute Headache (ED) Is patient prescribed a controlled substance at d/c from ED?: No Referrals: Domingo Valdovinos MD [Primary Care Provider] - 1-2 days Time of Disposition: 21:32
[2023-02-09 22:05] VITALS: BP 117/79; PULSE 77; TEMP 97.9
== END 2023-02-09 22:24 | disposition home or self-care (01) ==
LOC: EC 18:40
DX: G43.909 Migraine, unspecified, not intractable, without status migrainosus (principal); E11.9 Type 2 diabetes mellitus without complications; J44.9 Chronic obstructive pulmonary disease, unspecified; E78.5 Hyperlipidemia, unspecified; G40.909 Epilepsy, unspecified, not intractable, without status epilepticus; M19.90 Unspecified osteoarthritis, unspecified site; M79.7 Fibromyalgia; F17.200 Nicotine dependence, unspecified, uncomplicated; F41.9 Anxiety disorder, unspecified; F32.A Depression, unspecified; Z79.84 Long term (current) use of oral hypoglycemic drugs; Z79.82 Long term (current) use of aspirin; Z79.51 Long term (current) use of inhaled steroids; Z79.899 Other long term (current) drug therapy; Z88.1 Allergy status to other antibiotic agents; Z88.2 Allergy status to sulfonamides
CPT/HCPCS: 99283; 96374; 96375 ×2; 96361; J1200; J0780; J1885

== ENCOUNTER → 2023-03-17 | Outpatient (CLI) | payer MEDICARE, OTHER ==
[2023-03-17 15:57] LABS: Basophils # (A) 0.04 X 10*3/uL (0.00-0.10); Basophils % (A) 0.6 %; Eosinophils # (A) 0.13 X 10*3/uL (0.04-0.35); HCT 39.1 % (37.2-46.3); Lymphocytes # (A) 2.23 X 10*3/uL (0.90-5.00); Lymphocytes % (A) 34.2 %; MCH 30.6 pg (27.0-32.0); MCHC 33.2 d/dL (32.0-37.0); Mean Platelet Volume 10.5 FL (9.5-12.2); Monocytes % (A) 6.1 %; NRBC Per 100 WBC 0 X 10*3/uL (0.00-0.01); Neutrophils # (A) 3.69 X 10*3/uL (1.80-7.70); Neutrophils % (A) 56.6 %; Platelet Count 237 X 10*3/uL (140-440); RBC 4.25 X 10*6/uL (4.10-5.20); RDW 14.6 % (11.5-14.5); WBC 6.52 X 10*3/uL (4.50-10.00)
[2023-03-17 16:11] LABS: ALT 35 U/L (8-44); AST 31 U/L (13-35); Alkaline Phosphatase 68 U/L (41-126); BUN/Creat Ratio 8.88 Ratio (12.00-20.00); Blood Urea Nitrogen 7.1 mg/dL (9.0-27.0); Calcium 9.2 mg/dL (8.7-10.3); Carbon Dioxide 27.3 mmol/L (21.6-31.8); Chloride 98 mmol/L (96-109); Globulin 2.5 d/dL (1.6-3.3); Glucose 89 mg/dL (70-110); Sodium 140 mmol/L (135-145); Total Bilirubin 0.3 mg/dL (0.3-1.2); Total Protein 6.5 d/dL (6.2-8.2)
[2023-03-18 11:36] LABS: Protein S Antigen 72 % (50 - 140)
[2023-03-18 14:04] LABS: APTT 44 Sec(s) (<43); APTT 1:1 Mix 39 Sec(s) (<43); Dilute Russell Viper Venom 33 Sec(s) (<44)
== END | disposition home or self-care (01) ==
LOC: LABWHC1 09:05
PROVIDERS: ATTEND Family Medicine
DX: I10 Essential (primary) hypertension (principal); E11.9 Type 2 diabetes mellitus without complications; Z79.899 Other long term (current) drug therapy
CPT/HCPCS: 36415; 80053; 83036; 84443; 85025; 85303; 85305; 85613; 85730

== ENCOUNTER → 2023-06-09 | Outpatient (CLI) | payer MEDICARE, OTHER ==
[2023-06-09 08:51] VITALS: BP 116/82; PULSE 80; RESP 17; TEMP 98.4
--- NOTE | 2023-06-09 09:25 | P.HPOB ---
History of Present Illness H&P Date: 06/09/23 Chief Complaint: The patient is here for her routine gynecologic exam. This is a 47-year-old with an LMP of 2005. The patient is here to establish with this office. It has been about 2 years since her last pelvic exam. The patient is status post KETAN/BSO in 2005 for benign reasons. The patient is without gynecologic complaints. Review of Systems The patient states she has lost about 65 pounds over the past year and was down from about 250 pounds. She denies respiratory, cardiac, or GI problems. Past Medical History Past Medical History: Asthma, Blood Disorder, COPD, Diabetes Mellitus, Fi bromyalgia, Hyperlipidemia, Osteoarthritis (OA), Seizure Disorder, Syncope Additional Past Medical History / Comment(s): Type 2 diabetes. CHRONIC BACK PAIN; Restless leg syndrome, migraines, Factor 5 clotting problem, varicose veins. Past HEALTH PROMOTION EDUCATOR history: pubic lice(crabs), but denies any other STDs. History of Any Multi-Drug Resistant Organisms: None Reported Past Surgical History: Back Surgery, Section, Hysterectomy, Joint Replacement, Orthopedic Surgery, Tubal Ligation Additional Past Surgical History / Comment(s): stimulator for back, VNS implant for seizures, KETAN BSO in 2005 due to endometreosis. Right knee replacement surgery. Multiple back surgeries. Past Anesthesia/Blood Transfusion Reactions: No Reported Reaction Past Psychological History: Anxiety, Depression (She states the depression and anxiety are under good control with medications.), Panic Disorder, PTSD Smoking Status: Current every day smoker (6-10 cigarettes per day.) Past Alcohol Use History: None Reported Additional Past Alcohol Use History / Comment(s): Smokes 1/2 ppd, has been smoking on and off since the age of 20. Past Drug Use History: None Reported Additional History: She has been a since 2018 and has not been sexually active in recent years. She is disabled. - Past Family History Mother Family Medical History: COPD, Diabetes Mellitus Additional Family Medical History / Comment(s): Maternal grandfather had lung cancer, brain cancer and throat cancer. Father Family Medical History: Hyperlipidemia Additional Family Medical History / Comment(s): Back problems. Medications and Allergies Home Medications Medication Instructions Recorded Confirmed Type Aspirin EC [Ecotrin Low Dose] 81 mg PO DAILY 04/16/19 06/09/23 History Atorvastatin [Lipitor] 80 mg PO HS 11/17/20 06/09/23 History Budesonide/Formoterol Fumarate 2 puff INHALATION RT-BID 11/17/20 06/09/23 History [Symbicort 160-4.5 Mcg Inhaler] HYDROcodone/APAP 7.5-325MG [[place] 1 tab PO TID PRN 11/17/20 06/09/23 History 7.5-325] Brexpiprazole [Rexulti] 4 mg PO HS 08/09/21 06/09/23 History Lacosamide [Vimpat] 200 mg PO BID 08/09/21 06/09/23 History Umeclidinium [place] [Incruse 1 puff INHALATION RT-DAILY 08/09/21 06/09/23 History Ellipta] Cholecalciferol [Vitamin D3 (25 50 mcg PO DAILY 10/09/21 06/09/23 History Mcg = 1000 Iu)] Furosemide [Lasix] 20 mg PO DAILY 10/28/21 06/09/23 History Ibuprofen [Motrin] 800 mg PO TID PRN 10/28/21 06/09/23 History Metoclopramide [Reglan] 5 mg PO TID 10/28/21 06/09/23 History Potassium Chloride ER [K-Dur 20] 20 meq PO BID 10/28/21 06/09/23 History rOPINIRole HCL [Requip] 1 mg PO BID PRN 10/28/21 06/09/23 History Melatonin 3 mg PO HS PRN tablet 10/30/21 06/09/23 Rx DULoxetine HCL [Cymbalta] 60 mg PO BID 02/09/23 06/09/23 History Divalproex [Depakote] 250 mg PO BID 02/09/23 06/09/23 History busPIRone HCl [Buspar] 5 mg PO DAILY 02/09/23 06/09/23 History metFORMIN HCL 1,000 mg PO BID 02/09/23 06/09/23 History Allergies Allergy/AdvReac Type Severity Reaction Status Date / Time sulfamethoxazole Allergy Rash/Hives, Verified 06/09/23 08:31 [From Bactrim] Swelling in arms and legs topiramate [From Topamax] Allergy Anaphylaxis Verified 06/09/23 08:31 trimethoprim [From Bactrim] Allergy Rash/Hives, Verified 06/09/23 08:31 Swelling in arms and legs Exam Vital Signs Temp Pulse Resp BP Pulse Ox 06/09/23 08:46 98.4 F 80 17 116/82 98 Intake and Output 06/08/23 06/09/23 06/09/23 22:59 06:59 14:59 Other: Weight 87.997 kg Height 5 feet 7 inches, weight 194 pounds, BMI 30.4. This is a well-developed well-nourished white female who is alert and oriented times 3 in no acute distress. HEENT: Within normal limits. NECK: Supple without mass or thyromegaly. CHEST AND LUNGS: Clear to auscultation. HEART: Regular rate and rhythm. BREASTS: Are without mass or discharge. AXILLARY EXAM: Negative for adenopathy. BACK: Negative for CVA tenderness. ABDOMEN: Soft, nontender, without palpable masses. PELVIC EXAM: External genitalia appears normal with minimal atrophy. Vagina appears normal with minimal atrophy. There is no evidence of prolapse. Bimanual examination is negative for mass or tenderness. RECTAL EXAM: Rectovaginal exam is negative for mass or tenderness and is negative for occult blood. EXTREMITIES: Nontender. IMPRESSION: 1. 47-year-old menopausal female status post KETAN/BSO for benign reasons, with normal gynecologic exam. 2. Multiple medical problems. PLAN: 1. Pap smears have been discontinued. 2. Self breast awareness was discussed with the patient. We have also discussed symptoms associated with inflammatory breast cancer. 3. Screening mammogram was done about 1 year ago per the patient and this was done in [place]. I recommended repeating the screening mammogram one year after her last one. The order slip was given the patient for this. 4. Osteoporosis prevention was discussed. I have stressed the importance of adequate calcium, vitamin D and regular exercise. Recommended amounts of calcium and vitamin D were also discussed. 5. Colorectal cancer screening was discussed with the patient and she will further discuss this with her PCP. 6. She was advised to return in one year for her annual well woman exam.
== END ==
LOC: WWCWWP 08:22
PROVIDERS: ATTEND Obstetrics & Gynecology
DX: Z01.419 Encounter for gynecological examination (general) (routine) without abnormal findings (principal); J44.9 Chronic obstructive pulmonary disease, unspecified; E11.9 Type 2 diabetes mellitus without complications; M19.90 Unspecified osteoarthritis, unspecified site; E78.5 Hyperlipidemia, unspecified; F17.210 Nicotine dependence, cigarettes, uncomplicated; Z79.82 Long term (current) use of aspirin; Z79.84 Long term (current) use of oral hypoglycemic drugs; Z90.722 Acquired absence of ovaries, bilateral; Z79.899 Other long term (current) drug therapy; Z78.0 Asymptomatic menopausal state; Z88.8 Allergy status to other drugs, medicaments and biological substances; Z79.51 Long term (current) use of inhaled steroids; Z88.2 Allergy status to sulfonamides

== ENCOUNTER → 2023-08-05 | Outpatient (CLI) | payer MEDICARE, OTHER | END | disposition home or self-care (01) | LOC: LABPAT 15:02 | PROVIDERS: ATTEND Orthopaedic Surgery | DX: Z01.812 Encounter for preprocedural laboratory examination (principal); Z22.322 Carrier or suspected carrier of Methicillin resistant Staphylococcus aureus; M43.16 Spondylolisthesis, lumbar region; M48.061 Spinal stenosis, lumbar region without neurogenic claudication | CPT/HCPCS: 86850; 86900; 86901; 87070 ==

== ENCOUNTER 2023-08-11 06:14 | Inpatient (IN) | payer MEDICARE, OTHER ==
[~2023-08-11 06:14] MED LIST changes: +ACETAMINOPHEN TAB 500 MG TAB PO PRN; +GABAPENTIN 300 MG CAP PO PRN; -HYDROmorphone 0.5 MG/0.5 ML SYRINGE IVP PRN; -ONDANSETRON 4 MG/2 ML VIAL IVP ONE; +ONDANSETRON 4 MG/2 ML VIAL IVP PRN; +TRANEXAMIC 1,000 MG/100ML-NACL 1,000 MG in SALINE 1 100ML.BAG IVPB PRN
--- NOTE | 2023-08-11 06:44 | P.HPOR ---
History of Present Illness H&P Date: 08/05/23 .D:Date: 08/05/23 : 10:55am .T:Title: [facility] History and Physical Date of :[birth year] R14 Allergies: Age: 47 year Height: 5'7" Weight: 260 lbs BP:109/64 BMI: 40.72 kg/m2 Occupation: Disabled VAS: 8 Hand:Right DOI: None / DOS: 10/16/21 / Duration of current treatment regiment:> 1 year CHIEF COMPLAINT: Preoperative evaluation for revision L2-Pelvis decompression and fusion TODAY'S VISIT: Today Ms. Concepcion returns to the office for a preoperative evaluation preceeding her revision L2-Pelvis decompression and fusion. The patient reports experiencing a continued dull, ache-like pain throughout the low back that radiates down into the bilateral lower extremities with a sharp, shooting quality. The patient denies experiencing any significant numbness or tingling throughout the lower extremities. The patient states her low back and leg pain have progressively worsened over the last 1 to 2 months. The patient states that her current symptoms are exacerbated by all activity, which makes it difficult for her to complete any of her activities of daily living. The patient reports experiencing severe sleep disturbances related to her ongoing pain and associated symptoms. The patient has trialed conservative treatment measures in the form of physical therapy, physician directed at home stretches/exercises, activity modification, care clinician, at home heat/ice therapies, and medication management, all with no significant or sustained relief of her symptoms. The patient is currently taking Ogden with only minimal relief of her symptoms. Otherwise, the patient denies experiencing any f/c/sob, loss of bowel/bladder control, or perineal numbness and tingling. The patient ambulates independently today. HPI: Ms. Concepcion returned to the office on 05/27/2023 regarding an evaluation of her low back pain. Since her last visit patient states her lumbar pain has increased. The patient continues to report experiencing an ache-like, burning pain throughout the low back that radiates down into the bilateral lower extremities. The patient denies experiencing any numbness or tingling throughout the legs at this time. She also continues to note an intermittent popping sensation throughout the low back. The patient states her symptoms are exacerbated by prolonged activity, which makes it difficult for her to complete many of her daily tasks. The patient reports experiencing severe sleep disturbances due to her ongoing pain and associated symptoms. The patient has previously undergone surgical intervention in the form of an L2-4 laminectomy and decompression on 10/16/2021. She notes that her low back pain improved immediately following the procedure, but has gradually returned over the last 3 to 4 months. Patient is currently following the home exercise program with no relief of her symptoms. The patient has trialed conservative treatment measures in the form of physical therapy, activity modification, at home ice/heat therapies, and medication management, all with no significant or sustained relief of her symptoms. The patient is currently taking Ogden and Aspirin. Otherwise the patient denies any f/c/sob/cp, no incision concerns, no bladder or bowel retention/incontinence, no perineal numbness/tingling, and ambulates independently. Ms. Concepcion presents to the office on 04/09/23 for evaluation of her low back pain. The patient reports experiencing an ache-like, burning pain throughout the low back that radiates down into the bilateral lower extremities. The patient denies experiencing any numbness or tingling throughout the legs at this time. She notes an intermittent popping sensation throughout the low back. The patient states her symptoms are exacerbated by prolonged activity, which makes it difficult for her to complete many of her daily tasks. The patient reports experiencing moderate to severe sleep disturbances due to her ongoing pain and associated symptoms. The patient has previously undergone surgical intervention in the form of an L2-4 laminectomy and decompression on 10/16/2021. She notes that her low back pain improved immediately following the procedure, but has gradually returned over the last 3 to 4 months. The patient has trialed conservative treatment measures in the form of physical therapy, at home stretches/exercises, activity modification, at home ice/heat therapies, and medication management, all with no significant or sustained relief of her symptoms. The patient is currently taking Gabapentin, Ogden, and Meloxicam with very minimal relief of her symptoms. Otherwise the patient denies any f/c/sob/cp, no incision concerns, no bladder or bowel retention/incontinence, no perineal numbness/tingling, and ambulates independently. The patients' past social, medical, family, surgical history, as well as review of systems, have been reviewed. Please refer to the Neurosurgery History and Physical form that has been scanned in to our electronic medical record system. HISTORY: Imaging: No new xrays taken in office Trauma: No Work Related: No Activity Modification: Yes PT: Yes How many sessions? 12 Did it help? No Home Exercise: Yes, the patient has trialed the physician directed home exercise program without relief of their symptoms. Medications:Yes; List: Ogden Alternative Interventions: Chiropractic:Yes Massage therapy:No R.I.C.E:Yes Brace:No Injections: Yes (Cervical ARPIT only / no Lumbar ESIs) How many? 2-3 Did they help? No RFA:Yes, cervical RFA without relief The patients' past social, medical, family, surgical history, as well as review of systems, have been reviewed. Please refer to the Neurosurgery History and Physical form that has been scanned in to our electronic medical record system. 16 points review of systems completed and as stated in HPI, all other systems reviewed are negative. Social History: Reviewed, see appropriate section of the chart for details. Family History: Reviewed, see appropriate section of the chart for details. Past Medical History: Reviewed, see appropriate section of the chart for details. Current Medications: P1Rx: CYMBALTA 60MG ORAL Tablet, Ref: 11 Rx: KLONOPIN WAFER 0.5MG ORAL , Ref: 0 Rx: REQUIP 0.25MG ORAL Tablet, Ref: 11 Rx: HYDROcodone 10 mg-acetaminophen 325 mg tablet Ref: 0 Rx: aspirin 81 mg tablet,delayed release Ref: 0 Rx: busPIRone 5 mg tablet Ref: 0 Rx: Depakote 250 mg tablet,delayed release Ref: 0 Rx: Dialyvite Vitamin D 125 mcg (5,000 unit) capsule Ref: 0 Rx: Incruse Ellipta 62.5 mcg/actuation powder for inhalation Ref: 0 Rx: LaMICtaL 100 mg tablet Ref: 0 Rx: Lasix 20 mg tablet Ref: 0 Rx: Lipitor 80 mg tablet Ref: 0 Rx: metFORMIN 1,000 mg tablet Ref: 0 Rx: Myrbetriq 50 mg tablet,extended release Ref: 0 Rx: Nurtec ODT 75 mg disintegrating tablet Ref: 0 Rx: potassium chloride ER 20 mEq tablet,extended release(part/cryst) Ref: 0 Rx: pyridoxine (vitamin B6) 500 mg tablet Ref: 0 Rx: Qulipta 60 mg tablet Ref: 0 Rx: Reglan 5 mg tablet Ref: 0 Rx: Rexulti 4 mg tablet Ref: 0 Rx: Symbicort 80 mcg-4.5 mcg/actuation HFA aerosol inhaler Ref: 0 Rx: Vimpat 200 mg tablet Ref: 0 Rx: Zanaflex 4 mg tablet Ref: 0 PHYSICALEXAMINATION: General:Awake, alert, appropriate for age, in no acute distress. HEENT:No unusual neck masses around region of lateral neck triangle, thyroid, supraclavicular groove Extremities:Skin warm and dry without acute lesions, coloration, temperature, skin intact, no tenderness or erythema Integument: Hairy patches:ABSENT Dorsal skin dimples:ABSENT Cafe au lait spots:ABSENT Surgical incisions:NONE Palpation: Please see Pain drawing on Intake sheet for further detail. Midline spinal tenderness:No E6 Cervical Tenderness: No E6 Paralumbar tenderness:No E6 Parathoracic tenderness:No E6 Buttocks tenderness:No E6 Sacroiliac Tenderness:No POSTURAL and MUSCULO-SKELETAL EVALUATION: Coronal Balance:NEUTRAL Recumbent testing:Patient isable to lay flat on back Sagittal Balance:NEUTRAL Shoulder Profile:LEVEL Pelvic Girdle:LEVEL Neck ROM: RESTRICTED with pain Lumbar ROM: RESTRICTED Shoulder ROM:Symmetrical Hip ROM:Symmetrical Knee ROM:Symmetrical Hands:Normal appearance, symmetrical Feet: Normal appearance, Symmetrical VASCULAR STATUS : LEFTRIGHT Wrist Pulses INTACT INTACT Pedal Pulses (Dors. pedis & post.tibialis) INTACT INTACT Color NORMAL NORMAL Edema Absent Absent NEUROLOGIC EXAMINATION: Mental Status:Awake and alert, fully oriented, with normal attention, concentration and memory, and fluent, appropriate speech. Cranial Nerves: I: Olfactory not tested. II: Visual acuity normal, no visual field deficit noted with confrontation. III,IV: Normal pupillary reflexes & intact extraocular movements without nystagmus. V,: Intact symmetrical facial sensation. VII: Intact symmetrical facial motor movement VIII: Hearing intact. IX,X: Intact gag, swallow, & normal voice. XI: Sternocleidomastoid, trapezius function intact. XII: Tongue midline with normal movements. L'hermitte's Sign: Negative / absent Spurling'Sign: Absent bilaterally. Cubital percussion test: Absent bilaterally. Soto-Tinel sign - Carpal region: Absent bilaterally. Straight Leg Raising: Absent bilaterally. Crossed straight leg raise: negative O8 MOTOR EXAM (0-5/5, N/T Muscle appearance: Symmetrical, without signs of atrophy or dystrophy UPPER EXTREMITY RIGHT LEFT Shoulder Abduction 5/5 5/5 Biceps 5/5 5/5 Triceps 5/5 5/5 Wrist Extension 5/5 5/5 Hand Intrinsics 5/5 5/5 Pin Chaser 5/5 5/5 Hand and finger dexterity intact bilaterally?yes Disdiadochokinesis examination negative bilaterally? yes LOWER EXTREMITY RIGHT LEFT Hip Flexion 4/5 4/5 Knee Extension 4/5 4/5 Knee Flexion 4/5 4/5 Dorsiflexion 4/5 4/5 Plantarflexion 4/5 4/5 EHL 4/5 4/5 FHL 4/5 4/5 Toe heel walk / heel-toe walk intact while maintaining satisfactory balance? yes Squatting/straightening w/o assistance to a min of 60 degree knee flexion? yes Single leg stance: intact Trendelenburg sign negative bilaterally REFLEXES(0-4/2, NT)Upper ExtremityLower Extremity Right 2 2 Left 2 2 Pathological Reflexes RIGHT LEFT Soto's Absent Absent Clonus Absent Absent Babinski Absent Absent Sensory system (0-4, N/T) Test type RU MEERA RL LL Joint-Position 2 2 2 2 Vibration 2 2 2 2 Pain & LT sense 2 2 2 2 Dermatomal Deficit: None None None None Gait and Functional Evaluation: Ambulatory aids:Independent Romberg's test: Intact bilaterally Steady Gait RADIOGRAPHIC STUDIES: No new x-rays completed in office today. Please see previous note. IMPRESSION: It was my pleasure to have seen and examined Jane. I reviewed the patient's clinical syndrome, physical findings, and imaging studies during the appointment today. It is my impression that the patient has a diagnosis of. 1. L2-3 lateral listhesis 2.L3-4 lateral listhesis 3. L2-S1 spondylosis with stenosis 4. Low back pain I outlined the natural course history without intervention and various interventional options. PLAN: Based on my findings I suggest the following course of action: -Advised patient to continue with supplements, health maintenance, and home exercise programs. Patient expressed understanding and will continue with these modalities. -I discussed treatment options with the patient, including operative and non- operative options, and they have elected to proceed with the following surgical procedure: Revision L2-Pelvis Decompression and Fusion The indications, risks, benefits, and alternatives to surgery were discussed with the patient at length. Specifically (but not limited to) the risks of infection, stiffness, recurrence of symptoms, need for revision surgery, local numbness, neurovascular injury, and blood clots were discussed. The patient's questions were answered. The decision to proceed was made. Consent will be obtained for the procedure. -Ambulate daily -Take medications as directed -Ice and rest for pain and swelling control. Spine Surgery Risk Review Ms. Concepcion is presenting for evaluation of lumbar pain. It was my pleasure to have seen and examined Ms. Concepcion. In our visit today we have had a chance to go over subjective complaints, physical examination findings and treatments including the natural course history without intervention and various interventional options. The patients imaging demonstrates: XRay Lumbar AP/lateral 2 views taken at [facility] on 04/09/23 of Lumbar Spine: spondylosis is noted L2 through S1 with lateral listhesis L2 on L3 and L3-L4 this worsens previous films. There is postsurgical changes noted from her microdiscectomy and decompression. She is doing very w ell otherwise with this there is no evidence of any overt instability no fractures. On physical exam, Ms. Concepcion demonstrates: Since her last visit patient states her lumbar pain has increased. The patient continues to report experiencing an ache-like, burning pain throughout the low back that radiates down into the bilateral lower extremities. The patient denies experiencing any numbness or tingling throughout the legs at this time. She also continues to note an intermittent popping sensation throughout the low back. The patient states her symptoms are exacerbated by prolonged activity, which makes it difficult for her to complete many of her daily tasks. The patient reports experiencing severe sleep disturbances due to her ongoing pain and associated symptoms. The patient has previously undergone surgical intervention in the form of an L2-4 laminectomy and decompression on 10/16/2021. She notes that her low back pain improved immediately following the procedure, but has gradually returned over the last 3 to 4 months. Patient is currently following the home exercise program with no relief of her symptoms. I have explained to the patient that as their condition progresses it will cause further neurological deficits and eventual paralysis. Based on the patients imaging, physical exam, and the rapid progression and disabling nature of their symptoms, at this time I recommend surgery in the form of a: lumbar revision L2- Pelvis Decompression and Fusion. I discussed the risk and benefits of this procedure at length with Ms. Concepcion. The patient agreed to considered pursuing the procedure abovementioned. Prior to surgery, she should follow up with her PCP (Cardio, ID, IM etc) for clearance. Questions were invited and answered, and the patient wishes to proceed as outlined below. Currently, I am recommendin.Revision L2-Pelvis decompression and fusion 2.Follow up with PCP for surgical clearance 3.Review of surgical risks and benefits as well as an educational packet on the proposed surgical procedure. Risks: All surgical procedures come with inherent risks, including those related to positioning, anesthesia, intraoperative findings, and postoperative complications. It is important to understand that surgery does not come with any guarantee of a successful outcome as complications and adverse events are always possible. The patient was given a handout in office today discussing the surgical procedure and risks associated with the intervention, both of which were discussed with the patient. These risks include but are not limited to the following: * Experiencing same, different or even worse symptoms in back, neck, arms, or legs compared to before surgery. Requiring further surgery or other forms of treatment presently or at some time in the future at same or other levels of the intended spine surgery. On an extreme but fortunately relatively rare basis severe complication such as blindness, stroke, heart attack, temporary and/or permanent nerve injury, paralysis, coma, or may occur, sometimes without known explanation. Surgical complications may include but are not limited to risk of infection, fluid accumulation in the surgical dissection site, including a seroma or hematoma, that requires additional surgery, wound drainage, bleeding, new numbness or weakness, vision changes/loss, spinal fluid leakage, non-healing and/or infected incision, headaches, difficulty or inability to swallow, hoarseness, hemopneumothorax, pneumothorax, impotence, retrograde ejaculation, vaginal dryness; injury to nerves, spinal cord, blood vessels, lymphatics or other vital organs (i.e., bowel injury, injury to the great vessels); heterotopic bone formation; complications related to the hardware such as screws, rods, cages including misplaced hardware, device failure, instrumentation at the wrong spine level, hardware fracture/breakage, or hardware loosening; vertebral failure of the spinal column above or below the newly placed hardware; retained surgical instrumentations or devices and the need for further surgery. * Medical risks of the planned spine surgery include but are not limited to generalized Infections to the whole body or local areas outside of the surgical site (sepsis), heart attack, bleeding, anaphylaxis, meningitis, seizure, epilepsy, hearing loss, burn alvarado, laceration of the head or other areas of the body, bruising, hypersensitivity of the skin, bladder over distension; allergic reaction; shoulder injury related to positioning; fat, blood and air clots to other areas of the body like heart, lungs, brain; failure of internal organs such as lungs, kidneys, liver and excessive bleeding. If blood transfusions are necessary, note that transfusions may cause intolerance reactions such as anaphylaxis or other complex reactions. Despite best efforts, the results of spine surgery might not heal in terms of bone, soft tissues such as skin, fascia, ligaments, and joints. Additionally, in order to achieve best possible results, spine surgery may be carried out beyond the initially planned levels and involve decompression, fusion including insertion of hardware at levels other than the original intended area of surgical interest change some portions of the procedure in order to ensure the best possible outcomes. With spine surgery and spinal fusion, there are different off label uses of instrumentation (devices, implants and hardware) as well as biological substances (bone morphogenic proteins, demineralized bone matrix) as well as using extra bone from allograft sources (i.e. cadaver bone) or autograft (iliac crest bone, ribs, or the spine itself). The patient has been given information about these practices and their inherent risks and benefits. [facility] is an educational center that serves as a training facility for neurosurgical and orthopedic REPAIRER CONTROLLER TESTER and Nursing students. Physician assistants are medically trained surgical providers who function in the outpatient, inpatient, and operating room setting under the direct supervision of the attending surgeon. [facility] has multiple operating rooms with single and overlapping rooms running daily. They currently function under the required guidelines as produced by the [facility] with regards to the overlapping rooms and will continue to comply with changes to this policy as they occur. The requirements include and are complied with as follows: (1) the critical portions of the overlapping rooms will not occur at the same time, (2) the attending physician will be physically present during the critical portions of the procedure and immediately available during the entire case, and (3) a back-up attending is designated should the primary attending not be immediately available. The patient has had a chance to review all the listed information, has been given print outs detailing this information, and has had all his/her questions answered to their satisfaction. It was my pleasure to have seen and examined Ms. Concepcion. In our visit today we have had a chance to go over my understanding of our patient's current condition, the natural course history without intervention and various interventional options. Questions were invited and answered, and the patient wishes to proceed as outlined above. I have seen and examined the patient for 25 minutes and we have spent more than 50% of the time in repeat and detailed counseling about the patient's condition, its natural course history with out and as much as can be predicted with surgery and re-review of various surgical treatment options. In conclusion, Ms. Concepcion requested we proceed with the above suggested surgery and are willing to accept risks and limitations of the suggested surgery as na ture of the disease process and our best attempts at treatment for the condition. Thank you again for allowing us to be part of your patient's care. Please don't hesitate to contact me if you have any further questions. Follow- up: Post procedure Patient Education: (Informational booklet, instructions, etc) given at today's appointment: Yes .ED:Patient Education: Y Medications Reviewed: YES In our visit today Ms. Concepcion and I have had a chance to go over my understanding of the patient's current condition, the natural course history without intervention and various interventional options. Questions were invited and answered, and the patient wishes to proceed as outlined above. I will be sure to keep you updated afterMs. Concepcion returns here for further follow-up. Thank you again for your referral. Please do not hesitate to contact me if you have any further questions. Signed and authenticated by: Bo Curtis [facility] [address] [place] [id number] This message is confidential, intended only for the named recipient(s) and may contain information that is privileged or exempt from disclosure under applicable law. If you are not the intended recipient(s), you are notified that the dissemination, distribution or copying of this information is strictly prohibited. If you received this message in error, please notify the sender then delete this message. Patient verbalizes understanding of the information discussed. The above note was initiated by Demetrice Amaro, physician recording biology laboratory assistant for Dr. Bo Jones. This note has been reviewed by Dr. Jones, who has made his personal changes and impressions for this document. CC: Domingo Valdovinos M.D. # SIGNED BY Bo Jones (GOO)08/10/2023 01:55PM Past Medical History Past Medical History: Asthma, Blood Disorder, COPD, Diabetes Mellitus, Fibromyalgia, Hyperlipidemia, Osteoarthritis (OA), Seizure Disorder, Syncope Additional Past Medical History / Comment(s): Type 2 diabetes. CHRONIC BACK PAIN; Restless leg syndrome, migraines, Factor 5 clotting problem, varicose veins. Past SOCIAL GROUP WORKER history: pubic lice(crabs), but denies any other STDs,last seizure 2022 - usually last 3 minutes pt. thinks they are petit mal History of Any Multi-Drug Resistant Organisms: None Reported Past Surgical History: Back Surgery, Section, Hysterectomy, Joint Replacement, Orthopedic Surgery, Tubal Ligation Additional Past Surgical History / Comment(s): stimulator for back, VNS implant for seizures, KETAN BSO in 2005 due to endometreosis. Right knee replacement surgery. Multiple back surgeries. Past Anesthesia/Blood Transfusion Reactions: No Reported Reaction Smoking Status: Current every day smoker - Past Family History Mother Family Medical History: COPD, Diabetes Mellitus Additional Family Medical History / Comment(s): Maternal grandfather had lung cancer, brain cancer and throat cancer. Father Family Medical History: Hyperlipidemia Additional Family Medical History / Comment(s): Back problems. Medications and Allergies Home Medications Medication Instructions Recorded Confirmed Type Aspirin EC [Ecotrin Low Dose] 81 mg PO DAILY 04/16/19 08/05/23 History Atorvastatin [Lipitor] 80 mg PO HS 11/17/20 08/05/23 History Budesonide/Formoterol Fumarate 2 puff INHALATION RT-BID 11/17/20 08/11/23 History [Symbicort 160-4.5 Mcg Inhaler] HYDROcodone/APAP 7.5-325MG [Ogden 1 tab PO TID PRN 11/17/20 08/05/23 History 7.5-325] Brexpiprazole [Rexulti] 4 mg PO HS 08/09/21 08/05/23 History Lacosamide [Vimpat] 200 mg PO BID 08/09/21 08/05/23 History Umeclidinium [place] [Incruse 1 puff INHALATION RT-DAILY 08/09/21 08/05/23 History Ellipta] Cholecalciferol [Vitamin D3 (25 50 mcg PO DAILY 10/09/21 08/11/23 History Mcg = 1000 Iu)] Furosemide [Lasix] 20 mg PO DAILY 10/28/21 08/05/23 History Metoclopramide [Reglan] 5 mg PO TID 10/28/21 08/05/23 History Potassium Chloride ER [K-Dur 20] 20 meq PO DAILY 10/28/21 08/05/23 History rOPINIRole HCL [Requip] 1 mg PO BID 10/28/21 08/05/23 History DULoxetine HCL [Cymbalta] 60 mg PO BID 02/09/23 08/05/23 History Divalproex [Depakote] 250 mg PO BID 02/09/23 08/05/23 History busPIRone HCl [Buspar] 5 mg PO DAILY 02/09/23 08/05/23 History metFORMIN HCL 1,000 mg PO BID 02/09/23 08/05/23 History Atogepant [Qulipta] 60 mg PO DAILY 08/05/23 08/05/23 History Mirabegron [Myrbetriq] 50 mg PO DAILY 08/05/23 08/05/23 History Rimegepant Sulfate [Nurtec Odt] 75 mg PO DAILY PRN 08/05/23 08/05/23 History Thiamine [Vitamin B-1] 100 mg PO DAILY 08/05/23 08/11/23 History lamoTRIgine [LaMICtal] 100 mg PO BID 08/05/23 08/05/23 History tiZANidine [Zanaflex] 4 mg PO BID 08/05/23 08/05/23 History Allergies Allergy/AdvReac Type Severity Reaction Status Date / Time sulfamethoxazole Allergy Rash/Hives, Verified 08/11/23 06:37 [From Bactrim] Swelling in arms and legs topiramate [From Topamax] Allergy Anaphylaxis Verified 08/11/23 06:37 trimethoprim [From Bactrim] Allergy Rash/Hives, Verified 08/11/23 06:37 Swelling in arms and legs Physical Examination Osteopathic Statement: *. No significant issues noted on an osteopathic structural exam other than those noted in the History and Physical/Consult.
[2023-08-11 06:54] LABS: Glucose,Whole Blood 93 mg/dL (70-110)
[2023-08-11] MEDS: LACTATED RINGERS 1,000 ML IV SCH (07:00)
[2023-08-11] MEDS ORDERED: HYDROmorphone 0.5 MG/0.5 ML SYRINGE IVP PRN ×2 (07:00→13:00)
[2023-08-11] MEDS ORDERED: MIDAZOLAM 2 MG/2 ML VIAL IVP ONE (07:15)
[2023-08-11] MEDS ORDERED: fentaNYL (PF) 50 MCG/ML 2 ML AMP IVP ONE (07:17)
--- NOTE | 2023-08-11 08:08 | XR ---
EXAMINATION TYPE: XR chest 1V confirm line [facility] DATE OF EXAM: 08/11/2023 COMPARISON: 10/29/2021 HISTORY: 47-year-old female central line placement TECHNIQUE: Single frontal view of the chest is obtained. FINDINGS: Generator device projecting at the left chest with a simulator leads to the left base of t he neck. Right IJ CVC tip at the cavoatrial junction. Spinal stimulator ray along the mid to lower th oracic spinal canal. Heart normal size. Aorta and coronary vasculature within normal limits. No conso lidation or pleural effusion. IMPRESSION: New right IJ CVC tip at the cavoatrial junction. No acute cardiopulmonary process.
[2023-08-11] MEDS ORDERED: ROCURONIUM 10 MG/ML (5 ML VIAL) IV ONE (08:09)
[2023-08-11] MEDS ORDERED: LIDOCAINE 1% INJ 10MG/ML (20 ML MDV) ONE (08:09)
[2023-08-11] MEDS ORDERED: PROPOFOL 10 MG/ML 20 ML VIAL IV ONE (08:09)
[2023-08-11] MEDS ORDERED: TRANEXAMIC 1,000 MG/100ML-NACL PREMIX BAG ONE (08:09)
[2023-08-11] MEDS ORDERED: fentaNYL (PF) 50 MCG/ML 2 ML AMP ONE (08:09)
[2023-08-11] MEDS ORDERED: NEOSTIGMINE 1 MG/ML 10 ML VIAL ONE (08:09)
[2023-08-11] MEDS ORDERED: MIDAZOLAM 2 MG/2 ML VIAL ONE (08:09)
[2023-08-11] MEDS ORDERED: GLYCOPYRROLATE 0.2 MG/ML 2 ML VIAL ONE (08:09)
[2023-08-11] MEDS ORDERED: HYDROmorphone (PF) 1 MG/ML ONE (08:09)
[2023-08-11] MEDS ORDERED: SUCCINYLCHOLINE CHLORIDE 200 MG/10 ML VIAL IV ONE (08:09)
[2023-08-11] MEDS ORDERED: VANCOMYCIN 1,000 MG VIAL MISCELLANE ONE (08:53)
[2023-08-11] MEDS ORDERED: GELATIN SPONGE,ABSORBABLE 1 GM POWDER TOPICAL ONE (08:53)
[2023-08-11] MEDS ORDERED: THROMBIN (BOVINE) 5,000 UNIT VIAL TOPICAL ONE (09:26)
[2023-08-11] MEDS ORDERED: LACTATED RINGERS 1,000 ML IV ONE (10:19)
[2023-08-11] MEDS ORDERED: GENTAMICIN 80 MG in SODIUM CHLORIDE 0.9% IRRIGATIO 3,000 ML IRRIGATION ONE (10:19)
[2023-08-11] MEDS ORDERED: ceFAZolin 3,000 MG in SODIUM CHLORIDE 0.9% IRRIGATIO 3,000 ML IRRIGATION ONE (10:19)
--- NOTE | 2023-08-11 11:31 | P.ANPRN ---
Procedure Note - Anesthesia - Invasive Line Right Central Line Time Out Performed: Yes (0715) Date of Procedure: 08/11/23 Time of Procedure: 07:16 Location of Patient: PreOp Preparation: Sterile Prep, Sterile Dressing Central Line Location: Internal Jugular (right IJ BRITTNEY) Ultrasound Used: Yes Purpose - Visualization and Identification of Vasculature: Yes Needle Guage: 18g angio Image Stored and Saved: Yes Narrative: Central line placement per sterile protocol utilized. +local +angio +cvp +jwire +uneventful dilation and introduction right IJ Double Lumen Catheter
[2023-08-11] MEDS ORDERED: MAG HYDROX/AL HYDROX/SIMETH 30 ML CUP PO PRN (13:00)
[2023-08-11] MEDS ORDERED: ONDANSETRON 4 MG/2 ML VIAL IVP PRN (13:00)
[2023-08-11] MEDS ORDERED: bisacodyL 10 MG SUPP RECTAL PRN (13:00)
[2023-08-11] MEDS ORDERED: CYCLOBENZAPRINE 5 MG TAB PO PRN (13:00)
--- NOTE | 2023-08-11 13:16 | FL ---
Intraoperative/procedural fluoroscopic services were provided. Total fluoroscopy time is 1 minute 54 seconds with a total of 25 submitted images to PACS. Please see the operative/procedural note for fu rther details. DAP: 20.329 Gycm2
[2023-08-11 13:22] LABS: Glucose,Whole Blood 158 mg/dL (70-110)
[2023-08-11] MEDS: HYDROmorphone 1 MG/ML 1 ML SYRINGE IVP PRN ×3 (16:47→23:19)
--- NOTE | 2023-08-11 16:47 | P.OP ---
Date of Procedure: 08/11/23 Preoperative Diagnosis: 1. L2-S1 SPONDYLOSIS, SEVERE WITH DEFORMITY 2. L5-S1 PSEUODARTHROSIS 3. ASD L3-4, L2-3 4. LOW BACK PAIN 5. LE WEAKNESS WITH RADICULOPATHY 6. COMPLEX MEDICAL PATIENT Postoperative Diagnosis: 1. L2-S1 SPONDYLOSIS, SEVERE WITH DEFORMITY 2. L5-S1 PSEUODARTHROSIS 3. ASD L3-4, L2-3 4. LOW BACK PAIN 5. LE WEAKNESS WITH RADICULOPATHY 6. COMPLEX MEDICAL PATIENT Procedure(s) Performed: 1. L4-5 AND L2-3 INTRADISCAL OSTEOTOMY, 3 COLUMN, FOR DEFORMITY CORRECTION (23943, 75928) 2. L2-3, L3-4, L4-5, POSTERIOLATERAL AND INTERBODY FUSION (15810, 78165I3) 3. L5-S1 REVISION POSTERIOLATERAL FUSION (86758) 4. L2-4 LAMINOFORAMINOTOMY (83181, 53682N8) 5. INSTRUMENTATION L2-PELVIS (29249) 6. ATTACHMENT TO THE PELVIS (88999) 7. EXPLORATION OF FUSION L5-S1 8. REMOVAL OF SEGMENTAL HARDWARE L5-S1 9. INSERTION OF BIOMECHANICAL DEVICE L2-3, L3-4, L4-5 ([id number]) 10. USE OF AppMyDay NAVIGATION FOR SCREW PLACEMENT (73346) USE OF IONM ALL SCREWS TESTING >9 mA Implants: -RALF EVERST SCREW AND LIVIER -GLOBUS SABLE CAGE X3 -MAGNATOS, IFACTOR, ALLOCELL, ARTHROCELL, AUTOGRAFT Anesthesia: GETA Surgeon: Bo Jones Box Feeder #1: Annika Jimenez (WAS PRESENT AND ASSISTED [facility] ALL ASPECST OF THE CASE FROM POSITION TO CLOSRE) Estimated Blood Loss (ml): 350 IV fluids (ml): 2,000 Urine output (ml): 400 Pathology: none sent Condition: stable Disposition: PACU Indications for Procedure: Ms. Concepcion is presenting for evaluation of lumbar pain. It was my pleasure to have seen and examined Ms. Concepcion. In our visit today we have had a chance to go over subjective complaints, physical examination findings and treatments including the natural course history without intervention and various interventional options. The patients imaging demonstrates: XRay Lumbar AP/lateral 2 views taken at [facility] on 04/09/23 of Lumbar Spine: spondylosis is noted L2 through S1 with lateral listhesis L2 on L3 and L3-L4 this worsens previous films. There is postsurgical changes noted from her microdiscectomy and decompression. She is doing very well otherwise with this there is no evidence of any overt instability no fractures. On physical exam, Ms. Concepcion demonstrates: Since her last visit patient states her lumbar pain has increased. The patient continues to report experiencing an ache-like, burning pain throughout the low back that radiates down into the bilateral lower extremities. The patient denies experiencing any numbness or tingling throughout the legs at this time. She also continues to note an intermittent popping sensation throughout the low back. The patient states her symptoms are exacerbated by prolonged activity, which makes it difficult for her to complete many of her daily tasks. The patient reports experiencing severe sleep disturbances due to her ongoing pain and associated symptoms. The patient has previously undergone surgical intervention in the form of an L2-4 laminectomy and decompression on 10/16/2021. She notes that her low back pain improved immediately following the procedure, but has gradually returned over the last 3 to 4 months. Patient is currently following the home exercise program with no relief of her symptoms. I have explained to the patient that as their condition progresses it will cause further neurological deficits and eventual paralysis. Based on the patients imaging, physical exam, and the rapid progression and disabling nature of their symptoms, at this time I recommend surgery in the form of a: lumbar revision L2- Pelvis Decompression and Fusion. I discussed the risk and benefits of this procedure at length with Ms. Concepcion. The patient agreed to considered pursuing the procedure abovementioned. Prior to surgery, she should follow up with her PCP (Cardio, ID, IM etc) for clearance. Questions were invited and answered, and the patient wishes to proceed as outlined below. Currently, I am recommendin.Revision L2-Pelvis decompression and fusion Description of Procedure: L2-PELVIS DECOMPRESSION AND FUSION The patient was seen and examined in the preoperative area. All preoperative pr otocols were followed. Informed consent was obtained, risks and benefits of the procedure were discussed at length. Risks including bleeding infection damage to the surrounding tissue and risk of reoperation were discussed with the patient. Risk of anesthesia up to and including was discussed with the patient. These are outlined in the risk review. They were willing to accept these risks and all the risks of surgery. The patient was given a weight-based dose of antibiotics in the form of 3 g Ancef. The patient was seen and evaluated by the anesthesia team who deemed them fit for surgery. The site was marked, the patient was willing to proceed with the procedure. The patient was transferred to the operative suite by the Department of anesthesia. They were then drifted off to sleep by the department anesthesia and GETA was performed. The patient tolerated this well. Boswell catheter was placed by nursing staff, a-traumatically. Once confirmation of lines and ventilation the patient was transferred to a prone Trios spine table very carefully. The head was secured and stable. X Ray confirmed alignment. All bony prominences including wrists, elbows, axilla, chest, hips, and thighs, and feet were padded very well. Special attention was paid to the genitalia, and these were padded accordingly. SCDs were placed on bilateral lower extremities and were connected. Arms were well padded and placed at 90/90 up and out and well padded. Safety strap and tape placed on the patient. Once in position, again we confirmed good ventilation capabilities and that lines were running appropriately. The patients lumbosacral pelvic was then exposed. Hair was removed for incision. 1010s were placed outlining the incision site. Standard alcohol was used to clean the incision site and allowed to dry. C-arm was used to bio-kristin the patient and confirm level for incision which was marked with a skin marker. Operative briefing was performed with all teams and everyone in a greement to proceed. The patient was then prepped and draped in a normal sterile fashion. Timeout was then performed, and all parties agreed with the procedure to be performed. Midline skin incision was then made over the previously bookmarked area and dissection taken down to the lumbosacral fascia which was identified and cleaned with a tyler. There was excessive sub-q adipose that was obtrusive and needed to be retracted. Once midline was identified, fasciotomy was made over the SP of L1-S1 and pelvis. Subperiosteal dissection was then taken down over the lamina and facet joints and TPs were exposed and trough made posterolateral. TPs were then decorticated with a high speed mickey for lateral fusion. Dissection was taken out over the sacrum to the pelvis. SI joint identified and modified Varner starting point for pelvic screws identified as well. Retractors placed. Wound was irrigated and lateral image with penfield 4 placed at the pars of L4 confirmed levels for operation. Old hardware was identified at L5-S1 and fusion was investigated. There was still motion at this level and minimal bone formation. The rods and screws were removed easily and the area debrided of any scar tissue. Screws and rods were removed and area probed the screw tracts were appropriate. Again minimal bone formation. PL gutter and TP were burred again for bleeding bony bed for new PL fusion. SP clamp was then placed for the Go[employer]ared navigation tracker and secured. The wound was then filled with NSS and Z-drape. A 3D Ziehm spin was then obtained and registered. Once confirmation of accuracy screws were then placed from L2- Pelvis using navigation. Navigated high speed mickey was used to make a pilot can router hole followed by a navigated awl-tap passed through the pedicle into the body. A ball tip probe then confirmed within the pedicle. Screw was then measured and placed using a navigated screwdriver. After screws were placed from L2-S1, AP image confirmed safe placement of screws. Lateral images as well as navigation were then used to place bilateral pelvic screws. Starting point selected just lateral to the SI joint and S2 pseudo facet. Lateral image taken and mickey used to make the pilot can router hole. Gearshift then used to pass into the pelvis under lateral imaging just above the sciatic notch. 30 deg/30deg iliac oblique then taken to confirm within the teardrop and ball tip probe used to probe good bone. Screw was then measured and selected and placed under lateral imaging. This was repeated on the contralateral side. Screws were then visualized and appeared safe. A second Zheim spin was obtained and registered for pelvic screw placement which was done in a similar fashion to previously described in an S2Ai approach without issues. Images were then taken and confirmed goo placement of all screws. . Screws were then tested, and reliably tested screws tested above 20 mA. except for S1 on the left which was 10. We then proceeded to decompression and interbody placement. Starting at L4-5, bilateral laminectomy, complete facetectomy and foraminotomies were performed using high speed bur, Kerrison rongeur. There was exhuberent scar tissue to to previous surgeries. We removed osteophytes and scar tissue surrounding these joints as well as the dura. Once exposed the neural elements were protected and an intradiscal osteotomy, 3 column, was performed for deformity correction at L4-5. Osteotome was used to make osteotomy in L5 and S1 and for complete disc removal. A box osteotome was then used to widen this bilaterally. This was passed into the anterior 1/3 of L5. This allowed for loosening of this level and correction. A cage was then selected based on shaving and trials. Bleeding endplates were encountered and cartilage removed. Autograft, allograft were then placed anterior to the cage. The cage was then impacted into place under lateral imaging while protecting neural elements. The cage was then expanded into position and showed good lift and correction. Temple of lordosis and height achieved. Meticulous hemostasis then performed. Cage was backfilled with DBM and the area irrigated. We then proceeded to L4-5. At L3-4 again bilateral laminectomy, complete facetectomy and foraminotomy were performed. The neural elements were less scared at this level; however, it was very unstable. The elements were then protected, and disc space accessed. Sequential shaving performed until desired height and lordosis. Cage selected, and graft placed anterior to the cage within the disc space. Cage was then placed under lateral image, expanded and had good height, lordosis and deformity correction. The wound was irrigated, and meticulous hemostasis performed once again. At L2-3, bilateral laminectomy, complete facetectomy and foraminotomy was performed as described above. Again, exuberant scar tissue and bone formation was encountered and at this level. There was also a large disc osteophyte complex that was identified once disc space was found. The dura was carefully dissected off this anteriorly and b/l. Once encountered, the disc space was then accessed in a similar fashion and neural elements protected. Intradiscal, 3 column osteotomies, for deformity correction was then performed again at this level as described above. Once completed and complete discectomy performed there was good mobility at this level. Cage was then sized and selected. Autograft and allograft was then placed anterior in the disc space and the cage was then inserted and impacted into place under lateral. AP image, as before, was taken to ensure midline placement. The cage was then expanded into position. During expansion, the cage seemed to fail to expand completely on the RHS. The LHS expanded very well and recreated height and lordosis. The cage was tested and was very stable and since it was in safe position without any other issues it was elected to keep the cage in position. The wound was irrigated. Meticulous hemostasis then performed, and attention turned to livier placement. Attention was then drawn to livier placement. Rods were selected, measured, cut and bent to appropriate lordosis. They were then secured into pelvic screws b/l. Sequential reduction then done into each screw and set screw placed. Set screws were then final tightened and lateral image showed good lordosis reduction with increase around 10 deg from starting. Once rods were secured, cross links were selected and placed and final tightened. The wound was then irrigated with 3L Ancef irrigation, 3L gentamicin irrigation and 3L NSS. Surgicel was then placed on the dura, which was inspected and had no injury. Then, in the posterolateral gutter was placed, MagnatOs, Autograft and allograft. This was impacted into position and surgical placed over it. 2g Vanco powder was then placed deep in the wound. A deep, subfascial drain was placed and a superficial facial drain placed. We then proceeded with layered closure. #1 PDS placed in the deep fascia. 0 Vicryl placed in the deep subq, 2-0 placed in the superficial subq and bossman placed in the skin. The wound edges approximated very well. The wound was then cleaned with ETOH and dressed with optifoam dressing, drain sponges and tegaderms. Drains sewed into position. IONM confirmed no changes. The patient was then transferred off the [facility] spine table to their hospital bed a-traumatically. Drains continued to hold suction. The patient was then extubated and transferred to the ICU in stable condition having tolerated the procedure with no complications.
--- NOTE | 2023-08-11 19:00 | CT ---
EXAMINATION TYPE: CT lumbar spine wo con CT DLP: 1231.6 mGycm, Automated exposure control for dose reduction was used. DATE OF EXAM: 08/11/2023 6:52 PM COMPARISON: 08/30/2021. CLINICAL INDICATION:Female, 47 years old with history of Post-Op revision L2-P; PH[facility], POST OP LUMBAR F USION TECHNIQUE: Multiple axial images were obtained from the midportion of T11 through the sacroiliac reji nts. Soft tissue and bone windows in coronal and sagittal planes were obtained and reviewed. Contrast used: none. Oral contrast used: none. FINDINGS: Postsurgical changes to the lumbar spine with fixation hardware at L2-S1 with bilateral sa croiliac joint fixation screws.. Discectomy at L2-L3, L3-L4, L4-L5 and L5-S1. Hardware limits evaluat ion at these levels. Hardware appears intact. No evidence of fracture. Postsurgical changes in the soft tissues with foci of gas present. Drainage catheter with tubing in t he surgical bed. Posterior back skin bossman are present. There is fluid tracking along the incision site. IMPRESSION: 1. Postsurgical changes without evidence of immediate post operative complication. 2. Fluid tracking along the incision site, attention follow-up imaging for seroma.
[2023-08-11 20:15] LABS: Glucose,Whole Blood 112 mg/dL (70-110)
[2023-08-11 22:04] LABS: HGB 10.7 gm/dL (11.4-16.0); MCH 31.9 pg (25.0-35.0); MCHC 34.5 g/dL (31.0-37.0); MCV 92.6 fL (80.0-100.0); Mean Platelet Volume 8.3; Platelet Count 165 k/uL (150-450); RBC 3.35 m/uL (3.80-5.40); RDW 13.6 % (11.5-15.5); WBC 9.4 k/uL (3.8-10.6)
[2023-08-11 22:18] LABS: African American GFR (CKD) >90 (>60 ml/min/1.73 sqM); Anion Gap 7 mmol/L; Blood Urea Nitrogen 13 mg/dL (7-17); Calcium 8.6 mg/dL (8.4-10.2); Carbon Dioxide 23 mmol/L (22-30); Chloride 103 mmol/L (98-107); Glucose 96 mg/dL (74-99); Non-African American GFR(CKD) >90 (>60 ml/min/1.73 sqM); Potassium 4.6 mmol/L (3.5-5.1); Sodium 133 mmol/L (137-145)
--- NOTE | 2023-08-12 00:56 | CT ---
EXAM: CT Angiography of the Right Upper Extremity With Intravenous Contrast CLINICAL HISTORY: CT Reason: new onset right extremity numbness and tingling TECHNIQUE: Axial computed tomographic angiography images of the right upper extremity with intravenous contrast. CTDI is 42.6 mGy and DLP is 947.1 mGy-cm. This CT exam was performed using one or more of the following dose reduction techniques: automated exposure control, adjustment of the mA and/or kV according to patient size, and/or use of iterative reconstruction technique. MIP reconstructed images were created and reviewed. COMPARISON: No relevant prior studies available. FINDINGS: VASCULATURE: Aorta: Not covered. Right subclavian artery: No acute findings. No occlusion or significant stenosis. Right axillary artery: No acute findings. No occlusion or significant stenosis. Right brachial artery: The subclavian, radial, and brachial arteries are widely patent and unremarkable. No occlusion or significant stenosis. Right radial artery: The right radial artery is patent and visible down to the level of the first metacarpal. No occlusion or significant stenosis. Right ulnar artery: The right ulnar artery is patent and visible down to the level of the palmar arch. No occlusion or significant stenosis. Other arteries: The interosseous artery is small but patent proximally. The palmar arch, common digital common and proper digital arteries are not visible. UPPER EXTREMITY: Bones/joints: No acute fracture. No dislocation. Soft tissues: Unremarkable. No abnormal contrast enhancement. IMPRESSION: The arterial structures are patent and appear normal down to the level of the hand. The palmar arch and digital vessels are not visible which may either be due to missed timing of the contrast bolus versus distal vessel disease or occlusion. Correlate with clinical scenario. Consider conventional angiogram if better visualization of small distal vessels is necessary.
[2023-08-12] MEDS: HYDROmorphone 1 MG/ML 1 ML SYRINGE IVP PRN ×5 (02:16→20:41)
[2023-08-12 05:43] LABS: Basophils % (A) 0 %; Eosinophils # (A) 0.2 k/uL (0-0.7); Eosinophils % (A) 2 %; HCT 30.2 % (34.0-46.0); HGB 10.3 gm/dL (11.4-16.0); Lymphocytes # (A) 1.3 k/uL (1.0-4.8); Lymphocytes % (A) 17 %; MCH 31.5 pg (25.0-35.0); MCHC 33.9 g/dL (31.0-37.0); MCV 92.9 fL (80.0-100.0); Mean Platelet Volume 8.3; Monocytes # (A) 0.5 k/uL (0-1.0); Monocytes % (A) 6 %; Neutrophils # (A) 5.7 k/uL (1.3-7.7); Neutrophils % (A) 74 %; Platelet Count 168 k/uL (150-450); RBC 3.26 m/uL (3.80-5.40); RDW 13.7 % (11.5-15.5); WBC 7.8 k/uL (3.8-10.6)
[2023-08-12 05:58] LABS: Glucose,Whole Blood 112 mg/dL (70-110)
[2023-08-12] MEDS ORDERED: Rimegepant Sulfate [Nurtec Odt] 75 MG Tablet PO PRN (07:32)
[2023-08-12] MEDS: SYMBICORT 160-4.5 MCG INHALER INHALATION SCH ×2 (07:56→20:36)
[2023-08-12] MEDS: CHOLECALCIFEROL 25 MCG (1000 IU) TABLET PO SCH (08:56)
[2023-08-12] MEDS: ASPIRIN 81 MG PO SCH (08:56)
[2023-08-12] MEDS: LACOSAMIDE 50 MG TABLET PO SCH ×2 (08:56→21:33)
[2023-08-12] MEDS: THIAMINE 100 MG TAB PO SCH (08:57)
[2023-08-12] MEDS: SENNOSIDES-DOCUSATE SODIUM 1 EACH TAB PO SCH (08:57)
[2023-08-12] MEDS: lamoTRIgine 100 MG TAB PO SCH ×2 (08:57→21:32)
[2023-08-12] MEDS: DULoxetine HCL 60 MG CAPSULE.DR PO SCH ×2 (08:58→21:32)
[2023-08-12] MEDS: metFORMIN 500 MG TAB PO SCH ×2 (08:58→21:32)
[2023-08-12] MEDS: METOCLOPRAMIDE 5 MG TAB PO SCH ×3 (08:58→21:32)
[2023-08-12] MEDS: POTASSIUM CHLORIDE ER 20 MEQ TAB.ER PO SCH (08:58)
[2023-08-12] MEDS: busPIRone HCl 5 MG TAB PO SCH (08:59)
[2023-08-12] MEDS: FUROSEMIDE 20 MG TAB PO SCH (08:59)
[2023-08-12] MEDS: DIVALPROEX 250 MG TABLET.DR PO SCH ×2 (09:00→21:32)
[2023-08-12] MEDS: tiZANidine 4 MG TAB PO SCH ×2 (09:00→21:32)
[2023-08-12] MEDS: oxyCODONE-APAP 5-325MG 1 EACH TAB PO PRN (09:05)
[2023-08-12] MEDS: Mirabegron [Myrbetriq] 50 MG Tab.Er.24h PO SCH (10:58)
[2023-08-12] MEDS: Atogepant [Qulipta] 60 MG Tablet PO SCH (10:58)
[2023-08-12 11:20] LABS: Glucose,Whole Blood 169 mg/dL (70-110)
[2023-08-12] MEDS: HYDROcodone/APAP 10-325MG 1 EACH TAB PO PRN ×3 (12:25→21:33)
--- NOTE | 2023-08-12 15:51 | P.PN ---
Subjective Progress Note Date: 08/12/23 Principal diagnosis: 1. L2-S1 SPONDYLOSIS, SEVERE WITH DEFORMITY 2. L5-S1 PSEUODARTHROSIS 3. ASD L3-4, L2-3 4. LOW BACK PAIN 5. LE WEAKNESS WITH RADICULOPATHY Patient seen at bedside this afternoon lying in semirecumbent position drain and dressing in place over lumbar spine. Patient says she is in a moderate amount of pain currently. Patient states most the pain is located over the low-back to the incision. Patient says he has been up walking several times since surgery yesterday. Patient says she has to urinate several times. Patient says she has walked with therapy around the room and sat in the chair for a couple hours. Patient says the pain does increase when she changes positions. Patient says the pain does go away a little bit when she is sitting in 1 position for some time. Patient denies chest pain, fever, shortness breath, nausea, vomiting, change in vision, loss of bowel/bladder control. Objective - Vital Signs Vital signs: Vital Signs Temp 98.6 F 08/12/23 13:25 Pulse 105 H 08/12/23 13:25 Resp 14 08/12/23 13:25 BP 126/79 08/12/23 13:25 Pulse Ox 98 08/12/23 13:25 FiO2 Intake & Output 08/11/23 08/12/23 08/12/23 18:59 06:59 18:59 Intake Total 2592 Output Total 450 1035 Balance 2142 -1035 Weight 87 kg Intake: IV 2352 Oral 240 Output: Drainage 385 Back 385 Urine 150 650 Estimated Blood Loss 300 Other: Voiding Method Indwelling Catheter # Voids 1 - Exam Incision appears to be clean, dry, intact. 260 cc serosanguineous output and drain overnight. We'll maintain drain at this time. Sensation appears to be equal, symmetric, bilaterally intact throughout the lower extremities. There is moderate tenderness to the patient diffusely about the lumbar spine near incision. Nontender to palpation throughout rest of exam. Patient does have some limited range of motion in bilateral hips in flexion/extension secondary to referred pain from the low back and weakness. Full range of motion throughout ankles and dorsiflexion/plantar flexion bilaterally. 4/5 in all major motor groups in bilateral lower extremities. Negative Homans bilaterally. Negative Santiago bilaterally. Negative clonus bilaterally. Radial pulses intact, 2+ bilaterally. Cap refill under 3 seconds in digits of the upper extremities. - Labs CBC & Chem 7: 08/12/23 04:52 08/11/23 21:33 Labs: Abnormal Lab Results - Last 24 Hours (Table) 08/11/23 08/11/23 08/11/23 Range/Units 20:14 21:33 21:33 RBC 3.35 L (3.80-5.40) m/uL Hgb 10.7 L (11.4-16.0) gm/dL Hct 31.0 L (34.0-46.0) % Sodium 133 L (137-145) mmol/L POC Glucose (mg/dL) 112 H (70-110) mg/dL 08/12/23 08/12/23 08/12/23 Range/Units 04:52 05:56 11:16 RBC 3.26 L (3.80-5.40) m/uL Hgb 10.3 L (11.4-16.0) gm/dL Hct 30.2 L (34.0-46.0) % Sodium (137-145) mmol/L POC Glucose (mg/dL) 112 H 169 H (70-110) mg/dL Assessment and Plan Assessment: 1. L2-S1 SPONDYLOSIS, SEVERE WITH DEFORMITY 2. L5-S1 PSEUODARTHROSIS 3. ASD L3-4, L2-3 4. LOW BACK PAIN 5. LE WEAKNESS WITH RADICULOPATHY Postoperative day 1 status post L2-L5 PLIF Plan: 1. L2-S1 SPONDYLOSIS, SEVERE WITH DEFORMITY; L5-S1 PSEUODARTHROSIS; ASD L3-4, L2-3; LOW BACK PAIN; LE WEAKNESS WITH RADICULOPATHY - surgery performed yesterday, 08/10/2023 L2-L5 PLIF. 260 mL serosanguineous output overnight. Maintain drain at this time. Hopeful removal tomorrow versus Thursday. Weight-bear as tolerated with walker as needed. We'll continue follow patient is in hospital. Pain medication as needed. Plan for discharge home tomorrow or Thursday 2. Appreciate medical management 3. Pain management - oxycodone; Talmage; Flexeril 4. GI prophylaxis - MiraLAX; senna 5. DVT prophylaxis - mechanical 6. PT/OT - weightbearing as tolerated with walker as needed 7. Encourage incentive spirometer use 8. Discharge planning - plan discharge home tomorrow versus Thursday Time with Patient: Less than 30
[2023-08-12 16:58] LABS: Glucose,Whole Blood 146 mg/dL (70-110)
--- NOTE | 2023-08-12 19:37 | CONS ---
CONSULTATION HISTORY OF PRESENT ILLNESS: She came in status post lumbar cervical surgery as per Dr. Jones. Sleepy, lethargic postop. She had upper extremity CTA, which was patent. Breathing treatments have been started. Home medications have been started. She appears to be stable. REVIEW OF SYSTEMS: A 14-point review of systems otherwise negative. PHYSICAL EXAMINATION: VITAL SIGNS: O2 of 94% to 96%, blood pressure 113 to 130s over 60s to 70s, temp 98.6, pulse 80 to 90, respiratory rate 16 to 18. CARDIOVASCULAR: S1, S2. LUNGS: Transmitted upper airway sounds. GI: Soft. HEMATOLOGY: Negative Homans. PSYCH: Fair mood and affect. NEUROLOGIC: Alert and oriented x3. PLAN: Continue current treatment. Follow up in the next 24 to 48 hours and start home medicines. The patient appears to be stable at this time. MMODL / GILESN: [id number] /
[2023-08-12 20:49] LABS: Glucose,Whole Blood 150 mg/dL (70-110)
[2023-08-12] MEDS: ATORVASTATIN 80 MG TAB PO SCH (21:32)
[2023-08-12] MEDS: [UNRECOGNIZED DRUG - OTHER] PO SCH (21:32)
[2023-08-13] MEDS: HYDROmorphone 1 MG/ML 1 ML SYRINGE IVP PRN ×2 (01:29→05:19)
[2023-08-13 06:08] LABS: Glucose,Whole Blood 114 mg/dL (70-110)
[2023-08-13] MEDS: oxyCODONE-APAP 5-325MG 1 EACH TAB PO PRN ×4 (06:37→22:36)
[2023-08-13] MEDS: busPIRone HCl 5 MG TAB PO SCH (08:23)
[2023-08-13] MEDS: FUROSEMIDE 20 MG TAB PO SCH (08:23)
[2023-08-13] MEDS: LACOSAMIDE 50 MG TABLET PO SCH ×2 (08:23→19:36)
[2023-08-13] MEDS: ASPIRIN 81 MG PO SCH (08:23)
[2023-08-13] MEDS: DULoxetine HCL 60 MG CAPSULE.DR PO SCH ×2 (08:23→19:36)
[2023-08-13] MEDS: metFORMIN 500 MG TAB PO SCH ×2 (08:23→19:36)
[2023-08-13] MEDS: lamoTRIgine 100 MG TAB PO SCH ×2 (08:23→19:35)
[2023-08-13] MEDS: POTASSIUM CHLORIDE ER 20 MEQ TAB.ER PO SCH (08:23)
[2023-08-13] MEDS: DIVALPROEX 250 MG TABLET.DR PO SCH ×2 (08:24→20:15)
[2023-08-13] MEDS: SENNOSIDES-DOCUSATE SODIUM 1 EACH TAB PO SCH (08:24)
[2023-08-13] MEDS: CHOLECALCIFEROL 25 MCG (1000 IU) TABLET PO SCH (08:24)
[2023-08-13] MEDS: THIAMINE 100 MG TAB PO SCH (08:24)
[2023-08-13] MEDS: METOCLOPRAMIDE 5 MG TAB PO SCH ×3 (08:25→20:15)
[2023-08-13] MEDS: tiZANidine 4 MG TAB PO SCH ×2 (08:25→20:15)
[2023-08-13] MEDS: SYMBICORT 160-4.5 MCG INHALER INHALATION SCH ×2 (09:09→20:12)
--- NOTE | 2023-08-13 11:07 | P.PN ---
Subjective Progress Note Date: 08/13/23 Principal diagnosis: s/p revision L2-Pelvis decompression and fusion Patient evaluated today at bedside, she is resting comfortably. She has been up and ambulating. She's been urinating with no difficulties. She is not a bowel movement yet. She is trying to discontinue the IV pain medication. Drain remains in place at this time. No headaches, lightheadedness or chest pain. Objective - Vital Signs Vital signs: Vital Signs Temp 98.5 F 08/13/23 07:34 Pulse 91 08/13/23 07:34 Resp 14 08/13/23 07:34 BP 116/71 08/13/23 07:34 Pulse Ox 95 08/13/23 07:34 FiO2 Intake & Output 08/12/23 08/13/23 08/13/23 18:59 06:59 18:59 Output Total 100 80 Balance -100 -80 Output: Drainage 100 80 Back 100 80 Other: Voiding Method Toilet # Voids 4 2 - Exam Gen: AOx3, NAD VSS stable at this time Integument: Incision is clean, dry and intact Palpation: Mild tenderness with palpation of the lumbar spine ROM: Full range of motion in all major muscle groups of bilateral upper and lower extremities Sensory Exam: Senory exam to light touch is intact C5-T1 Senosry exam to light touch is intact L2-S1 Motor: 45 strength appreciated in the bilateral lower extremities with hip flexion, knee extension, knee flexion, plantar flexion, dorsiflexion, EHL, FHL Reflexes: 2/4 in all UE and LE Negative Babinski, Soto's and clonus bilaterally - Labs CBC & Chem 7: 08/12/23 04:52 08/11/23 21:33 Labs: Abnormal Lab Results - Last 24 Hours (Table) 08/12/23 08/12/23 08/12/23 Range/Units 11:16 16:55 20:48 POC Glucose (mg/dL) 169 H 146 H 150 H (70-110) mg/dL 08/13/23 Range/Units 06:07 POC Glucose (mg/dL) 114 H (70-110) mg/dL Assessment and Plan Assessment: Postoperative day #2 status post revision [id number] decompression and fusion Plan: Pain control, continue current medications. Continue scheduled stool softener DVT prophylaxis, heparin 5000 units every 12 hours Dressing change and drain removal likely on 08/14/2023 Weight-bear as tolerated, also brace when up and ambulating PT/OT Medical recommendations Discharge planning: Plan for discharge 08/14/2023 Time with Patient: Less than 30
[2023-08-13 11:24] LABS: Glucose,Whole Blood 151 mg/dL (70-110)
[2023-08-13] MEDS: HEPARIN SODIUM,PORCINE 5,000 UNIT/ML 1 ML VIAL SQ SCH ×2 (12:17→19:36)
[2023-08-13] MEDS: Atogepant [Qulipta] 60 MG Tablet PO SCH (12:17)
[2023-08-13] MEDS: Mirabegron [Myrbetriq] 50 MG Tab.Er.24h PO SCH (12:17)
[2023-08-13] MEDS: HYDROcodone/APAP 10-325MG 1 EACH TAB PO PRN (14:21)
[2023-08-13 16:40] LABS: Glucose,Whole Blood 122 mg/dL (70-110)
[2023-08-13] MEDS: MAGNESIUM HYDROXIDE 2,400 MG/30 ML CUP PO SCH (17:07)
[2023-08-13] MEDS: [UNRECOGNIZED DRUG - OTHER] PO SCH (19:31)
[2023-08-13] MEDS: ATORVASTATIN 80 MG TAB PO SCH (19:36)
[2023-08-13 20:19] LABS: Glucose,Whole Blood 368 mg/dL (70-110)
[2023-08-14] MEDS: HYDROcodone/APAP 10-325MG 1 EACH TAB PO PRN ×3 (00:59→10:24)
--- NOTE | 2023-08-14 01:41 | PN ---
PROGRESS NOTE SUBJECTIVE: A 47-year-old white female, status post cervical fusion. She is breathing good. No chest pain, or shortness of breath. No lightheadedness or syncope. OBJECTIVE: VITAL SIGNS: Pulse 90s to low 100s, Temperature 98.7, blood pressure 104 to 120s over 60s to 70s, O2 of 95% to 98%. GI: Soft. CARDIOVASCULAR: S1, S2. LUNGS: Transmitted upper airway sounds. PLAN: Continue current treatments. Possible discharge home. Continue breathing treatments, inhalers, etc. Blood pressure controlled. Please see further orders. MMODL / IJN: [id number] /
[2023-08-14] MEDS: oxyCODONE-APAP 5-325MG 1 EACH TAB PO PRN ×2 (04:18→12:11)
[2023-08-14 06:05] LABS: Glucose,Whole Blood 277 mg/dL (70-110)
[2023-08-14] MEDS: SYMBICORT 160-4.5 MCG INHALER INHALATION SCH (07:57)
[2023-08-14] MEDS: HYDROmorphone 1 MG/ML 1 ML SYRINGE IVP PRN (08:38)
[2023-08-14 08:51] VITALS: BP 106/69; PULSE 86; RESP 19; TEMP 97.5
[2023-08-14] MEDS: Atogepant [Qulipta] 60 MG Tablet PO SCH (10:08)
[2023-08-14] MEDS: MAGNESIUM HYDROXIDE 2,400 MG/30 ML CUP PO SCH (10:13)
[2023-08-14] MEDS: LACOSAMIDE 50 MG TABLET PO SCH (10:13)
[2023-08-14] MEDS: HEPARIN SODIUM,PORCINE 5,000 UNIT/ML 1 ML VIAL SQ SCH (10:13)
[2023-08-14] MEDS: THIAMINE 100 MG TAB PO SCH (10:14)
[2023-08-14] MEDS: CHOLECALCIFEROL 25 MCG (1000 IU) TABLET PO SCH (10:14)
[2023-08-14] MEDS: POTASSIUM CHLORIDE ER 20 MEQ TAB.ER PO SCH (10:14)
[2023-08-14] MEDS: SENNOSIDES-DOCUSATE SODIUM 1 EACH TAB PO SCH (10:14)
[2023-08-14] MEDS: DULoxetine HCL 60 MG CAPSULE.DR PO SCH (10:14)
[2023-08-14] MEDS: lamoTRIgine 100 MG TAB PO SCH (10:14)
[2023-08-14] MEDS: ASPIRIN 81 MG PO SCH (10:14)
[2023-08-14] MEDS: metFORMIN 500 MG TAB PO SCH (10:14)
[2023-08-14] MEDS: busPIRone HCl 5 MG TAB PO SCH (10:14)
[2023-08-14] MEDS: FUROSEMIDE 20 MG TAB PO SCH (10:15)
[2023-08-14] MEDS: Mirabegron [Myrbetriq] 50 MG Tab.Er.24h PO SCH (10:18)
[2023-08-14] MEDS: tiZANidine 4 MG TAB PO SCH (10:23)
[2023-08-14] MEDS: DIVALPROEX 250 MG TABLET.DR PO SCH (10:23)
[2023-08-14] MEDS: METOCLOPRAMIDE 5 MG TAB PO SCH (10:24)
[2023-08-14 10:59] LABS: Glucose,Whole Blood 164 mg/dL (70-110)
--- NOTE | 2023-08-14 13:28 | P.PN ---
Subjective Progress Note Date: 08/14/23 Principal diagnosis: s/p revision L2-Pelvis decompression and fusion Patient evaluated today at bedside, she is resting comfortably. She has been up and ambulating. She's been urinating with no difficulties. She is not a bowel movement yet. She is trying to discontinue the IV pain medication. No headaches, lightheadedness or chest pain. Objective - Vital Signs Vital signs: Vital Signs Temp 97.5 F L 08/14/23 06:48 Pulse 86 08/14/23 06:48 Resp 19 08/14/23 06:48 BP 106/69 08/14/23 06:48 Pulse Ox 98 08/14/23 06:48 FiO2 Intake & Output 08/13/23 08/14/23 08/14/23 18:59 06:59 18:59 Output Total 30 3 Balance -30 -3 Output: Drainage 30 3 Back 30 3 Other: Voiding Method Toilet # Voids 4 1 1 # Bowel Movements 1 - Exam Gen: AOx3, NAD VSS stable at this time Integument: Postoperative dressing was removed today bedside, Hemovac drain was also removed. Palpation: Mild tenderness with palpation of the lumbar spine ROM: Full range of motion in all major muscle groups of bilateral upper and lower extremities Sensory Exam: Senory exam to light touch is intact C5-T1 Senosry exam to light touch is intact L2-S1 Motor: 45 strength appreciated in the bilateral lower extremities with hip flexion, knee extension, knee flexion, plantar flexion, dorsiflexion, EHL, FHL Reflexes: 2/4 in all UE and LE Negative Babinski, Soto's and clonus bilaterally - Labs CBC & Chem 7: 08/12/23 04:52 08/11/23 21:33 Labs: Abnormal Lab Results - Last 24 Hours (Table) 08/13/23 08/13/23 08/14/23 Range/Units 16:38 20:17 06:03 POC Glucose (mg/dL) 122 H 368 H 277 H (70-110) mg/dL 08/14/23 Range/Units 10:56 POC Glucose (mg/dL) 164 H (70-110) mg/dL Assessment and Plan Assessment: Postoperative day #3 status post revision [id number] decompression and fusion Plan: Pain control, plan for discharge home on oral medications DVT prophylaxis, heparin 5000 units every 12 hours Wound care instructions were discussed, this will include showering Weight-bear as tolerated, also brace when up and ambulating PT/OT Medical recommendations Discharge planning: Stable for discharge today Time with Patient: Less than 30
--- NOTE | 2023-08-14 13:35 | P.DS ---
Providers Date of admission: 08/11/23 06:14 Expected date of discharge: 08/14/23 Attending physician: Bo Jones DO Consults: 08/11/23 13:03 Consult Physician Routine Consulting Provider: Domingo Valdovinos Reason/Comments: Medical Management Do you want consulting provider notified?: Yes Primary care physician: Domingo Valdovinos [facility] Course: Date of admission: 08/11/2023 Date of discharge: 08/14/2023 Admission diagnosis: Status post revision decompression and fusion [id number] Discharge diagnosis: Same Attending physician: Dr. Jones Surgical procedures: Revision [id number] decompression and fusion Brief history: Patient is a 47-year-old female who has been evaluated and followed in the outpatient setting by Dr. Jones with regards to low back pain with radiation into the lower legs and previous lumbar surgery. Initial conservative measures were attempted, this was not adequate for symptomatically, she was scheduled for an elective revision [id number] decompression and fusion. Hospital course: Details of patient's surgery can be found in operative report. Patient tolerated the procedure well and was subsequently transported to orthopedic floor. Patient's orthopeidc and medical care was provided daily. Patient had daily laboratory tests performed for evaluation of overall blood counts. Patient had daily physical therapy to include strengthening range of motion as well as education with walker ambulation. Patient was treated with Lovenox for their postoperative DVT prophylaxis during their inpatient stay. Patient was noted to have a relatively uneventful postoperative course. Patient reported satisfactory pain control with oral pain medications by postoperative day 2. Patient showed satisfactory progress with physical therapy. Patient moved steadily through the program and had no difficulty meeting the goals by postoperative day 3. Given patient's otherwise satisfactory course and having met physical therapy goals, plan is to discharge patient [home] on postoperative day 3. Discharge condition/disposition: Patient will be discharged [home] in stable condition. Discharge medications: Instructions are given on resumption of patient's normal daily medications per primary care recommendation, in addition patient will be prescribed Percocet 5 mg/325 mg, Xarelto 5 mg, Senokot-S, MiraLAX 17 g, Duricef 500 mg. Spine Discharge and Recovery Instructions Dressing: Leave your dressing in place for a total of 5 days post operatively. Then you may remove your dressing and leave open to air. Keep the area clean and if not able to keep area clean, then cover with sterile gauze and tape. Showering: You may shower 3 days after your procedure allowing soap and water to run over incision. Do not scrub. Do not soak. Blot dry. Follow up: Please confirm a follow up appointment with your surgeon 3 weeks post operatively. Please make an appointment to follow up with your PCP in 1-2 weeks after surgery for evaluation 3 phase, 3-week plan POST OP WEEKS 1-3 1. Lifting/carrying/pushing/pulling limited to less than 5 pounds. 2. Do not sit for longer than 15 minutes at one time. Get up and walk around. Prolonged sitting is NOT advised. If you lay down, see if you can tolerate laying down on you front (belly side) 3. Walk for periods of 15 minutes = 1 mile but no longer; do it multiple times times each day. 4. Ice your low back after activity. POST OP WEEKS 3-6 1. Lifting limited to less than 20 pounds. 2. Do not sit for longer than 30 minutes at a time. Frequently change positions. Use a sit-to stand workstation or take frequent breaks from sitting if you have returned to work. 3. Walk for 30 minutes each day. If possible, do these three or more times a day POST OP WEEKS 6+ At your 6-week appointment we will give you a physical therapy referral to focus on a core stabilization and strengthening program. You should also work on leg & buttock strengthening, hamstring & quadriceps stretching, and continue a low impact aerobic activity program such as swimming, walking, or riding a stationary bicycle. During the initial 6 weeks after your surgery, you are at the highest risk of re-injuring your spine. You should generally avoid BLTs (bending, lifting and twisting combination motions) and follow the above guidelines to reduce the chance of reinjury. You can anticipate post op appointments in our office at approximately 3 weeks and 6 weeks after your surgery. INCISION CARE: If your incision is not draining you do NOT need to cover it with a dressing. Keep your incision clean, dry and intact. In most cases, we apply skin glue, bossman or sutures to the incision at the time of surgery. This will be like a crust or have the appearance of a scab and will fall off in time on its own. The stitches or bossman need to be removed at 3 weeks post op appointment. You may begin to shower 3 days after surgery (this allows the glue to ho well). However, please avoid scrubbing the incision site or peeling off any of the skin glue. This will ensure optimal healing of your incision. Also, during this time avoid soaking the incision area in water - this includes swimming pools, hot tubs or baths. No ointments, lotions or oils on the incision until your surgeon allows. Leave bossman, sutures or glue in place. Neurological dysfunction that comes on suddenly can also be a sign of a stroke. Below some common symptoms of a stroke are listed: B - balance difficulty such as sudden onset walking or leaning to one side - NEW E - eye problem such as sudden double vision or trouble seeing on one side - NEW F - Facial weakness or numbness on one side - NEW A - Arm or leg weakness or numbness on one side - NEW S - Slurred speech or difficulty with word finding - NEW T - Time is BRAIN! Call 911 as soon as you recognize these symptoms Diet: Consume a regular diet rich in vegetables and lean protein such as chicken or fish. You should consume in a ratio of approximately 20% fats|40% carbohydrates|40%protein. Vegetables, sweet potatoes, brown rice or quinoa are examples of good carbohydrates. Chips, white bread, cookies and sweets/sugar are examples of bad carbohydrates. Limit your bad carbs, go wild with good carbs. "Life's Simple 7" Guidelines as per [place] [employer] These will help you reclaim your life after surgery and cookie mixer helper in your recovery, keeping in mind your restrictions. (1) Get Active. Physical activity can help people lose weight, control high blood pressure and cholesterol, feel emotionally better, and sleep better. (2) Control Cholesterol. Avoid a diet high in saturated fat, trans fat, & cholesterol. Limit whole milk & cream, ice cream, butter, egg yolks, processed meats (like sausage and hot dogs), and fatty meats. Choose healthy foods that are low in saturated fat, trans fat and cholesterol which include: Fruits and vegetables, fiber rich grain products (like whole grain pasta and brown rice), lean meat such as chicken, fish, nuts, seeds, and legumes. (3) Eat Better. Eat small portions. Shop at the grocery with a list and do not stray from it. Tips for a healthy diet include: Limit sodium intake to less than 1500mg daily, avoid prepackaged, processed, and fast foods, choose a diet rich in fruits, vegetables, and whole grain, high fiber foods, and limit saturated & cholesterol in your diet. (4) Manage Blood Pressure. If you have high blood pressure, you should have a cuff at home so that you can check your blood pressure regularly. Be sure you have a good cuff. An arm one is generally better than a wrist one. Bring the cuff to a doctor's appointment to validate that the measurements that your cuff are taking are accurate. Take your blood pressure twice daily when you are sitting down and relaxing. Record the numbers in a log and bring this log with you to your doctors' appointments. (5) Lose Weight if your BMI is above 25. A healthy BMI is between 19-25. To calculate Your BMI, you may use a Standard BMI Calculator on the NIH BMI website: <www.nhlbi.nih.gov/guidelines/obesity/BMI/bmicalc.htm>. Weigh oneself daily. If you are overweight, set a goal to lose weight. A pound a week loss if needed is a good target. (6) Reduce Blood Sugar. Limit foods and liquids with "added sugars." (Added sugars include sucrose, fructose, glucose, maltose, dextrose, high fructose corn syrup, corn syrup, concentrated fruit juice and honey). (7) Stop Smoking. If you smoke, quitting smoking is one of the best things that you can do for your health. Smoking increases your risk of heart attack, stroke, and peripheral vascular disease, which is a build-up of plaque in your arteries. Please discard all the cigarettes and lighters in your house. Have a plan for what you will do when you have the urge to smoke. Direct and second- hand smoke shortens your life as well as the lives of your family, friends and others around you. For your health and the health of those around you, please consider quitting! Proper Bending Body Mechanics: Maintain a wide stance with one foot slightly in front of the other. Keep your back straight. Bend utilizing the strength in your hips and knees. Do not bend at the waist. Maintain the lifted object at your waist-level close to your body. Avoid lifting weight that causes immediately pain or pain anywhere in the body afterwards. Smoking/Nicotine If there was ever one thing that you could do to increase your overall health, decrease your risk of cardiovascular problems by about 39% the second you make the choice, it is to STOP SMOKING. Your body's most instant gratification is the second you stop smoking. We have all heard the studies, read the articles but it is true, smoking is extremely bad for your overall health, and moreover it is detrimental to your bone health. Nicotine, IN ANY FORM, kills bone cells, prevents your body from healing fractures, and significantly prolongs healing after surgery. In spine surgery specifically, it increases your risk of not healing your bones to create a fusion and increases your risk of having a revision surgery due to this up to 60%. I know it is hard. I know it feels impossible. But there are ways. Take control of your life. We are here to help you through it. And when you are ready, ask us and we can direct you to help if you desire. Use the START Plan to Quit Smoking (please visit the m2fx.org website listed below for more information): S = Set a quit date. Choose a date within the next 2 weeks, so you have enough time to prepare without losing your motivation to quit. If you mainly smoke at work, quit on the weekend, so you have a few days to adjust to the change. T = Tell family, friends, and co-workers that you plan to quit. Let your friends and family in on your plan to quit smoking and tell them you need their support and encouragement to stop. Look for a quit robin who wants to stop smoking as well. You can help each other get through the rough times. A = Anticipate and plan for the challenges you'll face while quitting. Most people who begin smoking again do so within the first 3 months. You can help yourself make it through by preparing ahead for common challenges, such as nicotine withdrawal and cigarette cravings. R = Remove cigarettes and other tobacco products from your home, car, and work. Throw away all your cigarettes (no emergency pack!), lighters, ashtrays, and matches. Wash your clothes and freshen up anything that smells like smoke. Shampoo your car, clean your drapes and carpet, and steam your furniture. T = Talk to your doctor about getting help to quit. Your doctor can prescribe medication to help with withdrawal and suggest other alternatives. If you can't see a doctor, you can get many products over the counter at your local pharmacy or grocery store, including the nicotine patch, nicotine lozenges, and nicotine gum. Resources for Quitting Smoking: <https://www.[place].gov/documents/[facility]/Quit_Tobacco_Resources_for_patients_313 480_7.pdf> Supplementation: Take recommended dosages of Vitamin D and Calcium to help fortify your bones and help them to heal. See your health maintenance packet for dosages and recommended levels. DVT/VTE prophylaxis: You will be given compression stockings from the hospital. Wear these daily for the first two weeks after surgery. You may take them off at night. You may be prescribed a medication to help thin your blood. Take this as directed. If you are not prescribed this medication, early and frequent ambulation has been shown to be the best prophylaxis to deep vein thrombosis and sequelae related to this event. Procedures: Revision L2 to Pelvis decompression and fusion Patient Condition at Discharge: Good Plan - Discharge Summary Discharge Rx Participant: Yes New Discharge Prescriptions: New cefaDROXiL [Duricef] 500 mg PO Q12HR 5 Days #10 cap Cyclobenzaprine [Flexeril] 5 mg PO BID PRN #30 tablet PRN Reason: Muscle Spasm polyethylene glycoL 3350 [Miralax] 17 gm PO DAILY PRN #21 packet PRN Reason: Constipation oxyCODONE HCL/ACETAMINOPHEN [Percocet 5-325 mg] 1 tab PO Q4HR PRN 7 Days #42 tab PRN Reason: Pain Sennosides/Docusate Sodium [Senna-S 8.6-50 mg Tablet] 2 each PO DAILY PRN #30 tablet PRN Reason: Constipation No Action Aspirin EC [Ecotrin Low Dose] 81 mg PO DAILY Budesonide/Formoterol Fumarate [Symbicort 160-4.5 Mcg Inhaler] 2 puff INHALATION RT-BID Atorvastatin [Lipitor] 80 mg PO HS HYDROcodone/APAP 7.5-325MG [[place] 7.5-325] 1 tab PO TID PRN PRN Reason: Pain Lacosamide [Vimpat] 200 mg PO BID Umeclidinium [place] [Incruse Ellipta] 1 puff INHALATION RT-DAILY Furosemide [Lasix] 20 mg PO DAILY Thiamine [Vitamin B-1] 100 mg PO DAILY Rimegepant Sulfate [Nurtec Odt] 75 mg PO DAILY PRN PRN Reason: Migraine Headache Brexpiprazole [Rexulti] 4 mg PO HS Cholecalciferol [Vitamin D3 (25 Mcg = 1000 Iu)] 50 mcg PO DAILY rOPINIRole HCL [Requip] 1 mg PO BID Potassium Chloride ER [K-Dur 20] 20 meq PO DAILY Metoclopramide [Reglan] 5 mg PO TID busPIRone HCl [Buspar] 5 mg PO DAILY metFORMIN HCL 1,000 mg PO BID Divalproex [Depakote] 250 mg PO BID DULoxetine HCL [Cymbalta] 60 mg PO BID Mirabegron [Myrbetriq] 50 mg PO DAILY Atogepant [Qulipta] 60 mg PO DAILY tiZANidine [Zanaflex] 4 mg PO BID lamoTRIgine [LaMICtal] 100 mg PO BID Discharge Medication List Aspirin EC [Ecotrin Low Dose] 81 mg PO DAILY 04/16/19 [History] Atorvastatin [Lipitor] 80 mg PO HS 11/17/20 [History] Budesonide/Formoterol Fumarate [Symbicort 160-4.5 Mcg Inhaler] 2 puff INHALATION RT-BID 11/17/20 [History] HYDROcodone/APAP 7.5-325MG [[place] 7.5-325] 1 tab PO TID PRN 11/17/20 [History] Brexpiprazole [Rexulti] 4 mg PO HS 08/09/21 [History] Lacosamide [Vimpat] 200 mg PO BID 08/09/21 [History] Umeclidinium [place] [Incruse Ellipta] 1 puff INHALATION RT-DAILY 08/09/21 [History] Cholecalciferol [Vitamin D3 (25 Mcg = 1000 Iu)] 50 mcg PO DAILY 10/09/21 [History] Furosemide [Lasix] 20 mg PO DAILY 10/28/21 [History] Metoclopramide [Reglan] 5 mg PO TID 10/28/21 [History] Potassium Chloride ER [K-Dur 20] 20 meq PO DAILY 10/28/21 [History] rOPINIRole HCL [Requip] 1 mg PO BID 10/28/21 [History] DULoxetine HCL [Cymbalta] 60 mg PO BID 02/09/23 [History] Divalproex [Depakote] 250 mg PO BID 02/09/23 [History] busPIRone HCl [Buspar] 5 mg PO DAILY 02/09/23 [History] metFORMIN HCL 1,000 mg PO BID 02/09/23 [History] Atogepant [Qulipta] 60 mg PO DAILY 08/05/23 [History] Mirabegron [Myrbetriq] 50 mg PO DAILY 08/05/23 [History] Rimegepant Sulfate [Nurtec Odt] 75 mg PO DAILY PRN 08/05/23 [History] Thiamine [Vitamin B-1] 100 mg PO DAILY 08/05/23 [History] lamoTRIgine [LaMICtal] 100 mg PO BID 08/05/23 [History] tiZANidine [Zanaflex] 4 mg PO BID 08/05/23 [History] Cyclobenzaprine [Flexeril] 5 mg PO BID PRN #30 tablet 08/14/23 [Rx] Sennosides/Docusate Sodium [Senna-S 8.6-50 mg Tablet] 2 each PO DAILY PRN #30 tablet 08/14/23 [Rx] cefaDROXiL [Duricef] 500 mg PO Q12HR 5 Days #10 cap 08/14/23 [Rx] oxyCODONE HCL/ACETAMINOPHEN [Percocet 5-325 mg] 1 tab PO Q4HR PRN 7 Days #42 tab 08/14/23 [Rx] polyethylene glycoL 3350 [Miralax] 17 gm PO DAILY PRN #21 packet 08/14/23 [Rx] Follow up Appointment(s)/Referral(s): Domingo Valdovinos MD [Primary Care Provider] - 1 Week [facility], [NON-STAFF] - As Needed Bo Jones DO [Doctor of Osteopathic Medicine] - 08/26/23 10:30 am Activity/Diet/Wound Care/Special Instructions: Spine Discharge and Recovery Instructions Dressing: Leave your dressing in place for a total of 5 days post operatively. Then you may remove your dressing and leave open to air. Keep the area clean and if not able to keep area clean, then cover with sterile gauze and tape. Showering: You may shower 3 days after your procedure allowing soap and water to run over incision. Do not scrub. Do not soak. Blot dry. Follow up: Please confirm a follow up appointment with your surgeon 3 weeks post operatively. Please make an appointment to follow up with your PCP in 1-2 weeks after surgery for evaluation 3 phase, 3-week plan POST OP WEEKS 1-3 1. Lifting/carrying/pushing/pulling limited to less than 5 pounds. 2. Do not sit for longer than 15 minutes at one time. Get up and walk around. Prolonged sitting is NOT advised. If you lay down, see if you can tolerate laying down on you front (belly side) 3. Walk for periods of 15 minutes = 1 mile but no longer; do it multiple times times each day. 4. Ice your low back after activity. POST OP WEEKS 3-6 1. Lifting limited to less than 20 pounds. 2. Do not sit for longer than 30 minutes at a time. Frequently change positions. Use a sit-to stand workstation or take frequent breaks from sitting if you have returned to work. 3. Walk for 30 minutes each day. If possible, do these three or more times a day POST OP WEEKS 6+ At your 6-week appointment we will give you a physical therapy referral to focus on a core stabilization and strengthening program. You should also work on leg & buttock strengthening, hamstring & quadriceps stretching, and continue a low impact aerobic activity program such as swimming, walking, or riding a stationary bicycle. During the initial 6 weeks after your surgery, you are at the highest risk of re-injuring your spine. You should generally avoid BLTs (bending, lifting and twisting combination motions) and follow the above guidelines to reduce the chance of reinjury. You can anticipate post op appointments in our office at approximately 3 weeks and 6 weeks after your surgery. INCISION CARE: If your incision is not draining you do NOT need to cover it with a dressing. Keep your incision clean, dry and intact. In most cases, we apply skin glue, bossman or sutures to the incision at the time of surgery. This will be like a crust or have the appearance of a scab and will fall off in time on its own. The stitches or bossman need to be removed at 3 weeks post op appointment. You may begin to shower 3 days after surgery (this allows the glue to ho well). However, please avoid scrubbing the incision site or peeling off any of the skin glue. This will ensure optimal healing of your incision. Also, during this time avoid soaking the incision area in water - this includes swimming pools, hot tubs or baths. No ointments, lotions or oils on the incision until your surgeon allows. Leave bossman, sutures or glue in place. Neurological dysfunction that comes on suddenly can also be a sign of a stroke. Below some common symptoms of a stroke are listed: B - balance difficulty such as sudden onset walking or leaning to one side - NEW E - eye problem such as sudden double vision or trouble seeing on one side - NEW F - Facial weakness or numbness on one side - NEW A - Arm or leg weakness or numbness on one side - NEW S - Slurred speech or difficulty with word finding - NEW T - Time is BRAIN! Call 911 as soon as you recognize these symptoms Diet: Consume a regular diet rich in vegetables and lean protein such as chicken or fish. You should consume in a ratio of approximately 20% fats|40% carbohydrates|40%protein. Vegetables, sweet potatoes, brown rice or quinoa are examples of good carbohydrates. Chips, white bread, cookies and sweets/sugar are examples of bad carbohydrates. Limit your bad carbs, go wild with good carbs. "Life's Simple 7" Guidelines as per [place] [employer] These will help you reclaim your life after surgery and cookie mixer helper in your recovery, keeping in mind your restrictions. (1) Get Active. Physical activity can help people lose weight, control high blood pressure and cholesterol, feel emotionally better, and sleep better. (2) Control Cholesterol. Avoid a diet high in saturated fat, trans fat, & cholesterol. Limit whole milk & cream, ice cream, butter, egg yolks, processed meats (like sausage and hot dogs), and fatty meats. Choose healthy foods that are low in saturated fat, trans fat and cholesterol which include: Fruits and vegetables, fiber rich grain products (like whole grain pasta and brown rice), lean meat such as chicken, fish, nuts, seeds, and legumes. (3) Eat Better. Eat small portions. Shop at the grocery with a list and do not stray from it. Tips for a healthy diet include: Limit sodium intake to less than 1500mg daily, avoid prepackaged, processed, and fast foods, choose a diet rich in fruits, vegetables, and whole grain, high fiber foods, and limit saturated & cholesterol in your diet. (4) Manage Blood Pressure. If you have high blood pressure, you should have a cuff at home so that you can check your blood pressure regularly. Be sure you have a good cuff. An arm one is generally better than a wrist one. Bring the cuff to a doctor's appointment to validate that the measurements that your cuff are taking are accurate. Take your blood pressure twice daily when you are sitting down and relaxing. Record the numbers in a log and bring this log with you to your doctors' appointments. (5) Lose Weight if your BMI is above 25. A healthy BMI is between 19-25. To calculate Your BMI, you may use a Standard BMI Calculator on the NIH BMI website: <www.nhlbi.nih.gov/guidelines/obesity/BMI/bmicalc.htm>. Weigh oneself daily. If you are overweight, set a goal to lose weight. A pound a week loss if needed is a good target. (6) Reduce Blood Sugar. Limit foods and liquids with "added sugars." (Added sugars include sucrose, fructose, glucose, maltose, dextrose, high fructose corn syrup, corn syrup, concentrated fruit juice and honey). (7) Stop Smoking. If you smoke, quitting smoking is one of the best things that you can do for your health. Smoking increases your risk of heart attack, stroke, and peripheral vascular disease, which is a build-up of plaque in your arteries. Please discard all the cigarettes and lighters in your house. Have a plan for what you will do when you have the urge to smoke. Direct and second- hand smoke shortens your life as well as the lives of your family, friends and others around you. For your health and the health of those around you, please consider quitting! Proper Bending Body Mechanics: Maintain a wide stance with one foot slightly in front of the other. Keep your back straight. Bend utilizing the strength in your hips and knees. Do not bend at the waist. Maintain the lifted object at your waist-level close to your body. Avoid lifting weight that causes immediately pain or pain anywhere in the body afterwards. Smoking/Nicotine If there was ever one thing that you could do to increase your overall health, decrease your risk of cardiovascular problems by about 39% the second you make the choice, it is to STOP SMOKING. Your body's most instant gratification is the second you stop smoking. We have all heard the studies, read the articles but it is true, smoking is extremely bad for your overall health, and moreover it is detrimental to your bone health. Nicotine, IN ANY FORM, kills bone cells, prevents your body from healing fractures, and significantly prolongs healing after surgery. In spine surgery specifically, it increases your risk of not healing your bones to create a fusion and increases your risk of having a revision surgery due to this up to 60%. I know it is hard. I know it feels impossible. But there are ways. Take control of your life. We are here to help you through it. And when you are ready, ask us and we can direct you to help if you desire. Use the START Plan to Quit Smoking (please visit the Helpguide.org website listed below for more information): S = Set a quit date. Choose a date within the next 2 weeks, so you have enough time to prepare without losing your motivation to quit. If you mainly smoke at work, quit on the weekend, so you have a few days to adjust to the change. T = Tell family, friends, and co-workers that you plan to quit. Let your friends and family in on your plan to quit smoking and tell them you need their support and encouragement to stop. Look for a quit robin who wants to stop smoking as well. You can help each other get through the rough times. A = Anticipate and plan for the challenges you'll face while quitting. Most people who begin smoking again do so within the first 3 months. You can help yourself make it through by preparing ahead for common challenges, such as nicotine withdrawal and cigarette cravings. R = Remove cigarettes and other tobacco products from your home, car, and work. Throw away all your cigarettes (no emergency pack!), lighters, ashtrays, and matches. Wash your clothes and freshen up anything that smells like smoke. Shampoo your car, clean your drapes and carpet, and steam your furniture. T = Talk to your doctor about getting help to quit. Your doctor can prescribe medication to help with withdrawal and suggest other alternatives. If you can't see a doctor, you can get many products over the counter at your local pharmacy or grocery store, including the nicotine patch, nicotine lozenges, and nicotine gum. Resources for Quitting Smoking: <https://www.[place].gov/documents/[facility]/Quit_Tobacco_Resources_for_[place]_313480_7.pdf> Supplementation: Take recommended dosages of Vitamin D and Calcium to help fortify your bones and help them to heal. See your health maintenance packet for dosages and mayelin mmended levels. DVT/VTE prophylaxis: You will be given compression stockings from the hospital. Wear these daily for the first two weeks after surgery. You may take them off at night. You may be prescribed a medication to help thin your blood. Take this as directed. If you are not prescribed this medication, early and frequent ambulation has been shown to be the best prophylaxis to deep vein thrombosis and sequelae related to this event. Discharge Disposition: HOME WITH HOME HEALTH SERVICES
--- NOTE | 2023-08-14 15:08 | PN ---
PROGRESS NOTE SUBJECTIVE: This is a 47-year-old white female, status post cervical fusion. Medically, she is stable. She is status post revision of L2 pelvic decompression fracture. OBJECTIVE: VITAL SIGNS: Blood pressure 116/70s, pulse 80s to 90s, respiratory rate 12 to 14, temperature 98.5, and O2 of 98. CARDIOVASCULAR: S1 and S2. LUNGS: Transmitted upper airway sounds. GI: Soft. HEMATOLOGY: Negative Homans. PSYCHIATRIC: Fair mood and affect. Postoperative L2 decompression fracture, DVT, heparin prophylaxis. Weightbearing as tolerated. Possible home in the next day or 2. Prognosis guarded. Please see further orders. MMODL / IJN: [id number] /
== END 2023-08-14 15:51 | disposition home health service (06) | DRG 454 ==
LOC: 2ORMAIN 06:14 → 4SSUR 13:41
PROVIDERS: ADMIT Orthopaedic Surgery; ATTEND Orthopaedic Surgery
PROC: 0SG1071 Fusion of 2 or more Lumbar Vertebral Joints with Autologous Tissue Substitute, Posterior Approach, Posterior Column, Open Approach (ICD-10-PCS; 2023-08-11)
PROC: 0QS00ZZ Reposition Lumbar Vertebra, Open Approach (ICD-10-PCS; 2023-08-11)
PROC: 01NB0ZZ Release Lumbar Nerve, Open Approach (ICD-10-PCS; 2023-08-11)
PROC: 0SG30AJ Fusion of Lumbosacral Joint with Interbody Fusion Device, Posterior Approach, Anterior Column, Open Approach (ICD-10-PCS; 2023-08-11)
PROC: 0SG3071 Fusion of Lumbosacral Joint with Autologous Tissue Substitute, Posterior Approach, Posterior Column, Open Approach (ICD-10-PCS; 2023-08-11)
PROC: 0ST20ZZ Resection of Lumbar Vertebral Disc, Open Approach (ICD-10-PCS; 2023-08-11)
PROC: 0ST40ZZ Resection of Lumbosacral Disc, Open Approach (ICD-10-PCS; 2023-08-11)
PROC: 0QH304Z Insertion of Internal Fixation Device into Left Pelvic Bone, Open Approach (ICD-10-PCS; 2023-08-11)
PROC: 0QH204Z Insertion of Internal Fixation Device into Right Pelvic Bone, Open Approach (ICD-10-PCS; 2023-08-11)
PROC: 0SP00AZ Removal of Interbody Fusion Device from Lumbar Vertebral Joint, Open Approach (ICD-10-PCS; 2023-08-11)
PROC: 8E0WXBZ Computer Assisted Procedure of Trunk Region (ICD-10-PCS; 2023-08-11)
PROC: 0SG10AJ Fusion of 2 or more Lumbar Vertebral Joints with Interbody Fusion Device, Posterior Approach, Anterior Column, Open Approach (ICD-10-PCS; principal; 2023-08-11 08:00)
DX: M47.26 Other spondylosis with radiculopathy, lumbar region (principal); M96.0 Pseudarthrosis after fusion or arthrodesis; E11.9 Type 2 diabetes mellitus without complications; G40.A09 Absence epileptic syndrome, not intractable, without status epilepticus; G25.81 Restless legs syndrome; M48.061 Spinal stenosis, lumbar region without neurogenic claudication; M47.27 Other spondylosis with radiculopathy, lumbosacral region; G47.9 Sleep disorder, unspecified; M25.78 Osteophyte, vertebrae; E78.5 Hyperlipidemia, unspecified; J44.89 Other specified chronic obstructive pulmonary disease; M79.7 Fibromyalgia; F17.210 Nicotine dependence, cigarettes, uncomplicated; G89.29 Other chronic pain; Y83.8 Other surgical procedures as the cause of abnormal reaction of the patient, or of later complication, without mention of misadventure at the time of the procedure; Z96.651 Presence of right artificial knee joint; Z79.51 Long term (current) use of inhaled steroids; Z79.82 Long term (current) use of aspirin; Z79.84 Long term (current) use of oral hypoglycemic drugs
CPT/HCPCS: 72100; 72131; 80048; 85025; 85027; 94640

== ENCOUNTER → 2024-02-22 | Day surgery (SDC) | payer MEDICARE, OTHER ==
[~2024-02-22] MED LIST changes: -ACETAMINOPHEN TAB 500 MG TAB PO PRN; -DEXAMETHASONE SOD PHOSPHATE 4 MG/ML 1 ML VIAL IV ONE; -GABAPENTIN 300 MG CAP PO PRN; +LACTATED RINGERS 1,000 ML IV SCH; +LIDOCAINE 1% (10MG/ML) FOR IV START INTRADERMA PRN; -ONDANSETRON 4 MG/2 ML VIAL IVP PRN; +PROPOFOL 10 MG/ML 20 ML VIAL IV ONE; -TRANEXAMIC 1,000 MG/100ML-NACL 1,000 MG in SALINE 1 100ML.BAG IVPB PRN
[2024-02-22 13:01] LABS: Glucose,Whole Blood 136 mg/dL (70-110)
--- NOTE | 2024-02-22 13:14 | P.OP ---
Date of Procedure: 02/22/24 Preoperative Diagnosis: diarrhea Postoperative Diagnosis: rectal biopsy pathology pending Procedure(s) Performed: colonoscopy Anesthesia: MAC Surgeon: Cachorro [place] Pathology: other (rectum) Condition: stable Disposition: PACU Description of Procedure: the patient's placed on theendoscopy table in the lateral position she received IV sedation. Digital rectal exam was performed. This revealed no abnormalities. Flexible colonoscope was then placed patient anus and passed throughout the entire colon. Ileocecal valve sutures. The cecum, ascending and transverse colon appeared normal. The descending and sigmoid colon appeared normal. Scope was brought back the rectum and this appeared normal. Due to the patient's history of diarrhea. A random rectal biopsies performed. Scope was then withdrawn from patient.
--- NOTE | 2024-02-22 13:15 | P.GSHP ---
History of Present Illness H&P Date: 02/22/24 Chief Complaint: diarrhea this is a 48-year-old female who presents today for colonoscopy. Patient is issues with diarrhea. Past Medical History Past Medical History: Asthma, Blood Disorder, COPD, Diabetes Mellitus, Fibromyalgia, Hyperlipidemia, Osteoarthritis (OA), Seizure Disorder, Syncope Additional Past Medical History / Comment(s): Type 2 diabetes. CHRONIC BACK PAIN; Restless leg syndrome, migraines, Factor 5 clotting disorder, varicose veins, last seizure 2022 - usually last 3 minutes pt. thinks they are petit mal, elevated HR sometimes History of Any Multi-Drug Resistant Organisms: None Reported Past Surgical History: Back Surgery, Section, Hysterectomy, Joint Replacement, Orthopedic Surgery, Tubal Ligation Additional Past Surgical History / Comment(s): stimulator for back, VNS implant for seizures, [facility] BSO in 2005 due to endometreosis. Right knee replacement surgery. Multiple back surgeries. Past Anesthesia/Blood Transfusion Reactions: No Reported Reaction Smoking Status: Former smoker - Past Family History Mother Family Medical History: Diabetes Mellitus Father Family Medical History: Hyperlipidemia Additional Family Medical History / Comment(s): Back problems. Medications and Allergies Home Medications Medication Instructions Recorded Confirmed Type Aspirin EC [Ecotrin Low Dose] 81 mg PO DAILY 04/16/19 02/17/24 History Atorvastatin [Lipitor] 80 mg PO HS 11/17/20 02/17/24 History Budesonide/Formoterol Fumarate 2 puff INHALATION RT-BID 11/17/20 02/17/24 History [Symbicort 160-4.5 Mcg Inhaler] HYDROcodone/APAP 7.5-325MG [[place] 1 tab PO TID PRN 11/17/20 02/17/24 History 7.5-325] Brexpiprazole [Rexulti] 4 mg PO HS 08/09/21 02/17/24 History Lacosamide [Vimpat] 200 mg PO BID 08/09/21 02/17/24 History Umeclidinium [place] [Incruse 1 puff INHALATION RT-DAILY 08/09/21 02/17/24 History Ellipta] Cholecalciferol [Vitamin D3 (25 50 mcg PO DAILY 10/09/21 02/17/24 History Mcg = 1000 Iu)] Furosemide [Lasix] 20 mg PO QAM 10/28/21 02/17/24 History Metoclopramide [Reglan] 5 mg PO TID 10/28/21 02/17/24 History Potassium Chloride ER [K-Dur 20] 20 meq PO DAILY 10/28/21 02/17/24 History DULoxetine HCL [Cymbalta] 60 mg PO BID 02/09/23 02/17/24 History Divalproex [Depakote] 250 mg PO BID 02/09/23 02/17/24 History busPIRone HCl [Buspar] 5 mg PO QAM 02/09/23 02/17/24 History metFORMIN HCL 1,000 mg PO BID 02/09/23 02/17/24 History Atogepant [Qulipta] 60 mg PO QAM 08/05/23 02/17/24 History Mirabegron [Myrbetriq] 50 mg PO QAM 08/05/23 02/17/24 History Rimegepant Sulfate [Nurtec Odt] 75 mg PO DAILY PRN 08/05/23 02/17/24 History Thiamine [Vitamin B-1] 100 mg PO DAILY 08/05/23 02/17/24 History lamoTRIgine [LaMICtal] 100 mg PO BID 08/05/23 02/17/24 History tiZANidine [Zanaflex] 4 mg PO BID 08/05/23 02/17/24 History Cyclobenzaprine [Flexeril] 5 mg PO BID PRN #30 tablet 08/14/23 02/17/24 Rx Gabapentin [Neurontin] 300 mg PO TID 02/17/24 02/17/24 History Allergies Allergy/AdvReac Type Severity Reaction Status Date / Time sulfamethoxazole Allergy Rash/Hives, Verified 02/22/24 12:42 [From Bactrim] Swelling in arms and legs topiramate [From Topamax] Allergy Anaphylaxis Verified 02/22/24 12:42 trimethoprim [From Bactrim] Allergy Rash/Hives, Verified 02/22/24 12:42 Swelling in arms and legs Surgical - Exam - General well developed, well nourished, no distress - Eyes PERRL - ENT normal pinna - Neck no masses - Respiratory normal expansion - Cardiovascular Rhythm: regular - Abdomen Abdomen: soft, non tender Results - Labs Abnormal Lab Results - Last 24 Hours (Table) 02/22/24 Range/Units 12:59 POC Glucose (mg/dL) 136 H (70-110) mg/dL Assessment and Plan Assessment: her diarrhea. We'll perform colonoscopy.
== END ==
LOC: ORWHC2ENDO 12:34
PROVIDERS: ATTEND Surgery
DX: R19.7 Diarrhea, unspecified (principal); E11.9 Type 2 diabetes mellitus without complications; E78.5 Hyperlipidemia, unspecified; G25.81 Restless legs syndrome; M19.90 Unspecified osteoarthritis, unspecified site; M79.7 Fibromyalgia; Z79.51 Long term (current) use of inhaled steroids; Z79.84 Long term (current) use of oral hypoglycemic drugs; Z87.891 Personal history of nicotine dependence; Z88.1 Allergy status to other antibiotic agents; Z88.2 Allergy status to sulfonamides; Z90.710 Acquired absence of both cervix and uterus
CPT/HCPCS: 88305; 45380; J2704

== ENCOUNTER → 2024-06-16 | Outpatient (CLI) | payer MEDICARE, OTHER ==
--- NOTE | 2024-06-17 19:09 | BD ---
EXAMINATION TYPE: Axial Bone Density DATE OF EXAM: 06/16/2024 CLINICAL HISTORY: 48 years old Female. ICD-10 CODE: Z78.0 Postmenopausal Height: 5 ft 6 in Weight: 188 FRAX RISK QUESTIONS: Alcohol (3 or more units per day): no Family History (Parent hip fracture): no Glucocorticoids (More than 3mos): no (Ex: prednisone, prednisolone, methylprednisolone, dexamethasone, and hydrocortisone). History of Fracture in Adulthood: yes Secondary Osteoporosis: 1. Type 1 Diabetes: type 2 2. Hyperthyroidism: no 3. Menopause before 45: yes 4. Malnutrition: no 5. Chronic liver disease: no Rheumatoid Arthritis: no Current Tobacco Use: yes RISK FACTORS HISTORY OF: Surgery to Spine/Hip(right/left)/Wrist (right/left): lumbar surg When: 2022 MEDICATIONS: Thyroid Medications: none Osteoporosis Medications: EXAM MEASUREMENTS: Bone mineral density about the R hip (g/cm2): 1.020 Bone mineral density about the L hip (g/cm2): 0.985 T Score values are as follows: -----R Neck: -0.1 -----L Neck: -0.4 -----R Total: 0.5 -----L Total: 1.1 Z Score values are as follows: -----R Neck: 0.1 -----L Neck: -0.1 -----R Total: 0.4 -----L Total: 1.0 baseline Bone mineral density about the L Wrist (g/cm2): 0.765 T Score values are as follows: -----Dist. R+U: 1.2 -----Prox. R+U: 1.4 -----Radius total: 1.5 Z Score values are as follows: -----Dist. R+U: 1.2 -----Prox. R+U: 1.4 -----Radius total: 1.5 baseline FRAX%s: The graph provided illustrates a 5.9 % chance for a major osteoporotic fx and a 0.2 % chance for the hips probability for fx in 10 years time. IMPRESSION: Normal (Values between +1 and -1 indicate normal bone mass). Consider repeating this study in 5 year s or sooner if there is some new clinical indication. NOTE: T-SCORE=SD OF THE YOUNG ADULT MEAN. [facility], , 06/17/2024 7:07 PM
--- NOTE | 2024-06-20 11:36 | MM ---
Reason for Exam: Screening (asymptomatic). Patient History: Menarche at age 10. First Full-Term at age 18. Left ovary removed at age 30. Right ovary removed at age 30. Hysterectomy at age 30. Postmenopausal. Risk Values: Jennifer 5 year model risk: 0.7%. NCI Lifetime model risk: 7.4%. Prior Study Comparison: No prior studies available for comparison. Tissue Density: The breasts are almost entirely fatty. Findings: Analyzed By CAD. Right breast: There is no suspicious group of microcalcifications or new suspicious mass. Left breast: There is no suspicious group of microcalcifications or new suspicious mass. Pacemaker obstructs the axilla on the left. Overall Assessment: Negative, BI-RAD 1 Management: Screening Mammogram of both breasts in [address] [facility] will attempt to contact patient to return for supplemental views and ultrasound if indicated. Patient should continue monthly self-breast exams. A clinical breast exam by your physician is recommended on an annual basis. This exam should not preclude additional follow-up of suspicious palpable abnormalities. Note on Jennifer scores and lifetime risk: 1. A Jennifer score greater than 3% is considered moderate risk. If this is the case, consider specialist referral to assess eligibility for a risk reducing agent. 2. If overall lifetime risk for the development of breast cancer is 20% or higher, the patient may qualify for future screening with alternating mammogram and breast MRI. [facility], , 06/20/2024 11:33 AM. Electronically signed and approved by: Sreekanth Javed DO
== END | disposition home or self-care (01) ==
LOC: RADMAMWWP 07:30
PROVIDERS: ATTEND Family Medicine
DX: Z12.31 Encounter for screening mammogram for malignant neoplasm of breast (principal); Z78.0 Asymptomatic menopausal state; Z90.722 Acquired absence of ovaries, bilateral
CPT/HCPCS: 77067; 77080

== ENCOUNTER 2024-10-16 13:46 | Emergency (ER) | payer MEDICARE, OTHER ==
[2024-10-16 13:49] VITALS: RESP 16
[2024-10-16 13:53] VITALS: TEMP 98.2
--- NOTE | 2024-10-16 13:56 | ED ---
General Adult HPI - General Chief complaint: Upper Respiratory Infection Stated complaint: Cough Time Seen by Provider: 10/16/24 13:51 Source: patient, RN notes reviewed Mode of arrival: ambulatory Limitations: no limitations - History of Present Illness Initial comments: Patient is a 48-year-old female present to the emergency department with cough. Symptoms have been present for 10 days now. Patient does have a sore throat that hurts to swallow. No fevers. Patient does have cough with occasional yellow sputum. Patient states this may be exacerbating her asthma some as well. No calf pain or swelling. - Related Data Home Medications Medication Instructions Recorded Confirmed Aspirin EC [Ecotrin Low Dose] 81 mg PO DAILY 04/16/19 02/17/24 Atorvastatin [Lipitor] 80 mg PO HS 11/17/20 02/17/24 Budesonide/Formoterol Fumarate 2 puff INHALATION RT-BID 11/17/20 02/17/24 [Symbicort 160-4.5 Mcg Inhaler] HYDROcodone/APAP 7.5-325MG [[place] 1 tab PO TID PRN 11/17/20 02/17/24 7.5-325] Brexpiprazole [Rexulti] 4 mg PO HS 08/09/21 02/17/24 Lacosamide [Vimpat] 200 mg PO BID 08/09/21 02/17/24 Umeclidinium [place] [Incruse 1 puff INHALATION RT-DAILY 08/09/21 02/17/24 Ellipta] Cholecalciferol [Vitamin D3 (25 50 mcg PO DAILY 10/09/21 02/17/24 Mcg = 1000 Iu)] Furosemide [Lasix] 20 mg PO QAM 10/28/21 02/17/24 Metoclopramide [Reglan] 5 mg PO TID 10/28/21 02/17/24 Potassium Chloride ER [K-Dur 20] 20 meq PO DAILY 10/28/21 02/17/24 DULoxetine HCL [Cymbalta] 60 mg PO BID 02/09/23 02/17/24 Divalproex [Depakote] 250 mg PO BID 02/09/23 02/17/24 busPIRone HCl [Buspar] 5 mg PO QAM 02/09/23 02/17/24 metFORMIN HCL 1,000 mg PO BID 02/09/23 02/17/24 Atogepant [Qulipta] 60 mg PO QAM 08/05/23 02/17/24 Mirabegron [Myrbetriq] 50 mg PO QAM 08/05/23 02/17/24 Rimegepant Sulfate [Nurtec Odt] 75 mg PO DAILY PRN 08/05/23 02/17/24 Thiamine [Vitamin B-1] 100 mg PO DAILY 08/05/23 02/17/24 lamoTRIgine [LaMICtal] 100 mg PO BID 08/05/23 02/17/24 tiZANidine [Zanaflex] 4 mg PO BID 08/05/23 02/17/24 Gabapentin [Neurontin] 300 mg PO TID 02/17/24 02/17/24 Previous Rx's Medication Instructions Recorded Cyclobenzaprine [Flexeril] 5 mg PO BID PRN #30 tablet 08/14/23 Allergies Allergy/AdvReac Type Severity Reaction Status Date / Time sulfamethoxazole Allergy Rash/Hives, Verified 10/16/24 13:48 [From Bactrim] Swelling in arms and legs topiramate [From Topamax] Allergy Anaphylaxis Verified 10/16/24 13:48 trimethoprim [From Bactrim] Allergy Rash/Hives, Verified 10/16/24 13:48 Swelling in arms and legs Review of Systems ROS Statement: Those systems with pertinent positive or pertinent negative responses have been documented in the HPI. ROS Other: All systems not noted in ROS Statement are negative. Constitutional: Denies: fever ENT: Reports: congestion. Denies: ear pain Respiratory: Reports: as per HPI, cough Cardiovascular: Denies: chest pain Gastrointestinal: Denies: abdominal pain Musculoskeletal: Denies: back pain Past Medical History Past Medical History: Asthma, Blood Disorder, COPD, Diabetes Mellitus, Fibromyalgia, Hyperlipidemia, Osteoarthritis (OA), Seizure Disorder, Syncope Additional Past Medical History / Comment(s): Type 2 diabetes. CHRONIC BACK PAIN; Restless leg syndrome, migraines, Factor 5 clotting disorder, varicose veins, last seizure 2022 - usually last 3 minutes pt. thinks they are petit mal, elevated HR sometimes History of Any Multi-Drug Resistant Organisms: None Reported Past Surgical History: Back Surgery, Section, Hysterectomy, Joint Replacement, Orthopedic Surgery, Tubal Ligation Additional Past Surgical History / Comment(s): stimulator for back, VNS implant for seizures, [facility] BSO in 2006 due to endometreosis. Right knee replacement surgery. Multiple back surgeries. Past Anesthesia/Blood Transfusion Reactions: No Reported Reaction Past Psychological History: Anxiety, Depression, Panic Disorder, PTSD Smoking Status: Current every day smoker Past Alcohol Use History: None Reported Past Drug Use History: None Reported - Past Family History Mother Family Medical History: Diabetes Mellitus Father Family Medical History: Hyperlipidemia Additional Family Medical History / Comment(s): Back problems. General Exam Limitations: no limitations General appearance: alert, in no apparent distress Head exam: Present: normocephalic Eye exam: Present: normal appearance Neck exam: Present: normal inspection Respiratory exam: Present: normal lung sounds bilaterally. Absent: respiratory distress, wheezes, rales, decreased breath sounds Cardiovascular Exam: Present: regular rate, normal rhythm GI/Abdominal exam: Present: soft. Absent: tenderness Extremities exam: Present: normal inspection. Absent: pedal edema, calf tenderness Neurological exam: Present: alert Psychiatric exam: Present: flat affect Skin exam: Present: normal color Course Vital Signs 10/16/24 13:46 Temperature 98.2 F Pulse Rate 82 Respiratory 16 Rate Blood Pressure 130/86 O2 Sat by Pulse 96 Oximetry Medical Decision Making - Medical Decision Making Was pt. sent in by a medical professional or institution (Dr. PA, ABATEMENT WORKER, urgent care, hospital, or penitentiary...) When possible be specific @ -No Did you speak to anyone other than the patient for history (EMS, parent, family, police, friend...)? What history was obtained from this source @ -No Did you review nursing and triage notes (agree or disagree)? Why? @ -I reviewed and agree with nursing and triage notes Were old charts reviewed (outside hosp., previous admission, EMS record, old EKG, old radiological studies, urgent care reports/EKG's, penitentiary records)? Report findings @ -No old charts were reviewed Differential Diagnosis (chest pain, altered mental status, abdominal pain women, abdominal pain men, vaginal bleeding, weakness, fever, dyspnea, syncope, headache, dizziness, GI bleed, back pain, seizure, CVA, palpatations, mental health, musculoskeletal)? @ -Differential Fever: Pneumonia, viral URI, endocarditis, myocarditis, pericarditis, otitis, sinusitis, peritonsillar Abscess, retropharyngeal Abscess, epiglottitis, peritonitis, appendicitis, [place] cystitis, diverticulitis, hepatitis, colitis, UTI, PID, TOA, pyelonephritis, prostatitis, epididymitis, meningitis, encephalitis, pulmonary embolism, CVA, thyroid storm, pancreatitis, adrenal crisis, cavernous sinus thrombosis, this is not meant to be an all-inclusive list. EKG interpreted by me (3pts min.). @ -As above X-rays interpreted by me (1pt min.). @ -Chest x-ray shows no acute process CT interpreted by me (1pt min.). @ -None done U/S interpreted by me (1pt. min.). @ -None done What testing was considered but not performed or refused? (CT, X-rays, U/S, labs)? Why? @ -None What meds were considered but not given or refused? Why? @ -None Did you discuss the management of the patient with other professionals (professionals i.e. , PA, ABATEMENT WORKER, lab, RT, psych nurse, director social welfare, team assembler, teacher, budget officer, patient case manager)? Give summary @ -No Was smoking cessation discussed for >3mins.? @ -No Was critical care preformed (if so, how long)? @ -No Were there social determinants of health that impacted care today? How? (Homelessness, low income, unemployed, alcoholism, drug addiction, transportation, low edu. Level, literacy, decrease access to med. care, custodial, rehab)? @ -No Was there de-escalation of care discussed even if they declined (Discuss DNR or withdrawal of care, Hospice)? DNR status @ -No What co-morbidities impacted this encounter? (DM, HTN, Smoking, COPD, CAD, Cancer, CVA, ARF, Chemo, Hep., AIDS, mental health diagnosis, sleep apnea, morbid obesity)? @ -None Was patient admitted / discharged? Hospital course, mention meds given and route, prescriptions, significant lab abnormalities, going to OR and other pertinent info. @ -Patient presents with cough and congestion. Evaluation unremarkable. Patient receptive to a dose of steroid prior to discharge. Patient recommended follow-up with her doctor. Patient is updated on results and need for follow- up. Undiagnosed new problem with uncertain prognosis? @ -No Drug Therapy requiring intensive monitoring for toxicity (Heparin, Nitro, Insulin, Cardizem)? @ -No Were any procedures done? @ -No Diagnosis/symptom? @ -Cough Acute, or Chronic, or Acute on Chronic? @ -Acute Uncomplicated (without systemic symptoms) or Complicated (systemic symptoms)? @ -Default Side effects of treatment? @ -No Exacerbation, Progression, or Severe Exacerbation? @ -No Poses a threat to life or bodily function? How? (Chest pain, [place], [place], pneumonia, PE, COPD, DKA, ARF, appy, cholecystitis, CVA, Diverticulitis, Homicidal, Suicidal, threat to staff... and all critical care pts) @ -No - Lab Data Lab Results 10/16/24 10/16/24 Range/Units 14:05 14:05 Influenza Type A (PCR) Not Detected (Not Detectd) Influenza Type B (PCR) Not Detected (Not Detectd) RSV (PCR) Not Detected (Not Detectd) SARS-CoV-2 (PCR) Not Detected (Not Detectd) Group A Strep (PCR) NOT DETECTED (Not Detectd) Disposition Clinical Impression: Cough Disposition: HOME SELF-CARE Condition: Stable Instructions (If sedation given, give patient instructions): Upper Respiratory Infection (ED) Additional Instructions: Please do follow-up with your primary care physician in the next couple days for recheck. Return for fevers, difficulty breathing, worsening or changing symptoms or other concerns. Is patient prescribed a controlled substance at d/c from ED?: No Referrals: Domingo Valdovinos MD [Primary Care Provider] - 1-2 days Time of Disposition: 15:02
--- NOTE | 2024-10-16 14:15 | XR ---
EXAMINATION TYPE: XR chest 2V DATE OF EXAM: 10/16/2024 2:06 PM COMPARISON: Previous chest radiograph dated 10/11/2022. CLINICAL INDICATION: Female, 48 years old with history of cough; H TECHNIQUE: XR chest 2V Frontal and lateral views of the chest. FINDINGS: Lungs/Pleura: There is no evidence of pleural effusion, focal consolidation, or pneumothorax. Pulmonary vascularity: Unremarkable. Heart/mediastinum: Cardiomediastinal silhouette is unremarkable. Musculoskeletal: No acute osseous pathology. Other findings: None Lines/Tubes: Spinal stimulator device present. IMPRESSION: No acute cardiopulmonary disease/process. [facility], , 10/16/2024 2:12 PM
[2024-10-16 14:49] LABS: Influenza A Not Detected (Not Detectd); Influenza B Not Detected (Not Detectd); RSV Not Detected (Not Detectd)
[2024-10-16] MEDS: DEXAMETHASONE SOD PHOSPHATE 4 MG/ML 1 ML VIAL IM STA (15:05)
[2024-10-16 15:11] VITALS: BP 114/70; PULSE 76
== END 2024-10-16 15:11 | disposition home or self-care (01) ==
LOC: EC 13:46
DX: R05.9 Cough, unspecified (principal); F17.200 Nicotine dependence, unspecified, uncomplicated; Z88.2 Allergy status to sulfonamides; Z88.1 Allergy status to other antibiotic agents; Z88.8 Allergy status to other drugs, medicaments and biological substances
CPT/HCPCS: 87651; 87636; 71046; 99283; 96372; J1100

== ENCOUNTER → 2024-10-27 | Outpatient (CLI) | payer MEDICARE ==
--- NOTE | 2024-10-27 17:33 | XR ---
EXAMINATION TYPE: XR chest 2V DATE OF EXAM: 10/27/2024 4:58 PM COMPARISON: 10/16/2024 CLINICAL INDICATION: Female, 48 years old with history of J449 COPD, TECHNIQUE: XR chest 2V view(s) obtained. FINDINGS: The heart size is normal. The pulmonary vasculature is normal. The lungs are clear. Electronic device lead is directed towards the neck. Stimulator leads are also present within the mid thoracic region. IMPRESSION: 1. No acute pulmonary process. [facility], Workstation: [facility] [place] [facility], 10/27/2024 5:31 PM
[2024-10-27 18:03] LABS: Influenza A Not Detected (Not Detectd); Influenza B Not Detected (Not Detectd); RSV Not Detected (Not Detectd)
== END | disposition home or self-care (01) ==
LOC: LABWHC1 16:33
PROVIDERS: ATTEND Family Medicine
DX: J44.9 Chronic obstructive pulmonary disease, unspecified (principal); B89 Unspecified parasitic disease
CPT/HCPCS: 71046; 87636

== ENCOUNTER 2025-03-13 13:27 | Emergency (ER) | payer MEDICARE ==
--- NOTE | 2025-03-13 13:50 | ED ---
General Adult HPI - General Chief complaint: Urogenital Stated complaint: Urogenital Time Seen by Provider: 03/13/25 13:39 Source: patient, RN notes reviewed Mode of arrival: ambulatory Limitations: no limitations - History of Present Illness Initial comments: Quick [id number] female presenting to the emergency department for complaints of bladder and bilateral flank pain over the past approximately 2 weeks. Patient states that she was diagnosed with pyelonephritis on the at outside facility however is not currently on antibiotics. She states that she has burning after she wipes to use in the bathroom. Denies fevers, chills, nausea, vomiting, dysuria, increased urinary frequency or urgency. - Related Data Home Medications Medication Instructions Recorded Confirmed Aspirin EC [Ecotrin Low Dose] 81 mg PO DAILY 04/16/19 02/17/24 Atorvastatin [Lipitor] 80 mg PO HS 11/17/20 02/17/24 Budesonide/Formoterol Fumarate 2 puff INHALATION RT-BID 11/17/20 02/17/24 [Symbicort 160-4.5 Mcg Inhaler] HYDROcodone/APAP 7.5-325MG [[place] 1 tab PO TID PRN 11/17/20 02/17/24 7.5-325] Brexpiprazole [Rexulti] 4 mg PO HS 08/09/21 02/17/24 Lacosamide [Vimpat] 200 mg PO BID 08/09/21 02/17/24 Umeclidinium [place] [Incruse 1 puff INHALATION RT-DAILY 08/09/21 02/17/24 Ellipta] Cholecalciferol [Vitamin D3 (25 50 mcg PO DAILY 10/09/21 02/17/24 Mcg = 1000 Iu)] Furosemide [Lasix] 20 mg PO QAM 10/28/21 02/17/24 Metoclopramide [Reglan] 5 mg PO TID 10/28/21 02/17/24 Potassium Chloride ER [K-Dur 20] 20 meq PO DAILY 10/28/21 02/17/24 DULoxetine HCL [Cymbalta] 60 mg PO BID 02/09/23 02/17/24 Divalproex [Depakote] 250 mg PO BID 02/09/23 02/17/24 busPIRone HCl [Buspar] 5 mg PO QAM 02/09/23 02/17/24 metFORMIN HCL 1,000 mg PO BID 02/09/23 02/17/24 Atogepant [Qulipta] 60 mg PO QAM 08/05/23 02/17/24 Mirabegron [Myrbetriq] 50 mg PO QAM 08/05/23 02/17/24 Rimegepant Sulfate [Nurtec Odt] 75 mg PO DAILY PRN 08/05/23 02/17/24 Thiamine [Vitamin B-1] 100 mg PO DAILY 08/05/23 02/17/24 lamoTRIgine [LaMICtal] 100 mg PO BID 08/05/23 02/17/24 tiZANidine [Zanaflex] 4 mg PO BID 08/05/23 02/17/24 Gabapentin [Neurontin] 300 mg PO TID 02/17/24 02/17/24 Previous Rx's Medication Instructions Recorded Cyclobenzaprine [Flexeril] 5 mg PO BID PRN #30 tablet 08/14/23 Allergies Allergy/AdvReac Type Severity Reaction Status Date / Time sulfamethoxazole Allergy Rash/Hives, Verified 03/13/25 13:43 [From Bactrim] Swelling in arms and legs topiramate [From Topamax] Allergy Anaphylaxis Verified 03/13/25 13:43 trimethoprim [From Bactrim] Allergy Rash/Hives, Verified 03/13/25 13:43 Swelling in arms and legs Review of Systems ROS Statement: Those systems with pertinent positive or pertinent negative responses have been documented in the HPI. ROS Other: All systems not noted in ROS Statement are negative. Past Medical History Past Medical History: Asthma, Blood Disorder, COPD, Diabetes Mellitus, Fibromyalgia, Hyperlipidemia, Osteoarthritis (OA), Seizure Disorder, Syncope Additional Past Medical History / Comment(s): Type 2 diabetes. CHRONIC BACK PAIN; Restless leg syndrome, migraines, Factor 5 clotting disorder, varicose veins, last seizure 2022 - usually last 3 minutes pt. thinks they are petit mal, elevated HR sometimes History of Any Multi-Drug Resistant Organisms: None Reported Past Surgical History: Back Surgery, Section, Hysterectomy, Joint Replacement, Orthopedic Surgery, Tubal Ligation Additional Past Surgical History / Comment(s): stimulator for back, VNS implant for seizures, KETAN BSO in 2005 due to endometreosis. Right knee replacement surgery. Multiple back surgeries. Past Anesthesia/Blood Transfusion Reactions: No Reported Reaction Past Psychological History: Anxiety, Depression, Panic Disorder, PTSD Smoking Status: Current every day smoker Past Alcohol Use History: None Reported Past Drug Use History: None Reported - Past Family History Mother Family Medical History: Diabetes Mellitus Father Family Medical History: Hyperlipidemia Additional Family Medical History / Comment(s): Back problems. General Exam - General Exam Comments Initial Comments: Visual Physical Exam Vital signs reviewed General: Well-appearing, nontoxic, no acute distress. Head: Normocephalic, atraumatic Eyes: PERRLA, EOMI ENT: Airway patent Chest: Nonlabored breathing Skin: No visual rash, normal skin tone Neuro: Alert and oriented 3 Musculoskeletal: No gross abnormalities Limitations: no limitations Course Vital Signs 03/13/25 13:38 Temperature 98.3 F Pulse Rate 84 Respiratory 18 Rate Blood Pressure 112/76 O2 Sat by Pulse 96 Oximetry Medical Decision Making - Medical Decision Making I completed the quick note portion of this chart signed Salma Madrigal PA-C Disposition Referrals: Domingo Valdovinos MD [Primary Care Provider] - 1-2 days
[2025-03-13 14:19] LABS: Basophils # (A) 0.06 10*3/uL (0.00-0.10); Basophils % (A) 0.7 %; Eosinophils # (A) 0.37 10*3/uL (0.04-0.35); Eosinophils % (A) 4.5 %; HCT 37.4 % (37.2-46.3); HGB 12.4 g/dL (12.0-15.0); Lymphocytes # (A) 2.89 10*3/uL (0.90-5.00); Lymphocytes % (A) 35.2 %; MCH 30.5 pg (27.0-32.0); MCHC 33.2 g/dL (32.0-37.0); MCV 91.9 fL (80.0-97.0); Mean Platelet Volume 10.6 fL (9.5-12.2); Monocytes # (A) 0.63 10*3/uL (0.20-1.00); Monocytes % (A) 7.7 %; Neutrophils # (A) 4.24 10*3/uL (1.80-7.70); Neutrophils % (A) 51.7 %; Platelet Count 207 10*3/uL (140-440); RBC 4.07 10*6/uL (4.10-5.20); WBC 8.21 10*3/uL (4.50-10.00)
[2025-03-13 14:21] LABS: Appearance,Urine Clear (Clear); Bilirubin,Urine Negative (Negative); Blood,Urine Negative (Negative); Color,Urine Yellow; Glucose,Urine (UA) Negative (Negative); Ketones,Urine Negative (Negative); Leukocyte Esterase,Urine Negative (Negative); Nitrite,Urine Negative (Negative); PH, Urine 5.5 (5.0-8.0); Protein,Urine Negative (Negative); Specific Gravity,Urine 1.019 (1.001-1.035); Urobilinogen,Urine <2.0 mg/dL (<2.0)
[2025-03-13] MEDS: KETOROLAC 15 MG/ML 1 ML VIAL IVP STA (18:44)
--- NOTE | 2025-03-13 19:05 | ED ---
General Adult HPI - General Source: patient, family, RN notes reviewed, old records reviewed Mode of arrival: ambulatory Limitations: no limitations <Ameena Menendez - Last Filed: 03/13/25 21:44> <Gurvinder Gonsales - Last Filed: 03/14/25 08:05> - General Chief complaint: Urogenital Stated complaint: Urogenital Time Seen by Provider: 03/13/25 13:39 - History of Present Illness Initial comments: 49-year-old female presenting with complaints of abdominal/pelvic distention, burning when wiping after urination, and back pain. Reports the symptoms have been going on for approximately 2 weeks, 5 days ago she went to [facility] where she was evaluated and was discharged with fluconazole. States since then taking that medication her symptoms have not resolved and have stayed the same. Describes the abdominal pain as 8 out of 10 throughout, and 10 out of 10 in the lower abdomen as well as in the pelvic area. Reports she has been taking ibuprofen at home without much relief of her symptoms. Of note she admits to a history of hysterectomy in her 30s for which she believes she had her ovaries removed as well, cholecystectomy, and appendectomy. Denies any relieving factors or anything that makes it worse. Denies dysuria, vaginal bleeding, or discharge. (Ameena Menendez) - Related Data Home Medications Medication Instructions Recorded Confirmed Aspirin EC [Ecotrin Low Dose] 81 mg PO DAILY 04/16/19 02/17/24 Atorvastatin [Lipitor] 80 mg PO HS 11/17/20 02/17/24 Budesonide/Formoterol Fumarate 2 puff INHALATION RT-BID 11/17/20 02/17/24 [Symbicort 160-4.5 Mcg Inhaler] HYDROcodone/APAP 7.5-325MG [[place] 1 tab PO TID PRN 11/17/20 02/17/24 7.5-325] Brexpiprazole [Rexulti] 4 mg PO HS 08/09/21 02/17/24 Lacosamide [Vimpat] 200 mg PO BID 08/09/21 02/17/24 Umeclidinium [place] [Incruse 1 puff INHALATION RT-DAILY 08/09/21 02/17/24 Ellipta] Cholecalciferol [Vitamin D3 (25 50 mcg PO DAILY 10/09/21 02/17/24 Mcg = 1000 Iu)] Furosemide [Lasix] 20 mg PO QAM 10/28/21 02/17/24 Metoclopramide [Reglan] 5 mg PO TID 10/28/21 02/17/24 Potassium Chloride ER [K-Dur 20] 20 meq PO DAILY 10/28/21 02/17/24 DULoxetine HCL [Cymbalta] 60 mg PO BID 02/09/23 02/17/24 Divalproex [Depakote] 250 mg PO BID 02/09/23 02/17/24 busPIRone HCl [Buspar] 5 mg PO QAM 02/09/23 02/17/24 metFORMIN HCL 1,000 mg PO BID 02/09/23 02/17/24 Atogepant [Qulipta] 60 mg PO QAM 08/05/23 02/17/24 Mirabegron [Myrbetriq] 50 mg PO QAM 08/05/23 02/17/24 Rimegepant Sulfate [Nurtec Odt] 75 mg PO DAILY PRN 08/05/23 02/17/24 Thiamine [Vitamin B-1] 100 mg PO DAILY 08/05/23 02/17/24 lamoTRIgine [LaMICtal] 100 mg PO BID 08/05/23 02/17/24 tiZANidine [Zanaflex] 4 mg PO BID 08/05/23 02/17/24 Gabapentin [Neurontin] 300 mg PO TID 02/17/24 02/17/24 Previous Rx's Medication Instructions Recorded Cyclobenzaprine [Flexeril] 5 mg PO BID PRN #30 tablet 08/14/23 Peg 3350 (236 gm/Btl) + Lytes 4,000 ml PO DIRECTED #1 each 03/13/25 [Golytely Lavage] Allergies Allergy/AdvReac Type Severity Reaction Status Date / Time sulfamethoxazole Allergy Rash/Hives, Verified 03/13/25 13:43 [From Bactrim] Swelling in arms and legs topiramate [From Topamax] Allergy Anaphylaxis Verified 03/13/25 13:43 trimethoprim [From Bactrim] Allergy Rash/Hives, Verified 03/13/25 13:43 Swelling in arms and legs Review of Systems ROS Other: All systems not noted in ROS Statement are negative. <Ameena Menendez - Last Filed: 03/13/25 21:44> ROS Other: All systems not noted in ROS Statement are negative. <Gurvinder Gonsales - Last Filed: 03/14/25 08:05> ROS Statement: Those systems with pertinent positive or pertinent negative responses have been documented in the HPI. Past Medical History Past Medical History: Asthma, Blood Disorder, COPD, Diabetes Mellitus, Fibromyalgia, Hyperlipidemia, Osteoarthritis (OA), Seizure Disorder, Syncope Additional Past Medical History / Comment(s): Type 2 diabetes. CHRONIC BACK PAIN; Restless leg syndrome, migraines, Factor 5 clotting disorder, varicose veins, last seizure 2022 - usually last 3 minutes pt. thinks they are petit mal, elevated HR sometimes History of Any Multi-Drug Resistant Organisms: None Reported Past Surgical History: Back Surgery, Section, Hysterectomy, Joint Replacement, Orthopedic Surgery, Tubal Ligation Additional Past Surgical History / Comment(s): stimulator for back, VNS implant for seizures, KETAN BSO in 2005 due to endometreosis. Right knee replacement surgery. Multiple back surgeries. Past Anesthesia/Blood Transfusion Reactions: No Reported Reaction Past Psychological History: Anxiety, Depression, Panic Disorder, PTSD Smoking Status: Current every day smoker Past Alcohol Use History: None Reported Past Drug Use History: None Reported - Past Family History Mother Family Medical History: Diabetes Mellitus Father Family Medical History: Hyperlipidemia Additional Family Medical History / Comment(s): Back problems. <Ameena Menendez - Last Filed: 03/13/25 21:44> General Exam Limitations: no limitations <Ameena Menendez - Last Filed: 03/13/25 21:44> - General Exam Comments Initial Comments: GENERAL: In mild distress distress at the time of examination. Pleasant and cooperative. Obese. HEENT: Head is atraumatic, normocephalic. Pupils are equal, round, and reactive to light. Sclerae anicteric. Conjunctivae are clear. Mucus membranes of the mouth are moist. Neck is supple. RESPIRATORY: Clear to auscultation. No wheezes, rales, or rhonchi. No use of accessory muscles. Patient maintaining oxygen saturation greater than 92%. No chest wall tenderness is noted on palpation or with deep breathing. CARDIOVASCULAR: Regular rate and rhythm. S1 and S2 noted. No systolic or diastolic murmur auscultated. No JVD noted. No S3 or S4 noted. GASTROINTESTINAL: Mild distention noted. Abdomen soft and round. Normal active bowel sounds auscultated x 4 quadrants. Tenderness upon palpation in all 4 quadrants and diffusely in the pelvis, slightly more on the right. : External genitalia have no obvious abnormalities, no overt erythema, swelling, edema, discharge noticed at the external os nor blood. On digital exam tenderness appreciated upon entry and on bimanual exam. INTEGUMENTARY: No cyanosis. No jaundice. No rashes noted. No cellulitis noted. EXTREMITIES: 2+ peripheral pulses. No evidence of peripheral edema. No calf tenderness noted. PSYCHIATRIC: Awake, alert, and oriented X 3. Appropriate affect. Intact diving judge ment and insight. (Ameena Menendez) Course Vital Signs 03/13/25 03/13/25 03/13/25 13:38 18:43 21:49 Temperature 98.3 F 98.1 F 97.9 F Pulse Rate 84 80 75 Respiratory 18 18 16 Rate Blood Pressure 112/76 118/68 109/71 O2 Sat by Pulse 96 97 95 Oximetry Medical Decision Making - Lab Data Result diagrams: 03/13/25 14:10 03/13/25 19:01 <Ameena Menendez - Last Filed: 03/13/25 21:44> - Lab Data Result diagrams: 03/13/25 14:10 03/13/25 19:01 <Gurvinder Gonsales - Last Filed: 03/14/25 08:05> - Medical Decision Making Was pt. sent in by a medical professional or institution (, PA, BIOLOGICAL PLANT OPERATOR, urgent care, hospital, or skilled nursing...) When possible be specific @ -No Did you speak to anyone other than the patient for history (EMS, parent, family, police, friend...)? What history was obtained from this source @ -Yes, friend/family Did you review nursing and triage notes (agree or disagree)? Why? @ -I reviewed and agree with nursing and triage notes Were old charts reviewed (outside hosp., previous admission, EMS record, old EKG, old radiological studies, urgent care reports/EKG's, skilled nursing records)? Report findings @ -No old charts were reviewed Differential Diagnosis? @ -Differential Abdominal Pain Women: Appendicitis, Cholecystitis, diverticulosis, ischemic bowel, pancreatitis, hepatitis, UTI, gastroenteritis, AAA, incarcerated hernia, bowel obstruction, constipation, inflammatory bowel, hepatitis, peptic ulcer disease, splenic infarction, perforated viscus, vulvitis, ovarian torsion, PID, kidney stone, placenta abruption, this is not meant to be an all-inclusive list EKG interpreted by me (3pts min.). @ -As above X-rays interpreted by me (1pt min.). @ -None done CT interpreted by me (1pt min.). @ -CT abdomen pelvis shows no acute process changes. Decent amount of stool appreciated. U/S interpreted by me (1pt. min.). @ -None done What testing was considered but not performed or refused? (CT, X-rays, U/S, labs)? Why? @ -None What meds were considered but not given or refused? Why? @ -None Did you discuss the management of the patient with other professionals (professionals i.e. , PA, BIOLOGICAL PLANT OPERATOR, lab, RT, psych nurse, sr. social media & mobile manager, ecd, teacher, loan officer, gearcase assembler)? Give summary @ -No Was smoking cessation discussed for >3mins.? @ -No Was critical care preformed (if so, how long)? @ -No Were there social determinants of health that impacted care today? How? (Homelessness, low income, unemployed, alcoholism, drug addiction, transportation, low edu. Level, literacy, decrease access to med. care, detention, rehab)? @ -No Was there de-escalation of care discussed even if they declined (Discuss DNR or withdrawal of care, Hospice)? DNR status @ -No What co-morbidities impacted this encounter? (DM, HTN, Smoking, COPD, CAD, Cancer, CVA, ARF, Chemo, Hep., AIDS, mental health diagnosis, sleep apnea, morbid obesity)? @ -None Was patient admitted / discharged? Hospital course, mention meds given and route, prescriptions, significant lab abnormalities, going to OR and other p ertinent info. @ -Discharged, 49-year-old female with history of chronic back pain on pain medication presents with complaints of abdominal/pelvic bloating, back pain, and burning sensation with wiping. Pain has been going on for approximately 2 weeks, was seen at [facility] for where she received fluconazole and since then has not seen any improvement in her symptoms. Has had some increased frequency and urgency as well. Urinalysis here within normal limits, CBC and CMP also within normal limits. CT abdomen pelvis documented above, shows decent amount of stool in the colon otherwise no acute processes ongoing. Patient was given pain medication here which seemed to help her symptoms. Patient was discharged and sent home with GoLytely to help move the bowels and eliminate some of the stool seen on imaging. Patient is advised to follow-up with her PCP in 1 to 2 days. Undiagnosed new problem with uncertain prognosis? @ -No Drug Therapy requiring intensive monitoring for toxicity (Heparin, Nitro, Insulin, Cardizem)? @ -No Were any procedures done? @ -No Diagnosis/symptom? @ -Constipation Acute, or Chronic, or Acute on Chronic? @ -Acute Uncomplicated (without systemic symptoms) or Complicated (systemic symptoms)? @ -Default Side effects of treatment? @ -No Exacerbation, Progression, or Severe Exacerbation? @ -No Poses a threat to life or bodily function? How? (Chest pain, [place], [place], pneumonia, PE, COPD, DKA, ARF, appy, cholecystitis, CVA, Diverticulitis, Homicidal, Suicidal, threat to staff... and all critical care pts) @ -No (Ameena Menendez) I personally saw the patient and performed the critical portion of the service. I discussed the patient care with the [resident or medical student]. I directed management, care planning and final disposition of the patient. This includes, but not limited to, review of all lab work, radiological studies, EKG's, consultations, vital signs, and nursing notes. EKG interpreted by me (3pts min.) @ [as above] X-Rays interpreted by me (1 pt min.) @ [none] CT interpreted by me ( 1pt min.) @Negative for free air, obstruction, or acute surgical condition U/S interpreted by me (1 pt min.) @ [none] Critical care time of [0] minutes excluding separately billable procedures was spent in conjunction with critical care activities provided by the Resident and Attending simultaneously. I was present during [no procedures] for all critical portions of the procedure and as immediately available to furnish service during the entire procedure. (Gurvinder Gonsales) - Lab Data Lab Results 03/13/25 03/13/25 03/13/25 Range/Units 14:10 14:10 19:01 WBC 8.21 (4.50-10.00) 10*3/uL RBC 4.07 L (4.10-5.20) 10*6/uL Hgb 12.4 (12.0-15.0) g/dL Hct 37.4 (37.2-46.3) % MCV 91.9 (80.0-97.0) fL MCH 30.5 (27.0-32.0) pg MCHC 33.2 (32.0-37.0) g/dL Plt Count 207 (140-440) 10*3/uL MPV 10.6 (9.5-12.2) fL Immature Gran % (Auto) 0.2 % Neutrophils % 51.7 % Lymphocytes % 35.2 % Monocytes % 7.7 % Eosinophils % 4.5 % Basophils % 0.7 % Immature Gran # 0.02 (0.00-0.04) 10*3/uL Neutrophils # 4.24 (1.80-7.70) 10*3/uL Lymphocytes # 2.89 (0.90-5.00) 10*3/uL Monocytes # 0.63 (0.20-1.00) 10*3/uL Eosinophils # 0.37 H (0.04-0.35) 10*3/uL Basophils # 0.06 (0.00-0.10) 10*3/uL Sodium 139 (137-145) mmol/L Potassium 4.4 (3.5-5.1) mmol/L Chloride 102 (98-107) mmol/L Carbon Dioxide 30 (22-30) mmol/L Anion Gap 7 mmol/L BUN 13 (7-17) mg/dL Creatinine 1.03 (0.52-1.04) mg/dL Est GFR (CKD-EPI)AfAm 74 (>60 ml/min/1.73 sqM) Est GFR (CKD-EPI)NonAf 64 (>60 ml/min/1.73 sqM) Glucose 86 (74-99) mg/dL Calcium 9.8 (8.4-10.2) mg/dL Total Bilirubin 0.3 (0.2-1.3) mg/dL AST 32 (14-36) U/L ALT 37 H (4-34) U/L Alkaline Phosphatase 99 (38-126) U/L Total Protein 7.0 (6.3-8.2) g/dL Albumin 4.0 (3.5-5.0) g/dL Urine Color Yellow Urine Appearance Clear (Clear) Urine pH 5.5 (5.0-8.0) Ur Specific [place] 1.019 (1.001-1.035) Urine Protein Negative (Negative) Urine Glucose (UA) Negative (Negative) Urine Ketones Negative (Negative) Urine Blood Negative (Negative) Urine Nitrite Negative (Negative) Urine Bilirubin Negative (Negative) Urine Urobilinogen <2.0 (<2.0) mg/dL Ur Leukocyte Esterase Negative (Negative) Disposition Is patient prescribed a controlled substance at d/c from ED?: No <Ameena Menendez - Last Filed: 03/13/25 21:44> <Gurvinder Gonsales - Last Filed: 03/14/25 08:05> Clinical Impression: Constipation Disposition: HOME SELF-CARE Prescriptions: Peg 3350 (236 gm/Btl) + Lytes [Golytely Lavage] 4,000 ml PO DIRECTED #1 each Referrals: Domingo Valdovinos MD [Primary Care Provider] - 1-2 days
[2025-03-13 19:21] LABS: ALT 37 U/L (4-34); AST 32 U/L (14-36); African American GFR (CKD) 74 (>60 ml/min/1.73 sqM); Alkaline Phosphatase 99 U/L (38-126); Anion Gap 7 mmol/L; Blood Urea Nitrogen 13 mg/dL (7-17); Calcium 9.8 mg/dL (8.4-10.2); Carbon Dioxide 30 mmol/L (22-30); Chloride 102 mmol/L (98-107); Glucose 86 mg/dL (74-99); Non-African American GFR(CKD) 64 (>60 ml/min/1.73 sqM); Potassium 4.4 mmol/L (3.5-5.1); Sodium 139 mmol/L (137-145); Total Bilirubin 0.3 mg/dL (0.2-1.3)
--- NOTE | 2025-03-13 20:24 | CT ---
EXAMINATION TYPE: CT abdomen pelvis w con DATE OF EXAM: 03/13/2025 8:01 PM COMPARISON: 06/23/2017 CLINICAL INDICATION: Female, 49 years old with history of abd and pelvic pain and distension, abdomin al pain x 3 weeks TECHNIQUE: Axial images were obtained from above the diaphragm to the pubic rami in the axial plane a t 5 mm thick sections. Reconstructed images are reviewed on the computer in the coronal plane. CONTRAST: 100 mL of Isovue 300. Study performed without Oral Contrast DLP: 1711.8 mGycm, Automated exposure control for dose reduction was used. FINDINGS: Limited CT sections are obtained the lung bases. The lung bases are clear. CT ABDOMEN: Liver: Normal Spleen: Normal Pancreas: Normal Adrenal glands: The adrenal glands are normal. Gallbladder: Not visualized. Kidneys: No masses are evident. No hydronephrosis is present. No cysts are present. No renal stone s evident. Delayed images were obtained. Excretion is not evident on the delayed images. Aorta: Vascular calcification is within the aorta. Inferior vena cava: Normal. CT PELVIS: Loops of bowel within the abdomen and pelvis are normal. This study is without oral contrast limi ting evaluation. No suspicious dilated loops of bowel. Appendix: Not identified. Correlate with surgical history. There may be prior appendectomy. Urinary bladder: Normal. Genitourinary structures: Uterus and ovaries are not identified. Osseous structures: No suspicious lytic or sclerotic lesions. Prior lumbar fixation is evident. IMPRESSION: 1. No suspicious acute changes 2. Contrast excretion during this exam is not observed. Evaluate renal function. [facility], , 03/13/2025 8:22 PM
[2025-03-13] MEDS: MORPHINE SULFATE 2 MG/ML SYRINGE IVP STA (21:15)
[2025-03-13 21:50] VITALS: BP 109/71; PULSE 75; RESP 16; TEMP 97.9
== END 2025-03-13 22:01 | disposition home or self-care (01) ==
LOC: EC 13:27
DX: K59.00 Constipation, unspecified (principal); F17.200 Nicotine dependence, unspecified, uncomplicated; Z88.1 Allergy status to other antibiotic agents; Z88.2 Allergy status to sulfonamides
CPT/HCPCS: 36415; 80053; 85025; 81003; 74177; 99284; 96374; 96375; J2270; J1885; Q9967